=== PATIENT | female | born 1985 | race Caucasian/White ===

== ENCOUNTER → 2016-07-31 | Emergency (ER) | payer SELFPAY ==
[~2016-07-31] VITALS: Ht 175.3 cm; Wt 127.0 kg
[~2016-07-31] MED LIST: CLIN300C86 PO; GABA800T2 PO; HYDR-971 PO; IV NORMAL SALINE 1000ML BAG 1,000 ML IV SCH; KETOROLAC TROMETHAMINE 30 MG/ML INJ. IV ONE; ONDANSETRON PF 4 MG/2 ML VIAL. IV ONE
[2016-07-31 08:41] VITALS: BP 169/89
--- NOTE | 2016-07-31 08:59 | ED.ADGEN ---
Past Medical History Past Medical History: Anxiety, Asthma, Depression, Hypertension, Other Additional Past Medical Histor: neuropathy Past Surgical History: Cholecystectomy, , Hysterectomy, Other Additional Past Surgical Histo: dental Alcohol Use: Occasionally Drug Use: None Adult General Chief Complaint Chief Complaint: NAUSEA/VOMITING/DIARRHA HPI HPI Patient is a 30 year old woman, history of hypertension, anxiety, obesity, neuropathy for which she takes gabapentin, who presents to the emergency department with a complaint of nausea, vomiting, diarrhea, and epigastric abdominal pain. Patient is tearful upon arrival to the ED, states that she's had "many" episodes of vomiting since around 10 PM last night. She states that she last ate several hours prior to that, a burrito, denies any sick contacts or exposures, any fevers or chills, any similar to previously, states she is vomiting food and fluid, no blood in stool or emesis. She denies any weakness numbness or tingling, any recent travel, any previous surgeries. Denies any sexual activity, any urinary complaints, discharge or drainage in the vagina, states that diarrhea is loose brown stool, and emesis is food and fluid. Has not taken any medication prior to coming to the ED. States she's had similar episode previously, when she "had a bug". Review of Systems Review of Systems Constitutional: Denies fever or chills. [] Eyes: Denies change in visual acuity. [] HENT: Denies nasal congestion or sore throat. [] Respiratory: Denies cough or shortness of breath. [] Cardiovascular: Denies chest pain or edema. [] GI: Epigastric abdominal pain, intermittent, associated with nausea, vomiting, and diarrhea. : Denies dysuria. [] Musculoskeletal: Denies back pain or joint pain. [] Integument: Denies rash. [] Neurologic: Denies headache, focal weakness or sensory changes. [] Endocrine: Denies polyuria or polydipsia. [] Lymphatic: Denies swollen glands. [] Psychiatric: Denies depression or anxiety. [] Current Medications Current Medications Current Medications Medications (Trade) Dose Ordered Sig/Vanesa Start Time Stop Time Status Last Admin Dose Admin Ketorolac Tromethamine (Toradol) 10 mg 1X ONCE 07/31/16 09:00 07/31/16 09:01 DC 07/31/16 09:12 10 MG Ondansetron HCl (Zofran) 4 mg 1X ONCE 07/31/16 09:00 07/31/16 09:01 DC 07/31/16 09:12 4 MG Sodium Chloride (Iv Sodium Chloride 0.9% 1000ml Bag) 1,000 ml @ 1,000 mls/hr Q1H 07/31/16 08:49 07/31/16 09:48 DC 07/31/16 09:12 1,000 MLS/HR Allergies Allergies Allergies Coded Allergies Type Severity Reaction Last Updated Verified Penicillins Allergy Intermediate 03/06/14 Yes bupropion Allergy Intermediate 03/06/14 Yes meperidine Allergy Intermediate 03/06/14 Yes Physical Exam Physical Exam Constitutional: Well developed, obese, no acute distress, non-toxic appearance. [] HENT: Normocephalic, atraumatic, bilateral external ears normal, oropharynx moist, no oral exudates, nose normal. [] Eyes: PERRLA, EOMI, conjunctiva normal, no discharge. [] Neck: Normal range of motion, no tenderness, supple, no stridor. [] Cardiovascular:Heart rate regular rhythm, no murmur, S1, S2, rubs or gallops. [] Lungs & Thorax: Bilateral breath sounds clear to auscultation, no wheezing, rhonchi, rales. [] Abdomen: Bowel sounds normal, obese, soft, mild tenderness palpation in the epigastric region, no right upper quadrant tenderness, no lower quadrant tenderness, no rebound, rigidity, no guarding, active bowel sounds noted, no masses, no pulsatile masses. [] Skin: Warm, dry, no erythema, no rash. [] Back: No tenderness, no CVA tenderness. [] Extremities: No tenderness, no cyanosis, no clubbing, ROM intact, no edema. [] Neurologic: Alert and oriented X 3, normal motor function, normal sensory function, no focal deficits noted. [] Psychologic: Affect normal, judgement normal, mood normal. [] Current Patient Data Vital Signs Vital Signs Date Time Temp Pulse Resp B/P Pulse Ox O2 Delivery O2 Flow Rate FiO2 07/31/16 08:41 98.1 98 20 169/89 97 Room Air 98.1 Lab Values Laboratory Tests Test 07/31/16 09:00 07/31/16 09:05 07/31/16 09:40 Urine Collection Type Unknown Urine Color Yellow Urine Clarity Clear Urine pH 8.0 Urine Specific Tracy 1.010 Urine Protein Negativemg/dL (NEG-TRACE) Urine Glucose (UA) Negativemg/dL (NEG) Urine Ketones (Stick) Negativemg/dL (NEG) Urine Blood Negative (NEG) Urine Nitrite Negative (NEG) Urine Bilirubin Negative (NEG) Urine Urobilinogen Dipstick 0.2mg/dL (0.2 mg/dL) Urine Leukocyte Esterase Negative (NEG) Urine RBC Rare/HPF (0-2) Urine WBC 1-4/HPF (0-4) Urine Squamous Epithelial Cells Few/LPF Urine Bacteria Few/HPF (0-FEW) Urine Test Negative (NEG) Urine Opiates Screen Neg (NEG) Urine Methadone Screen Neg (NEG) Urine Barbiturates Neg (NEG) Urine Phencyclidine Screen Neg (NEG) Urine Amphetamine/Methamphetamine Neg (NEG) Urine Benzodiazepines Screen Neg (NEG) Urine Cocaine Screen Neg (NEG) Urine Cannabinoids Screen Neg (NEG) Urine Ethyl Alcohol Neg (NEG) White Blood Count 10.2x10^3/uL (4.0-11.0) Red Blood Count 4.93x10^6/uL (3.50-5.40) Hemoglobin 14.0g/dL (12.0-15.5) Hematocrit 39.7% (36.0-47.0) Mean Corpuscular Volume 81fL (79-100) Mean Corpuscular Hemoglobin 28pg (25-35) Mean Corpuscular Hemoglobin Concent 35g/dL (31-37) Red Cell Distribution Width 14.0% (11.5-14.5) Platelet Count 435x10^3/uL (140-400) H Neutrophils (%) (Auto) 82% (31-73) H Lymphocytes (%) (Auto) 11% (24-48) L Monocytes (%) (Auto) 6% (0-9) Eosinophils (%) (Auto) 0% (0-3) Basophils (%) (Auto) 1% (0-3) Neutrophils # (Auto) 8.4x10^3uL (1.8-7.7) H Lymphocytes # (Auto) 1.1x10^3/uL (1.0-4.8) Monocytes # (Auto) 0.6x10^3/uL (0.0-1.1) Eosinophils # (Auto) 0.0x10^3/uL (0.0-0.7) Basophils # (Auto) 0.1x10^3/uL (0.0-0.2) Sodium Level 122mmol/L (136-145) L Potassium Level 4.5mmol/L (3.5-5.1) Chloride Level 87mmol/L (98-107) L Carbon Dioxide Level 25mmol/L (21-32) Anion Gap 10 (6-14) Blood Urea Nitrogen 7mg/dL (7-20) Creatinine 0.6mg/dL (0.6-1.0) Estimated GFR (Cockcroft-Gault) 116.6 BUN/Creatinine Ratio 12 (6-20) Glucose Level 141mg/dL (70-99) H Calcium Level 9.0mg/dL (8.5-10.1) Total Bilirubin 0.2mg/dL (0.2-1.0) Aspartate Amino Transferase (AST) 15U/L (15-37) Alanine Aminotransferase (ALT) 20U/L (14-59) Alkaline Phosphatase 75U/L (46-116) Total Protein 7.3g/dL (6.4-8.2) Albumin 3.4g/dL (3.4-5.0) Albumin/Globulin Ratio 0.9 (1.0-1.7) L Lipase 57U/L (73-393) L Laboratory Tests 07/31/16 09:05 Laboratory Tests 07/31/16 09:40 EKG EKG Not indicated. [] Radiology/Procedures Radiology/Procedures [] Course & Med Decision Making Course & Med Decision Making Pertinent Labs and Imaging studies reviewed. (See chart for details) Patient received pain medication, antiemetics, was agreeable for laboratory studies and imaging of the abdomen. However while was with the patient, the patient called nurse Alvarado to the bedside and informed her that she "needed to leave right now". She was not willing to wait to discuss this with me, or to wait for a completion of her evaluation. Patient denies any further vomiting since arrival in the ED. Patient was calm and cooperative, appropriate in her responses, AMA paperwork was completed. Patient exited to the emergency department without issue. Dragon Disclaimer Dragon Disclaimer This electronic medical record was generated, in whole or in part, using a voice recognition dictation system. Departure Impression: Primary Impression: Left against medical advice Disposition: AGAINST MEDICAL ADVICE Condition: STABLE AMBER THOMAS DO Jul 31, 2016 08:59
[2016-07-31 09:24] LABS: BASO # 0.1 x10^3/uL (0.0-0.2); BASO % 1 % (0-3); EOS % 0 % (0-3); HEMATOCRIT 39.7 % (36.0-47.0); LYMPH # 1.1 x10^3/uL (1.0-4.8); LYMPH % 11 % (24-48); MEAN CORPUSCULAR HEMOGLOBIN 28 pg (25-35); MEAN CORPUSCULAR HGB CONC 35 g/dL (31-37); MEAN CORPUSCULAR VOLUME 81 fL (79-100); MONO % 6 % (0-9); NEUT % 82 % (31-73); PLATELET COUNT 435 x10^3/uL (140-400); RED BLOOD COUNT 4.93 x10^6/uL (3.50-5.40); WHITE BLOOD COUNT 10.2 x10^3/uL (4.0-11.0)
[2016-07-31 09:26] LABS: BILIRUBIN,URINE NEGATIVE (NEG); GLUCOSE,URINE NEGATIVE (NEG); NITRITE,URINE NEGATIVE (NEG); PROTEIN,URINE NEGATIVE (NEG-TRACE); UROBILINOGEN,URINE 0.2 mg/dL (0.2 mg/dL)
[2016-07-31 09:27] LABS: NEG OBC UR NEG; POS OBC UR POS
[2016-07-31 09:33] LABS: BARBITURATES NEG (NEG); BENZODIAZEPINES NEG (NEG); CANNABINOIDS NEG (NEG); COCAINE NEG (NEG); METHADONE NEG (NEG); OPIATES NEG (NEG); PHENCYCLIDINE NEG (NEG)
[2016-07-31 09:37] LABS: ETHANOL, URINE NEG (NEG)
[2016-07-31 10:01] LABS: CREATININE 0.6 mg/dL (0.6-1.0); GFR 116.6; POTASSIUM 4.5 mmol/L (3.5-5.1)
[2016-07-31 10:06] LABS: BACTERIA,URINE FEW /HPF (0-FEW); RBC,URINE RARE /HPF (0-2); SQUAMOUS EPITHELIAL CELL,UR FEW /LPF
[2016-07-31 10:16] LABS: ALBUMIN 3.4 g/dL (3.4-5.0); ALBUMIN/GLOBULIN RATIO 0.9 (1.0-1.7); TOTAL BILIRUBIN 0.2 mg/dL (0.2-1.0); TOTAL PROTEIN 7.3 g/dL (6.4-8.2)
== END ==
LOC: ER 08:36
DX: R10.13 Epigastric pain (principal); R11.2 Nausea with vomiting, unspecified; R19.7 Diarrhea, unspecified; F41.9 Anxiety disorder, unspecified; J45.909 Unspecified asthma, uncomplicated; F32.9 Major depressive disorder, single episode, unspecified; I10 Essential (primary) hypertension; E66.9 Obesity, unspecified; G62.9 Polyneuropathy, unspecified; Z68.41 Body mass index [BMI] 40.0-44.9, adult; Z90.49 Acquired absence of other specified parts of digestive tract; Z90.710 Acquired absence of both cervix and uterus; Z88.0 Allergy status to penicillin; Z88.8 Allergy status to other drugs, medicaments and biological substances
CPT/HCPCS: 36415; 80053; 81001; 81025; 83690; 85027; 96361; 96374; 96375; 99284; G0481; J1885; J2405; J7030

== ENCOUNTER 2016-08-06 06:04 | Inpatient (IN) | payer OTHER ==
[~2016-08-06] VITALS: Ht 172.7 cm; Wt 149.7 kg
[2016-08-06] VITALS (13 sets, daily range): BP systolic 74–163; BP diastolic 34–90
[~2016-08-06 06:04] MED LIST changes: -IV NORMAL SALINE 1000ML BAG 1,000 ML IV SCH; -KETOROLAC TROMETHAMINE 30 MG/ML INJ. IV ONE; -ONDANSETRON PF 4 MG/2 ML VIAL. IV ONE
[2016-08-06 06:26] LABS: BASO # 0.1 x10^3/uL (0.0-0.2); BASO % 1 % (0-3); EOS % 1 % (0-3); HEMATOCRIT 41.6 % (36.0-47.0); LYMPH # 2.6 x10^3/uL (1.0-4.8); LYMPH % 27 % (24-48); MEAN CORPUSCULAR HEMOGLOBIN 28 pg (25-35); MEAN CORPUSCULAR HGB CONC 34 g/dL (31-37); MEAN CORPUSCULAR VOLUME 85 fL (79-100); MONO % 6 % (0-9); NEUT % 66 % (31-73); PLATELET COUNT 483 x10^3/uL (140-400); RED BLOOD COUNT 4.92 x10^6/uL (3.50-5.40); RED CELL DISTRIBUTION WIDTH 14.4 % (11.5-14.5); WHITE BLOOD COUNT 9.6 x10^3/uL (4.0-11.0)
[2016-08-06 06:35] LABS: CALCIUM 9.3 mg/dL (8.5-10.1); CREATININE 0.9 mg/dL (0.6-1.0); POTASSIUM 5.1 mmol/L (3.5-5.1)
--- NOTE | 2016-08-06 06:38 | EKG ---
[facility] [address] [place] [address] Test Date: 2016-08-06 Test Time: 06:17:00 Pat Name: HAIR SEGOVIA Department: Room: Gender: F Information Services Assistant: : 1985 Requested By: SHARRI BASSETT Order Number: [id number] Reading MD: Cynthia Crain Measurements Intervals [place] Rate: 101 P: 15 W[place]: 108 QRS: 75 QRSD: 98 T: 31 QT: 340 QTc: 442 Interpretive Statements SINUS TACHYCARDIA LEFT ATRIAL ABNORMALITY QRS(T) CONTOUR ABNORMALITY CONSIDER INFERIOR MYOCARDIAL DAMAGE ABNORMAL ECG RI6.01 No previous ECG available for comparison Electronically Signed On 08-06-2016 21:08:47 CDT by Cynthia Crain
[2016-08-06 06:39] LABS: ETHANOL < 10 mg/dL (0-10)
[2016-08-06 06:41] LABS: ALBUMIN 3.3 g/dL (3.4-5.0); ALBUMIN/GLOBULIN RATIO 0.8 (1.0-1.7); TOTAL BILIRUBIN 0.2 mg/dL (0.2-1.0); TOTAL PROTEIN 7.5 g/dL (6.4-8.2)
[2016-08-06 06:49] LABS: BARBITURATES NEG (NEG); BENZODIAZEPINES NEG (NEG); CANNABINOIDS NEG (NEG); COCAINE NEG (NEG); METHADONE NEG (NEG); OPIATES NEG (NEG); PHENCYCLIDINE NEG (NEG)
--- NOTE | 2016-08-06 06:51 | ACF ---
Admission Forms Criteria DRUG INGESTION OR OVERDOSE Clinical Indications for Admission to Inpatient Care ( Place 'X' for any and all applicable criteria): Admission is indicated for severe toxicity as indicated by ANY ONE of the following(1)(2)(3)(4)(5)(6): [X]I. Inpatient admission required rather than observation care (Also use Drug Ingestion or Overdose: Observation Care guideline as appropriate) because of ANY ONE of the following: [ ]a) Altered mental status that is severe or persistent [ ]b) Clinical finding (eg, metabolic acidosis, hypoglycemia, bradycardia) that is severe or persistent [ ]c) Toxic drug level that is persistent [X]d) Psychiatric risk status not acceptable for outpatient management [ ]e) Continuous intravenous infusion of anticoagulation, platelet inhibitor, vasoactive, or antiarrhythmic medication (15)(16) [ ]f) Other condition, treatment or monitoring requiring inpatient admission [ ]II. Respiratory abnormalities [ ]III. Specific finding indicating severe and likely prolonged drug toxicity [ ]IV. Hemodynamic instability [ ]V. Dangerous arrhythmia [ ]. Hypertension requiring inpatient treatment Extended stay beyond goal length of stay may be needed for (4): [ ]a) Neurologic or respiratory compromise [ ]b) Hemodynamic instability [ ]c) Persistent toxic drug levels (25) [ ]d) Severe drug toxicities or complications [ ]e) Ongoing antidote treatment (eg, acetaminophen overdose)(5) [ ]f) Older patients(65 years or older) The original [employer] content created by [employer] has been revised. The portions of the content which have been revised are identified through the use of italic text or in bold, and [facility] has neither reviewed nor approved the modified material. All other unmodified content is copyright [employer]. Please see references footnoted in the original [employer] edition 2016 MIRA NÚÑEZ August 06, 2016 06:51
[2016-08-06] MEDS ORDERED: IV NORMAL SALINE 1000ML BAG 1,000 ML IV ONE ×2 (07:00→09:00)
[2016-08-06] MEDS ORDERED: ONDANSETRON PF 4 MG/2 ML VIAL. IV ONE ×2 (07:00→08:00)
[2016-08-06] MEDS ORDERED: ONDANSETRON ODT 4 MG TAB.RAPDIS. PO ONE (07:00)
--- NOTE | 2016-08-06 07:48 | ED.ADGEN ---
Past Medical History Past Medical History: Anxiety, Asthma, Depression, Hypertension, Other Additional Past Medical Histor: neuropathy Past Surgical History: Cholecystectomy, , Hysterectomy, Other Additional Past Surgical Histo: dental Alcohol Use: Occasionally Drug Use: None Adult General Chief Complaint Chief Complaint: SUICDAL IDEATION HPI HPI Patient is a 30 year old female presents with intentional drug overdose. Patient states she's been treated depressed and took 180, 500 mg metformin tablets 20 minutes in an apparent suicide gesture prior to ED arrival. Patient states after taking the tablets she began to vomit. Patient reports feeling dizzy, confused, lightheaded, nauseated. Patient's blood sugar on ED arrival is 320. Patient is not on insulin. She confirms that she does indeed take. However, it is noted on the patient's medication list that she is also carbamazepine and gabapentin. No medication bottles were not brought in by EMS. History is limited due to patient's altered mental status. She lives by herself. Review of Systems Review of Systems ROS as per HPI. Current Medications Current Medications Current Medications Medications (Trade) Dose Ordered Sig/Vanesa Start Time Stop Time Status Last Admin Dose Admin Ondansetron HCl (Zofran) 4 mg 1X ONCE 08/06/16 08:00 08/06/16 08:01 DC 08/06/16 08:09 4 MG Ondansetron HCl 4 mg 4 mg 1X ONCE 08/06/16 07:00 08/06/16 07:00 DC Sodium Chloride (Iv Sodium Chloride 0.9% 1000ml Bag) 1,000 ml @ 1,000 mls/hr 1X ONCE 08/06/16 07:00 08/06/16 07:59 DC 08/06/16 07:00 1,000 MLS/HR Allergies Allergies Allergies Coded Allergies Type Severity Reaction Last Updated Verified Penicillins Allergy Intermediate 03/06/14 Yes bupropion Allergy Intermediate 03/06/14 Yes meperidine Allergy Intermediate 03/06/14 Yes Physical Exam Physical Exam Constitutional: Well developed, anxious, confused, lethargic appearing HENT: Normocephalic, atraumatic, bilateral external ears normal, oropharynx moist, no oral exudates, nose normal. Eyes: PERRL, no nystagmus. Neck: Normal range of motion, supple. Cardiovascular:Heart rate regular rhythm, no murmur. Lungs & Thorax: Bilateral breath sounds clear to auscultation. Abdomen: Bowel sounds normal, soft, no tenderness. Skin: Diaphoretic. Back: No tenderness. Extremities: No tenderness, no cyanosis, no clubbing, ROM intact, no edema. Neurologic: Alert and oriented X2 normal motor function, normal sensory function , no focal deficits noted. Psychologic: Affect anxious. Current Patient Data Vital Signs Vital Signs Date Time Temp Pulse Resp B/P Pulse Ox O2 Delivery O2 Flow Rate FiO2 08/06/16 07:04 102 20 160/79 94 Room Air 08/06/16 06:05 98.4 98.4 Lab Values Laboratory Tests Test 08/06/16 06:12 08/06/16 06:14 08/06/16 06:25 08/06/16 07:08 White Blood Count 9.6x10^3/uL (4.0-11.0) Red Blood Count 4.92x10^6/uL (3.50-5.40) Hemoglobin 14.0g/dL (12.0-15.5) Hematocrit 41.6% (36.0-47.0) Mean Corpuscular Volume 85fL (79-100) Mean Corpuscular Hemoglobin 28pg (25-35) Mean Corpuscular Hemoglobin Concent 34g/dL (31-37) Red Cell Distribution Width 14.4% (11.5-14.5) Platelet Count 483x10^3/uL (140-400) H Neutrophils (%) (Auto) 66% (31-73) Lymphocytes (%) (Auto) 27% (24-48) Monocytes (%) (Auto) 6% (0-9) Eosinophils (%) (Auto) 1% (0-3) Basophils (%) (Auto) 1% (0-3) Neutrophils # (Auto) 6.3x10^3uL (1.8-7.7) Lymphocytes # (Auto) 2.6x10^3/uL (1.0-4.8) Monocytes # (Auto) 0.6x10^3/uL (0.0-1.1) Eosinophils # (Auto) 0.0x10^3/uL (0.0-0.7) Basophils # (Auto) 0.1x10^3/uL (0.0-0.2) Sodium Level 123mmol/L (136-145) L Potassium Level 5.1mmol/L (3.5-5.1) Chloride Level 92mmol/L (98-107) L Carbon Dioxide Level 16mmol/L (21-32) L Anion Gap 15 (6-14) H Blood Urea Nitrogen 8mg/dL (7-20) Creatinine 0.9mg/dL (0.6-1.0) Estimated GFR (Cockcroft-Gault) 73.0 BUN/Creatinine Ratio 9 (6-20) Glucose Level 338mg/dL (70-99) H Lactic Acid Level 9.9mmol/L (0.4-2.0) *H Calcium Level 9.3mg/dL (8.5-10.1) Total Bilirubin 0.2mg/dL (0.2-1.0) Aspartate Amino Transferase (AST) 10U/L (15-37) L Alanine Aminotransferase (ALT) 18U/L (14-59) Alkaline Phosphatase 77U/L (46-116) Total Protein 7.5g/dL (6.4-8.2) Albumin 3.3g/dL (3.4-5.0) L Albumin/Globulin Ratio 0.8 (1.0-1.7) L Lipase 81U/L (73-393) Serum Test, Qualitative Negative (NEG) Salicylates Level 4.3mg/dL (2.8-20.0) Salicylate Last Dose Date Unknown Salicylate Last Dose Time Unknown Acetaminophen Level < 2mcg/ml (10-30) L Acetaminophen Last Dose Date Unknown Acetaminophen Last Dose Time Unknown Carbamazepine (Tegretol) Level 10.3mcg/mL (4.0-12.0) Carbamazepine Last Dose Date 08/06/16 Carbamazepine Last Dose Time 0600 Ethyl Alcohol Level < 10mg/dL (0-10) Glucose (Fingerstick) 319mg/dL (70-99) H 299mg/dL (70-99) H Urine Opiates Screen Neg (NEG) Urine Methadone Screen Neg (NEG) Urine Barbiturates Neg (NEG) Urine Phencyclidine Screen Neg (NEG) Urine Amphetamine/Methamphetamine Neg (NEG) Urine Benzodiazepines Screen Neg (NEG) Urine Cocaine Screen Neg (NEG) Urine Cannabinoids Screen Neg (NEG) Urine Ethyl Alcohol Neg (NEG) Laboratory Tests 08/06/16 06:12 Laboratory Tests 08/06/16 06:12 EKG EKG [EKG: Sinus tach rate 100's, no acute ST-T wave changes.] Radiology/Procedures Radiology/Procedures [Chest x-ray: Pending CT abdomen and pelvis: Pending Intubation procedure note Performing physician Dr. Bryant Bassett Verbal consent was obtained from the patient due to the emergent nature the procedure Anesthesia: Etomidate 20 mg, succinylcholine 100 mg Patient was placed in supine position attached to a cardiovascular and pulse oximetry monitors. After adequate level of anesthesia, 7.5 endotracheal tube was easily inserted vocal cords on first attempt via the medial laryngoscope. Right choroid pressure was not required. Following which, the tube was secured at 24 cm at the lips. Tube placement was confirmed with positive capnometry, bilateral breath sounds, and absence of air noises in the epigastrium. A postprocedure chest x-ray to confirm tube placement to confirm placement. ] Impressions: Mental status from unknown drug ingestion. Patient states she took metformin, but blood sugars remain greater than 300 and local pharmacy does not list that as a current medication. Worsening abdominal pain rating to back with crying anion gap metabolic acidosis while in the ED. Dr. Roe consulted and agrees to perform emergent dialysis. Bicarbonate, insulin given. Volatile alcohol labs sent to [facility]. Patient intubated to facilitate advanced imaging and Christina's catheter placement. Dr. Sommer updated of patient's progress. Course & Med Decision Making Course & Med Decision Making Pertinent Labs and Imaging studies reviewed. (See chart for details) [ Dragon Disclaimer Dragon Disclaimer This electronic medical record was generated, in whole or in part, using a voice recognition dictation system. BRYANT BASSETT DO August 06, 2016 07:48
[2016-08-06] MEDS ORDERED: ONDANSETRON PF 4 MG/2 ML VIAL. IV PRN (08:15)
[2016-08-06] MEDS ORDERED: FAMOTIDINE 20 MG/2 ML VIAL IVP ONE (08:30)
[2016-08-06 08:35] LABS: NEG OBC SER NEG; POS OBC SER POS
[2016-08-06] MEDS: IV NORMAL SALINE 1000ML BAG 1,000 ML IV SCH (08:36)
--- NOTE | 2016-08-06 08:37 | ACF ---
Admission Forms Criteria PSYCHIATRIC DISORDERS Clinical Indications for Inpatient Care (Place 'X' for any and all applicable criteria): Ongoing inpatient care may be needed for ANY ONE of the following(1)(2)(3)(4)(6) (7)(8): [ ]I. Danger to self or others not manageable at lower level of care. [ ]II. Grave disability (eg, inability to perform self care necessary at lower level of care) [ ]III. Agitation or inappropriate behavior interfering with care for primary condition (eg, attempting to discontinue lines or drains prematurely, unable to cooperate with respiratory care) [ ]IV. Severe disability or disorder indicated by ALL of the following: [ ]a) Severe behavioral health disorder-related symptoms or condition indicated by ANY ONE of the following: [ ]i) Severe problem with cognition, memory, judgment, or impulse control [ ]ii) Severe clinical manifestations (eg, hallucinations, delusions, other acute psychotic symptoms, se[place], extreme agitation or anxiety) [ ]b) Patient management at lower level of care is not feasible until acute intervention or modification is initiated. Extended stay beyond goal length of stay for the primary condition may be indicated when ANY ONE of the following is present: (1)(2)(3)(4): [ ]a) Patient is a danger to self or others and not manageable at lower level of care. [ ]b) Behavior crisis management, including physical or chemical restraints, is required and is not available at a lower level of care. [ ]c) Behavioral symptoms (e.g., agitation, somnolence, inappropriate behavior) are present, and are not manageable at a lower level of care. [ ]d) Patient cannot understand follow-up treatment and crisis plan. [ ]e) Provider and supports are not sufficiently available at lower level of care. [ ]f) Patient cannot participate (e.g., verify absence of plan for harm) and is in needed of monitoring. The original [employer] content created by [employer] has been revised. The portions of the content which have been revised are identified through the use of italic text or in bold, and [facility] has neither reviewed nor approved the modified material. All other unmodified content is copyright [employer] [facility]. Please see references footnoted in the original [employer] edition 2016 MIRA NÚÑEZ August 06, 2016 08:37
[2016-08-06 09:26] LABS: HCO3 ABG 7 mmol/L (21-28); PO2 ABG 129 mmHg (85-108); SAT O2 ABG 97 % (92-99)
[2016-08-06] MEDS ORDERED: INSULIN REGULAR 100 UNIT/ML 10ML VIAL. SQ ONE (09:45)
[2016-08-06] MEDS ORDERED: SODIUM BICARB ADULT 8.4% 50 MEQ/50 ML DISP.SYRIN. IV ONE ×3 (10:00→15:00)
[2016-08-06] MEDS ORDERED: IOHEXOL 300 MG/ML 75 ML VIAL IV ONE (10:15)
[2016-08-06] MEDS ORDERED: PROPOFOL 50 ML IV ONE ×2 (10:27→11:02)
[2016-08-06 10:35] LABS: CALCIUM 9.6 mg/dL (8.5-10.1); CREATININE 1.2 mg/dL (0.6-1.0); GFR 52.4; POTASSIUM 5.7 mmol/L (3.5-5.1)
[2016-08-06] MEDS: PROPOFOL 100 ML IV PRN ×2 (10:38→13:16)
[2016-08-06] MEDS ORDERED: LIDOCAINE 1% / SOD BICARB 8.4% 20 ML VIAL. IJ ONE ×2 (10:40→12:30)
[2016-08-06] MEDS ORDERED: HEPARIN for IV BOLUS 10,000 UNIT/10 ML VIAL. ONE (10:40)
[2016-08-06] MEDS ORDERED: fentaNYL PF VIAL 100 MCG/2 ML VIAL IV ONE (10:45)
[2016-08-06] MEDS ORDERED: MIDAZOLAM HCL/PF 5 MG/5 ML VIAL. IV ONE ×3 (10:45→16:30)
--- NOTE | 2016-08-06 11:20 | RAD ---
Indication respiratory failure. Single view of the chest was obtained. No prior imaging of the chest is available. Heart size is at the upper limits of normal. An acute parenchymal infiltrate in either lung is not seen. Significant pleural fluid is not present. There is no pneumothorax. Nasogastric tube has its tip beyond the distal esophagus. Endotracheal tube is appropriately positioned above the sandhya. IMPRESSION: Appropriately positioned endotracheal tube. NG tube at least to the GE junction. No focal process seen in the chest
[2016-08-06] MEDS ORDERED: MAGNESIUM SULFATE 2GM 50 ML IV PRN (11:30)
[2016-08-06] MEDS ORDERED: ETOMIDATE 20 MG/10 ML VIAL. IV ONE (11:35)
[2016-08-06] MEDS ORDERED: SUCCINYLCHOLINE 200 MG/10 ML VIAL. ONE (11:36)
[2016-08-06] MEDS ORDERED: PROPOFOL 100 ML IV ONE (12:01)
--- NOTE | 2016-08-06 12:13 | RAD ---
Indication abdominal pain. Axial images through the abdomen and pelvis were obtained. 75 cc of Omnipaque 300 was administered intravenously. No oral contrast was administered. The study is compromised secondary to moderately severe patient motion. No prior imaging of the abdomen or pelvis is available. There is volume loss, compatible with atelectasis or pneumonia, at the lung bases right somewhat greater than left. A nasogastric tube is noted extending into the body of the stomach. Donohue catheter is noted in the urinary bladder. The liver appears grossly normal as does the spleen. Clips are seen in the gallbladder fossa. No definite pancreatic pathology is seen. The adrenal glands and kidneys appear grossly normal. Acute finding in the abdomen is not apparent. No acute finding is apparent in the pelvis. IMPRESSION: Limited study secondary to motion. No acute finding seen in the abdomen or pelvis. Volume loss at the lung bases may reflect atelectasis or pneumonia
[2016-08-06 13:08] LABS: FIO2 ABG 21; PCO2 ABG 18 mmHg (35-46); PH ABG 7.18 (7.35-7.45)
--- NOTE | 2016-08-06 13:09 | PDOC ---
Exam It Security Manager It Security Manager [employer] Network Associate Network Associate Ney Chatterjee Pre-Procedure Diagnosis Pre-Procedure Diagnosis 30 YO female with drug overdose, lactic acidosis, and hyperkalemia----bedside temp HDC insertion requested by renal Post-Procedure Diagnosis Post-Procedure Diagnosis Same Procedure Performed Procedure Performed Bedside ICU sono guided temp HDC insertion Type of Anesthesia Type of Anesthesia Local Estimated Blood Loss EBL: Trace Drain/Tubes Drains/Tubes Rt IJ 14F 20cm Schon temp HDC Condition of Patient Condition of Patient No change. No apparent complication. Disposition Disposition STAT pCXR requested for HDC position. Full report to follow. ANNE AG MD August 06, 2016 13:09
[2016-08-06 13:44] LABS: BILIRUBIN,URINE NEGATIVE (NEG); GLUCOSE,URINE NEGATIVE (NEG); NITRITE,URINE NEGATIVE (NEG); PROTEIN,URINE NEGATIVE (NEG-TRACE); UROBILINOGEN,URINE 0.2 mg/dL (0.2 mg/dL)
[2016-08-06 13:55] LABS: BACTERIA,URINE 0 /HPF (0-FEW); RBC,URINE RARE /HPF (0-2); SQUAMOUS EPITHELIAL CELL,UR OCC /LPF; WBC,URINE OCC /HPF (0-4)
[2016-08-06 14:04] LABS: URIC ACID 5.5 mg/dL (2.6-6.0)
[2016-08-06 14:10] LABS: HCO3 ABG 6 mmol/L (21-28); PCO2 ABG 32 mmHg (35-46); PO2 ABG 124 mmHg (85-108); SAT O2 ABG 96 % (92-99)
[2016-08-06 14:18] LABS: FIO2 ABG 100
[2016-08-06] MEDS ORDERED: DEXTROSE 50% 25 GM / 50ML DISP.SYRIN. IV ONE ×4 (14:19→14:45)
--- NOTE | 2016-08-06 14:23 | PDOC ---
Provider Note Provider Note dictated DIONICIO MENDIETA MD August 06, 2016 14:23
--- NOTE | 2016-08-06 14:23 | RAD ---
Portable chest, 08/06/2016, 1:10 PM: History: Check catheter placement Comparison is made to a study from earlier the same day at 10:58 AM. A right jugular dialysis type catheter has been inserted extending into the superior aspect of the right atrium. The ET tube tip lies well above the sandhya. An NG tube extends at least into the distal esophagus, although its tip is not visible. The heart size and pulmonary vascularity are normal. The lateral costophrenic angles were not included on this exam. No pulmonary infiltrate, pneumothorax or pleural fluid is seen. IMPRESSION: 1. Interval insertion of a right jugular dialysis type catheter extending into the superior aspect of the right atrium. 2. No other significant change since earlier in the day.
[2016-08-06] MEDS ORDERED: SODIUM BICARB ADULT 8.4% 50 MEQ/50 ML DISP.SYRIN. ONE (14:27)
[2016-08-06] MEDS ORDERED: DEXTROSE 50% 25 GM / 50ML DISP.SYRIN. IV PRN ×2 (14:30→16:30)
--- NOTE | 2016-08-06 14:31 | PDOC1 ---
History and Physical Date of Admission Date of Admission 08/06/16 Identification/Chief Complaint Chief Complaint AMS Problems: Source Source: Chart review History of Present Illness History of Present Illness HPI HPI Patient is a 30 year old female presents with intentional drug overdose. pT is intubated as being seen in ICU, all history is from ERP and nurse. As per ERP, pt has been depressed and took 180 pills of 500mg metformin today, for suicide. Pt had a fight with her . Pt called EMS. Patient states after taking the tablets she began to vomit. Patient reports feeling dizzy, confused, lightheaded, nauseated. Patient's blood sugar on ED arrival is 320. Pt denies DM tho, and is not on insulin. However, it is noted on the patient' s medication list that she is also carbamazepine and gabapentin. No medication bottles were not brought in by EMS. History is limited due to patient's altered mental status. She lives by herself? as per ERP. Pt was very lethargic, and severe lactate acidosis and metabolic acidosis, then intubated and get Emergent HD today. Past Medical History Past Medical History depression Past Surgical History Past Surgical History: No pertinent history Family History Family History: No Significant Social History Smoke: No ALCOHOL: none Drugs: None Current Problem List Problem List Problems Medical Problems: (1) Altered mental status Status: Acute (2) Drug overdose, intentional Status: Acute (3) Hyponatremia Status: Acute (4) Intentional drug overdose Status: Acute Current Medications Current Medications Current Medications Medications (Trade) Dose Ordered Sig/Vanesa Start Time Stop Time Status Last Admin Dose Admin Dextrose (Dextrose 50%-Water Syringe) 25 gm STK-MED ONCE 08/06/16 14:19 08/06/16 14:20 DC Etomidate (Amidate) 20 mg STK-MED ONCE 08/06/16 11:35 08/06/16 11:36 DC Famotidine 20 mg 20 mg 1X ONCE 08/06/16 08:30 08/06/16 08:31 DC 08/06/16 08:33 20 MG Fentanyl Citrate (Fentanyl 2ml Vial) 25 mcg 1X ONCE 08/06/16 10:45 08/06/16 10:46 DC 08/06/16 10:35 25 MCG Heparin Sodium (Porcine) (Heparin Sodium) 2,500 unit 1X ONCE 08/06/16 12:30 08/06/16 12:31 DC 08/06/16 12:50 2,500 UNIT Heparin Sodium/ Sodium Chloride 60 unit 1X ONCE 08/06/16 12:30 08/06/16 12:31 DC 08/06/16 12:50 60 UNIT Insulin Human Regular (Novolin R Vial) 10 unit 1X ONCE 08/06/16 09:45 08/06/16 12:45 DC Iohexol (Omnipaque 300 Mg/ml) 75 ml 1X ONCE 08/06/16 10:15 08/06/16 10:16 DC 08/06/16 11:31 75 ML Lidocaine/Sodium Bicarbonate (Buffered Lidocaine 1%) 3 ml 1X ONCE 08/06/16 12:30 08/06/16 12:31 DC 08/06/16 12:50 3 ML Lidocaine/Sodium Bicarbonate 20 ml 20 ml STK-MED ONCE 08/06/16 10:40 08/06/16 10:41 DC Lorazepam (Ativan) 2 mg 1X ONCE 08/06/16 10:00 08/06/16 10:01 DC Magnesium Sulfate/ Dextrose (Magnesium Sulfate PREMIX 2GM) 50 ml @ 25 mls/hr PRN DAILY PRN 08/06/16 11:30 Midazolam HCl (Versed) 4 mg 1X ONCE 08/06/16 12:15 08/06/16 12:20 DC 08/06/16 12:00 4 MG Ondansetron HCl (Zofran Odt) 4 mg 1X ONCE 08/06/16 07:00 08/06/16 07:00 DC Ondansetron HCl (Zofran) 4 mg PRN Q8HRS PRN 08/06/16 08:15 08/07/16 08:14 Propofol (Diprivan) 100 ml @ 0 mls/hr CONT PRN 08/06/16 12:15 08/06/16 13:16 28.005 MLS/HR Sodium Bicarbonate 100 meq 1X ONCE 08/06/16 10:00 08/06/16 10:01 DC 08/06/16 11:04 100 MEQ Sodium Chloride (Iv Sodium Chloride 0.9% 1000ml Bag) 1,000 ml @ 1,000 mls/hr 1X ONCE 08/06/16 09:00 08/06/16 09:59 DC 08/06/16 09:36 1,000 MLS/HR Succinylcholine Chloride 200 mg 200 mg STK-MED ONCE 08/06/16 11:36 08/06/16 11:37 DC Allergies Allergies Allergies Coded Allergies Type Severity Reaction Last Updated Verified Penicillins Allergy Intermediate 03/06/14 Yes bupropion Allergy Intermediate 03/06/14 Yes meperidine Allergy Intermediate 03/06/14 Yes ROS Review of System CONSTITUTIONAL: No fever or chills EYES: No recent changes SKIN: No rash or itching CARDIOVASCULAR: No chest pain, syncope, palpitations, or edema RESPIRATORY: No SOB or cough GASTROINTESTINAL: No nausea, vomiting or abdominal pain NEUROLOGICAL: No headaches or weakness ENDOCRINE: No cold or heat intolerance GENITOURINARY: No urgency or frequency of urination MUSCULOSKELETAL: No back pain or joint pain LYMPHATICS: No enlarged lymph nodes PSYCHIATRIC: No anxiety or depression Physical Exam Physical Exam GEN.: intubated, agitated HEENT: Head is normocephalic, atraumatic NECK: Supple. LUNGS: Clear to auscultation. HEART: RRR, S1, S2 present. Peripheral pulses intact ABDOMEN: Soft, nontender. Positive bowel sounds. EXTREMITIES: Without any cyanosis. NEUROLOGIC: Normal speech, normal tone PSYCHIATRIC: Normal affect, normal mood. SKIN: No ulcerations Vitals Vitals Vital Signs Date Time Temp Pulse Resp B/P Pulse Ox O2 Delivery O2 Flow Rate FiO2 08/06/16 12:50 97.7 96 96/46 96 97.7 08/06/16 12:29 16 Ventilator Labs Labs Laboratory Tests Test 08/06/16 06:12 08/06/16 06:14 08/06/16 06:25 08/06/16 06:45 White Blood Count 9.6x10^3/uL (4.0-11.0) Red Blood Count 4.92x10^6/uL (3.50-5.40) Hemoglobin 14.0g/dL (12.0-15.5) Hematocrit 41.6% (36.0-47.0) Mean Corpuscular Volume 85fL (79-100) Mean Corpuscular Hemoglobin 28pg (25-35) Mean Corpuscular Hemoglobin Concent 34g/dL (31-37) Red Cell Distribution Width 14.4% (11.5-14.5) Platelet Count 483x10^3/uL (140-400) Neutrophils (%) (Auto) 66% (31-73) Lymphocytes (%) (Auto) 27% (24-48) Monocytes (%) (Auto) 6% (0-9) Eosinophils (%) (Auto) 1% (0-3) Basophils (%) (Auto) 1% (0-3) Neutrophils # (Auto) 6.3x10^3uL (1.8-7.7) Lymphocytes # (Auto) 2.6x10^3/uL (1.0-4.8) Monocytes # (Auto) 0.6x10^3/uL (0.0-1.1) Eosinophils # (Auto) 0.0x10^3/uL (0.0-0.7) Basophils # (Auto) 0.1x10^3/uL (0.0-0.2) Sodium Level 123mmol/L (136-145) Potassium Level 5.1mmol/L (3.5-5.1) Chloride Level 92mmol/L (98-107) Carbon Dioxide Level 16mmol/L (21-32) Anion Gap 15 (6-14) Blood Urea Nitrogen 8mg/dL (7-20) Creatinine 0.9mg/dL (0.6-1.0) Estimated GFR (Cockcroft-Gault) 73.0 BUN/Creatinine Ratio 9 (6-20) Glucose Level 338mg/dL (70-99) Lactic Acid Level 9.9mmol/L (0.4-2.0) Calcium Level 9.3mg/dL (8.5-10.1) Total Bilirubin 0.2mg/dL (0.2-1.0) Aspartate Amino Transf (AST/SGOT) 10U/L (15-37) Alanine Aminotransferase (ALT/SGPT) 18U/L (14-59) Alkaline Phosphatase 77U/L (46-116) Total Protein 7.5g/dL (6.4-8.2) Albumin 3.3g/dL (3.4-5.0) Albumin/Globulin Ratio 0.8 (1.0-1.7) Lipase 81U/L (73-393) Serum Test, Qualitative Negative (NEG) Salicylates Level 4.3mg/dL (2.8-20.0) Salicylate Last Dose Date Unknown Salicylate Last Dose Time Unknown Acetaminophen Level < 2mcg/ml (10-30) Acetaminophen Last Dose Date Unknown Acetaminophen Last Dose Time Unknown Carbamazepine (Tegretol) Level 10.3mcg/mL (4.0-12.0) Carbamazepine Last Dose Date 08/06/16 Carbamazepine Last Dose Time 0600 Ethyl Alcohol Level < 10mg/dL (0-10) Glucose (Fingerstick) 319mg/dL (70-99) Urine Opiates Screen Neg (NEG) Urine Methadone Screen Neg (NEG) Urine Barbiturates Neg (NEG) Urine Phencyclidine Screen Neg (NEG) Urine Amphetamine/Methamphetamine Neg (NEG) Urine Benzodiazepines Screen Neg (NEG) Urine Cocaine Screen Neg (NEG) Urine Cannabinoids Screen Neg (NEG) Urine Ethyl Alcohol Neg (NEG) O2 Saturation 97% (92-99) Arterial Blood pH 7.18 (7.35-7.45) Arterial Blood pCO2 at Patient Temp 18mmHg (35-46) Arterial Blood pO2 at Patient Temp 129mmHg (85-108) Arterial Blood HCO3 7mmol/L (21-28) Arterial Blood Base Excess -19mmol/L (-3-3) FiO2 21 Test 08/06/16 07:08 08/06/16 09:05 08/06/16 10:31 08/06/16 13:30 Glucose (Fingerstick) 299mg/dL (70-99) 197mg/dL (70-99) Sodium Level 129mmol/L (136-145) Potassium Level 5.7mmol/L (3.5-5.1) Chloride Level 97mmol/L (98-107) Carbon Dioxide Level 12mmol/L (21-32) Anion Gap 20 (6-14) Blood Urea Nitrogen 8mg/dL (7-20) Creatinine 1.2mg/dL (0.6-1.0) Estimated GFR (Cockcroft-Gault) 52.4 Glucose Level 205mg/dL (70-99) Serum Osmolality 287mOsm/Kg (279-304) Lactic Acid Level 13.5mmol/L (0.4-2.0) Calcium Level 9.6mg/dL (8.5-10.1) Acetone Level Neg (NEG) Urine Color Yellow Urine Clarity Clear Urine pH 6.0 Urine Specific [place] 1.010 Urine Protein Negativemg/dL (NEG-TRACE) Urine Glucose (UA) Negativemg/dL (NEG) Urine Ketones (Stick) Negativemg/dL (NEG) Urine Blood Trace (NEG) Urine Nitrite Negative (NEG) Urine Bilirubin Negative (NEG) Urine Urobilinogen Dipstick 0.2mg/dL (0.2 mg/dL) Urine Leukocyte Esterase Negative (NEG) Urine RBC Rare/HPF (0-2) Urine WBC Occ/HPF (0-4) Urine Squamous Epithelial Cells Occ/LPF Urine Bacteria 0/HPF (0-FEW) Test 08/06/16 13:35 08/06/16 14:00 Uric Acid 5.5mg/dL (2.6-6.0) Creatine Kinase 172U/L (26-192) O2 Saturation 96% (92-99) Arterial Blood pH 6.90 (7.35-7.45) Arterial Blood pCO2 at Patient Temp 32mmHg (35-46) Arterial Blood pO2 at Patient Temp 124mmHg (85-108) Arterial Blood HCO3 6mmol/L (21-28) Arterial Blood Base Excess -26mmol/L (-3-3) FiO2 100 Laboratory Tests Test 08/06/16 06:12 08/06/16 06:14 08/06/16 06:25 08/06/16 06:45 White Blood Count 9.6x10^3/uL (4.0-11.0) Red Blood Count 4.92x10^6/uL (3.50-5.40) Hemoglobin 14.0g/dL (12.0-15.5) Hematocrit 41.6% (36.0-47.0) Mean Corpuscular Volume 85fL (79-100) Mean Corpuscular Hemoglobin 28pg (25-35) Mean Corpuscular Hemoglobin Concent 34g/dL (31-37) Red Cell Distribution Width 14.4% (11.5-14.5) Platelet Count 483x10^3/uL (140-400) Neutrophils (%) (Auto) 66% (31-73) Lymphocytes (%) (Auto) 27% (24-48) Monocytes (%) (Auto) 6% (0-9) Eosinophils (%) (Auto) 1% (0-3) Basophils (%) (Auto) 1% (0-3) Neutrophils # (Auto) 6.3x10^3uL (1.8-7.7) Lymphocytes # (Auto) 2.6x10^3/uL (1.0-4.8) Monocytes # (Auto) 0.6x10^3/uL (0.0-1.1) Eosinophils # (Auto) 0.0x10^3/uL (0.0-0.7) Basophils # (Auto) 0.1x10^3/uL (0.0-0.2) Sodium Level 123mmol/L (136-145) Potassium Level 5.1mmol/L (3.5-5.1) Chloride Level 92mmol/L (98-107) Carbon Dioxide Level 16mmol/L (21-32) Anion Gap 15 (6-14) Blood Urea Nitrogen 8mg/dL (7-20) Creatinine 0.9mg/dL (0.6-1.0) Estimated GFR (Cockcroft-Gault) 73.0 BUN/Creatinine Ratio 9 (6-20) Glucose Level 338mg/dL (70-99) Lactic Acid Level 9.9mmol/L (0.4-2.0) Calcium Level 9.3mg/dL (8.5-10.1) Total Bilirubin 0.2mg/dL (0.2-1.0) Aspartate Amino Transf (AST/SGOT) 10U/L (15-37) Alanine Aminotransferase (ALT/SGPT) 18U/L (14-59) Alkaline Phosphatase 77U/L (46-116) Total Protein 7.5g/dL (6.4-8.2) Albumin 3.3g/dL (3.4-5.0) Albumin/Globulin Ratio 0.8 (1.0-1.7) Lipase 81U/L (73-393) Serum Test, Qualitative Negative (NEG) Salicylates Level 4.3mg/dL (2.8-20.0) Salicylate Last Dose Date Unknown Salicylate Last Dose Time Unknown Acetaminophen Level < 2mcg/ml (10-30) Acetaminophen Last Dose Date Unknown Acetaminophen Last Dose Time Unknown Carbamazepine (Tegretol) Level 10.3mcg/mL (4.0-12.0) Carbamazepine Last Dose Date 08/06/16 Carbamazepine Last Dose Time 0600 Ethyl Alcohol Level < 10mg/dL (0-10) Glucose (Fingerstick) 319mg/dL (70-99) Urine Opiates Screen Neg (NEG) Urine Methadone Screen Neg (NEG) Urine Barbiturates Neg (NEG) Urine Phencyclidine Screen Neg (NEG) Urine Amphetamine/Methamphetamine Neg (NEG) Urine Benzodiazepines Screen Neg (NEG) Urine Cocaine Screen Neg (NEG) Urine Cannabinoids Screen Neg (NEG) Urine Ethyl Alcohol Neg (NEG) O2 Saturation 97% (92-99) Arterial Blood pH 7.18 (7.35-7.45) Arterial Blood pCO2 at Patient Temp 18mmHg (35-46) Arterial Blood pO2 at Patient Temp 129mmHg (85-108) Arterial Blood HCO3 7mmol/L (21-28) Arterial Blood Base Excess -19mmol/L (-3-3) FiO2 21 Test 08/06/16 07:08 08/06/16 09:05 08/06/16 10:31 08/06/16 13:30 Glucose (Fingerstick) 299mg/dL (70-99) 197mg/dL (70-99) Sodium Level 129mmol/L (136-145) Potassium Level 5.7mmol/L (3.5-5.1) Chloride Level 97mmol/L (98-107) Carbon Dioxide Level 12mmol/L (21-32) Anion Gap 20 (6-14) Blood Urea Nitrogen 8mg/dL (7-20) Creatinine 1.2mg/dL (0.6-1.0) Estimated GFR (Cockcroft-Gault) 52.4 Glucose Level 205mg/dL (70-99) Serum Osmolality 287mOsm/Kg (279-304) Lactic Acid Level 13.5mmol/L (0.4-2.0) Calcium Level 9.6mg/dL (8.5-10.1) Acetone Level Neg (NEG) Urine Color Yellow Urine Clarity Clear Urine pH 6.0 Urine Specific Pe Ell 1.010 Urine Protein Negativemg/dL (NEG-TRACE) Urine Glucose (UA) Negativemg/dL (NEG) Urine Ketones (Stick) Negativemg/dL (NEG) Urine Blood Trace (NEG) Urine Nitrite Negative (NEG) Urine Bilirubin Negative (NEG) Urine Urobilinogen Dipstick 0.2mg/dL (0.2 mg/dL) Urine Leukocyte Esterase Negative (NEG) Urine RBC Rare/HPF (0-2) Urine WBC Occ/HPF (0-4) Urine Squamous Epithelial Cells Occ/LPF Urine Bacteria 0/HPF (0-FEW) Test 08/06/16 13:35 08/06/16 14:00 Uric Acid 5.5mg/dL (2.6-6.0) Creatine Kinase 172U/L (26-192) O2 Saturation 96% (92-99) Arterial Blood pH 6.90 (7.35-7.45) Arterial Blood pCO2 at Patient Temp 32mmHg (35-46) Arterial Blood pO2 at Patient Temp 124mmHg (85-108) Arterial Blood HCO3 6mmol/L (21-28) Arterial Blood Base Excess -26mmol/L (-3-3) FiO2 100 VTE Prophylaxis Ordered VTE Prophylaxis Devices: Yes VTE Pharmacological Prophylaxi: Yes Assessment/Plan Assessment/Plan 1. AMS, toxic encephalopathy with drug overdose( metformin and maybe gabapentin? ) 2. severe lactate acidosis with metformin overdose likely 3. metabolic acidosis 4. acute resp failure with1 5. morbid obesity BMI 45.6 6. htn 7. depression, anxiety 8. possible dm2 9. suicidal attempt 10. hyperkalemia 11. CKD3 with JENNY, vasomotor 12. hyponatremia plan; renal, pulm consult icu care intubated , sedated ivf, npo on levaquin and duoneb as per pulm HD emergently PAT consult for suicide need to verify home meds, hold for now SSI, check hba1c repeat labs, ABG, cxr DAILY critical care 40min FIGUEROA CHAN MD August 06, 2016 14:31
[2016-08-06] MEDS ORDERED: IV NORMAL SALINE 1000ML BAG 1,000 ML IV PRN (14:44)
--- NOTE | 2016-08-06 14:44 | EKG ---
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
[2016-08-06] MEDS ORDERED: DIALYSIS PATIENT. MC PRN (14:45)
[2016-08-06] MEDS ORDERED: ALBUMIN HUMAN 25% 200 ML IV PRN (14:45)
[2016-08-06] MEDS ORDERED: 0.9 % SODIUM CHLORIDE 10 ML DISP.SYRIN. IV PRN ×2 (14:45)
[2016-08-06] MEDS ORDERED: SODIUM BICARBONATE VIAL 150 MEQ in IV DEXTROSE 5% 1,000 ML IV SCH (14:45)
[2016-08-06] MEDS ORDERED: HEPARIN PF for SUB-Q USE 5,000 UNIT/0.5 ML VIAL. SQ SCH (15:00)
--- NOTE | 2016-08-06 15:43 | PDOC ---
Dialysis Progress Note Dialysis Note Dialysis Note Seen on Hemodialysis, tolerating treatment poorly due to hemodynamic instablility Vitals on Hemodialysis: 55/43 on my visit with HR 128 . Pt given IVF boluses, IV Alb and started on NorEpi and SBP is now 138 General Appearance: Sedated an intubated (sedatuion weaned due to low BP) Neck: No JVD or JVP Chest: CTA Ashu Heart: S1 S2 Abdomen - Soft NTND; obese Extremities - No Edema ARF + Refractory Met Acidosis: Dialysis as below F 180 NR 3-4 Hrs as long as she can tolerate from hemodynamic standpoint 3 K 2.5 Ca 140 Na 40 HC03 Qb 350 + Qd 500+ Heparin 0 Units Uf 0 Kgs or to dry weight as tolerated May give 25-50 gms of 25% Albumin if needed to maintain Hemodynamic stability Treatment plan reviewed and discussed with foreign trade teacher BGs noted - transition to CRRT once HD is done. Not sure that she will be able to maintain serum pH >7.2 or higher without consistent CRRT Vitals Vital Signs Vital Signs Date Time Temp Pulse Resp B/P Pulse Ox O2 Delivery O2 Flow Rate FiO2 08/06/16 12:50 97.7 96 96/46 96 97.7 08/06/16 12:29 16 Ventilator Labs Last Labs Laboratory Tests Test 08/06/16 06:12 08/06/16 06:14 08/06/16 06:25 08/06/16 06:45 White Blood Count 9.6x10^3/uL (4.0-11.0) Red Blood Count 4.92x10^6/uL (3.50-5.40) Hemoglobin 14.0g/dL (12.0-15.5) Hematocrit 41.6% (36.0-47.0) Mean Corpuscular Volume 85fL (79-100) Mean Corpuscular Hemoglobin 28pg (25-35) Mean Corpuscular Hemoglobin Concent 34g/dL (31-37) Red Cell Distribution Width 14.4% (11.5-14.5) Platelet Count 483x10^3/uL (140-400) Neutrophils (%) (Auto) 66% (31-73) Lymphocytes (%) (Auto) 27% (24-48) Monocytes (%) (Auto) 6% (0-9) Eosinophils (%) (Auto) 1% (0-3) Basophils (%) (Auto) 1% (0-3) Neutrophils # (Auto) 6.3x10^3uL (1.8-7.7) Lymphocytes # (Auto) 2.6x10^3/uL (1.0-4.8) Monocytes # (Auto) 0.6x10^3/uL (0.0-1.1) Eosinophils # (Auto) 0.0x10^3/uL (0.0-0.7) Basophils # (Auto) 0.1x10^3/uL (0.0-0.2) Sodium Level 123mmol/L (136-145) Potassium Level 5.1mmol/L (3.5-5.1) Chloride Level 92mmol/L (98-107) Carbon Dioxide Level 16mmol/L (21-32) Anion Gap 15 (6-14) Blood Urea Nitrogen 8mg/dL (7-20) Creatinine 0.9mg/dL (0.6-1.0) Estimated GFR (Cockcroft-Gault) 73.0 BUN/Creatinine Ratio 9 (6-20) Glucose Level 338mg/dL (70-99) Lactic Acid Level 9.9mmol/L (0.4-2.0) Calcium Level 9.3mg/dL (8.5-10.1) Total Bilirubin 0.2mg/dL (0.2-1.0) Aspartate Amino Transf (AST/SGOT) 10U/L (15-37) Alanine Aminotransferase (ALT/SGPT) 18U/L (14-59) Alkaline Phosphatase 77U/L (46-116) Total Protein 7.5g/dL (6.4-8.2) Albumin 3.3g/dL (3.4-5.0) Albumin/Globulin Ratio 0.8 (1.0-1.7) Lipase 81U/L (73-393) Serum Test, Qualitative Negative (NEG) Salicylates Level 4.3mg/dL (2.8-20.0) Salicylate Last Dose Date Unknown Salicylate Last Dose Time Unknown Acetaminophen Level < 2mcg/ml (10-30) Acetaminophen Last Dose Date Unknown Acetaminophen Last Dose Time Unknown Carbamazepine (Tegretol) Level 10.3mcg/mL (4.0-12.0) Carbamazepine Last Dose Date 08/06/16 Carbamazepine Last Dose Time 0600 Ethyl Alcohol Level < 10mg/dL (0-10) Glucose (Fingerstick) 319mg/dL (70-99) Urine Opiates Screen Neg (NEG) Urine Methadone Screen Neg (NEG) Urine Barbiturates Neg (NEG) Urine Phencyclidine Screen Neg (NEG) Urine Amphetamine/Methamphetamine Neg (NEG) Urine Benzodiazepines Screen Neg (NEG) Urine Cocaine Screen Neg (NEG) Urine Cannabinoids Screen Neg (NEG) Urine Ethyl Alcohol Neg (NEG) O2 Saturation 97% (92-99) Arterial Blood pH 7.18 (7.35-7.45) Arterial Blood pCO2 at Patient Temp 18mmHg (35-46) Arterial Blood pO2 at Patient Temp 129mmHg (85-108) Arterial Blood HCO3 7mmol/L (21-28) Arterial Blood Base Excess -19mmol/L (-3-3) FiO2 21 Test 08/06/16 07:08 08/06/16 09:05 08/06/16 10:31 08/06/16 13:30 Glucose (Fingerstick) 299mg/dL (70-99) 197mg/dL (70-99) Sodium Level 129mmol/L (136-145) Potassium Level 5.7mmol/L (3.5-5.1) Chloride Level 97mmol/L (98-107) Carbon Dioxide Level 12mmol/L (21-32) Anion Gap 20 (6-14) Blood Urea Nitrogen 8mg/dL (7-20) Creatinine 1.2mg/dL (0.6-1.0) Estimated GFR (Cockcroft-Gault) 52.4 Glucose Level 205mg/dL (70-99) Serum Osmolality 287mOsm/Kg (279-304) Lactic Acid Level 13.5mmol/L (0.4-2.0) Calcium Level 9.6mg/dL (8.5-10.1) Acetone Level Neg (NEG) Urine Color Yellow Urine Clarity Clear Urine pH 6.0 Urine Specific [place] 1.010 Urine Protein Negativemg/dL (NEG-TRACE) Urine Glucose (UA) Negativemg/dL (NEG) Urine Ketones (Stick) Negativemg/dL (NEG) Urine Blood Trace (NEG) Urine Nitrite Negative (NEG) Urine Bilirubin Negative (NEG) Urine Urobilinogen Dipstick 0.2mg/dL (0.2 mg/dL) Urine Leukocyte Esterase Negative (NEG) Urine RBC Rare/HPF (0-2) Urine WBC Occ/HPF (0-4) Urine Squamous Epithelial Cells Occ/LPF Urine Bacteria 0/HPF (0-FEW) Test 08/06/16 13:35 08/06/16 14:00 08/06/16 14:17 08/06/16 14:25 Uric Acid 5.5mg/dL (2.6-6.0) Creatine Kinase 172U/L (26-192) O2 Saturation 96% (92-99) Arterial Blood pH 6.90 (7.35-7.45) Arterial Blood pCO2 at Patient Temp 32mmHg (35-46) Arterial Blood pO2 at Patient Temp 124mmHg (85-108) Arterial Blood HCO3 6mmol/L (21-28) Arterial Blood Base Excess -26mmol/L (-3-3) FiO2 100 Glucose (Fingerstick) 18mg/dL (70-99) 265mg/dL (70-99) Test 08/06/16 14:27 08/06/16 14:53 Glucose (Fingerstick) 215mg/dL (70-99) 177mg/dL (70-99) Laboratory Tests Test 08/06/16 06:12 08/06/16 06:14 08/06/16 06:25 08/06/16 06:45 White Blood Count 9.6x10^3/uL (4.0-11.0) Red Blood Count 4.92x10^6/uL (3.50-5.40) Hemoglobin 14.0g/dL (12.0-15.5) Hematocrit 41.6% (36.0-47.0) Mean Corpuscular Volume 85fL (79-100) Mean Corpuscular Hemoglobin 28pg (25-35) Mean Corpuscular Hemoglobin Concent 34g/dL (31-37) Red Cell Distribution Width 14.4% (11.5-14.5) Platelet Count 483x10^3/uL (140-400) Neutrophils (%) (Auto) 66% (31-73) Lymphocytes (%) (Auto) 27% (24-48) Monocytes (%) (Auto) 6% (0-9) Eosinophils (%) (Auto) 1% (0-3) Basophils (%) (Auto) 1% (0-3) Neutrophils # (Auto) 6.3x10^3uL (1.8-7.7) Lymphocytes # (Auto) 2.6x10^3/uL (1.0-4.8) Monocytes # (Auto) 0.6x10^3/uL (0.0-1.1) Eosinophils # (Auto) 0.0x10^3/uL (0.0-0.7) Basophils # (Auto) 0.1x10^3/uL (0.0-0.2) Sodium Level 123mmol/L (136-145) Potassium Level 5.1mmol/L (3.5-5.1) Chloride Level 92mmol/L (98-107) Carbon Dioxide Level 16mmol/L (21-32) Anion Gap 15 (6-14) Blood Urea Nitrogen 8mg/dL (7-20) Creatinine 0.9mg/dL (0.6-1.0) Estimated GFR (Cockcroft-Gault) 73.0 BUN/Creatinine Ratio 9 (6-20) Glucose Level 338mg/dL (70-99) Lactic Acid Level 9.9mmol/L (0.4-2.0) Calcium Level 9.3mg/dL (8.5-10.1) Total Bilirubin 0.2mg/dL (0.2-1.0) Aspartate Amino Transf (AST/SGOT) 10U/L (15-37) Alanine Aminotransferase (ALT/SGPT) 18U/L (14-59) Alkaline Phosphatase 77U/L (46-116) Total Protein 7.5g/dL (6.4-8.2) Albumin 3.3g/dL (3.4-5.0) Albumin/Globulin Ratio 0.8 (1.0-1.7) Lipase 81U/L (73-393) Serum Test, Qualitative Negative (NEG) Salicylates Level 4.3mg/dL (2.8-20.0) Salicylate Last Dose Date Unknown Salicylate Last Dose Time Unknown Acetaminophen Level < 2mcg/ml (10-30) Acetaminophen Last Dose Date Unknown Acetaminophen Last Dose Time Unknown Carbamazepine (Tegretol) Level 10.3mcg/mL (4.0-12.0) Carbamazepine Last Dose Date 5/1/17 Carbamazepine Last Dose Time 0600 Ethyl Alcohol Level < 10mg/dL (0-10) Glucose (Fingerstick) 319mg/dL (70-99) Urine Opiates Screen Neg (NEG) Urine Methadone Screen Neg (NEG) Urine Barbiturates Neg (NEG) Urine Phencyclidine Screen Neg (NEG) Urine Amphetamine/Methamphetamine Neg (NEG) Urine Benzodiazepines Screen Neg (NEG) Urine Cocaine Screen Neg (NEG) Urine Cannabinoids Screen Neg (NEG) Urine Ethyl Alcohol Neg (NEG) O2 Saturation 97% (92-99) Arterial Blood pH 7.18 (7.35-7.45) Arterial Blood pCO2 at Patient Temp 18mmHg (35-46) Arterial Blood pO2 at Patient Temp 129mmHg (85-108) Arterial Blood HCO3 7mmol/L (21-28) Arterial Blood Base Excess -19mmol/L (-3-3) FiO2 21 Test 08/06/16 07:08 08/06/16 09:05 08/06/16 10:31 08/06/16 13:30 Glucose (Fingerstick) 299mg/dL (70-99) 197mg/dL (70-99) Sodium Level 129mmol/L (136-145) Potassium Level 5.7mmol/L (3.5-5.1) Chloride Level 97mmol/L (98-107) Carbon Dioxide Level 12mmol/L (21-32) Anion Gap 20 (6-14) Blood Urea Nitrogen 8mg/dL (7-20) Creatinine 1.2mg/dL (0.6-1.0) Estimated GFR (Cockcroft-Gault) 52.4 Glucose Level 205mg/dL (70-99) Serum Osmolality 287mOsm/Kg (279-304) Lactic Acid Level 13.5mmol/L (0.4-2.0) Calcium Level 9.6mg/dL (8.5-10.1) Acetone Level Neg (NEG) Urine Color Yellow Urine Clarity Clear Urine pH 6.0 Urine Specific [place] 1.010 Urine Protein Negativemg/dL (NEG-TRACE) Urine Glucose (UA) Negativemg/dL (NEG) Urine Ketones (Stick) Negativemg/dL (NEG) Urine Blood Trace (NEG) Urine Nitrite Negative (NEG) Urine Bilirubin Negative (NEG) Urine Urobilinogen Dipstick 0.2mg/dL (0.2 mg/dL) Urine Leukocyte Esterase Negative (NEG) Urine RBC Rare/HPF (0-2) Urine WBC Occ/HPF (0-4) Urine Squamous Epithelial Cells Occ/LPF Urine Bacteria 0/HPF (0-FEW) Test 08/06/16 13:35 08/06/16 14:00 08/06/16 14:17 08/06/16 14:25 Uric Acid 5.5mg/dL (2.6-6.0) Creatine Kinase 172U/L (26-192) O2 Saturation 96% (92-99) Arterial Blood pH 6.90 (7.35-7.45) Arterial Blood pCO2 at Patient Temp 32mmHg (35-46) Arterial Blood pO2 at Patient Temp 124mmHg (85-108) Arterial Blood HCO3 6mmol/L (21-28) Arterial Blood Base Excess -26mmol/L (-3-3) FiO2 100 Glucose (Fingerstick) 18mg/dL (70-99) 265mg/dL (70-99) Test 08/06/16 14:27 08/06/16 14:53 Glucose (Fingerstick) 215mg/dL (70-99) 177mg/dL (70-99) Assessment Assessment Problems Medical Problems: (1) Altered mental status Status: Acute (2) Drug overdose, intentional Status: Acute (3) Hyponatremia Status: Acute (4) Intentional drug overdose Status: Acute Problems: Plan Plan of Care Problems Medical Problems: (1) Altered mental status Status: Acute (2) Drug overdose, intentional Status: Acute (3) Hyponatremia Status: Acute (4) Intentional drug overdose Status: Acute NOLAN ROSALES MD August 06, 2016 15:43
[2016-08-06] MEDS ORDERED: MIDAZOLAM PREMIX 100 ML IV ONE (15:57)
[2016-08-06] MEDS: IPRATRPIUM/ALBUTEROL 0.5/2.5MG 3 ML NEBU. NEB SCH ×2 (16:10→19:34)
--- NOTE | 2016-08-06 16:10 | CONS ---
DATE OF CONSULTATION: ATTENDING PHYSICIAN: Dr. Sommer. REASON FOR CONSULTATION: Respiratory failure, acute encephalopathy, drug overdose, severe metabolic acidosis. HISTORY OF PRESENT ILLNESS: The patient is a 30-year-old female, who is morbidly obese and has history of suicidal attempt in the past. She was brought in to the hospital after she apparently had taken 180 pills of 500 mg metformin. This was related to a suicide attempt. After taking the tablets, she began to vomit. She was feeling dizzy, confused, lightheaded, nauseated and was very restless and agitated. Her blood sugar on arrival was 320. The patient also has been on carbamazepine as well. Due to her altered mental status, she was intubated by the ER staff. Her urine drug screen was reviewed. Her salicylate level was 4.3. Her acetaminophen level was less than 2, alcohol less than 10 and carbamazepine level 10.3. The patient's arterial blood gases initially showed a pH of 7.18, pCO2 of ____ and pO2 of 129 with a bicarbonate of 7. This was on room air. The latest one post-intubation on assist control rate of 16, tidal volume of 500 in 100% FiO2 and 5 of PEEP, pH of 6.9, pCO2 of 32, pO2 of 123 and a bicarbonate of only 6. I have been asked to see her for further evaluation. She is currently having paradoxical breathing while on mechanical ventilation and limited dose of propofol. PAST MEDICAL HISTORY: Significant history of prior suicidal attempt, history of anxiety, depression, morbid obesity and hypertension. PAST SURGICAL HISTORY: Cholecystectomy, and hysterectomy. ALLERGIES: PENICILLIN, IBUPROFEN AND MEPERIDINE. MEDICATIONS: That were given in the ER were reviewed. REVIEW OF SYSTEMS: Unable to obtain from the patient. PHYSICAL EXAMINATION: VITAL SIGNS: Blood pressure is 106 systolic, afebrile, pulse ox 99%. HEENT: Sclerae nonicteric. NECK: Supple. LUNGS: Diminished breath sounds. CARDIOVASCULAR: Regular rate. ABDOMEN: Soft, obese. EXTREMITIES: No pitting edema. Chest x-ray reveals no acute infiltrate. Endotracheal tube is in satisfactory position. LABORATORY DATA: Reviewed. ABGs were discussed in my history of present illness. Potassium 5.7, BUN 8 and creatinine 1.2. The toxicology screen was reviewed. White cell count 9.6, hemoglobin 14.0, platelets 483. IMPRESSION: 1. Acute respiratory failure secondary to suicidal attempt with large doses of 500 mg metformin. Apparently, she took 180 tablets, now with severe metabolic acidosis and acute encephalopathy. 2. Metformin overdose in large quantity with severe metabolic acidosis/lactic acidosis, blood sugars last check 320. We will continue to closely follow blood sugars. 3. Acute toxic encephalopathy. 4. Clear chest x-ray. 5. Lactic acidosis and severe metabolic acidosis secondary to Metformin overdose. RECOMMENDATIONS: 1. Continue present assist control mode. We will adjust the rate and make necessary adjustments based on ABGs. She is already hyperventilating on current vent settings. 2. Start bicarbonate drip. 3. Monitor blood sugars closely. May need D10 drip 4. Continue sedation with propofol and add fentanyl. 5. Follow renal recommendation regarding hyperkalemia and renal insufficiency. Would benefit from urgent HD. 6. Monitor lactic acid level. 7. At present, no evidence of any infection, but we will add empiric antibiotic just to cover for aspiration. (h/o emesis) 8. Discussed with RN and RT. and Dr Roe 9. High mortality in patients with metformin overdose/ severe lactic acidosis (40%) Critical care time 40 minutes. DIONICIO MENDIETA MD DR: BEATRIZ/lico JOB#: [id number] / [id number] CLAUDIO
--- NOTE | 2016-08-06 16:19 | PDOC2 ---
JJ BERGERON SAP ADMINISTRATOR 08/06/16 1619: CARDIAC CONSULT DATE OF CONSULT Date of Consult DATE: 08/06/16 TIME: 16:05 REASON FOR CONSULT Reason for Consult: Rhythm change REFERRING PHYSICIAN Referring Physician: Janey SOURCE Source: Chart review HISTORY OF PRESENT ILLNESS HISTORY OF PRESENT ILLNESS This is a 30 yo female admitted for drug overdose. Verified per report that apparently pt ingested 180 tabs of 500 mg of glucophage. Pt was noted to be depressed and this event was intentional. Upon further testing pt was noted with labs compatible with drug overdose. Notable for significant metabolic acidosis, hypotension and respiratory failure. Consult is for rhythm change. No notable cardiac symptoms prior to this and no prior hx of cardiac disease. No family is available for further details. It was unclear who discovered her at home. Apparently no charcoal was initiated as she was noted to be vomiting at some point. Presently pt is intubated and HD is in process PAST MEDICAL HISTORY Cardiovascular: HTN CENTRAL NERVOUS SYSTEM: Periperal neuropathy Psych: Anxiety, Depression Musculoskeletal: Other (morbid obeisty) PAST SURGICAL HISTORY Past Surgical History: Cholecystectomy, , Hysterectomy FAMILY HISTORY Family History: Family History Unknown SOCIAL HISTORY Social History unknown but apparently lives alone per chart review CURRENT MEDICATIONS CURRENT MEDICATIONS Current Medications Medications (Trade) Dose Ordered Sig/Vanesa Route PRN Reason Start Time Stop Time Status Last Admin Dose Admin Sodium Chloride (Iv Sodium Chloride 0.9% 1000ml Bag) 1,000 ml @ 1,000 mls/hr 1X ONCE IV 08/06/16 07:00 08/06/16 07:59 DC 08/06/16 07:00 Ondansetron HCl (Zofran) 4 mg 1X ONCE IV 08/06/16 07:00 08/06/16 07:01 DC 08/06/16 07:02 Ondansetron HCl 4 mg 4 mg 1X ONCE IV 08/06/16 08:00 08/06/16 08:01 DC 08/06/16 08:09 Sodium Chloride (Iv Sodium Chloride 0.9% 1000ml Bag) 1,000 ml @ 125 mls/hr Q8H IV 08/06/16 08:08 08/07/16 08:07 08/06/16 08:36 Famotidine 20 mg 20 mg 1X ONCE IVP 08/06/16 08:30 08/06/16 08:31 DC 08/06/16 08:33 Sodium Chloride (Iv Sodium Chloride 0.9% 1000ml Bag) 1,000 ml @ 1,000 mls/hr 1X ONCE IV 08/06/16 09:00 08/06/16 09:59 DC 08/06/16 09:36 Lorazepam (Ativan) 1 mg 1X ONCE IV 08/06/16 09:30 08/06/16 09:31 DC 08/06/16 09:32 Sodium Bicarbonate 100 meq 1X ONCE IV 08/06/16 10:00 08/06/16 10:01 DC 08/06/16 11:04 Iohexol (Omnipaque 300 Mg/ml) 75 ml 1X ONCE IV 08/06/16 10:15 08/06/16 10:16 DC 08/06/16 11:31 Midazolam HCl (Versed) 4 mg 1X ONCE IV 08/06/16 10:45 08/06/16 10:46 DC 08/06/16 10:35 Fentanyl Citrate 25 mcg 25 mcg 1X ONCE IV 08/06/16 10:45 08/06/16 10:46 DC 08/06/16 10:35 Propofol (Diprivan) 100 ml @ 0 mls/hr CONT PRN IV SEE I/O RECORD 08/06/16 12:15 08/06/16 13:16 Midazolam HCl (Versed) 4 mg 1X ONCE IV 08/06/16 12:15 08/06/16 12:20 DC 08/06/16 12:00 Lidocaine/Sodium Bicarbonate (Buffered Lidocaine 1%) 3 ml 1X ONCE IJ 08/06/16 12:30 08/06/16 12:31 DC 08/06/16 12:50 Heparin Sodium/ Sodium Chloride 60 unit 1X ONCE IV 08/06/16 12:30 08/06/16 12:31 DC 08/06/16 12:50 Heparin Sodium (Porcine) 2500 unit 2,500 unit 1X ONCE INT CAT 08/06/16 12:30 08/06/16 12:31 DC 08/06/16 12:50 Sodium Bicarbonate/ Dextrose 1,150 ml @ 100 mls/hr [id number] IV 08/06/16 14:45 08/06/16 15:27 Dextrose (Dextrose 50%-Water Syringe) 25 gm 1X ONCE IV 08/06/16 14:45 08/06/16 14:46 DC 08/06/16 14:52 Dextrose (Dextrose 50%-Water Syringe) 25 gm 1X ONCE IV 08/06/16 14:45 08/06/16 14:46 DC 08/06/16 14:53 Sodium Bicarbonate 50 meq 1X ONCE IV 08/06/16 15:00 08/06/16 15:01 DC 08/06/16 15:06 Sodium Bicarbonate 50 meq 1X ONCE IV 08/06/16 15:00 08/06/16 15:01 DC 08/06/16 15:07 ALLERGIES ALLERGIES: Coded Allergies: Penicillins (Verified Allergy, Intermediate, 03/06/14) bupropion (Verified Allergy, Intermediate, 03/06/14) meperidine (Verified Allergy, Intermediate, 03/06/14) ROS Review of System unreliable, intubated PHYSICAL EXAM General: Other (sedation in place, intubated) HEENT: Atraumatic, Mucous membr. moist/pink Lungs: Clear to auscultation, Other (intubated with mechanical ventilation) Heart: Regular rate (SR), Normal S1, Normal S2, No murmurs Abdomen: Soft, Other (morbid obesity) Extremities: No cyanosis, No edema Skin: No breakdown, No significant lesion MUSCULOSKELETAL: No deformity, No swelling VITALS VITALS Vital Signs Date Time Temp Pulse Resp B/P Pulse Ox O2 Delivery O2 Flow Rate FiO2 08/06/16 12:50 97.7 96 96/46 96 97.7 08/06/16 12:29 16 Ventilator LABS Lab: Laboratory Tests Test 08/06/16 06:12 08/06/16 06:14 08/06/16 06:25 08/06/16 06:45 White Blood Count 9.6x10^3/uL (4.0-11.0) Red Blood Count 4.92x10^6/uL (3.50-5.40) Hemoglobin 14.0g/dL (12.0-15.5) Hematocrit 41.6% (36.0-47.0) Mean Corpuscular Volume 85fL (79-100) Mean Corpuscular Hemoglobin 28pg (25-35) Mean Corpuscular Hemoglobin Concent 34g/dL (31-37) Red Cell Distribution Width 14.4% (11.5-14.5) Platelet Count 483x10^3/uL (140-400) Neutrophils (%) (Auto) 66% (31-73) Lymphocytes (%) (Auto) 27% (24-48) Monocytes (%) (Auto) 6% (0-9) Eosinophils (%) (Auto) 1% (0-3) Basophils (%) (Auto) 1% (0-3) Neutrophils # (Auto) 6.3x10^3uL (1.8-7.7) Lymphocytes # (Auto) 2.6x10^3/uL (1.0-4.8) Monocytes # (Auto) 0.6x10^3/uL (0.0-1.1) Eosinophils # (Auto) 0.0x10^3/uL (0.0-0.7) Basophils # (Auto) 0.1x10^3/uL (0.0-0.2) Sodium Level 123mmol/L (136-145) Potassium Level 5.1mmol/L (3.5-5.1) Chloride Level 92mmol/L (98-107) Carbon Dioxide Level 16mmol/L (21-32) Anion Gap 15 (6-14) Blood Urea Nitrogen 8mg/dL (7-20) Creatinine 0.9mg/dL (0.6-1.0) Estimated GFR (Cockcroft-Gault) 73.0 BUN/Creatinine Ratio 9 (6-20) Glucose Level 338mg/dL (70-99) Lactic Acid Level 9.9mmol/L (0.4-2.0) Calcium Level 9.3mg/dL (8.5-10.1) Total Bilirubin 0.2mg/dL (0.2-1.0) Aspartate Amino Transf (AST/SGOT) 10U/L (15-37) Alanine Aminotransferase (ALT/SGPT) 18U/L (14-59) Alkaline Phosphatase 77U/L (46-116) Total Protein 7.5g/dL (6.4-8.2) Albumin 3.3g/dL (3.4-5.0) Albumin/Globulin Ratio 0.8 (1.0-1.7) Lipase 81U/L (73-393) Serum Test, Qualitative Negative (NEG) Salicylates Level 4.3mg/dL (2.8-20.0) Salicylate Last Dose Date Unknown Salicylate Last Dose Time Unknown Acetaminophen Level < 2mcg/ml (10-30) Acetaminophen Last Dose Date Unknown Acetaminophen Last Dose Time Unknown Carbamazepine (Tegretol) Level 10.3mcg/mL (4.0-12.0) Carbamazepine Last Dose Date 08/06/16 Carbamazepine Last Dose Time 0600 Ethyl Alcohol Level < 10mg/dL (0-10) Glucose (Fingerstick) 319mg/dL (70-99) Urine Opiates Screen Neg (NEG) Urine Methadone Screen Neg (NEG) Urine Barbiturates Neg (NEG) Urine Phencyclidine Screen Neg (NEG) Urine Amphetamine/Methamphetamine Neg (NEG) Urine Benzodiazepines Screen Neg (NEG) Urine Cocaine Screen Neg (NEG) Urine Cannabinoids Screen Neg (NEG) Urine Ethyl Alcohol Neg (NEG) O2 Saturation 97% (92-99) Arterial Blood pH 7.18 (7.35-7.45) Arterial Blood pCO2 at Patient Temp 18mmHg (35-46) Arterial Blood pO2 at Patient Temp 129mmHg (85-108) Arterial Blood HCO3 7mmol/L (21-28) Arterial Blood Base Excess -19mmol/L (-3-3) FiO2 21 Test 08/06/16 07:08 08/06/16 09:05 08/06/16 10:31 08/06/16 13:30 Glucose (Fingerstick) 299mg/dL (70-99) 197mg/dL (70-99) Sodium Level 129mmol/L (136-145) Potassium Level 5.7mmol/L (3.5-5.1) Chloride Level 97mmol/L (98-107) Carbon Dioxide Level 12mmol/L (21-32) Anion Gap 20 (6-14) Blood Urea Nitrogen 8mg/dL (7-20) Creatinine 1.2mg/dL (0.6-1.0) Estimated GFR (Cockcroft-Gault) 52.4 Glucose Level 205mg/dL (70-99) Serum Osmolality 287mOsm/Kg (279-304) Lactic Acid Level 13.5mmol/L (0.4-2.0) Calcium Level 9.6mg/dL (8.5-10.1) Acetone Level Neg (NEG) Urine Color Yellow Urine Clarity Clear Urine pH 6.0 Urine Specific [place] 1.010 Urine Protein Negativemg/dL (NEG-TRACE) Urine Glucose (UA) Negativemg/dL (NEG) Urine Ketones (Stick) Negativemg/dL (NEG) Urine Blood Trace (NEG) Urine Nitrite Negative (NEG) Urine Bilirubin Negative (NEG) Urine Urobilinogen Dipstick 0.2mg/dL (0.2 mg/dL) Urine Leukocyte Esterase Negative (NEG) Urine RBC Rare/HPF (0-2) Urine WBC Occ/HPF (0-4) Urine Squamous Epithelial Cells Occ/LPF Urine Bacteria 0/HPF (0-FEW) Test 08/06/16 13:35 08/06/16 14:00 08/06/16 14:17 08/06/16 14:25 Uric Acid 5.5mg/dL (2.6-6.0) Creatine Kinase 172U/L (26-192) O2 Saturation 96% (92-99) Arterial Blood pH 6.90 (7.35-7.45) Arterial Blood pCO2 at Patient Temp 32mmHg (35-46) Arterial Blood pO2 at Patient Temp 124mmHg (85-108) Arterial Blood HCO3 6mmol/L (21-28) Arterial Blood Base Excess -26mmol/L (-3-3) FiO2 100 Glucose (Fingerstick) 18mg/dL (70-99) 265mg/dL (70-99) Test 08/06/16 14:27 08/06/16 14:53 Glucose (Fingerstick) 215mg/dL (70-99) 177mg/dL (70-99) ASSESSMENT/PLAN ASSESSMENT/PLAN 1. Depression with suicidal ideation: "180 tabs of 500 mg glucophage ingested". Tox screen negative for recreational drugs. 2. Acute respiratory failure: airway protection. Vented with mechanical ventilation 3. JENNY/hyperkalemia: temp HD cath in place, HD in process, CRRT pending 4. Severe metabolic acidosis 5. Abnormal EKG: Initially SR and now with IVCD, likely from fluid shifts, acidosis, and lyte abnormalities. 6. DM2/hypoglycemia 7. HTN: hypotensive 8. Morbid obesity: BMI 45 Recommendations 1. Supportive care. Vasopressors 2. Obtain baseline TTE 3. Follow nephrology and pulmonary recommendations Problems: EMMANUEL TAN MD 08/06/16 1916: CARDIAC CONSULT ALLERGIES ALLERGIES: Coded Allergies: Penicillins (Verified Allergy, Intermediate, 11/29/14) bupropion (Verified Allergy, Intermediate, 03/06/14) meperidine (Verified Allergy, Intermediate, 03/06/14) ASSESSMENT/PLAN ASSESSMENT/PLAN Pt. seen and examined. Agree with above DOCUMENT CONTROL ASSOCIATE note. 30 y.o woman with toxic met acidosis from O.D. EKG reviewed, peaked t-waves No further testing Supportive care. Problems: JJ BERGERON APRN August 06, 2016 16:19 EMMANUEL TAN MD August 06, 2016 22:25
--- NOTE | 2016-08-06 16:34 | RAD ---
Indication acute renal failure superimposed on chronic renal disease. Grayscale color Doppler and spectral imaging was performed. Examination was targeted to the kidneys. The right kidney measures 10.3 x 4.3 x 5.3 cm and appears morphologically normal. No dominant mass or hydronephrosis is seen. The resistive index associated with the right kidney is 0.64. The visualized proximal abdominal aorta appeared unremarkable. The mid and distal abdominal aorta were obscured by gas. The visualized IVC also appeared normal. The left kidney measures approximately 11.1 x 5.2 x 5.2 cm. No hydronephrosis or mass is seen. Resistive index was 0.8 The urinary bladder was collapsed and poorly imaged with ultrasound. IMPRESSION: Normal morphologic appearance of the kidneys
[2016-08-06] MEDS: MIDAZOLAM PREMIX 100 ML IV PRN ×2 (16:53→22:07)
[2016-08-06] MEDS: INSULIN ASPART 300 UNITS/3 ML INSULN.PEN SQ SCH (17:00)
[2016-08-06] MEDS ORDERED: LIDOCAINE 2% 100 MG/5 ML SYRINGE. ONE (18:59)
[2016-08-06 19:23] LABS: HCO3 ABG 13 mmol/L (21-28); PCO2 ABG 42 mmHg (35-46); PO2 ABG 82 mmHg (85-108); SAT O2 ABG 93 % (92-99)
[2016-08-06 19:51] LABS: FIO2 ABG 100; PH ABG 7.11 (7.35-7.45)
[2016-08-06 20:09] LABS: TOTAL PROTEIN CREATININE RATIO >2800 mg/g creat (0-200); UR PROTEIN RD 11.2 mg/dL (Not Estab.)
[2016-08-06 20:09] LABS: HEP B SURFACE ABDY Reactive (.)
[2016-08-06] MEDS: CHLORHEXIDINE 0.12% 15 ML MOUTHWASH. MM SCH (21:00)
[2016-08-06 21:45] LABS: NEG OBC UR NEG; POS OBC UR POS
--- NOTE | 2016-08-06 21:48 | RAD ---
PROCEDURE Single-view chest. HISTORY Central line placement COMPARISON None available FINDINGS AP portable semi upright view of the chest is submitted. There is endotracheal tube, tip approximately 3.8 centimeters from the sandhya. Enteric catheter courses to least the inferior mediastinal region although difficult to visualize more difficult distally on this exam. There is right internal jugular large bore venous catheter with the tip at the level of the right atrium. No pneumothorax is identified. Heart size is considered within limits. There may be minimal atelectasis near the lung bases. No significant pleural fluid. IMPRESSION 1. There is right internal jugular venous catheter with the tip in the right atrium, no pneumothorax. Enteric catheter is not fully seen on this exam. There is endotracheal tube present. Electronically signed by: Aquilino Elaine MD (August 06, 2016 21:47:01)
[2016-08-06] MEDS: CALCIUM CHLORIDE IV SCH ×2 (22:01)
[2016-08-06] MEDS: POTASSIUM CHLORIDE IV SCH ×2 (22:01)
[2016-08-06] MEDS: [UNRECOGNIZED DRUG - OTHER] IV SCH (22:01)
[2016-08-06] MEDS: MAGNESIUM SULFATE IV SCH ×2 (22:01)
[2016-08-06] MEDS: [UNRECOGNIZED DRUG - OTHER] IV SCH (22:01)
[2016-08-06] MEDS: SODIUM BICARBONATE VIAL 150 MEQ in IV DEXTROSE 5% 1,000 ML IV SCH ×2 (22:05→23:57)
[2016-08-06] MEDS: IV DEXTROSE 10% 1,000 ML IV SCH (22:06)
[2016-08-06] MEDS: NOREPINEPHRIN PREMIX 250 ML IV PRN (22:07)
[2016-08-06] MEDS: HEPARIN 25,000UTS/500ML PREMIX 500 ML IV PRN (22:31)
[2016-08-06 23:38] LABS: CREATININE 1.3 mg/dL (0.6-1.0); GFR 47.8; POTASSIUM 5.6 mmol/L (3.5-5.1)
[2016-08-07] VITALS (26 sets, daily range): BP systolic 68–173; BP diastolic 46–79
[2016-08-07] MEDS: MAGNESIUM SULFATE IV SCH ×8 (00:02→20:40)
[2016-08-07] MEDS: [UNRECOGNIZED DRUG - OTHER] IV SCH (00:02)
[2016-08-07] MEDS: POTASSIUM CHLORIDE IV SCH ×4 (00:02→20:40)
[2016-08-07] MEDS: CALCIUM CHLORIDE IV SCH ×8 (00:02→20:40)
[2016-08-07] MEDS: IV NORMAL SALINE 1000ML BAG 1,000 ML IV SCH ×2 (00:08→23:45)
[2016-08-07] MEDS ORDERED: CALCIUM CHLORIDE IV SCH (00:55)
[2016-08-07] MEDS ORDERED: POTASSIUM CHLORIDE IV SCH (00:55)
[2016-08-07] MEDS ORDERED: [UNRECOGNIZED DRUG - OTHER] IV SCH (00:55)
[2016-08-07] MEDS ORDERED: MAGNESIUM SULFATE IV SCH (00:55)
[2016-08-07] MEDS: MIDAZOLAM PREMIX 100 ML IV PRN ×5 (01:06→22:04)
[2016-08-07] MEDS: NOREPINEPHRIN PREMIX 250 ML IV PRN ×4 (01:18→14:38)
[2016-08-07] MEDS: LORazepam 100 MG in IV NORMAL SALINE 100ML 50 ML IV PRN ×2 (01:31→14:08)
[2016-08-07] MEDS: VECURONIUM BOLUS 10 MG VIAL. IV PRN ×2 (02:42→09:47)
[2016-08-07] MEDS: [UNRECOGNIZED DRUG - OTHER] IV SCH (03:08)
[2016-08-07] MEDS: [UNRECOGNIZED DRUG - OTHER] IV SCH ×2 (03:09→10:00)
[2016-08-07] MEDS: SODIUM BICARBONATE VIAL 150 MEQ in IV DEXTROSE 5% 1,000 ML IV SCH ×7 (03:10→17:04)
--- NOTE | 2016-08-07 03:16 | CONS ---
DATE OF CONSULTATION: 08/06/2016 PRIMARY PHYSICIAN: Dr. Sommer. REASON FOR CONSULTATION: Severe acidosis. CONSULTING PHYSICIAN: Also includes ER physician, Dr. Elise. HISTORY OF PRESENT ILLNESS: The patient is an unfortunate 30-year-old female who reportedly presented to the ED with intentional medication ingestion/overdose. She is currently intubated and I am unable to get much in terms of history out of her. She is apparently being treated for depression and reportedly has previously taken metformin in an apparent suicide gesture. Based on reports available to me, it appears that she apparently stole her [id number]'s identity and went on a spending spree and was supposed to go to assisted for the same and she overdosed herself and she was brought to the ER. In the ER, she reported feeling dizzy, confused, lightheaded and nauseated and her blood sugar on arrival was 320. She was not on insulin that we know of. She ____ by herself. She was intubated in the ER. She was noted to be in severe metabolic acidosis with a bicarbonate of 16, anion gap of 15 and lactate of 9.9. Repeat labs done at 9 o'clock showed potassium of 5.7, bicarbonate of 12 and lactate of 13.5. In this setting, I was called by Dr. Elise with the feeling that she would need emergent dialysis, especially given her pH of 7.18, pCO2 of 18, pO2 of 129 and bicarbonate of only 7 on her ABG earlier this morning. Two amps of bicarbonate were recommended to be given IV. A dialysis catheter is now placed and we will initiate dialysis. PAST MEDICAL HISTORY: Anxiety, asthma, depression, exogenous obesity, hypertension, , hysterectomy, cholecystectomy, dental surgeries and suicide attempts, alcohol occasional use. Drug use none that is documented. FAMILY HISTORY: Unknown at this time. The patient is unable to provide. REVIEW OF SYSTEMS: Unable to be obtained. PHYSICAL EXAMINATION: VITAL SIGNS: Most recent documented temperature is 97.7, pulse is 96, blood pressure is 96/46. She is on the vent, intubated and unable to respond to questions. HEENT: Pupils are sluggish. Conjunctivae are normal. Sclerae are anicteric. Mucous membranes moist. NECK: Short, thick neck. No JVD or JVP. Neck is supple. LUNGS: Clear to auscultation bilaterally. CARDIOVASCULAR: Heart sounds S1, S2. ABDOMEN: Soft, obese, nontender. EXTREMITIES: Lower extremities have no edema. No asterixis noted. LABORATORY DATA: As reviewed, ABG 7.18/18/129/19. Sodium 129, potassium 5.7, CO2 is 12, anion gap is 20, BUN is 8, creatinine is 1.2, lactate is 13.5, hemoglobin is 14, hematocrit is 42. Drug screen is negative at this time. Per my discussion with the ER physician, ethylene glycol and ethanol levels are pending at this time. Due to a wide anion gap acidosis, the patient has just had an abdominal CT. IMPRESSION, ASSESSMENT AND PLAN: 1. Severe metabolic acidosis, wide anion gap due to unknown substance ingestion. Given wide anion gap acidosis, we will proceed with dialysis emergently. 2. Elevated potassium. Anticipate correction after dialysis. 3. Metabolic acidosis. Anticipate correction after dialysis. She does have significant lactic acidemia, etiology unclear. Aggressive IV fluids will be ordered. 4. Hyponatremia, suspect due to nausea, vomiting. IV fluids will be ordered with the same. Post-dialysis recheck. 5. Hypovolemia cannot be ruled out. 6. Possible NSAID ingestion/overdose. Await abdominal CT report. NOLAN ROSALES MD DR: YURI/lico JOB#: [id number] / [id number]
--- NOTE | 2016-08-07 04:51 | ACF ---
Admission Forms Criteria INTENSIVE CARE UNIT ADMISSION Intensive Care Admission Guidelines ( Place 'X' for any and all applicable criteria): Admission to ICU may be indicated when need is demonstrated by ANY ONE of the following (1)(2)(3)(4)(5)(6)(7)(8)(9) : [ ]I. Vital sign abnormalities, including ANY ONE of the following: [ ]a) Systolic arterial pressure less than 90 mm Hg, or 20 mm Hg below the patient's usual pressure [ ]b) Diastolic arterial pressure greater than 120 mm Hg [ ]c) Mean arterial pressure less than 70 mm Hg [A] [ ]d) Pulse less than 40 or greater than 140 beats per minute (in adult) [ ]e) Respiratory rate greater than 35 or less than 8 breaths per minute [ ]II. Laboratory findings (new), including ANY ONE of the following (10): [ ]a) Saturation of arterial oxygen less than 88% or partial pressure of oxygen less than 60 mm Hg (8.0 kPa) despite oxygen supplementation [ ]b) Rising partial pressure of carbon dioxide with respiratory acidosis [ ]c) pH less than 7.2 or greater than 7.65 [ ]d) Serum glucose greater than 800 mg/dL (44.4 mmol/L) [ ]e) Serum sodium less than 110 mEq/L (mmol/L) or greater than 160 mEq/L (mmol/L) [ ]f) Serum potassium less than 2 mEq/L (mmol/L) or greater than 7 mEq /L (mmol/L) [ ]g) Serum calcium greater than 15 mg/dL (3.75 mmol/L) [ ]h) Serum phosphorus less than 1 mg/dL (0.32 mmol/L) [ ]i) Toxic drug level or poisoning causing or likely to cause neurologic or Hemodynamic instability [ ]j) Less severe laboratory abnormalities contributing to ANY ONE of the following: [ ]i) Seizure [ ]ii) Altered mental status [ ]iii) Muscle weakness [ ]iv) Arrhythmias [ ]v) Hemodynamic instability [ ]vi) Other significant clinical manifestations [ ]III. Electrocardiogram (or cardiac monitoring) findings, including ANY ONE of the following: [ ]a) Inherently unstable or life-threatening arrhythmia (eg, sustained ventricular tachycardia, ventricular fibrillation, asystole) [ ]b) Arrhythmia causing severe hypotension (eg, bradycardia, tachycardia) [ ]c) Complete heart block causing severe hypotension [ ]d) Other findings indicative of a need for intensive care (eg , IN) [ ]IV.Physical findings, including ANY ONE of the following: [ ]a) Threatened airway [ ]b) Sudden altered mental status [ ]c) Repeated or prolonged seizures [ ]d) Coma [ ]e) New-onset anuria (urine output <0.1 mL/kg/hr over 4 h) [ ]f) Cyanosis (new) [ ]g) Cardiac tamponade [ ]h) Status post respiratory or cardiac arrest [ ]i) Severe molina (eg, partial thickness molina over more than 10% of body surface, third-degree molina) [ ]j) Findings consistent with abdominal emergency (eg, peritoneal signs) [ ]V.Imaging findings, such as dissecting aneurysm or ruptured viscus [X].Specific intervention or monitoring needed, as indicated by ANY ONE of the following: [X]a) New need for assisted ventilation, invasive or noninvasive(11) [X]b) New need for intubation (eg, to protect airway) [ ]c) New tracheostomy (less than 48 hours old) [ ]d) Hourly vital signs or neurologic checks [ ]e) Pulmonary artery line monitoring needed [ ]f) Continuous arterial line monitoring needed [ ]g) Continuous IV vasoactive drugs [ ]h) Continuous IV antiarrhythmics [ ]i) Large volume IV fluid resuscitation (eg, greater than 6 L per day ) [ ]j) Large or rapid transfusion needs (eg, more than 6 units within 24 hours) [ ]k) High-risk IV treatment, such as bolus IV medicatns or mannitol infusion [ ]l) Acute cardiac pacing [ ]m) Intra-aortic balloon pump [ ]n) Ventricular assist device [ ]o) Cardioversion [ ]p) Pericardiocentesis [ ]q) Hemodialysis in unstable patient [ ]r) Continuous renal replacement therapy (eg, continuous veno-venous hemofiltration) [ ]s) Peritoneal dialysis initiation [ ]t) Emergency bronchoscopic therapy (eg, for hemoptysis) [ ]u) Emergency endoscopic therapy for bleeding [ ]v) Balloon tamponade for variceal bleeding [ ]w) Intracranial pressure monitoring or tissue oxygen monitoring [ ]x) Ventriculostomy monitoring [ ]y) Treatment of ongoing seizures [ ]z) Induced hypothermia or coma [ ]aa) Ongoing frequent testing and treatment for acute conditions, including ANY ONE of the following: [ ]i) Correction of severe metabolic acidosis/ alkalosis [ ]ii). Severe fluid overload [ ]iii) Cerebral edema [ ]iv) Monitoring or suctioning for respiratory insufficiency or acidosis [ ]v) Monitoring for active bleeding [ ]bb) Rapid desensitization for high-risk hypersensitivity reaction to required medication (eg, penicillin)(12) [ ]cc) Other need for treatment or monitoring not available outside the ICU [ ]VII.Cardiology diagnoses or procedures, including ANY ONE of the following (13)(14)(15)(16)(17): [ ]a) Chest pain with ANY ONE of the following: [ ]i) Hemodynamic instability [ ]ii) Suspicion of diagnoses needing ICU care (eg, aortic dissection) [ ]iii) New unstable or symptomatic arrhythmia or ECG finding (eg, ventricular tachycardia, ventricular fibrillation, advanced heart block) [ ]iv) Syncope or near-syncope [ ]v) SBP less than 100 mm Hg [ ]vi) Pulmonary edema thought to be due to ischemia [ ]vii) New or worsening mitral regurgitation murmur, S3 , or rales [ ]b) Acute IN with complications as indicated by ANY ONE of the following: [ ]i) Persistent chest pain [ ]ii) Hemodynamic instability [ ]iii) New unstable or symptomatic arrhythmia or ECG finding (eg, ventricular tachycardia, ventricular fibrillation, advanced heart block) [ ]iv) Syncope or near-syncope [ ]v) Pulmonary edema thought to be due to ischemia [ ]vi) New or worsening mitral regurgitation murmur, S3 , or rales [ ]vii) New-onset bundle branch block [ ]viii) Hemorrhagic complication (eg, intracranial or access site bleed following thrombolysis) [ ]c) Cardiac arrhythmia or conduction defect with Hemodynamic instability [ ]d) Complication of cardiac ablation, including ANY ONE of the following(18): [ ]i) Pericardial tamponade [ ]ii) Hemodynamic instability [ ]iii) Thromboembolic stroke [ ]iv) Aortic valve injury [ ]v) Vascular injuries [ ]vi) Esophageal perforation [ ]vii) Severe arrhythmia [ ]viii) Air embolism [ ]ix) Other severe complication [ ]e) Cardiogenic shock [ ]f) Hypertensive emergency, with need for ANY ONE of the following(19): [ ]i) IV antihypertensive therapy [ ]ii) Invasive hemodynamic monitoring (eg, arterial line) [ ]g) Pericardial tamponade [ ]h) Severe heart failure, with ANY ONE of the following(15): [ ]i) Respiratory failure [ ]ii) Cardiogenic shock [ ]iii) Severe arrhythmias [ ]iv) Evidence of cardiac ischemia [ ]i Myocarditis, with ANY ONE of the following [ ]i) Hemodynamic instability [ ]ii) Respiratory failure [ ]iii) Severe arrhythmias [ ]iv) Need for cardiac assist device (eg, left ventricular assist device or extracorporeal membrane oxygenator) [ ]j) Status post cardiac arrest(20) [ ]VIII. Cardiovascular Surgery diagnoses or procedures, including ANY ONE of the following.(21)(22): [ ]a) Acute aortic dissection [ ]b) Aortic surgery for ANY ONE of the following: [ ]i) Thoracic aneurysm [ ]ii) Abdominal aneurysm with ANY ONE of the following(23): [ ]1) Emergency repair [ ]2) Severe cardiopulmonary disease [ ]3) Dialysis-dependent renal failure [ ]4) Need for IV blood pressure control [ ]5) Need for ongoing ventilatory support [ ]6) Perioperative complications, including ANY ONE of the following: [ ]A. Sustained Hemodynamic instability [ ]B. Cardiac ischemia or arrhythmia [ ]C. Hypothermia (less than 35 degrees C (95 degrees F)) [ ]D. Blood transfusion greater than 3 L [ ]iii) Aortic coarctation operative excision or repair [ ]iv) Aortofemoral or aortoiliac bypass with ANY ONE of the following: [ ]1) Continued intubation [ ]2) Hemodynamic instability [ ]3) Need for IV blood pressure control [ ]4) Severe cardiopulmonary disease [ ]c) Cardiac surgery [ ]d) Carotid endarterectomy or stent placement with ANY ONE of the following: [ ]i) Blood pressure <100/60 mm Hg or >160/90 mm Hg despite 4 h of postanesthetic management [ ]ii) New or progressive neurologic defect [ ]iii) Chest pain [ ]iv) Continued intubation [ ]v) Heart failure [ ]vi) Airway compromise by hematoma or vocal cord paralysis [ ]vi) Need for IV blood pressure control [ ]e) Heart transplant [ ]f) Infrainguinal peripheral vascular surgery with ANY ONE of the following: [ ]i) Hemodynamic instability [ ]ii) Acute complications such as persistent chest pain or respiratory distress [ ]iii) Requirement for IV antiarrhythmic or vasoactive agent [ ]iv) Requirement for pulmonary artery catheter [ ]v) Severe hypertension despite 6 hours of recovery room management [ ]g) Complications of any surgery requiring ICU intervention as indicated by ANY ONE of the following(24): [ ]i) Hemodynamic instability [ ]ii) Myocardial infarction with complications (eg, severe arrhythmia, hypotension) [ ]iii) Excessive bleeding or severe coagulopathy [ ]iv) Respiratory failure [ ]v) Renal failure [ ]vi) Airway instability or obstruction [ ]vii) Neurologic deterioration [ ]viii) Infection with likelihood of sepsis syndrome or significant fluid shifts [ ]IX.Endocrinology diagnoses or procedures, including ANY ONE of the following(25)(26): [ ]a) Adrenal crisis with Hemodynamic instability(27) [ ]b) Pheochromocytoma with ANY ONE of the following(28): [ ]i) Hypertensive crisis [ ]ii) Postoperative Hemodynamic instability [ ]iii) Need for IV vasoactive therapy [ ]iv) Need for invasive arterial or central venous pressure monitoring [ ]v) Organ ischemia [ ]c) Diabetic hyperosmolar state with obtundation or coma [ ]d) Diabetic ketoacidosis with ANY ONE of the following: [ ]i) Serum pH less than 7.10 or bicarbonate level less than 10 mEq/L (mmol/L) [ ]ii) Rapidly changing electrolytes [ ]iii) Hypotension [ ]iv) Requirement for large-volume fluid resuscitation [ ]v) Respiratory insufficiency [ ]vi) Life-threatening cardiac dysrhythmias [ ]vii) Obtundation [ ]viii) Severe precipitating condition such as sepsis, stroke, or acute IN [ ]e) Severe hypoglycemia requiring continuous glucose infusion with frequent adjustment or glucagon infusion [ ]f) Hyperthyroidism associated with thyroid storm (also known as thyrotoxic crisis)(29) [ ]g) Myxedema with life-threatening neurologic, cardiovascular, electrolyte, or renal dysfunction(29) [ ]h) Diabetes insipidus that cannot be controlled with routine medication (30) [ ]X. Gastroenterology diagnoses or procedures, including ANY ONE of the following: [ ]a) Esophageal perforation(31) [ ]b) Severe caustic esophageal injury(31) [ ]c) Liver disease complications with ANY ONE of the following(32): [ ]i) Severe hepatic encephalopathy (eg, stage 3 (somnolent) or higher) [ ]ii) Type 1 hepatorenal syndrome [ ]iii) Other cirrhosis-associated causes of acute renal failure ( eg, severe hypovolemia, acute tubular necrosis, abdominal compartment syndrome) [ ]iv) Hemodynamic instability [ ]v) Respiratory insufficiency due to severe ascites [ ]vi) Sepsis due to spontaneous bacterial peritonitis [ ]d) Fulminant hepatic failure when aggressive intervention or transplant is anticipated (32) [ ]e) Gastrointestinal hemorrhage (upper or lower) with ANY ONE of the following(33)(34): [ ]i) Active ongoing bleeding [ ]ii) Transfusion requirement greater than 2 units of packed red cells [ ]iii) Bleeding ulcer or nonbleeding visible vessel seen on endoscopy [ ]iv) Bleeding ulcer, visible blood vessel, bleeding (or recently bleeding) esophageal varices seen on endoscopy [ ]v) Hypotension [ ]vi) Syncope [ ]vii) Coagulopathy [ ]viii) Hepatic cirrhosis [ ]ix) Abnormal mental status [ ]x) Unstable comorbid condition or end organ dysfunction [ ]xi) Ischemia due to poor perfusion [ ]xii) Need for hemodynamic monitoring (eg, for patients with heart failure or valvular disease) [ ]f) Severe pancreatitis indicated by ANY ONE of the following (35)(36): [ ]i) Requirement for aggressive fluid resuscitation [ ]ii) Life-threatening electrolyte abnormality [ ]iii) SBP less than 90 mm Hg [ ]iv) Persistent tachycardia greater than 120 beats per minute [ ]v) Patients at high risk of rapid deterioration, including ANY ONE of the following: [ ]1) Calculated [place] II score greater than 8 [ ]2) Age older than 55 years [ ]3) BMI greater than 30 [ ]4) Greater than 30% pancreatic necrosis on CT scan [ ]5) Admission hematocrit greater than 47% (0.47) [ ]vi) Organ failure as indicated by ANY ONE of the following: [ ]1) Serum creatinine greater than 1.9 mg/dL (168 micromoles/L) [ ]2) Requirement for mechanical ventilation [ ]3) Urine output less than 50 mL/hour [ ]4) Arterial partial pressure of oxygen less than 60 mm Hg (8.0 kPa) despite supplemental oxygen [ ]5) PiO2/FiO2 ratio less than 300 [ ]vii) Expanding pseudocyst [ ]viii) Infected pancreas [ ]ix) Pleural effusion [ ]x) Encephalopathy [ ]xi) Severe comorbidities [ ]XI. General Surgery diagnoses or procedures, including ANY ONE of the following (9)(24)(37): [ ]a) Acute abdominal catastrophe (eg, ischemic bowel, perforated viscus, abdominal compartment syndrome) [ ]b) Complications of any surgery requiring ICU intervention as indicated by ANY ONE of the following: [ ]i) Hemodynamic instability [ ]ii) IN with complications (eg, severe arrhythmia, hypotension) [ ]iii) Excessive bleeding or severe coagulopathy [ ]iv) Respiratory failure [ ]v) Renal failure [ ]vi) Airway instability or obstruction [ ]vii) Neurologic deterioration [ ]viii) Infection with likelihood of sepsis syndrome or significant fluid shifts [ ]c) Multiple trauma with complicating features as indicated by ANY ONE of the following(38): [ ]i) Impending acute respiratory failure due to lung contusion, unstable chest wall, aspiration, or hemorrhage [ ]ii) Facial or neck injury threatening airway patency [ ]iii) Cardiac contusion [ ]iv) Pericardial effusion [ ]v) Bronchial tear [ ]vi) Hemodynamic instability [ ]vii) Rhabdomyolisis requiring large volume IV fluid resuscitation [ ]viii)Other significant complicating feature [ ]d) Organ transplant(39)(40) [ ]e) Esophagectomy(31) [ ]f) Whipple procedure [ ]g) Preoperative or postoperative patients requiring ICU intervention, such as hemodynamic optimization, pulmonary artery monitoring, mechanical ventilation, or extensive nursing care [ ]h) Obesity surgery patients with ANY ONE of the following(41): [ ]i) ICU management needs for comorbid conditions, such as sleep apnea or airway management needs [ ]ii) Failed postoperative extubation [ ]iii) Intraoperative complications [ ]XII. Nephrology diagnoses or procedures, including acute, or acute on chronic renal insufficiency with ANY ONE of the following(44)(45): [ ]a) Life-threatening electrolyte or acid-base disorder [ ]b) Acute pulmonary edema [ ]c) Hypotension or significant volume depletion [ ]d) Hypertensive emergency [ ]e) Underlying critical illness contributing to renal failure (eg, septic shock, hepatorenal syndrome) [ ]f) Need for continuous renal replacement therapy [ ]XIII. Neurology diagnoses or procedures, including ANY ONE of the following (46)(47) [B] : [ ]a) Intracranial hypertension requiring ANY ONE of the following(49 ): [ ]i) Induced barbiturate coma [ ]ii) Pharmacologic paralysis or deep sedation and mechanical ventilation [ ]iii) Intracranial pressure or cerebral perfusion pressure monitoring [ ]iv) IV mannitol or hypertonic saline [ ]v) Frequent serum osmolality measurements [ ]b) Seizures with ANY ONE of the following(50): [ ]i) Status epilepticus [ ]ii) Airway compromise requiring or likely to require mechanical ventilation [ ]iii) Severe electrolyte abnormalities causing seizures [ ]c) Progressive acute neurologic dysfunction requiring or likely to require ANY ONE of the following: [ ]i) Mechanical ventilation [ ]ii) Intracranial pressure or cerebral perfusion pressure monitoring [ ]d) Meningitis with obtundation or respiratory insufficiency [C])(51 ) [ ]e) Stroke with ANY ONE of the following(52)(53): [ ]i) Need for observation after thrombolysis [ ]ii) Altered mental status [ ]iii) Need for mechanical ventilation [ ]iv) Elevated intracranial pressure [ ]v) Hypertensive emergency [ ]vi) High risk of progressive infarction or deterioration based on CT scan or MRI [ ]vii) Hemorrhage [ ]f) Acute coma [ ]g) Acute spontaneous intracranial hemorrhage(53)(54) [ ]h) Drug ingestion with ANY ONE of the following(56)(57): [ ]i) Hemodynamic instability [ ]ii) Respiratory depression (partial pressure of carbon dioxide >45 mm Hg (6.0 kPa), new) [ ]iii) Patient requires or is likely to require mechanical ventilation. [ ]iv) Arrhythmias [ ]v) Seizures [ ]vi) Altered mental status (Art coma scale score less than 12, new) [ ]vii) Significant risk for acute deterioration (eg, toxic level of hypotension or arrhythmia-producing drug) [ ]viii) Drug-induced hypothermia or hyperthermia [ ]ix) Increasing metabolic acidosis [ ]x) Severe hypoglycemia requiring glucose infusion with frequent adjustment or glucagon administration [ ]xi) Ongoing antidote administration (eg, continuous naloxone infusion, organophosphate toxicity treatment) [ ]xii) Emergency intervention need (eg, dialysis, hemoperfusion, restraints) [ ]i) Brain with preparation for organ donation [ ]j) Traumatic brain injury with ANY ONE of the following(55): [ ]i) Altered mental status (eg, new onset Vitaly coma scale score less than 10) [ ]ii) Cerebral edema [ ]iii) Cerebral hemorrhage [ ]iv) Increased intracranial pressure [ ]XIV. Neurosurgery diagnoses or procedures, including ANY ONE of the following(49)(58)(59): [ ]a) Emergency craniotomy for tumor, hematoma, or trauma [ ]b) Elective craniotomy for posterior fossa tumor [ ]c) Elective craniotomy (supratentorial) for tumor with ANY ONE of the following: [ ]i) Postoperative neurologic deficit or impaired consciousness 6 hours after completion of procedure [ ]ii) SBP less than 110 mm Hg or greater than 180 mm Hg despite therapy [ ]iii) Extensive operative blood loss [ ]iv) High anesthesia risk (eg, [place] [employer] score greater than 3 [ ]d) Craniotomy for aneurysm with ANY ONE of the following: [ ]i) Postoperative neurologic deficit or impaired consciousness 6 hours after completion of procedure [ ]ii) Preoperative Munroe-Aranda grade 3 or higher [ ]iii) SBP less than 110 mm Hg or greater than 180 mm Hg despite therapy [ ]iv) Intracranial pressure monitoring [ ]e) Acute spinal cord injury [ ]f) Subarachnoid hemorrhage [ ]g) Traumatic brain injury with ANY ONE of the following: [ ]i) Acute mental status change (Vitaly coma scale score less than 10) [ ]ii) CT scan showing cerebral edema or hemorrhage [ ]iii) Intracranial pressure monitoring [ ]h) Complications of any surgery requiring ICU intervention as indicated by ANY ONE of the following(60): [ ]i) Hemodynamic instability [ ]ii) IN with complications (eg, severe arrhythmia, hypotension) [ ]iii) Excessive bleeding or severe coagulopathy [ ]iv) Respiratory failure [ ] v) Renal failure [ ]vi) Airway instability or obstruction [ ]vii) Neurologic deterioration [ ]viii) Infection with likelihood of sepsis syndrome or significant fluid shifts [ ]i) Preoperative or postoperative patients requiring ICU intervention, such as hemodynamic optimization, pulmonary artery monitoring, mechanical ventilation, or extensive nursing care [ ]XV.Obstetrics and Gynecology diagnoses or procedures, including ANY ONE of the ffg. (61)(62)(63): [ ]a) Severe peripartum condition as indicated by ANY ONE of the following: [ ]i) Eclampsia [ ]ii) Hypertensive emergency [ ]iii) HELLP syndrome (hemolysis, elevated liver enzymes, and low platelet count) [ ]iv) Pulmonary edema [ ]v) Respiratory failure [ ]vi) Pulmonary embolism [ ]vii) Anaphylactoid syndrome of (amniotic fluid embolus) [ ]viii) Ovarian hyperstimulation syndrome [D] [ ]ix) Acute fatty liver of (hepatic failure) [ ]x) Complications such as placental abruption or severe hemorrhage [ ]xi) Sepsis (eg, puerperal sepsis, chorioamnionitis, septic ) [ ]xii) cardiomyopathy with severe congestive heart failure (eg, respiratory failure, cardiogenic shock) [ ]b) Ruptured ectopic [ ]c) Complications of any surgery requiring ICU intervention as indicated by ANY ONE of the following: [ ]i) Hemodynamic instability [ ]ii) IN with complications (eg, severe arrhythmia, hypotension) [ ]iii) Excessive bleeding or severe coagulopathy [ ]iv) Respiratory failure [ ]v) Renal failure [ ]vi) Airway instability or obstruction [ ]vii) Neurologic deterioration [ ]viii) Infection with likelihood of sepsis syndrome or significant fluid shifts [ ]d) Preoperative or postoperative patients requiring ICU intervention , such as hemodynamic optimization, pulmonary artery monitoring, mechanical ventilation, or extensive nursing care [ ]XVI.Ophthalmology diagnoses or procedures, including ANY ONE of the following (64): [ ]a) Complications of any surgery requiring ICU intervention, such as ANY ONE of the following: [ ]i) Hemodynamic instability [ ]ii) IN with complications (eg, severe arrhythmia, hypotension) [ ]iii) Excessive bleeding or severe coagulopathy [ ]iv) Respiratory failure [ ]v) Renal failure [ ]vi) Airway instability or obstruction [ ]vii) Neurologic deterioration [ ]viii) Infection with likelihood of sepsis syndrome or significant fluid shifts [ ]b) Preoperative or postoperative patients requiring ICU intervention , such as hemodynamic optimization, pulmonary artery monitoring, mechanical ventilation, or extensive nursing care [ ]XVII.Orthopedics diagnoses or procedures, including ANY ONE of the following [phone]): [ ]a) Complications of any surgery requiring ICU intervention as indicated by ANY ONE of the following: [ ]i) Hemodynamic instability [ ]ii) IN with complications (eg, severe arrhythmia, hypotension) [ ]iii) Excessive bleeding or severe coagulopathy [ ]iv) Respiratory failure [ ]v) Renal failure [ ]vi) Airway instability or obstruction [ ] vii) Neurologic deterioration [ ]viii) Infection with likelihood of sepsis syndrome or significant fluid shifts [ ]b) Multiple trauma with complicating features as indicated by ANY ONE of the following(38): [ ]i) Impending acute respiratory failure due to lung contusion, unstable chest wall, pneumothorax, aspiration, or hemorrhage [ ]ii) Facial or neck injury threatening airway patency [ ]iii) Cardiac contusion [ ]iv) Rhabdomyolysis requiring large volume IV fluid resuscitation [ ]v) Pericardial effusion [ ]vi) Bronchial tear [ ]vii) Hemodynamic instability [ ]viii) Other significant complicating feature [ ]c) Threatened compartment syndrome [ ]d) Severe molina with ANY ONE of the following(68)(69)(70): [ ]i) Hypotension or requirement for aggressive fluid resuscitation [ ]ii) Respiratory insufficiency with requirement for high- flow oxygen or mechanical ventilation [ ]iii) Carbon monoxide poisoning [ ]iv) Life-threatening cardiac, renal, pulmonary, or neurologic dysfunction [ ]v) High-voltage (eg, 1000 volts or more) electrical burn [ ]vi) Requirement for frequent or intensive debridement and dressing changes; examples include: [ ]1) Partial thickness molina greater than 10% of body surface [ ]2) Molina on face, hands, feet, genitalia, perineum , or major joints [ ]3) Third-degree molina [ ]4) Any burn greater than 15% of body surface area [ ]vii) Inhalation lung injury [ ]viii) Concomitant trauma or other medical condition requiring ICU care [ ]e) Preoperative or postoperative patients requiring ICU intervention , such as hemodynamic optimization, pulmonary artery monitoring, mechanical ventilation, or extensive nursing care [ ]XVIII.Otolaryngology diagnoses or procedures, including ANY ONE of the following (71)(72): [ ]a) Complications of any surgery requiring ICU intervention as indicated by ANY ONE of the following: [ ]i) Hemodynamic instability [ ]ii) IN with complications (eg, severe arrhythmia, hypotension) [ ]iii) Excessive bleeding or severe coagulopathy [ ]iv) Respiratory failure [ ]v) Renal failure [ ]vi) Airway instability or obstruction [ ]vii) Neurologic deterioration [ ]viii) Infection with likelihood of sepsis syndrome or significant fluid shifts [ ]b) Airway or hemodynamic compromise that persists after 3 hours of observation in postanesthesia care unit following nasal, palate (eg, uvulopalatopharyngoplasty or palatoplasty), or tongue surgery for sleep apnea [ ]c) Preoperative or postoperative patient requiring ICU intervention, such as hemodynamic optimization, pulmonary artery monitoring, mechanical ventilation, or extensive nursing care [ ]d) Symptomatic upper airway compromise (eg, laryngeal edema, mass) [ ]e) Other airway-compromising procedure (eg, posterior nasal packing) [ ]XIX.Thoracic Surgery and Pulmonary Disease Diagnosis or procedures, including ANY ONE of the following(6): [ ]a) Asthma with ANY ONE of the following(73)(74): [ ]i) Impending or actual respiratory arrest [ ]ii) Need for mechanical ventilation [ ]iii) Peak expiratory flow rate less than 30% of predicted or personal best [ ]iv) Peak expiratory flow rate or FEV1 less than 40% predicted after 1 hour of initial treatment [ ]v) Acidosis [ ]vi) Persistent or worsening hypoxia after initial treatment [ ]vii) Hypercapnia (eg, partial pressure of carbon dioxide greater than 43 mm Hg (5.7 kPa)) [ ]viii) Severe drowsiness, confusion, or coma [ ]ix) Requiring continuous inhaled bronchodilator [ ]b) COPD with ANY ONE of the following(75): [ ]i) Need for assisted ventilation [ ]ii) Hemodynamic instability [ ]iii) Severe dyspnea unresponsive to initial treatment [ ]iv) Change in level of consciousness [ ]v) Persistent findings despite oxygen and outpatient management, including ANY ONE of the following: [ ]1) Partial pressure of oxygen less than 40 mm Hg ( 5.3 kPa) [ ]2) Partial pressure of carbon dioxide greater than 60 mm Hg (8.0 kPa) [ ]3) pH less than 7.25 [ ]4) Worsening hypoxemia or acidosis [ ]c) Cor pulmonale with ANY ONE of the following(75)(76)(77): [ ]i) Hemodynamic instability [ ]ii) Need for IV inotropic or vasoactive agent [ ]iii) Need for invasive hemodynamic monitoring (eg, central venous, pulmonary artery, or arterial catheter) [ ]iv) Hypoxemia with partial pressure of oxygen less than 40 mm Hg (5.3 kPa) [ ]v) Worsening hypoxemia or acidosis despite oxygen therapy [ ]vi) Need for assisted ventilation [ ]vii) Need for right ventricular assist device [ ]viii) Unstable atrial tachyarrhythmia [ ]ix) Need for inhaled nitric oxide [ ]d) Aspiration pneumonia with ANY ONE of the following(78): [ ]i) Acute respiratory distress syndrome (PaO2/FiO2 ratio of 300 or less) [ ]ii) Impending or actual respiratory arrest [ ]iii) Need for invasive or noninvasive mechanical ventilation [ ]e) Pneumocystis jiroveci pneumonia with ANY ONE of the following(79): [ ]i) Impending or actual respiratory arrest [ ]ii) Hypoxia (eg, PO260 mmGh (8.0 kPa) or less despite oxygen therapy) [ ]iii) Need for invasive or noninvasive mechanical ventilation [ ]f) Pneumonia with ANY ONE of the following(80)(81)(82): [ ]i) Need for invasive or noninvasive assisted ventilation [ ]ii) Hemodynamic instability [ ]iii) Severity factors as indicated by 3 or MORE of the following: [ ]1) Respiratory rate 30 breaths per minute or greater [ ]2) PaO2/FiO2 ratio of 250 or less [ ]3) Multilobed infiltrates [ ]4) Altered mental status [ ]5) BUN 20 mg/dL (7.1 mmol/L) or greater [ ]6) WBC count less than 4000/mm3 (4 x109/L) [ ]7) Platelet count <100,000/mm3 (100 x109/L) [ ]8) Temperature less than 36 degrees C (96.8 degrees F ) [ ]9) Hypotension requiring aggressive fluid resuscitation [ ]g) Pulmonary hypertension requiring initiation of parenteral pulmonary vasodilator or trial of inhaled nitric oxide (eg, need for right heart catheterization)(76) [ ]h) Impending respiratory failure as indicated by ANY ONE of the following: [ ]i) Respiratory rate greater than 30 or partial pressure of oxygen less than 60 mm Hg (8.0 kPa) on 50% oxygen or more [ ]ii) Partial pressure of carbon dioxide greater than 45 mm Hg (6.0 kPa) with pH less than 7.35 [ ]i) Respiratory failure with ANY ONE of the following (47): [ ]i) Need for invasive or noninvasive mechanical ventilation [ ]ii) High likelihood of requiring mechanical ventilation within 24 hours [ ]iii) Observation in the first several hours immediately after extubation from mechanical ventilation [ ]iv) Need for close observation and aggressive therapy, such as suctioning, chest physiotherapy, or inhalation treatments at intervals less than 1 hour [ ]v) Pharmacologic ventilatory paralysis [ ]j) Venous thromboembolism with need for systemic or catheter- directed thrombolysis (eg, for limb-threatening thrombosis, phlegmasia cerulea dolens) (83) [ ]k) Pulmonary embolus with ANY ONE of the following(83): [ ]i) Hypotension [ ]ii) Severe hypoxia [ ]iii) Dangerous arrhythmia [ ]iv) Bleeding [ ]v) Need for systemic or catheter-directed thrombolysis [ ]l) Lobectomy or other major thoracic surgery [ ]m) Lung transplant [ ]n) Symptomatic upper airway obstruction (eg, laryngeal edema, mass) [ ]o) Massive hemoptysis [ ]p) Infection or thrombosis of an intravenous device with ANY ONE of the following(6)(84): [ ]i) Hemodynamic instability [ ]ii) Requirement for frequent hemodynamic measurements [ ]iii) Shock [ ]iv) End organ dysfunction [ ] v) Acute renal failure due to missed dialysis [ ]vi) Unstable acute complication (eg, pericardial tamponade , tension pneumothorax) [ ]q) Traumatic rib fracture or fractures with ANY ONE of the following(85): [ ]i) Injury severity score of 19 or greater [ ]ii) Respiratory insufficiency [ ]iii) Flail chest [ ]iv) Sternum fracture [ ]v) Vascular injury (eg, heart or great vessels) [ ]r) Pleural effusion with ANY ONE of the following(86): [ ]i) Respiratory insufficiency [ ]ii) Hemothorax with active ongoing bleeding [ ]iii) Hemodynamic instability [ ]iv) Unstable comorbid condition (eg, sepsis or heart failure [ ]XX. Urology diagnoses or procedures, including ANY ONE of the following ( 87)(88): [ ]a) Renal transplant [ ]b) Complications of any surgery requiring ICU intervention as indicated by ANY ONE of the following: [ ]i) Hemodynamic instability [ ]ii) IN with complications (eg, severe arrhythmia, hypotension) [ ]iii) Excessive bleeding or severe coagulopathy [ ]iv) Respiratory failure [ ]v) Renal failure [ ]vi) Airway instability or obstruction [ ]vii) Neurologic deterioration [ ]viii) Infection with likelihood of sepsis syndrome or significant fluid shifts [ ]c) Preoperative or postoperative patients requiring ICU intervention , such as hemodynamic optimization, pulmonary artery monitoring, mechanical ventilation , or extensive nursing care [ ]XXI.Infectious Disease diagnoses or procedures, with ANY ONE of the following (6)(43): [ ]a) Hemodynamic instability [ ]b) Shock [ ]c) Requirement for frequent hemodynamic measurements (eg, arterial catheter, pulmonary artery catheter) [ ]d) Sepsis or suspected sepsis with end organ dysfunction (eg, acute kidney injury, acute respiratory distress syndrome) [ ]e) Necrotizing soft tissue infection [ ] XXII.Hematology - Oncology diagnoses or procedures, including chemotherapy administration with ANY ONE of the following(42): [ ]a) Hemodynamic instability [ ]b) Tumor lysis syndrome with ANY ONE of the following : [ ]1) Acute kidney injury [ ]2) Severe electrolyte abnormality [ ]3) Cardiac dysrhythmia [ ]XXIII. Systemic conditions, including ANY ONE of the following: [ ]a) Severe electrolyte or metabolic disturbance causing or likely to cause ANY ONE of the following(10)(89)(90): [ ]i) Life-threatening cardiac dysrhythmia [ ]ii) Respiratory insufficiency [ ]iii) Altered mental status [ ]iv) Seizures [ ]v) Hemodynamic instability [ ]vi) Muscular weakness [ ]b) Environmental injuries such as hypothermia, hyperthermia, electrical injuries, or near drowning(70)(91)(92) The original [employer] content created by [employer] has been revised. The portions of the content which have been revised are identified through the use of italic text or in bold, and [facility] has neither reviewed nor approved the modified material. All other unmodified content is copyright [employer]. Please see references footnoted in the original [facility] [employer] edition 2016 Admission Criteria Met?: Yes MIRA NÚÑEZ August 07, 2016 04:51
[2016-08-07 04:57] LABS: BASO % 0 % (0-3); EOS % 0 % (0-3); HEMATOCRIT 36.6 % (36.0-47.0); HEMOGLOBIN 11.9 g/dL (12.0-15.5); LYMPH # 1.4 x10^3/uL (1.0-4.8); LYMPH % 5 % (24-48); MEAN CORPUSCULAR HEMOGLOBIN 28 pg (25-35); MEAN CORPUSCULAR HGB CONC 33 g/dL (31-37); MEAN CORPUSCULAR VOLUME 86 fL (79-100); MONO % 7 % (0-9); NEUT % 88 % (31-73); PLATELET COUNT 315 x10^3/uL (140-400); RED BLOOD COUNT 4.25 x10^6/uL (3.50-5.40); RED CELL DISTRIBUTION WIDTH 14.7 % (11.5-14.5); WHITE BLOOD COUNT 30.4 x10^3/uL (4.0-11.0)
[2016-08-07] MEDS: IV DEXTROSE 10% 1,000 ML IV SCH (05:00)
[2016-08-07 05:03] LABS: ALBUMIN 2.9 g/dL (3.4-5.0); CALCIUM 6.6 mg/dL (8.5-10.1); CREATININE 1.6 mg/dL (0.6-1.0); GFR 37.6; PHOSPHORUS 5.3 mg/dL (2.6-4.7); POTASSIUM 4.6 mmol/L (3.5-5.1)
[2016-08-07] MEDS ORDERED: HEPARIN for IV BOLUS 10,000 UNIT/10 ML VIAL. IV ONE (06:30)
[2016-08-07] MEDS: IPRATRPIUM/ALBUTEROL 0.5/2.5MG 3 ML NEBU. NEB SCH ×3 (07:24→19:50)
[2016-08-07 07:47] LABS: HCO3 ABG 17 mmol/L (21-28); PCO2 ABG 41 mmHg (35-46); PH ABG 7.23 (7.35-7.45); PO2 ABG 208 mmHg (85-108); SAT O2 ABG 99 % (92-99)
[2016-08-07 07:48] LABS: FIO2 ABG 100
--- NOTE | 2016-08-07 07:49 | RAD ---
Bedside ultrasound-guided right IJ temporary hemodialysis catheter insertion Indication: 30-year-old female ICU patient. Drug overdose. Lactic acidosis. Hyperkalemia. Bedside temporary dialysis catheter insertion has been requested by renal. Anesthesia: Local only Sterility: All elements of maximal sterile barrier technique, including the use of a cap, mask, sterile gown, sterile gloves, large sterile sheet, appropriate hand hygiene, and 2% chlorhexidine for cutaneous antisepsis (or acceptable alternative antiseptic per current guidelines) were utilized. Procedure: This procedure was performed bedside in the intensive care unit, on a medically necessary basis, without informed consent. Preliminary ultrasound examination of right neck revealed wide patency of right internal jugular vein, which was documented with a single hard copy ultrasound image. Right neck was then prepped and draped in the usual sterile fashion, utilizing all elements of maximal sterile barrier technique, as described above. Using aseptic technique, local anesthesia, direct ultrasound guidance, and the micropuncture system, successful percutaneous entry was achieved into right internal jugular vein. The right IJ venostomy tract was then dilated and a 14 [place] 20 cm temporary hemodialysis catheter was easily advanced centrally over an angiographic guidewire. The catheter was documented to flush and aspirate normally, was packed, and was secured at the right neck exit site utilizing suture and sterile dressing. Patient tolerated the procedure well without apparent complication. A stat portable chest x-ray was requested for line position. Impression: Successful, uneventful ultrasound guided placement of right IJ 14 [place] 20 cm temporary hemodialysis catheter, bedside in ICU, as described.
[2016-08-07] MEDS: INSULIN ASPART 300 UNITS/3 ML INSULN.PEN SQ SCH ×3 (08:00→17:00)
--- NOTE | 2016-08-07 08:36 | PDOC ---
Dialysis Progress Note Dialysis Note Dialysis Note Seen on CRRT, tolerating treatment OK so far now on pressors General Appearance: Sedated an intubated Neck: No JVD or JVP Chest: CTA Ashu Heart: S1 S2 Abdomen - Soft NTND; obese Extremities - No Edema ARF + Refractory Met Acidosis: ct CRRT as ordered Poor Overall near term prognosis Vitals Vital Signs Vital Signs Date Time Temp Pulse Resp B/P Pulse Ox O2 Delivery O2 Flow Rate FiO2 08/07/16 07:24 99 Ventilator 08/07/16 07:00 133 50 87/62 08/07/16 04:00 100.4 100.4 Labs Last Labs Laboratory Tests Test 08/06/16 06:12 08/06/16 06:14 08/06/16 06:25 08/06/16 06:45 White Blood Count 9.6x10^3/uL (4.0-11.0) Red Blood Count 4.92x10^6/uL (3.50-5.40) Hemoglobin 14.0g/dL (12.0-15.5) Hematocrit 41.6% (36.0-47.0) Mean Corpuscular Volume 85fL (79-100) Mean Corpuscular Hemoglobin 28pg (25-35) Mean Corpuscular Hemoglobin Concent 34g/dL (31-37) Red Cell Distribution Width 14.4% (11.5-14.5) Platelet Count 483x10^3/uL (140-400) Neutrophils (%) (Auto) 66% (31-73) Lymphocytes (%) (Auto) 27% (24-48) Monocytes (%) (Auto) 6% (0-9) Eosinophils (%) (Auto) 1% (0-3) Basophils (%) (Auto) 1% (0-3) Neutrophils # (Auto) 6.3x10^3uL (1.8-7.7) Lymphocytes # (Auto) 2.6x10^3/uL (1.0-4.8) Monocytes # (Auto) 0.6x10^3/uL (0.0-1.1) Eosinophils # (Auto) 0.0x10^3/uL (0.0-0.7) Basophils # (Auto) 0.1x10^3/uL (0.0-0.2) Sodium Level 123mmol/L (136-145) Potassium Level 5.1mmol/L (3.5-5.1) Chloride Level 92mmol/L (98-107) Carbon Dioxide Level 16mmol/L (21-32) Anion Gap 15 (6-14) Blood Urea Nitrogen 8mg/dL (7-20) Creatinine 0.9mg/dL (0.6-1.0) Estimated GFR (Cockcroft-Gault) 73.0 BUN/Creatinine Ratio 9 (6-20) Glucose Level 338mg/dL (70-99) Lactic Acid Level 9.9mmol/L (0.4-2.0) Calcium Level 9.3mg/dL (8.5-10.1) Total Bilirubin 0.2mg/dL (0.2-1.0) Aspartate Amino Transf (AST/SGOT) 10U/L (15-37) Alanine Aminotransferase (ALT/SGPT) 18U/L (14-59) Alkaline Phosphatase 77U/L (46-116) Total Protein 7.5g/dL (6.4-8.2) Albumin 3.3g/dL (3.4-5.0) Albumin/Globulin Ratio 0.8 (1.0-1.7) Lipase 81U/L (73-393) Serum Test, Qualitative Negative (NEG) Salicylates Level 4.3mg/dL (2.8-20.0) Salicylate Last Dose Date Unknown Salicylate Last Dose Time Unknown Acetaminophen Level < 2mcg/ml (10-30) Acetaminophen Last Dose Date Unknown Acetaminophen Last Dose Time Unknown Carbamazepine (Tegretol) Level 10.3mcg/mL (4.0-12.0) Carbamazepine Last Dose Date 08/06/16 Carbamazepine Last Dose Time 0600 Ethyl Alcohol Level < 10mg/dL (0-10) Glucose (Fingerstick) 319mg/dL (70-99) Urine Random Creatinine 44.4mg/dL (Not Estab.) Urine Test Negative (NEG) Urine Opiates Screen Neg (NEG) Urine Methadone Screen Neg (NEG) Urine Barbiturates Neg (NEG) Urine Phencyclidine Screen Neg (NEG) Urine Amphetamine/Methamphetamine Neg (NEG) Urine Benzodiazepines Screen Neg (NEG) Urine Cocaine Screen Neg (NEG) Urine Cannabinoids Screen Neg (NEG) Urine Ethyl Alcohol Neg (NEG) O2 Saturation 97% (92-99) Arterial Blood pH 7.18 (7.35-7.45) Arterial Blood pCO2 at Patient Temp 18mmHg (35-46) Arterial Blood pO2 at Patient Temp 129mmHg (85-108) Arterial Blood HCO3 7mmol/L (21-28) Arterial Blood Base Excess -19mmol/L (-3-3) FiO2 21 Test 08/06/16 07:08 08/06/16 09:05 08/06/16 10:31 08/06/16 12:41 Glucose (Fingerstick) 299mg/dL (70-99) 197mg/dL (70-99) Sodium Level 129mmol/L (136-145) Potassium Level 5.7mmol/L (3.5-5.1) Chloride Level 97mmol/L (98-107) Carbon Dioxide Level 12mmol/L (21-32) Anion Gap 20 (6-14) Blood Urea Nitrogen 8mg/dL (7-20) Creatinine 1.2mg/dL (0.6-1.0) Estimated GFR (Cockcroft-Gault) 52.4 Glucose Level 205mg/dL (70-99) Serum Osmolality 287mOsm/Kg (279-304) Lactic Acid Level 13.5mmol/L (0.4-2.0) Calcium Level 9.6mg/dL (8.5-10.1) Acetone Level Neg (NEG) Hepatitis B Surface Antigen Negative (Negative) Hepatitis B Surface Antibody Reactive (.) Nasal Screen MRSA (PCR) Negative (Negative) Test 08/06/16 13:30 08/06/16 13:35 08/06/16 14:00 08/06/16 14:17 Urine Color Yellow Urine Clarity Clear Urine pH 6.0 Urine Specific [place] 1.010 Urine Protein 11.2mg/dL (Not Estab.) Urine Glucose (UA) Negativemg/dL (NEG) Urine Ketones (Stick) Negativemg/dL (NEG) Urine Blood Trace (NEG) Urine Nitrite Negative (NEG) Urine Bilirubin Negative (NEG) Urine Urobilinogen Dipstick 0.2mg/dL (0.2 mg/dL) Urine Leukocyte Esterase Negative (NEG) Urine RBC Rare/HPF (0-2) Urine WBC Occ/HPF (0-4) Urine Squamous Epithelial Cells Occ/LPF Urine Bacteria 0/HPF (0-FEW) Urine Random Sodium 137mmol/L (Not Estab.) Urine Creatinine <4.0mg/dL (Not Estab.) Urine Protein/Creatinine Ratio >2800mg/g creat (0-200) Uric Acid 5.5mg/dL (2.6-6.0) Magnesium Level 2.0mg/dL (1.8-2.4) Creatine Kinase 172U/L (26-192) Troponin I Quantitative < 0.017ng/mL (0.000-0.055) O2 Saturation 96% (92-99) Arterial Blood pH 6.90 (7.35-7.45) Arterial Blood pCO2 at Patient Temp 32mmHg (35-46) Arterial Blood pO2 at Patient Temp 124mmHg (85-108) Arterial Blood HCO3 6mmol/L (21-28) Arterial Blood Base Excess -26mmol/L (-3-3) FiO2 100 Glucose (Fingerstick) 18mg/dL (70-99) Test 08/06/16 14:25 08/06/16 14:27 08/06/16 14:53 08/06/16 15:12 Glucose (Fingerstick) 265mg/dL (70-99) 215mg/dL (70-99) 177mg/dL (70-99) 139mg/dL (70-99) Test 08/06/16 15:28 08/06/16 15:48 08/06/16 16:12 08/06/16 16:35 Glucose (Fingerstick) 108mg/dL (70-99) 92mg/dL (70-99) 45mg/dL (70-99) 160mg/dL (70-99) Test 08/06/16 17:00 08/06/16 18:33 08/06/16 19:22 08/06/16 19:27 Glucose (Fingerstick) 39mg/dL (70-99) 68mg/dL (70-99) 89mg/dL (70-99) O2 Saturation 93% (92-99) Arterial Blood pH 7.11 (7.35-7.45) Arterial Blood pCO2 at Patient Temp 42mmHg (35-46) Arterial Blood pO2 at Patient Temp 82mmHg (85-108) Arterial Blood HCO3 13mmol/L (21-28) Arterial Blood Base Excess -16mmol/L (-3-3) FiO2 100 Test 08/06/16 19:48 08/06/16 22:30 08/06/16 22:38 08/06/16 23:00 Glucose (Fingerstick) 87mg/dL (70-99) 174mg/dL (70-99) Lactic Acid Level 16.5mmol/L (0.4-2.0) Sodium Level 134mmol/L (136-145) Potassium Level 5.6mmol/L (3.5-5.1) Chloride Level 94mmol/L (98-107) Carbon Dioxide Level 17mmol/L (21-32) Anion Gap 23 (6-14) Blood Urea Nitrogen 10mg/dL (7-20) Creatinine 1.3mg/dL (0.6-1.0) Estimated GFR (Cockcroft-Gault) 47.8 Glucose Level 158mg/dL (70-99) Calcium Level 7.0mg/dL (8.5-10.1) Test 08/07/16 04:30 08/07/16 04:33 08/07/16 07:41 08/07/16 08:27 White Blood Count 30.4x10^3/uL (4.0-11.0) Red Blood Count 4.25x10^6/uL (3.50-5.40) Hemoglobin 11.9g/dL (12.0-15.5) Hematocrit 36.6% (36.0-47.0) Mean Corpuscular Volume 86fL (79-100) Mean Corpuscular Hemoglobin 28pg (25-35) Mean Corpuscular Hemoglobin Concent 33g/dL (31-37) Red Cell Distribution Width 14.7% (11.5-14.5) Platelet Count 315x10^3/uL (140-400) Neutrophils (%) (Auto) 88% (31-73) Lymphocytes (%) (Auto) 5% (24-48) Monocytes (%) (Auto) 7% (0-9) Eosinophils (%) (Auto) 0% (0-3) Basophils (%) (Auto) 0% (0-3) Neutrophils # (Auto) 26.6x10^3uL (1.8-7.7) Lymphocytes # (Auto) 1.4x10^3/uL (1.0-4.8) Monocytes # (Auto) 2.3x10^3/uL (0.0-1.1) Eosinophils # (Auto) 0.0x10^3/uL (0.0-0.7) Basophils # (Auto) 0.0x10^3/uL (0.0-0.2) Heparin Anti-Xa Act, Unfractionated 0.21IU/mL (0.30-0.70) Sodium Level 132mmol/L (136-145) Potassium Level 4.6mmol/L (3.5-5.1) Chloride Level 92mmol/L (98-107) Carbon Dioxide Level 22mmol/L (21-32) Anion Gap 18 (6-14) Blood Urea Nitrogen 12mg/dL (7-20) Creatinine 1.6mg/dL (0.6-1.0) Estimated GFR (Cockcroft-Gault) 37.6 Glucose Level 236mg/dL (70-99) Calcium Level 6.6mg/dL (8.5-10.1) Phosphorus Level 5.3mg/dL (2.6-4.7) Magnesium Level 1.4mg/dL (1.8-2.4) Albumin 2.9g/dL (3.4-5.0) Glucose (Fingerstick) 235mg/dL (70-99) 227mg/dL (70-99) O2 Saturation 99% (92-99) Arterial Blood pH 7.23 (7.35-7.45) Arterial Blood pCO2 at Patient Temp 41mmHg (35-46) Arterial Blood pO2 at Patient Temp 208mmHg (85-108) Arterial Blood HCO3 17mmol/L (21-28) Arterial Blood Base Excess -10mmol/L (-3-3) FiO2 100 Laboratory Tests Test 08/06/16 09:05 08/06/16 10:31 08/06/16 12:41 08/06/16 13:30 Sodium Level 129mmol/L (136-145) Potassium Level 5.7mmol/L (3.5-5.1) Chloride Level 97mmol/L (98-107) Carbon Dioxide Level 12mmol/L (21-32) Anion Gap 20 (6-14) Blood Urea Nitrogen 8mg/dL (7-20) Creatinine 1.2mg/dL (0.6-1.0) Estimated GFR (Cockcroft-Gault) 52.4 Glucose Level 205mg/dL (70-99) Serum Osmolality 287mOsm/Kg (279-304) Lactic Acid Level 13.5mmol/L (0.4-2.0) Calcium Level 9.6mg/dL (8.5-10.1) Acetone Level Neg (NEG) Hepatitis B Surface Antigen Negative (Negative) Hepatitis B Surface Antibody Reactive (.) Glucose (Fingerstick) 197mg/dL (70-99) Nasal Screen MRSA (PCR) Negative (Negative) Urine Color Yellow Urine Clarity Clear Urine pH 6.0 Urine Specific [place] 1.010 Urine Protein 11.2mg/dL (Not Estab.) Urine Glucose (UA) Negativemg/dL (NEG) Urine Ketones (Stick) Negativemg/dL (NEG) Urine Blood Trace (NEG) Urine Nitrite Negative (NEG) Urine Bilirubin Negative (NEG) Urine Urobilinogen Dipstick 0.2mg/dL (0.2 mg/dL) Urine Leukocyte Esterase Negative (NEG) Urine RBC Rare/HPF (0-2) Urine WBC Occ/HPF (0-4) Urine Squamous Epithelial Cells Occ/LPF Urine Bacteria 0/HPF (0-FEW) Urine Random Sodium 137mmol/L (Not Estab.) Urine Creatinine <4.0mg/dL (Not Estab.) Urine Protein/Creatinine Ratio >2800mg/g creat (0-200) Test 08/06/16 13:35 08/06/16 14:00 08/06/16 14:17 08/06/16 14:25 Uric Acid 5.5mg/dL (2.6-6.0) Magnesium Level 2.0mg/dL (1.8-2.4) Creatine Kinase 172U/L (26-192) Troponin I Quantitative < 0.017ng/mL (0.000-0.055) O2 Saturation 96% (92-99) Arterial Blood pH 6.90 (7.35-7.45) Arterial Blood pCO2 at Patient Temp 32mmHg (35-46) Arterial Blood pO2 at Patient Temp 124mmHg (85-108) Arterial Blood HCO3 6mmol/L (21-28) Arterial Blood Base Excess -26mmol/L (-3-3) FiO2 100 Glucose (Fingerstick) 18mg/dL (70-99) 265mg/dL (70-99) Test 08/06/16 14:27 08/06/16 14:53 08/06/16 15:12 08/06/16 15:28 Glucose (Fingerstick) 215mg/dL (70-99) 177mg/dL (70-99) 139mg/dL (70-99) 108mg/dL (70-99) Test 08/06/16 15:48 08/06/16 16:12 08/06/16 16:35 08/06/16 17:00 Glucose (Fingerstick) 92mg/dL (70-99) 45mg/dL (70-99) 160mg/dL (70-99) 39mg/dL (70-99) Test 08/06/16 18:33 08/06/16 19:22 08/06/16 19:27 08/06/16 19:48 Glucose (Fingerstick) 68mg/dL (70-99) 89mg/dL (70-99) 87mg/dL (70-99) O2 Saturation 93% (92-99) Arterial Blood pH 7.11 (7.35-7.45) Arterial Blood pCO2 at Patient Temp 42mmHg (35-46) Arterial Blood pO2 at Patient Temp 82mmHg (85-108) Arterial Blood HCO3 13mmol/L (21-28) Arterial Blood Base Excess -16mmol/L (-3-3) FiO2 100 Test 08/06/16 22:30 08/06/16 22:38 08/06/16 23:00 08/07/16 04:30 Lactic Acid Level 16.5mmol/L (0.4-2.0) Glucose (Fingerstick) 174mg/dL (70-99) Sodium Level 134mmol/L (136-145) 132mmol/L (136-145) Potassium Level 5.6mmol/L (3.5-5.1) 4.6mmol/L (3.5-5.1) Chloride Level 94mmol/L (98-107) 92mmol/L (98-107) Carbon Dioxide Level 17mmol/L (21-32) 22mmol/L (21-32) Anion Gap 23 (6-14) 18 (6-14) Blood Urea Nitrogen 10mg/dL (7-20) 12mg/dL (7-20) Creatinine 1.3mg/dL (0.6-1.0) 1.6mg/dL (0.6-1.0) Estimated GFR (Cockcroft-Gault) 47.8 37.6 Glucose Level 158mg/dL (70-99) 236mg/dL (70-99) Calcium Level 7.0mg/dL (8.5-10.1) 6.6mg/dL (8.5-10.1) White Blood Count 30.4x10^3/uL (4.0-11.0) Red Blood Count 4.25x10^6/uL (3.50-5.40) Hemoglobin 11.9g/dL (12.0-15.5) Hematocrit 36.6% (36.0-47.0) Mean Corpuscular Volume 86fL (79-100) Mean Corpuscular Hemoglobin 28pg (25-35) Mean Corpuscular Hemoglobin Concent 33g/dL (31-37) Red Cell Distribution Width 14.7% (11.5-14.5) Platelet Count 315x10^3/uL (140-400) Neutrophils (%) (Auto) 88% (31-73) Lymphocytes (%) (Auto) 5% (24-48) Monocytes (%) (Auto) 7% (0-9) Eosinophils (%) (Auto) 0% (0-3) Basophils (%) (Auto) 0% (0-3) Neutrophils # (Auto) 26.6x10^3uL (1.8-7.7) Lymphocytes # (Auto) 1.4x10^3/uL (1.0-4.8) Monocytes # (Auto) 2.3x10^3/uL (0.0-1.1) Eosinophils # (Auto) 0.0x10^3/uL (0.0-0.7) Basophils # (Auto) 0.0x10^3/uL (0.0-0.2) Heparin Anti-Xa Act, Unfractionated 0.21IU/mL (0.30-0.70) Phosphorus Level 5.3mg/dL (2.6-4.7) Magnesium Level 1.4mg/dL (1.8-2.4) Albumin 2.9g/dL (3.4-5.0) Test 08/07/16 04:33 08/07/16 07:41 08/07/16 08:27 Glucose (Fingerstick) 235mg/dL (70-99) 227mg/dL (70-99) O2 Saturation 99% (92-99) Arterial Blood pH 7.23 (7.35-7.45) Arterial Blood pCO2 at Patient Temp 41mmHg (35-46) Arterial Blood pO2 at Patient Temp 208mmHg (85-108) Arterial Blood HCO3 17mmol/L (21-28) Arterial Blood Base Excess -10mmol/L (-3-3) FiO2 100 Assessment Assessment Problems Medical Problems: (1) Altered mental status Status: Acute (2) Drug overdose, intentional Status: Acute (3) Hyponatremia Status: Acute (4) Intentional drug overdose Status: Acute Problems: Plan Plan of Care Problems Medical Problems: (1) Altered mental status Status: Acute (2) Drug overdose, intentional Status: Acute (3) Hyponatremia Status: Acute (4) Intentional drug overdose Status: Acute NOLAN ROSALES MD August 07, 2016 08:36
[2016-08-07] MEDS ORDERED: VASOPRESSIN 40 UNIT in IV DEXTROSE 5% 100 ML IV PRN (09:00)
[2016-08-07] MEDS ORDERED: MAGNESIUM SULFATE 2GM 50 ML IV ONE (09:00)
[2016-08-07] MEDS ORDERED: CALCIUM CHLORIDE 2,000 MG in IV NORMAL SALINE 100ML 100 ML IV ONE (09:00)
[2016-08-07] MEDS ORDERED: SULFUR HEXAFLUORIDE MICROSPHR 25 MG VIAL. IVP ONE (09:01)
[2016-08-07] MEDS: PANTOPRAZOLE IV PUSH 40 MG VIAL. IVP SCH ×2 (09:09→09:30)
[2016-08-07] MEDS: CHLORHEXIDINE 0.12% 15 ML MOUTHWASH. MM SCH ×2 (09:31→20:41)
[2016-08-07 09:40] LABS: CALCIUM 6.6 mg/dL (8.5-10.1); CREATININE 1.9 mg/dL (0.6-1.0); GFR 30.8; POTASSIUM 4.2 mmol/L (3.5-5.1)
[2016-08-07 09:46] LABS: ALBUMIN 2.6 g/dL (3.4-5.0); ALBUMIN/GLOBULIN RATIO 1.1 (1.0-1.7); MAGNESIUM 1.8 mg/dL (1.8-2.4); TOTAL BILIRUBIN 0.2 mg/dL (0.2-1.0)
[2016-08-07 09:55] LABS: PLT ESTIMATE ADEQUATE (ADEQUATE)
[2016-08-07 09:57] LABS: ANISOCYTOSIS PRESENT; SCHISTOCYTES OCC
--- NOTE | 2016-08-07 11:01 | PDOC ---
PULMONARY PROGRESS NOTES Subjective remains on AC mode on 3 pressors MSOF Vitals Vital Signs Date Time Temp Pulse Resp B/P Pulse Ox O2 Delivery O2 Flow Rate FiO2 08/07/16 10:00 128 15 140/57 91 Ventilator 08/07/16 08:00 100.2 100.2 Lungs: Other (few rhonchi) Cardiovascular: S1 Abdomen: Soft Extremities: Other (2+edema) Labs Laboratory Tests Test 08/06/16 06:12 08/06/16 06:14 08/06/16 06:25 08/06/16 06:45 White Blood Count 9.6x10^3/uL (4.0-11.0) Red Blood Count 4.92x10^6/uL (3.50-5.40) Hemoglobin 14.0g/dL (12.0-15.5) Hematocrit 41.6% (36.0-47.0) Mean Corpuscular Volume 85fL (79-100) Mean Corpuscular Hemoglobin 28pg (25-35) Mean Corpuscular Hemoglobin Concent 34g/dL (31-37) Red Cell Distribution Width 14.4% (11.5-14.5) Platelet Count 483x10^3/uL (140-400) Neutrophils (%) (Auto) 66% (31-73) Lymphocytes (%) (Auto) 27% (24-48) Monocytes (%) (Auto) 6% (0-9) Eosinophils (%) (Auto) 1% (0-3) Basophils (%) (Auto) 1% (0-3) Neutrophils # (Auto) 6.3x10^3uL (1.8-7.7) Lymphocytes # (Auto) 2.6x10^3/uL (1.0-4.8) Monocytes # (Auto) 0.6x10^3/uL (0.0-1.1) Eosinophils # (Auto) 0.0x10^3/uL (0.0-0.7) Basophils # (Auto) 0.1x10^3/uL (0.0-0.2) Sodium Level 123mmol/L (136-145) Potassium Level 5.1mmol/L (3.5-5.1) Chloride Level 92mmol/L (98-107) Carbon Dioxide Level 16mmol/L (21-32) Anion Gap 15 (6-14) Blood Urea Nitrogen 8mg/dL (7-20) Creatinine 0.9mg/dL (0.6-1.0) Estimated GFR (Cockcroft-Gault) 73.0 BUN/Creatinine Ratio 9 (6-20) Glucose Level 338mg/dL (70-99) Lactic Acid Level 9.9mmol/L (0.4-2.0) Calcium Level 9.3mg/dL (8.5-10.1) Total Bilirubin 0.2mg/dL (0.2-1.0) Aspartate Amino Transf (AST/SGOT) 10U/L (15-37) Alanine Aminotransferase (ALT/SGPT) 18U/L (14-59) Alkaline Phosphatase 77U/L (46-116) Total Protein 7.5g/dL (6.4-8.2) Albumin 3.3g/dL (3.4-5.0) Albumin/Globulin Ratio 0.8 (1.0-1.7) Lipase 81U/L (73-393) Serum Test, Qualitative Negative (NEG) Salicylates Level 4.3mg/dL (2.8-20.0) Salicylate Last Dose Date Unknown Salicylate Last Dose Time Unknown Acetaminophen Level < 2mcg/ml (10-30) Acetaminophen Last Dose Date Unknown Acetaminophen Last Dose Time Unknown Carbamazepine (Tegretol) Level 10.3mcg/mL (4.0-12.0) Carbamazepine Last Dose Date 08/06/16 Carbamazepine Last Dose Time 0600 Ethyl Alcohol Level < 10mg/dL (0-10) Glucose (Fingerstick) 319mg/dL (70-99) Urine Random Creatinine 44.4mg/dL (Not Estab.) Urine Test Negative (NEG) Urine Opiates Screen Neg (NEG) Urine Methadone Screen Neg (NEG) Urine Barbiturates Neg (NEG) Urine Phencyclidine Screen Neg (NEG) Urine Amphetamine/Methamphetamine Neg (NEG) Urine Benzodiazepines Screen Neg (NEG) Urine Cocaine Screen Neg (NEG) Urine Cannabinoids Screen Neg (NEG) Urine Ethyl Alcohol Neg (NEG) O2 Saturation 97% (92-99) Arterial Blood pH 7.18 (7.35-7.45) Arterial Blood pCO2 at Patient Temp 18mmHg (35-46) Arterial Blood pO2 at Patient Temp 129mmHg (85-108) Arterial Blood HCO3 7mmol/L (21-28) Arterial Blood Base Excess -19mmol/L (-3-3) FiO2 21 Test 08/06/16 07:08 08/06/16 09:05 08/06/16 10:31 08/06/16 12:41 Glucose (Fingerstick) 299mg/dL (70-99) 197mg/dL (70-99) Sodium Level 129mmol/L (136-145) Potassium Level 5.7mmol/L (3.5-5.1) Chloride Level 97mmol/L (98-107) Carbon Dioxide Level 12mmol/L (21-32) Anion Gap 20 (6-14) Blood Urea Nitrogen 8mg/dL (7-20) Creatinine 1.2mg/dL (0.6-1.0) Estimated GFR (Cockcroft-Gault) 52.4 Glucose Level 205mg/dL (70-99) Serum Osmolality 287mOsm/Kg (279-304) Lactic Acid Level 13.5mmol/L (0.4-2.0) Calcium Level 9.6mg/dL (8.5-10.1) Acetone Level Neg (NEG) Hepatitis B Surface Antigen Negative (Negative) Hepatitis B Surface Antibody Reactive (.) Nasal Screen MRSA (PCR) Negative (Negative) Test 08/06/16 13:30 08/06/16 13:35 08/06/16 14:00 08/06/16 14:17 Urine Color Yellow Urine Clarity Clear Urine pH 6.0 Urine Specific [place] 1.010 Urine Protein 11.2mg/dL (Not Estab.) Urine Glucose (UA) Negativemg/dL (NEG) Urine Ketones (Stick) Negativemg/dL (NEG) Urine Blood Trace (NEG) Urine Nitrite Negative (NEG) Urine Bilirubin Negative (NEG) Urine Urobilinogen Dipstick 0.2mg/dL (0.2 mg/dL) Urine Leukocyte Esterase Negative (NEG) Urine RBC Rare/HPF (0-2) Urine WBC Occ/HPF (0-4) Urine Squamous Epithelial Cells Occ/LPF Urine Bacteria 0/HPF (0-FEW) Urine Random Sodium 137mmol/L (Not Estab.) Urine Creatinine <4.0mg/dL (Not Estab.) Urine Protein/Creatinine Ratio >2800mg/g creat (0-200) Special Test - Miscellaneous See separate report Uric Acid 5.5mg/dL (2.6-6.0) Magnesium Level 2.0mg/dL (1.8-2.4) Creatine Kinase 172U/L (26-192) Troponin I Quantitative < 0.017ng/mL (0.000-0.055) O2 Saturation 96% (92-99) Arterial Blood pH 6.90 (7.35-7.45) Arterial Blood pCO2 at Patient Temp 32mmHg (35-46) Arterial Blood pO2 at Patient Temp 124mmHg (85-108) Arterial Blood HCO3 6mmol/L (21-28) Arterial Blood Base Excess -26mmol/L (-3-3) FiO2 100 Glucose (Fingerstick) 18mg/dL (70-99) Test 08/06/16 14:25 08/06/16 14:27 08/06/16 14:53 08/06/16 15:12 Glucose (Fingerstick) 265mg/dL (70-99) 215mg/dL (70-99) 177mg/dL (70-99) 139mg/dL (70-99) Test 08/06/16 15:28 08/06/16 15:48 08/06/16 16:12 08/06/16 16:35 Glucose (Fingerstick) 108mg/dL (70-99) 92mg/dL (70-99) 45mg/dL (70-99) 160mg/dL (70-99) Test 08/06/16 17:00 08/06/16 18:33 08/06/16 19:22 08/06/16 19:27 Glucose (Fingerstick) 39mg/dL (70-99) 68mg/dL (70-99) 89mg/dL (70-99) O2 Saturation 93% (92-99) Arterial Blood pH 7.11 (7.35-7.45) Arterial Blood pCO2 at Patient Temp 42mmHg (35-46) Arterial Blood pO2 at Patient Temp 82mmHg (85-108) Arterial Blood HCO3 13mmol/L (21-28) Arterial Blood Base Excess -16mmol/L (-3-3) FiO2 100 Test 08/06/16 19:48 08/06/16 22:30 08/06/16 22:38 08/06/16 23:00 Glucose (Fingerstick) 87mg/dL (70-99) 174mg/dL (70-99) Lactic Acid Level 16.5mmol/L (0.4-2.0) Sodium Level 134mmol/L (136-145) Potassium Level 5.6mmol/L (3.5-5.1) Chloride Level 94mmol/L (98-107) Carbon Dioxide Level 17mmol/L (21-32) Anion Gap 23 (6-14) Blood Urea Nitrogen 10mg/dL (7-20) Creatinine 1.3mg/dL (0.6-1.0) Estimated GFR (Cockcroft-Gault) 47.8 Glucose Level 158mg/dL (70-99) Calcium Level 7.0mg/dL (8.5-10.1) Test 08/07/16 04:30 08/07/16 04:33 08/07/16 07:41 08/07/16 08:20 White Blood Count 30.4x10^3/uL (4.0-11.0) Red Blood Count 4.25x10^6/uL (3.50-5.40) Hemoglobin 11.9g/dL (12.0-15.5) Hematocrit 36.6% (36.0-47.0) Mean Corpuscular Volume 86fL (79-100) Mean Corpuscular Hemoglobin 28pg (25-35) Mean Corpuscular Hemoglobin Concent 33g/dL (31-37) Red Cell Distribution Width 14.7% (11.5-14.5) Platelet Count 315x10^3/uL (140-400) Neutrophils (%) (Auto) 88% (31-73) Lymphocytes (%) (Auto) 5% (24-48) Monocytes (%) (Auto) 7% (0-9) Eosinophils (%) (Auto) 0% (0-3) Basophils (%) (Auto) 0% (0-3) Neutrophils # (Auto) 26.6x10^3uL (1.8-7.7) Lymphocytes # (Auto) 1.4x10^3/uL (1.0-4.8) Monocytes # (Auto) 2.3x10^3/uL (0.0-1.1) Eosinophils # (Auto) 0.0x10^3/uL (0.0-0.7) Basophils # (Auto) 0.0x10^3/uL (0.0-0.2) Segmented Neutrophils % 89% (35-66) Band Neutrophils % 3% (0-9) Lymphocytes % 4% (24-48) Monocytes % 4% (0-10) Platelet Estimate Adequate (ADEQUATE) Large Platelets Present Anisocytosis Present Schistocytes Occ Heparin Anti-Xa Act, Unfractionated 0.21IU/mL (0.30-0.70) Sodium Level 132mmol/L (136-145) 133mmol/L (136-145) Potassium Level 4.6mmol/L (3.5-5.1) 4.2mmol/L (3.5-5.1) Chloride Level 92mmol/L (98-107) 94mmol/L (98-107) Carbon Dioxide Level 22mmol/L (21-32) 19mmol/L (21-32) Anion Gap 18 (6-14) 20 (6-14) Blood Urea Nitrogen 12mg/dL (7-20) 13mg/dL (7-20) Creatinine 1.6mg/dL (0.6-1.0) 1.9mg/dL (0.6-1.0) Estimated GFR (Cockcroft-Gault) 37.6 30.8 Glucose Level 236mg/dL (70-99) 222mg/dL (70-99) Calcium Level 6.6mg/dL (8.5-10.1) 6.6mg/dL (8.5-10.1) Phosphorus Level 5.3mg/dL (2.6-4.7) Magnesium Level 1.4mg/dL (1.8-2.4) 1.8mg/dL (1.8-2.4) Albumin 2.9g/dL (3.4-5.0) 2.6g/dL (3.4-5.0) Glucose (Fingerstick) 235mg/dL (70-99) O2 Saturation 99% (92-99) Arterial Blood pH 7.23 (7.35-7.45) Arterial Blood pCO2 at Patient Temp 41mmHg (35-46) Arterial Blood pO2 at Patient Temp 208mmHg (85-108) Arterial Blood HCO3 17mmol/L (21-28) Arterial Blood Base Excess -10mmol/L (-3-3) FiO2 100 BUN/Creatinine Ratio 7 (6-20) Lactic Acid Level 12.5mmol/L (0.4-2.0) Total Bilirubin 0.2mg/dL (0.2-1.0) Aspartate Amino Transf (AST/SGOT) 69U/L (15-37) Alanine Aminotransferase (ALT/SGPT) 19U/L (14-59) Alkaline Phosphatase 69U/L (46-116) Total Protein 5.0g/dL (6.4-8.2) Albumin/Globulin Ratio 1.1 (1.0-1.7) Test 08/07/16 08:27 Glucose (Fingerstick) 227mg/dL (70-99) Laboratory Tests Test 08/06/16 12:41 08/06/16 13:30 08/06/16 13:35 08/06/16 14:00 Nasal Screen MRSA (PCR) Negative (Negative) Urine Color Yellow Urine Clarity Clear Urine pH 6.0 Urine Specific [place] 1.010 Urine Protein 11.2mg/dL (Not Estab.) Urine Glucose (UA) Negativemg/dL (NEG) Urine Ketones (Stick) Negativemg/dL (NEG) Urine Blood Trace (NEG) Urine Nitrite Negative (NEG) Urine Bilirubin Negative (NEG) Urine Urobilinogen Dipstick 0.2mg/dL (0.2 mg/dL) Urine Leukocyte Esterase Negative (NEG) Urine RBC Rare/HPF (0-2) Urine WBC Occ/HPF (0-4) Urine Squamous Epithelial Cells Occ/LPF Urine Bacteria 0/HPF (0-FEW) Urine Random Sodium 137mmol/L (Not Estab.) Urine Creatinine <4.0mg/dL (Not Estab.) Urine Protein/Creatinine Ratio >2800mg/g creat (0-200) Special Test - Miscellaneous See separate report Uric Acid 5.5mg/dL (2.6-6.0) Magnesium Level 2.0mg/dL (1.8-2.4) Creatine Kinase 172U/L (26-192) Troponin I Quantitative < 0.017ng/mL (0.000-0.055) O2 Saturation 96% (92-99) Arterial Blood pH 6.90 (7.35-7.45) Arterial Blood pCO2 at Patient Temp 32mmHg (35-46) Arterial Blood pO2 at Patient Temp 124mmHg (85-108) Arterial Blood HCO3 6mmol/L (21-28) Arterial Blood Base Excess -26mmol/L (-3-3) FiO2 100 Test 08/06/16 14:17 08/06/16 14:25 08/06/16 14:27 08/06/16 14:53 Glucose (Fingerstick) 18mg/dL (70-99) 265mg/dL (70-99) 215mg/dL (70-99) 177mg/dL (70-99) Test 08/06/16 15:12 08/06/16 15:28 08/06/16 15:48 08/06/16 16:12 Glucose (Fingerstick) 139mg/dL (70-99) 108mg/dL (70-99) 92mg/dL (70-99) 45mg/dL (70-99) Test 08/06/16 16:35 08/06/16 17:00 08/06/16 18:33 08/06/16 19:22 Glucose (Fingerstick) 160mg/dL (70-99) 39mg/dL (70-99) 68mg/dL (70-99) O2 Saturation 93% (92-99) Arterial Blood pH 7.11 (7.35-7.45) Arterial Blood pCO2 at Patient Temp 42mmHg (35-46) Arterial Blood pO2 at Patient Temp 82mmHg (85-108) Arterial Blood HCO3 13mmol/L (21-28) Arterial Blood Base Excess -16mmol/L (-3-3) FiO2 100 Test 08/06/16 19:27 08/06/16 19:48 08/06/16 22:30 08/06/16 22:38 Glucose (Fingerstick) 89mg/dL (70-99) 87mg/dL (70-99) 174mg/dL (70-99) Lactic Acid Level 16.5mmol/L (0.4-2.0) Test 08/06/16 23:00 08/07/16 04:30 08/07/16 04:33 08/07/16 07:41 Sodium Level 134mmol/L (136-145) 132mmol/L (136-145) Potassium Level 5.6mmol/L (3.5-5.1) 4.6mmol/L (3.5-5.1) Chloride Level 94mmol/L (98-107) 92mmol/L (98-107) Carbon Dioxide Level 17mmol/L (21-32) 22mmol/L (21-32) Anion Gap 23 (6-14) 18 (6-14) Blood Urea Nitrogen 10mg/dL (7-20) 12mg/dL (7-20) Creatinine 1.3mg/dL (0.6-1.0) 1.6mg/dL (0.6-1.0) Estimated GFR (Cockcroft-Gault) 47.8 37.6 Glucose Level 158mg/dL (70-99) 236mg/dL (70-99) Calcium Level 7.0mg/dL (8.5-10.1) 6.6mg/dL (8.5-10.1) White Blood Count 30.4x10^3/uL (4.0-11.0) Red Blood Count 4.25x10^6/uL (3.50-5.40) Hemoglobin 11.9g/dL (12.0-15.5) Hematocrit 36.6% (36.0-47.0) Mean Corpuscular Volume 86fL (79-100) Mean Corpuscular Hemoglobin 28pg (25-35) Mean Corpuscular Hemoglobin Concent 33g/dL (31-37) Red Cell Distribution Width 14.7% (11.5-14.5) Platelet Count 315x10^3/uL (140-400) Neutrophils (%) (Auto) 88% (31-73) Lymphocytes (%) (Auto) 5% (24-48) Monocytes (%) (Auto) 7% (0-9) Eosinophils (%) (Auto) 0% (0-3) Basophils (%) (Auto) 0% (0-3) Neutrophils # (Auto) 26.6x10^3uL (1.8-7.7) Lymphocytes # (Auto) 1.4x10^3/uL (1.0-4.8) Monocytes # (Auto) 2.3x10^3/uL (0.0-1.1) Eosinophils # (Auto) 0.0x10^3/uL (0.0-0.7) Basophils # (Auto) 0.0x10^3/uL (0.0-0.2) Segmented Neutrophils % 89% (35-66) Band Neutrophils % 3% (0-9) Lymphocytes % 4% (24-48) Monocytes % 4% (0-10) Platelet Estimate Adequate (ADEQUATE) Large Platelets Present Anisocytosis Present Schistocytes Occ Heparin Anti-Xa Act, Unfractionated 0.21IU/mL (0.30-0.70) Phosphorus Level 5.3mg/dL (2.6-4.7) Magnesium Level 1.4mg/dL (1.8-2.4) Albumin 2.9g/dL (3.4-5.0) Glucose (Fingerstick) 235mg/dL (70-99) O2 Saturation 99% (92-99) Arterial Blood pH 7.23 (7.35-7.45) Arterial Blood pCO2 at Patient Temp 41mmHg (35-46) Arterial Blood pO2 at Patient Temp 208mmHg (85-108) Arterial Blood HCO3 17mmol/L (21-28) Arterial Blood Base Excess -10mmol/L (-3-3) FiO2 100 Test 08/07/16 08:20 08/07/16 08:27 Sodium Level 133mmol/L (136-145) Potassium Level 4.2mmol/L (3.5-5.1) Chloride Level 94mmol/L (98-107) Carbon Dioxide Level 19mmol/L (21-32) Anion Gap 20 (6-14) Blood Urea Nitrogen 13mg/dL (7-20) Creatinine 1.9mg/dL (0.6-1.0) Estimated GFR (Cockcroft-Gault) 30.8 BUN/Creatinine Ratio 7 (6-20) Glucose Level 222mg/dL (70-99) Lactic Acid Level 12.5mmol/L (0.4-2.0) Calcium Level 6.6mg/dL (8.5-10.1) Magnesium Level 1.8mg/dL (1.8-2.4) Total Bilirubin 0.2mg/dL (0.2-1.0) Aspartate Amino Transf (AST/SGOT) 69U/L (15-37) Alanine Aminotransferase (ALT/SGPT) 19U/L (14-59) Alkaline Phosphatase 69U/L (46-116) Total Protein 5.0g/dL (6.4-8.2) Albumin 2.6g/dL (3.4-5.0) Albumin/Globulin Ratio 1.1 (1.0-1.7) Glucose (Fingerstick) 227mg/dL (70-99) Medications Active Scripts Medications Dose Route/Sig Days Date Category [place] 5-325 Tablet (Acetaminophen/Hydrocodone Bitart) 1 Each Tablet 1 Tab PO PRN Q6HRS PRN 07/22/15 Reported Gabapentin 800 Mg Tablet 800 Mg PO TID 07/22/15 Reported Impression . 1. Acute respiratory failure secondary to suicidal attempt with large doses of 500 mg metformin. Apparently, she took 180 tablets, now with severe metabolic acidosis , lactic acidosis and acute encephalopathy. 2. Metformin overdose in large quantity with severe metabolic acidosis/lactic acidosis, 3. Acute toxic encephalopathy. 4. Clear chest x-ray. 5. Lactic acidosis and severe metabolic acidosis secondary to Metformin overdose. 6. shock, ?septic vs related to severe acidosis 7. JENNY Plan . 1. Continue present assist control mode. We will adjust the rate and make necessary adjustments based on ABGs. She is already hyperventilating on current vent settings. 2. can dc bicarbonate drip/ on CRRT . Increase acetate 3. Monitor blood sugars closely. 4. Continue sedation with versed/ativan/ fentanyl. 5. Follow renal recommendation . continue CRRT 6. Monitor lactic acid level. still high 7. empiric antibiotic 8. Discussed with RN and RT. and Dr Roe 9. High mortality in patients with metformin overdose/ severe lactic acidosis (40%) 10. Pressors d/w mother . explained critical illness. Code status discussed. she says her daughter does not want any CPR/shock as per previous discussion with her. DNR cct 30 min DIONICIO MENDIETA MD August 07, 2016 11:01
--- NOTE | 2016-08-07 11:07 | PDOC ---
Infectious Disease Note Vital Sign Vital Signs Vital Signs Date Time Temp Pulse Resp B/P Pulse Ox O2 Delivery O2 Flow Rate FiO2 08/07/16 10:00 128 15 140/57 91 Ventilator 08/07/16 08:00 100.2 100.2 Labs Lab Laboratory Tests Test 08/06/16 12:41 08/06/16 13:30 08/06/16 13:35 08/06/16 14:00 Nasal Screen MRSA (PCR) Negative (Negative) Urine Color Yellow Urine Clarity Clear Urine pH 6.0 Urine Specific [place] 1.010 Urine Protein 11.2mg/dL (Not Estab.) Urine Glucose (UA) Negativemg/dL (NEG) Urine Ketones (Stick) Negativemg/dL (NEG) Urine Blood Trace (NEG) Urine Nitrite Negative (NEG) Urine Bilirubin Negative (NEG) Urine Urobilinogen Dipstick 0.2mg/dL (0.2 mg/dL) Urine Leukocyte Esterase Negative (NEG) Urine RBC Rare/HPF (0-2) Urine WBC Occ/HPF (0-4) Urine Squamous Epithelial Cells Occ/LPF Urine Bacteria 0/HPF (0-FEW) Urine Random Sodium 137mmol/L (Not Estab.) Urine Creatinine <4.0mg/dL (Not Estab.) Urine Protein/Creatinine Ratio >2800mg/g creat (0-200) Special Test - Miscellaneous See separate report Uric Acid 5.5mg/dL (2.6-6.0) Magnesium Level 2.0mg/dL (1.8-2.4) Creatine Kinase 172U/L (26-192) Troponin I Quantitative < 0.017ng/mL (0.000-0.055) O2 Saturation 96% (92-99) Arterial Blood pH 6.90 (7.35-7.45) Arterial Blood pCO2 at Patient Temp 32mmHg (35-46) Arterial Blood pO2 at Patient Temp 124mmHg (85-108) Arterial Blood HCO3 6mmol/L (21-28) Arterial Blood Base Excess -26mmol/L (-3-3) FiO2 100 Test 08/06/16 14:17 08/06/16 14:25 08/06/16 14:27 08/06/16 14:53 Glucose (Fingerstick) 18mg/dL (70-99) 265mg/dL (70-99) 215mg/dL (70-99) 177mg/dL (70-99) Test 08/06/16 15:12 08/06/16 15:28 08/06/16 15:48 08/06/16 16:12 Glucose (Fingerstick) 139mg/dL (70-99) 108mg/dL (70-99) 92mg/dL (70-99) 45mg/dL (70-99) Test 08/06/16 16:35 08/06/16 17:00 08/06/16 18:33 08/06/16 19:22 Glucose (Fingerstick) 160mg/dL (70-99) 39mg/dL (70-99) 68mg/dL (70-99) O2 Saturation 93% (92-99) Arterial Blood pH 7.11 (7.35-7.45) Arterial Blood pCO2 at Patient Temp 42mmHg (35-46) Arterial Blood pO2 at Patient Temp 82mmHg (85-108) Arterial Blood HCO3 13mmol/L (21-28) Arterial Blood Base Excess -16mmol/L (-3-3) FiO2 100 Test 08/06/16 19:27 08/06/16 19:48 08/06/16 22:30 08/06/16 22:38 Glucose (Fingerstick) 89mg/dL (70-99) 87mg/dL (70-99) 174mg/dL (70-99) Lactic Acid Level 16.5mmol/L (0.4-2.0) Test 08/06/16 23:00 08/07/16 04:30 08/07/16 04:33 08/07/16 07:41 Sodium Level 134mmol/L (136-145) 132mmol/L (136-145) Potassium Level 5.6mmol/L (3.5-5.1) 4.6mmol/L (3.5-5.1) Chloride Level 94mmol/L (98-107) 92mmol/L (98-107) Carbon Dioxide Level 17mmol/L (21-32) 22mmol/L (21-32) Anion Gap 23 (6-14) 18 (6-14) Blood Urea Nitrogen 10mg/dL (7-20) 12mg/dL (7-20) Creatinine 1.3mg/dL (0.6-1.0) 1.6mg/dL (0.6-1.0) Estimated GFR (Cockcroft-Gault) 47.8 37.6 Glucose Level 158mg/dL (70-99) 236mg/dL (70-99) Calcium Level 7.0mg/dL (8.5-10.1) 6.6mg/dL (8.5-10.1) White Blood Count 30.4x10^3/uL (4.0-11.0) Red Blood Count 4.25x10^6/uL (3.50-5.40) Hemoglobin 11.9g/dL (12.0-15.5) Hematocrit 36.6% (36.0-47.0) Mean Corpuscular Volume 86fL (79-100) Mean Corpuscular Hemoglobin 28pg (25-35) Mean Corpuscular Hemoglobin Concent 33g/dL (31-37) Red Cell Distribution Width 14.7% (11.5-14.5) Platelet Count 315x10^3/uL (140-400) Neutrophils (%) (Auto) 88% (31-73) Lymphocytes (%) (Auto) 5% (24-48) Monocytes (%) (Auto) 7% (0-9) Eosinophils (%) (Auto) 0% (0-3) Basophils (%) (Auto) 0% (0-3) Neutrophils # (Auto) 26.6x10^3uL (1.8-7.7) Lymphocytes # (Auto) 1.4x10^3/uL (1.0-4.8) Monocytes # (Auto) 2.3x10^3/uL (0.0-1.1) Eosinophils # (Auto) 0.0x10^3/uL (0.0-0.7) Basophils # (Auto) 0.0x10^3/uL (0.0-0.2) Segmented Neutrophils % 89% (35-66) Band Neutrophils % 3% (0-9) Lymphocytes % 4% (24-48) Monocytes % 4% (0-10) Platelet Estimate Adequate (ADEQUATE) Large Platelets Present Anisocytosis Present Schistocytes Occ Heparin Anti-Xa Act, Unfractionated 0.21IU/mL (0.30-0.70) Phosphorus Level 5.3mg/dL (2.6-4.7) Magnesium Level 1.4mg/dL (1.8-2.4) Albumin 2.9g/dL (3.4-5.0) Glucose (Fingerstick) 235mg/dL (70-99) O2 Saturation 99% (92-99) Arterial Blood pH 7.23 (7.35-7.45) Arterial Blood pCO2 at Patient Temp 41mmHg (35-46) Arterial Blood pO2 at Patient Temp 208mmHg (85-108) Arterial Blood HCO3 17mmol/L (21-28) Arterial Blood Base Excess -10mmol/L (-3-3) FiO2 100 Test 08/07/16 08:20 08/07/16 08:27 Sodium Level 133mmol/L (136-145) Potassium Level 4.2mmol/L (3.5-5.1) Chloride Level 94mmol/L (98-107) Carbon Dioxide Level 19mmol/L (21-32) Anion Gap 20 (6-14) Blood Urea Nitrogen 13mg/dL (7-20) Creatinine 1.9mg/dL (0.6-1.0) Estimated GFR (Cockcroft-Gault) 30.8 BUN/Creatinine Ratio 7 (6-20) Glucose Level 222mg/dL (70-99) Lactic Acid Level 12.5mmol/L (0.4-2.0) Calcium Level 6.6mg/dL (8.5-10.1) Magnesium Level 1.8mg/dL (1.8-2.4) Total Bilirubin 0.2mg/dL (0.2-1.0) Aspartate Amino Transf (AST/SGOT) 69U/L (15-37) Alanine Aminotransferase (ALT/SGPT) 19U/L (14-59) Alkaline Phosphatase 69U/L (46-116) Total Protein 5.0g/dL (6.4-8.2) Albumin 2.6g/dL (3.4-5.0) Albumin/Globulin Ratio 1.1 (1.0-1.7) Glucose (Fingerstick) 227mg/dL (70-99) Objective Assessment Fever Leukocytosis Lactic acidosis Metformin OD Metabolic acidosis Respiratory failure Encephalopathy Plan Plan of Care supportive care CRRT levaquin and rocephine empiric d/w Dr Ambar ROSALES,LETICIA Parks MD August 07, 2016 11:07
--- NOTE | 2016-08-07 12:16 | PDOC ---
PROGRESS NOTES Chief Complaint Chief Complaint Drug overdose, intentional History of prior suicidal attempt History of anxiety Depression Hypertension Morbid obesity History of Present Illness History of Present Illness Ms. Dong was sedated when we saw her and being ventilated with settings of A /C / 20 / 500 / 60% / 5 PEEP with an O2sat of 98%. She is also on CRRT. Discussed care with nurse. Vent rate was increased due to pH of 7.2. Her pupils were equal and reactive, but indeterminate reaction to pain stimuli to b/l first toes. Vitals Vitals Vital Signs Date Time Temp Pulse Resp B/P Pulse Ox O2 Delivery O2 Flow Rate FiO2 08/07/16 11:28 100 Ventilator 08/07/16 11:00 114 31 150/56 08/07/16 08:00 100.2 100.2 Physical Exam General: Other (sedation in place, intubated, on CRRT) Heart: Regular rate (SR), Normal S1, Normal S2, No murmurs Lungs: Clear Abdomen: Soft, Other (morbid obesity) Extremities: No cyanosis, No edema Skin: No breakdown, No significant lesion Labs LABS Laboratory Tests Test 08/06/16 12:41 08/06/16 13:30 08/06/16 13:35 08/06/16 14:00 Nasal Screen MRSA (PCR) Negative (Negative) Urine Color Yellow Urine Clarity Clear Urine pH 6.0 Urine Specific [place] 1.010 Urine Protein 11.2mg/dL (Not Estab.) Urine Glucose (UA) Negativemg/dL (NEG) Urine Ketones (Stick) Negativemg/dL (NEG) Urine Blood Trace (NEG) Urine Nitrite Negative (NEG) Urine Bilirubin Negative (NEG) Urine Urobilinogen Dipstick 0.2mg/dL (0.2 mg/dL) Urine Leukocyte Esterase Negative (NEG) Urine RBC Rare/HPF (0-2) Urine WBC Occ/HPF (0-4) Urine Squamous Epithelial Cells Occ/LPF Urine Bacteria 0/HPF (0-FEW) Urine Random Sodium 137mmol/L (Not Estab.) Urine Creatinine <4.0mg/dL (Not Estab.) Urine Protein/Creatinine Ratio >2800mg/g creat (0-200) Special Test - Miscellaneous See separate report Uric Acid 5.5mg/dL (2.6-6.0) Magnesium Level 2.0mg/dL (1.8-2.4) Creatine Kinase 172U/L (26-192) Troponin I Quantitative < 0.017ng/mL (0.000-0.055) O2 Saturation 96% (92-99) Arterial Blood pH 6.90 (7.35-7.45) Arterial Blood pCO2 at Patient Temp 32mmHg (35-46) Arterial Blood pO2 at Patient Temp 124mmHg (85-108) Arterial Blood HCO3 6mmol/L (21-28) Arterial Blood Base Excess -26mmol/L (-3-3) FiO2 100 Test 08/06/16 14:17 08/06/16 14:25 08/06/16 14:27 08/06/16 14:53 Glucose (Fingerstick) 18mg/dL (70-99) 265mg/dL (70-99) 215mg/dL (70-99) 177mg/dL (70-99) Test 08/06/16 15:12 08/06/16 15:28 08/06/16 15:48 08/06/16 16:12 Glucose (Fingerstick) 139mg/dL (70-99) 108mg/dL (70-99) 92mg/dL (70-99) 45mg/dL (70-99) Test 08/06/16 16:35 08/06/16 17:00 08/06/16 18:33 08/06/16 19:22 Glucose (Fingerstick) 160mg/dL (70-99) 39mg/dL (70-99) 68mg/dL (70-99) O2 Saturation 93% (92-99) Arterial Blood pH 7.11 (7.35-7.45) Arterial Blood pCO2 at Patient Temp 42mmHg (35-46) Arterial Blood pO2 at Patient Temp 82mmHg (85-108) Arterial Blood HCO3 13mmol/L (21-28) Arterial Blood Base Excess -16mmol/L (-3-3) FiO2 100 Test 08/06/16 19:27 08/06/16 19:48 08/06/16 22:30 08/06/16 22:38 Glucose (Fingerstick) 89mg/dL (70-99) 87mg/dL (70-99) 174mg/dL (70-99) Lactic Acid Level 16.5mmol/L (0.4-2.0) Test 08/06/16 23:00 08/07/16 04:30 08/07/16 04:33 08/07/16 07:41 Sodium Level 134mmol/L (136-145) 132mmol/L (136-145) Potassium Level 5.6mmol/L (3.5-5.1) 4.6mmol/L (3.5-5.1) Chloride Level 94mmol/L (98-107) 92mmol/L (98-107) Carbon Dioxide Level 17mmol/L (21-32) 22mmol/L (21-32) Anion Gap 23 (6-14) 18 (6-14) Blood Urea Nitrogen 10mg/dL (7-20) 12mg/dL (7-20) Creatinine 1.3mg/dL (0.6-1.0) 1.6mg/dL (0.6-1.0) Estimated GFR (Cockcroft-Gault) 47.8 37.6 Glucose Level 158mg/dL (70-99) 236mg/dL (70-99) Calcium Level 7.0mg/dL (8.5-10.1) 6.6mg/dL (8.5-10.1) White Blood Count 30.4x10^3/uL (4.0-11.0) Red Blood Count 4.25x10^6/uL (3.50-5.40) Hemoglobin 11.9g/dL (12.0-15.5) Hematocrit 36.6% (36.0-47.0) Mean Corpuscular Volume 86fL (79-100) Mean Corpuscular Hemoglobin 28pg (25-35) Mean Corpuscular Hemoglobin Concent 33g/dL (31-37) Red Cell Distribution Width 14.7% (11.5-14.5) Platelet Count 315x10^3/uL (140-400) Neutrophils (%) (Auto) 88% (31-73) Lymphocytes (%) (Auto) 5% (24-48) Monocytes (%) (Auto) 7% (0-9) Eosinophils (%) (Auto) 0% (0-3) Basophils (%) (Auto) 0% (0-3) Neutrophils # (Auto) 26.6x10^3uL (1.8-7.7) Lymphocytes # (Auto) 1.4x10^3/uL (1.0-4.8) Monocytes # (Auto) 2.3x10^3/uL (0.0-1.1) Eosinophils # (Auto) 0.0x10^3/uL (0.0-0.7) Basophils # (Auto) 0.0x10^3/uL (0.0-0.2) Segmented Neutrophils % 89% (35-66) Band Neutrophils % 3% (0-9) Lymphocytes % 4% (24-48) Monocytes % 4% (0-10) Platelet Estimate Adequate (ADEQUATE) Large Platelets Present Anisocytosis Present Schistocytes Occ Heparin Anti-Xa Act, Unfractionated 0.21IU/mL (0.30-0.70) Phosphorus Level 5.3mg/dL (2.6-4.7) Magnesium Level 1.4mg/dL (1.8-2.4) Albumin 2.9g/dL (3.4-5.0) Glucose (Fingerstick) 235mg/dL (70-99) O2 Saturation 99% (92-99) Arterial Blood pH 7.23 (7.35-7.45) Arterial Blood pCO2 at Patient Temp 41mmHg (35-46) Arterial Blood pO2 at Patient Temp 208mmHg (85-108) Arterial Blood HCO3 17mmol/L (21-28) Arterial Blood Base Excess -10mmol/L (-3-3) FiO2 100 Test 08/07/16 08:20 08/07/16 08:27 Sodium Level 133mmol/L (136-145) Potassium Level 4.2mmol/L (3.5-5.1) Chloride Level 94mmol/L (98-107) Carbon Dioxide Level 19mmol/L (21-32) Anion Gap 20 (6-14) Blood Urea Nitrogen 13mg/dL (7-20) Creatinine 1.9mg/dL (0.6-1.0) Estimated GFR (Cockcroft-Gault) 30.8 BUN/Creatinine Ratio 7 (6-20) Glucose Level 222mg/dL (70-99) Lactic Acid Level 12.5mmol/L (0.4-2.0) Calcium Level 6.6mg/dL (8.5-10.1) Magnesium Level 1.8mg/dL (1.8-2.4) Total Bilirubin 0.2mg/dL (0.2-1.0) Aspartate Amino Transf (AST/SGOT) 69U/L (15-37) Alanine Aminotransferase (ALT/SGPT) 19U/L (14-59) Alkaline Phosphatase 69U/L (46-116) Total Protein 5.0g/dL (6.4-8.2) Albumin 2.6g/dL (3.4-5.0) Albumin/Globulin Ratio 1.1 (1.0-1.7) Glucose (Fingerstick) 227mg/dL (70-99) Review of Systems Review of Systems General: Patient sedated and intubated Neuro: Indeterminate response to pain stimuli to b/l 1st toes Assessment and Plan Assessmemt and Plan Problems Medical Problems: (1) Altered mental status Status: Acute (2) Drug overdose, intentional Status: Acute (3) Hyponatremia Status: Acute (4) Intentional drug overdose Status: Acute Assessment: Drug overdose, intentional History of prior suicidal attempt History of anxiety Depression Hypertension Morbid obesity Plan: -Continue ventilation -Recheck AM labs, monitor kidney function and ABGs -Continue CRRT as needed, monitoring labs if Nephrology agrees -Plan for baseline TTE per cardio -Subspecialty input appreciated Problems: Comment Review of Relevant I have reviewed the following items bridget (where applicable) has been applied. Labs Laboratory Tests Test 08/06/16 06:12 08/06/16 06:14 08/06/16 06:25 08/06/16 06:45 White Blood Count 9.6x10^3/uL (4.0-11.0) Red Blood Count 4.92x10^6/uL (3.50-5.40) Hemoglobin 14.0g/dL (12.0-15.5) Hematocrit 41.6% (36.0-47.0) Mean Corpuscular Volume 85fL (79-100) Mean Corpuscular Hemoglobin 28pg (25-35) Mean Corpuscular Hemoglobin Concent 34g/dL (31-37) Red Cell Distribution Width 14.4% (11.5-14.5) Platelet Count 483x10^3/uL (140-400) Neutrophils (%) (Auto) 66% (31-73) Lymphocytes (%) (Auto) 27% (24-48) Monocytes (%) (Auto) 6% (0-9) Eosinophils (%) (Auto) 1% (0-3) Basophils (%) (Auto) 1% (0-3) Neutrophils # (Auto) 6.3x10^3uL (1.8-7.7) Lymphocytes # (Auto) 2.6x10^3/uL (1.0-4.8) Monocytes # (Auto) 0.6x10^3/uL (0.0-1.1) Eosinophils # (Auto) 0.0x10^3/uL (0.0-0.7) Basophils # (Auto) 0.1x10^3/uL (0.0-0.2) Sodium Level 123mmol/L (136-145) Potassium Level 5.1mmol/L (3.5-5.1) Chloride Level 92mmol/L (98-107) Carbon Dioxide Level 16mmol/L (21-32) Anion Gap 15 (6-14) Blood Urea Nitrogen 8mg/dL (7-20) Creatinine 0.9mg/dL (0.6-1.0) Estimated GFR (Cockcroft-Gault) 73.0 BUN/Creatinine Ratio 9 (6-20) Glucose Level 338mg/dL (70-99) Lactic Acid Level 9.9mmol/L (0.4-2.0) Calcium Level 9.3mg/dL (8.5-10.1) Total Bilirubin 0.2mg/dL (0.2-1.0) Aspartate Amino Transf (AST/SGOT) 10U/L (15-37) Alanine Aminotransferase (ALT/SGPT) 18U/L (14-59) Alkaline Phosphatase 77U/L (46-116) Total Protein 7.5g/dL (6.4-8.2) Albumin 3.3g/dL (3.4-5.0) Albumin/Globulin Ratio 0.8 (1.0-1.7) Lipase 81U/L (73-393) Serum Test, Qualitative Negative (NEG) Salicylates Level 4.3mg/dL (2.8-20.0) Salicylate Last Dose Date Unknown Salicylate Last Dose Time Unknown Acetaminophen Level < 2mcg/ml (10-30) Acetaminophen Last Dose Date Unknown Acetaminophen Last Dose Time Unknown Carbamazepine (Tegretol) Level 10.3mcg/mL (4.0-12.0) Carbamazepine Last Dose Date 08/06/16 Carbamazepine Last Dose Time 0600 Ethyl Alcohol Level < 10mg/dL (0-10) Glucose (Fingerstick) 319mg/dL (70-99) Urine Random Creatinine 44.4mg/dL (Not Estab.) Urine Test Negative (NEG) Urine Opiates Screen Neg (NEG) Urine Methadone Screen Neg (NEG) Urine Barbiturates Neg (NEG) Urine Phencyclidine Screen Neg (NEG) Urine Amphetamine/Methamphetamine Neg (NEG) Urine Benzodiazepines Screen Neg (NEG) Urine Cocaine Screen Neg (NEG) Urine Cannabinoids Screen Neg (NEG) Urine Ethyl Alcohol Neg (NEG) O2 Saturation 97% (92-99) Arterial Blood pH 7.18 (7.35-7.45) Arterial Blood pCO2 at Patient Temp 18mmHg (35-46) Arterial Blood pO2 at Patient Temp 129mmHg (85-108) Arterial Blood HCO3 7mmol/L (21-28) Arterial Blood Base Excess -19mmol/L (-3-3) FiO2 21 Test 08/06/16 07:08 08/06/16 09:05 08/06/16 10:31 08/06/16 12:41 Glucose (Fingerstick) 299mg/dL (70-99) 197mg/dL (70-99) Sodium Level 129mmol/L (136-145) Potassium Level 5.7mmol/L (3.5-5.1) Chloride Level 97mmol/L (98-107) Carbon Dioxide Level 12mmol/L (21-32) Anion Gap 20 (6-14) Blood Urea Nitrogen 8mg/dL (7-20) Creatinine 1.2mg/dL (0.6-1.0) Estimated GFR (Cockcroft-Gault) 52.4 Glucose Level 205mg/dL (70-99) Serum Osmolality 287mOsm/Kg (279-304) Lactic Acid Level 13.5mmol/L (0.4-2.0) Calcium Level 9.6mg/dL (8.5-10.1) Acetone Level Neg (NEG) Hepatitis B Surface Antigen Negative (Negative) Hepatitis B Surface Antibody Reactive (.) Nasal Screen MRSA (PCR) Negative (Negative) Test 08/06/16 13:30 08/06/16 13:35 08/06/16 14:00 08/06/16 14:17 Urine Color Yellow Urine Clarity Clear Urine pH 6.0 Urine Specific [place] 1.010 Urine Protein 11.2mg/dL (Not Estab.) Urine Glucose (UA) Negativemg/dL (NEG) Urine Ketones (Stick) Negativemg/dL (NEG) Urine Blood Trace (NEG) Urine Nitrite Negative (NEG) Urine Bilirubin Negative (NEG) Urine Urobilinogen Dipstick 0.2mg/dL (0.2 mg/dL) Urine Leukocyte Esterase Negative (NEG) Urine RBC Rare/HPF (0-2) Urine WBC Occ/HPF (0-4) Urine Squamous Epithelial Cells Occ/LPF Urine Bacteria 0/HPF (0-FEW) Urine Random Sodium 137mmol/L (Not Estab.) Urine Creatinine <4.0mg/dL (Not Estab.) Urine Protein/Creatinine Ratio >2800mg/g creat (0-200) Special Test - Miscellaneous See separate report Uric Acid 5.5mg/dL (2.6-6.0) Magnesium Level 2.0mg/dL (1.8-2.4) Creatine Kinase 172U/L (26-192) Troponin I Quantitative < 0.017ng/mL (0.000-0.055) O2 Saturation 96% (92-99) Arterial Blood pH 6.90 (7.35-7.45) Arterial Blood pCO2 at Patient Temp 32mmHg (35-46) Arterial Blood pO2 at Patient Temp 124mmHg (85-108) Arterial Blood HCO3 6mmol/L (21-28) Arterial Blood Base Excess -26mmol/L (-3-3) FiO2 100 Glucose (Fingerstick) 18mg/dL (70-99) Test 08/06/16 14:25 08/06/16 14:27 08/06/16 14:53 08/06/16 15:12 Glucose (Fingerstick) 265mg/dL (70-99) 215mg/dL (70-99) 177mg/dL (70-99) 139mg/dL (70-99) Test 08/06/16 15:28 08/06/16 15:48 08/06/16 16:12 08/06/16 16:35 Glucose (Fingerstick) 108mg/dL (70-99) 92mg/dL (70-99) 45mg/dL (70-99) 160mg/dL (70-99) Test 08/06/16 17:00 08/06/16 18:33 08/06/16 19:22 08/06/16 19:27 Glucose (Fingerstick) 39mg/dL (70-99) 68mg/dL (70-99) 89mg/dL (70-99) O2 Saturation 93% (92-99) Arterial Blood pH 7.11 (7.35-7.45) Arterial Blood pCO2 at Patient Temp 42mmHg (35-46) Arterial Blood pO2 at Patient Temp 82mmHg (85-108) Arterial Blood HCO3 13mmol/L (21-28) Arterial Blood Base Excess -16mmol/L (-3-3) FiO2 100 Test 08/06/16 19:48 08/06/16 22:30 08/06/16 22:38 08/06/16 23:00 Glucose (Fingerstick) 87mg/dL (70-99) 174mg/dL (70-99) Lactic Acid Level 16.5mmol/L (0.4-2.0) Sodium Level 134mmol/L (136-145) Potassium Level 5.6mmol/L (3.5-5.1) Chloride Level 94mmol/L (98-107) Carbon Dioxide Level 17mmol/L (21-32) Anion Gap 23 (6-14) Blood Urea Nitrogen 10mg/dL (7-20) Creatinine 1.3mg/dL (0.6-1.0) Estimated GFR (Cockcroft-Gault) 47.8 Glucose Level 158mg/dL (70-99) Calcium Level 7.0mg/dL (8.5-10.1) Test 08/07/16 04:30 08/07/16 04:33 08/07/16 07:41 08/07/16 08:20 White Blood Count 30.4x10^3/uL (4.0-11.0) Red Blood Count 4.25x10^6/uL (3.50-5.40) Hemoglobin 11.9g/dL (12.0-15.5) Hematocrit 36.6% (36.0-47.0) Mean Corpuscular Volume 86fL (79-100) Mean Corpuscular Hemoglobin 28pg (25-35) Mean Corpuscular Hemoglobin Concent 33g/dL (31-37) Red Cell Distribution Width 14.7% (11.5-14.5) Platelet Count 315x10^3/uL (140-400) Neutrophils (%) (Auto) 88% (31-73) Lymphocytes (%) (Auto) 5% (24-48) Monocytes (%) (Auto) 7% (0-9) Eosinophils (%) (Auto) 0% (0-3) Basophils (%) (Auto) 0% (0-3) Neutrophils # (Auto) 26.6x10^3uL (1.8-7.7) Lymphocytes # (Auto) 1.4x10^3/uL (1.0-4.8) Monocytes # (Auto) 2.3x10^3/uL (0.0-1.1) Eosinophils # (Auto) 0.0x10^3/uL (0.0-0.7) Basophils # (Auto) 0.0x10^3/uL (0.0-0.2) Segmented Neutrophils % 89% (35-66) Band Neutrophils % 3% (0-9) Lymphocytes % 4% (24-48) Monocytes % 4% (0-10) Platelet Estimate Adequate (ADEQUATE) Large Platelets Present Anisocytosis Present Schistocytes Occ Heparin Anti-Xa Act, Unfractionated 0.21IU/mL (0.30-0.70) Sodium Level 132mmol/L (136-145) 133mmol/L (136-145) Potassium Level 4.6mmol/L (3.5-5.1) 4.2mmol/L (3.5-5.1) Chloride Level 92mmol/L (98-107) 94mmol/L (98-107) Carbon Dioxide Level 22mmol/L (21-32) 19mmol/L (21-32) Anion Gap 18 (6-14) 20 (6-14) Blood Urea Nitrogen 12mg/dL (7-20) 13mg/dL (7-20) Creatinine 1.6mg/dL (0.6-1.0) 1.9mg/dL (0.6-1.0) Estimated GFR (Cockcroft-Gault) 37.6 30.8 Glucose Level 236mg/dL (70-99) 222mg/dL (70-99) Calcium Level 6.6mg/dL (8.5-10.1) 6.6mg/dL (8.5-10.1) Phosphorus Level 5.3mg/dL (2.6-4.7) Magnesium Level 1.4mg/dL (1.8-2.4) 1.8mg/dL (1.8-2.4) Albumin 2.9g/dL (3.4-5.0) 2.6g/dL (3.4-5.0) Glucose (Fingerstick) 235mg/dL (70-99) O2 Saturation 99% (92-99) Arterial Blood pH 7.23 (7.35-7.45) Arterial Blood pCO2 at Patient Temp 41mmHg (35-46) Arterial Blood pO2 at Patient Temp 208mmHg (85-108) Arterial Blood HCO3 17mmol/L (21-28) Arterial Blood Base Excess -10mmol/L (-3-3) FiO2 100 BUN/Creatinine Ratio 7 (6-20) Lactic Acid Level 12.5mmol/L (0.4-2.0) Total Bilirubin 0.2mg/dL (0.2-1.0) Aspartate Amino Transf (AST/SGOT) 69U/L (15-37) Alanine Aminotransferase (ALT/SGPT) 19U/L (14-59) Alkaline Phosphatase 69U/L (46-116) Total Protein 5.0g/dL (6.4-8.2) Albumin/Globulin Ratio 1.1 (1.0-1.7) Test 08/07/16 08:27 Glucose (Fingerstick) 227mg/dL (70-99) Laboratory Tests Test 08/06/16 12:41 08/06/16 13:30 08/06/16 13:35 08/06/16 14:00 Nasal Screen MRSA (PCR) Negative (Negative) Urine Color Yellow Urine Clarity Clear Urine pH 6.0 Urine Specific [place] 1.010 Urine Protein 11.2mg/dL (Not Estab.) Urine Glucose (UA) Negativemg/dL (NEG) Urine Ketones (Stick) Negativemg/dL (NEG) Urine Blood Trace (NEG) Urine Nitrite Negative (NEG) Urine Bilirubin Negative (NEG) Urine Urobilinogen Dipstick 0.2mg/dL (0.2 mg/dL) Urine Leukocyte Esterase Negative (NEG) Urine RBC Rare/HPF (0-2) Urine WBC Occ/HPF (0-4) Urine Squamous Epithelial Cells Occ/LPF Urine Bacteria 0/HPF (0-FEW) Urine Random Sodium 137mmol/L (Not Estab.) Urine Creatinine <4.0mg/dL (Not Estab.) Urine Protein/Creatinine Ratio >2800mg/g creat (0-200) Special Test - Miscellaneous See separate report Uric Acid 5.5mg/dL (2.6-6.0) Magnesium Level 2.0mg/dL (1.8-2.4) Creatine Kinase 172U/L (26-192) Troponin I Quantitative < 0.017ng/mL (0.000-0.055) O2 Saturation 96% (92-99) Arterial Blood pH 6.90 (7.35-7.45) Arterial Blood pCO2 at Patient Temp 32mmHg (35-46) Arterial Blood pO2 at Patient Temp 124mmHg (85-108) Arterial Blood HCO3 6mmol/L (21-28) Arterial Blood Base Excess -26mmol/L (-3-3) FiO2 100 Test 08/06/16 14:17 08/06/16 14:25 08/06/16 14:27 08/06/16 14:53 Glucose (Fingerstick) 18mg/dL (70-99) 265mg/dL (70-99) 215mg/dL (70-99) 177mg/dL (70-99) Test 08/06/16 15:12 08/06/16 15:28 08/06/16 15:48 08/06/16 16:12 Glucose (Fingerstick) 139mg/dL (70-99) 108mg/dL (70-99) 92mg/dL (70-99) 45mg/dL (70-99) Test 08/06/16 16:35 08/06/16 17:00 08/06/16 18:33 08/06/16 19:22 Glucose (Fingerstick) 160mg/dL (70-99) 39mg/dL (70-99) 68mg/dL (70-99) O2 Saturation 93% (92-99) Arterial Blood pH 7.11 (7.35-7.45) Arterial Blood pCO2 at Patient Temp 42mmHg (35-46) Arterial Blood pO2 at Patient Temp 82mmHg (85-108) Arterial Blood HCO3 13mmol/L (21-28) Arterial Blood Base Excess -16mmol/L (-3-3) FiO2 100 Test 08/06/16 19:27 08/06/16 19:48 08/06/16 22:30 08/06/16 22:38 Glucose (Fingerstick) 89mg/dL (70-99) 87mg/dL (70-99) 174mg/dL (70-99) Lactic Acid Level 16.5mmol/L (0.4-2.0) Test 08/06/16 23:00 08/07/16 04:30 08/07/16 04:33 08/07/16 07:41 Sodium Level 134mmol/L (136-145) 132mmol/L (136-145) Potassium Level 5.6mmol/L (3.5-5.1) 4.6mmol/L (3.5-5.1) Chloride Level 94mmol/L (98-107) 92mmol/L (98-107) Carbon Dioxide Level 17mmol/L (21-32) 22mmol/L (21-32) Anion Gap 23 (6-14) 18 (6-14) Blood Urea Nitrogen 10mg/dL (7-20) 12mg/dL (7-20) Creatinine 1.3mg/dL (0.6-1.0) 1.6mg/dL (0.6-1.0) Estimated GFR (Cockcroft-Gault) 47.8 37.6 Glucose Level 158mg/dL (70-99) 236mg/dL (70-99) Calcium Level 7.0mg/dL (8.5-10.1) 6.6mg/dL (8.5-10.1) White Blood Count 30.4x10^3/uL (4.0-11.0) Red Blood Count 4.25x10^6/uL (3.50-5.40) Hemoglobin 11.9g/dL (12.0-15.5) Hematocrit 36.6% (36.0-47.0) Mean Corpuscular Volume 86fL (79-100) Mean Corpuscular Hemoglobin 28pg (25-35) Mean Corpuscular Hemoglobin Concent 33g/dL (31-37) Red Cell Distribution Width 14.7% (11.5-14.5) Platelet Count 315x10^3/uL (140-400) Neutrophils (%) (Auto) 88% (31-73) Lymphocytes (%) (Auto) 5% (24-48) Monocytes (%) (Auto) 7% (0-9) Eosinophils (%) (Auto) 0% (0-3) Basophils (%) (Auto) 0% (0-3) Neutrophils # (Auto) 26.6x10^3uL (1.8-7.7) Lymphocytes # (Auto) 1.4x10^3/uL (1.0-4.8) Monocytes # (Auto) 2.3x10^3/uL (0.0-1.1) Eosinophils # (Auto) 0.0x10^3/uL (0.0-0.7) Basophils # (Auto) 0.0x10^3/uL (0.0-0.2) Segmented Neutrophils % 89% (35-66) Band Neutrophils % 3% (0-9) Lymphocytes % 4% (24-48) Monocytes % 4% (0-10) Platelet Estimate Adequate (ADEQUATE) Large Platelets Present Anisocytosis Present Schistocytes Occ Heparin Anti-Xa Act, Unfractionated 0.21IU/mL (0.30-0.70) Phosphorus Level 5.3mg/dL (2.6-4.7) Magnesium Level 1.4mg/dL (1.8-2.4) Albumin 2.9g/dL (3.4-5.0) Glucose (Fingerstick) 235mg/dL (70-99) O2 Saturation 99% (92-99) Arterial Blood pH 7.23 (7.35-7.45) Arterial Blood pCO2 at Patient Temp 41mmHg (35-46) Arterial Blood pO2 at Patient Temp 208mmHg (85-108) Arterial Blood HCO3 17mmol/L (21-28) Arterial Blood Base Excess -10mmol/L (-3-3) FiO2 100 Test 08/07/16 08:20 08/07/16 08:27 Sodium Level 133mmol/L (136-145) Potassium Level 4.2mmol/L (3.5-5.1) Chloride Level 94mmol/L (98-107) Carbon Dioxide Level 19mmol/L (21-32) Anion Gap 20 (6-14) Blood Urea Nitrogen 13mg/dL (7-20) Creatinine 1.9mg/dL (0.6-1.0) Estimated GFR (Cockcroft-Gault) 30.8 BUN/Creatinine Ratio 7 (6-20) Glucose Level 222mg/dL (70-99) Lactic Acid Level 12.5mmol/L (0.4-2.0) Calcium Level 6.6mg/dL (8.5-10.1) Magnesium Level 1.8mg/dL (1.8-2.4) Total Bilirubin 0.2mg/dL (0.2-1.0) Aspartate Amino Transf (AST/SGOT) 69U/L (15-37) Alanine Aminotransferase (ALT/SGPT) 19U/L (14-59) Alkaline Phosphatase 69U/L (46-116) Total Protein 5.0g/dL (6.4-8.2) Albumin 2.6g/dL (3.4-5.0) Albumin/Globulin Ratio 1.1 (1.0-1.7) Glucose (Fingerstick) 227mg/dL (70-99) Medications Current Medications Ondansetron HCl 4 mg 4 mg 1X ONCE PO ; Start 08/06/16 at 07:00; Stop 08/06/16 at 07:00; Status DC Sodium Chloride (Iv Sodium Chloride 0.9% 1000ml Bag) 1,000 ml @ 1,000 mls/hr 1X ONCE IV Last administered on 08/06/16 07:00; Start 08/06/16 at 07:00; Stop 08/06/16 at 07:59; Status DC Ondansetron HCl (Zofran) 4 mg 1X ONCE IV Last administered on 08/06/16 07:02; Start 08/06/16 at 07:00; Stop 08/06/16 at 07:01; Status DC Ondansetron HCl (Zofran) 4 mg 1X ONCE IV Last administered on 08/06/16 08:09; Start 08/06/16 at 08:00; Stop 08/06/16 at 08:01; Status DC Ondansetron HCl 4 mg 4 mg PRN Q8HRS PRN IV NAUSEA/VOMITING; Start 08/06/16 at 08 :15; Stop 08/07/16 at 08:14; Status DC Sodium Chloride (Iv Sodium Chloride 0.9% 1000ml Bag) 1,000 ml @ 125 mls/hr Q8H IV Last administered on 08/07/16 00:08; Start 08/06/16 at 08:08; Stop 08/07/16 at 08:07; Status DC Famotidine 20 mg 20 mg 1X ONCE IVP Last administered on 08/06/16 08:33; Start 08/06/16 at 08:30; Stop 08/06/16 at 08:31; Status DC Sodium Chloride (Iv Sodium Chloride 0.9% 1000ml Bag) 1,000 ml @ 1,000 mls/hr 1X ONCE IV Last administered on 08/06/16 09:36; Start 08/06/16 at 09:00; Stop 08/06/16 at 09:59; Status DC Lorazepam (Ativan) 1 mg 1X ONCE IV Last administered on 08/06/16 09:32; Start 08/06/16 at 09:30; Stop 08/06/16 at 09:31; Status DC Insulin Human Regular (Novolin R Vial) 10 unit 1X ONCE SQ ; Start 08/06/16 at 09 :45; Stop 08/06/16 at 12:45; Status DC Sodium Bicarbonate 100 meq 1X ONCE IV Last administered on 08/06/16 11:04; Start 08/06/16 at 10:00; Stop 08/06/16 at 10:01; Status DC Lorazepam (Ativan) 2 mg 1X ONCE IV ; Start 08/06/16 at 10:00; Stop 08/06/16 at 10 :01; Status DC Iohexol 75 ml 75 ml 1X ONCE IV Last administered on 08/06/16 11:31; Start 08/06 at 10:15; Stop 08/06/16 at 10:16; Status DC Propofol (Diprivan) 50 ml @ As Directed STK-MED ONCE IV ; Start 08/06/16 at 10:27 ; Stop 08/06/16 at 10:28; Status DC Midazolam HCl (Versed) 4 mg 1X ONCE IV Last administered on 08/06/16 10:35; Start 08/06/16 at 10:45; Stop 08/06/16 at 10:46; Status DC Fentanyl Citrate (Fentanyl 2ml Vial) 25 mcg 1X ONCE IV Last administered on 10:35; Start 08/06/16 at 10:45; Stop 08/06/16 at 10:46; Status DC Heparin Sodium (Porcine) (Heparin Sodium) 10,000 unit STK-MED ONCE .ROUTE ; Start 08/06/16 at 10:40; Stop 08/06/16 at 10:41; Status DC Lidocaine/Sodium Bicarbonate 20 ml 20 ml STK-MED ONCE IJ ; Start 08/06/16 at 10: 40; Stop 08/06/16 at 10:41; Status DC Heparin Sodium/ Sodium Chloride 500 ml @ As Directed STK-MED ONCE .ROUTE ; Start 08/06/16 at 10:40; Stop 08/06/16 at 10:41; Status DC Propofol 50 ml @ As Directed STK-MED ONCE IV ; Start 08/06/16 at 11:02; Stop 08/06 at 11:03; Status DC Magnesium Sulfate/ Dextrose (Magnesium Sulfate PREMIX 2GM) 50 ml @ 25 mls/hr PRN DAILY PRN IV for Mag < 1.7 on am labs; Start 08/06/16 at 11:30 Etomidate (Amidate) 20 mg STK-MED ONCE IV ; Start 08/06/16 at 11:35; Stop at 11:36; Status DC Succinylcholine Chloride 200 mg 200 mg STK-MED ONCE .ROUTE ; Start 08/06/16 at 11 :36; Stop 08/06/16 at 11:37; Status DC Propofol 100 ml @ As Directed STK-MED ONCE IV ; Start 08/06/16 at 12:01; Stop at 12:02; Status DC Propofol (Diprivan) 100 ml @ 0 mls/hr CONT PRN IV SEE I/O RECORD Last administered on 08/06/16t 13:16; Start 08/06/16 at 12:15 Midazolam HCl (Versed) 4 mg 1X ONCE IV Last administered on 08/06/16 12:00; Start 08/06/16 at 12:15; Stop 08/06/16 at 12:20; Status DC Lidocaine/Sodium Bicarbonate (Buffered Lidocaine 1%) 3 ml 1X ONCE IJ Last administered on 08/06/16 12:50; Start 08/06/16 at 12:30; Stop 08/06/16 at 12:31; Status DC Heparin Sodium/ Sodium Chloride 60 unit 1X ONCE IV Last administered on 12:50; Start 08/06/16 at 12:30; Stop 08/06/16 at 12:31; Status DC Heparin Sodium (Porcine) (Heparin Sodium) 2,500 unit 1X ONCE INT CAT Last administered on 08/06/16 12:50; Start 08/06/16 at 12:30; Stop 08/06/16 at 12:31; Status DC Dextrose 25 gm 25 gm STK-MED ONCE IV ; Start 08/06/16 at 14:19; Stop 08/06/16 at 14:20; Status DC Levofloxacin/ Dextrose (LEVAQUIN 500mg PREMIX) 100 ml @ 100 mls/hr Q24H IV ; Start 08/06/16 at 14:30; Stop 08/07/16 at 11:04; Status DC Albuterol/ Ipratropium (Duoneb) 3 ml RTQID NEB Last administered on 08/07/16 11 :28; Start 08/06/16 at 16:00 Dextrose (Dextrose 50%-Water Syringe) 25 gm STK-MED ONCE IV ; Start 08/06/16 at 14:25; Stop 08/06/16 at 14:26; Status DC Pantoprazole Sodium (Protonix Vial) 40 mg DAILYAC IVP Last administered on 09:30; Start 08/06/16 at 15:00 Heparin Sodium (Porcine) 5,000 unit Q8HRS SQ ; Start 08/06/16 at 15:00; Stop 08/06 at 22:19; Status DC Insulin Aspart (Novolog) 0-9 UNITS TIDWMEALS SQ ; Start 08/06/16 at 17:00 Dextrose (Dextrose 50%-Water Syringe) 12.5 gm PRN Q15MIN PRN IV SEE COMMENTS Last administered on 08/06/16 18:44; Start 08/06/16 at 14:30; Stop 08/07/16 at 08: 02; Status DC Sodium Bicarbonate 50 meq 50 meq STK-MED ONCE .ROUTE ; Start 08/06/16 at 14:27; Stop 08/06/16 at 14:28; Status DC Sodium Bicarbonate/ Dextrose 1,150 ml @ 100 mls/hr [id number] IV Last administered on 08/06/16 15:27; Start 08/06/16 at 14:45; Stop 08/06/16 at 18:59; Status DC Dextrose (Dextrose 50%-Water Syringe) 25 gm 1X ONCE IV Last administered on 14:52; Start 08/06/16 at 14:45; Stop 08/06/16 at 14:46; Status DC Dextrose 25 gm 25 gm 1X ONCE IV Last administered on 08/06/16 14:53; Start 08/06/16 at 14:45; Stop 08/06/16 at 14:46; Status DC Sodium Chloride 1,000 ml @ 1,000 mls/hr Q1H PRN IV hypotension; Start 08/06/16 at 14:44; Stop 08/06/16 at 20:43; Status DC Albumin Human (Albuminar) 200 ml @ 200 mls/hr 1X PRN PRN IV Hypotension; Start 08/06/16 at 14:45; Stop 08/06/16 at 20:44; Status DC Sodium Chloride (Normal Saline Flush) 10 ml 1X PRN PRN IV AP catheter pack; Start 08/06/16 at 14:45; Stop 08/07/16 at 07:50; Status DC Sodium Chloride (Normal Saline Flush) 10 ml 1X PRN PRN IV IT SALES EXECUTIVE catheter pack; Start 08/06/16 at 14:45; Stop 08/07/16 at 08:01; Status DC Info (PHARMACY MONITORING -- do not chart) 1 each PRN DAILY PRN MC SEE COMMENTS ; Start 08/06/16 at 14:45 Sodium Bicarbonate 50 meq 1X ONCE IV Last administered on 08/06/16 15:06; Start 08/06/16 at 15:00; Stop 08/06/16 at 15:01; Status DC Sodium Bicarbonate 50 meq 50 meq 1X ONCE IV Last administered on 08/06/16 15: 07; Start 08/06/16 at 15:00; Stop 08/06/16 at 15:01; Status DC Norepinephrine Bitartrate 250 ml @ 0 mls/hr CONT PRN IV SEE I/O RECORD Last administered on 08/07/16 10:48; Start 08/06/16 at 15:45 Epinephrine HCl 4 mg/Sodium Chloride 254 ml @ 3.81 mls/hr 1X ONCE IV Last administered on 08/06/16 17:13; Start 08/06/16 at 16:00; Stop 08/09/16 at 10:39 Fentanyl Citrate 30 ml @ As Directed STK-MED ONCE IV ; Start 08/06/16 at 15:57; Stop 08/06/16 at 15:58; Status DC Midazolam HCl 100 ml @ As Directed STK-MED ONCE IV ; Start 08/06/16 at 15:57; Stop 08/06/16 at 15:58; Status DC Potassium Chloride 5 meq/ Calcium Chloride 15 meq/Magnesium Sulfate 12.5 meq/ Miscellaneous Medication 5,016.2931 ml @ 1,000 mls/hr Q5H1M IV Last administered on 08/07/16 03:08; Start 08/06/16 at 19:00; Stop 08/07/16 at 10:00; Status DC Potassium Chloride 15 meq/ Calcium Chloride 15 meq/Magnesium Sulfate 12.5 meq/ Miscellaneous Medication 5,021.2931 ml @ 1,000 mls/hr Q5H2M IV Last administered on 08/07/16 00:02; Start 08/06/16 at 19:00; Stop 08/07/16 at 00:55; Status DC Sodium Bicarbonate 150 meq/Dextrose 1,150 ml @ 500 mls/hr Q2H18M IV Last administered on 08/07/16 11:35; Start 08/06/16 at 19:00; Stop 08/07/16 at 11:36; Status DC Fentanyl Citrate (Fentanyl 600 Mcg/30 ml PROCESS CAMERA OPERATOR) 30 ml @ 0 mls/hr CONT PRN IV PROTOCOL Last administered on 08/07/16 09:22; Start 08/06/16 at 16:30 Chlorhexidine Gluconate 15 ml 15 ml BID MM Last administered on 08/07/16 09:31 ; Start 08/06/16 at 21:00 Midazolam HCl (Versed 100mg/ 100ml Premix) 100 ml @ 0 mls/hr CONT PRN IV PER PROTOCOL Last administered on 08/07/16 09:50; Start 08/06/16 at 16:30 Midazolam HCl (Versed) 5 mg 1X ONCE IV ; Start 08/06/16 at 16:30; Stop 08/06/16 at 16:31; Status DC Dextrose (Dextrose 50%-Water Syringe) 12.5 gm PRN Q15MIN PRN IV SEE COMMENTS; Start 08/06/16 at 16:30 Lidocaine HCl 100 mg 100 mg STK-MED ONCE .ROUTE ; Start 08/06/16 at 18:59; Stop 08/06/16 at 19:00; Status DC Dextrose 1,000 ml @ 100 mls/hr Q10H IV Last administered on 08/07/16 05:00; Start 08/06/16 at 19:00; Stop 08/07/16 at 10:20; Status DC Heparin Sodium/ Dextrose 500 ml @ 0 mls/hr CONT PRN IV SEE I/O RECORD Last administered on 08/06/16 22:31; Start 08/06/16 at 22:15 Potassium Chloride 10 meq/ Calcium Chloride 15 meq/Magnesium Sulfate 12.5 meq/ Miscellaneous Medication 5,018.7931 ml @ 1,000 mls/hr Q5H2M IV ; Start 08/07/16 at 00:55; Stop 08/07/16 at 00:58; Status DC Calcium Chloride 15 meq/Magnesium Sulfate 12.5 meq/ Miscellaneous Medication 5, 013.7931 ml @ 1,000 mls/hr Q5H1M IV Last administered on 08/07/16 10:00; Start 08/07/16 at 00:58; Stop 08/07/16 at 10:00; Status DC Lorazepam/Sodium Chloride (Ativan/Iv Sodium Chloride 0.9% 100ml) 100 ml @ 0 mls/ hr CONT PRN PRN IV SEDATION Last administered on 08/07/16 01:31; Start 08/07/16 at 01:00 Vecuronium [place] (Norcuron Bolus) 10 mg PRN Q6HRS PRN IV SEDATION Last administered on 08/07/16 09:47; Start 08/07/16 at 02:45 Heparin Sodium (Porcine) 5400 unit 5,400 unit 1X ONCE IV Last administered on 08/07/16 06:33; Start 08/07/16 at 06:30; Stop 08/07/16 at 06:31; Status DC Calcium Chloride 2000 mg/Sodium Chloride 120 ml @ 240 mls/hr 1X ONCE IV Last administered on 08/07/16 09:10; Start 08/07/16 at 09:00; Stop 08/07/16 at 09:29; Status DC Magnesium Sulfate/ Dextrose 50 ml @ 25 mls/hr 1X ONCE IV Last administered on 08/07/16 09:09; Start 08/07/16 at 09:00; Stop 08/07/16 at 10:59; Status DC Vasopressin 40 unit/Dextrose 102 ml @ 6 mls/hr CONT PRN IV SEE I/O RECORD Last administered on 08/07/16 09:09; Start 08/07/16 at 09:00 Calcium Chloride 17.5 meq/ Magnesium Sulfate 15 meq/ Miscellaneous Medication 5, 016.1945 ml @ 1,000 mls/hr Q5H1M IV ; Start 08/07/16 at 14:00 Potassium Chloride/Calcium Chloride/ Magnesium Sulfate/ Miscellaneous Medication (Prismasol Bgk 2/ 0) 5,018.6945 ml @ 1,000 mls/hr Q5H2M IV ; Start at 14:00 Sulfur Hexafluoride Microspheres 25 mg 25 mg STK-MED ONCE IVP ; Start 08/07/16 at 09:01; Stop 08/07/16 at 09:02; Status DC Ceftriaxone Sodium/Sodium Chloride (Rocephin/Iv Sodium Chloride 0.9% 100ml) 100 ml @ 200 mls/hr Q24H IV Last administered on 08/07/16 12:09; Start 08/07/16 at 12:00 Active Scripts Active Reported Marquez 5-325 Tablet (Acetaminophen/Hydrocodone Bitart) 1 Each Tablet 1 Tab PO PRN Q6HRS PRN Gabapentin 800 Mg Tablet 800 Mg PO TID Vitals/I & O Vital Sign - Last 24 Hours 08/06/16 08/06/16 08/06/16 08/06/16 12:29 12:50 13:30 14:10 Temp 97.7 97.8 97.7 97.8 Pulse 96 96 94 Resp 16 16 B/P 116/57 96/46 95/45 Pulse Ox 96 96 98 O2 Delivery Ventilator Ventilator Ventilator 08/06/16 08/06/16 08/06/16 08/06/16 14:29 15:29 16:00 16:10 Temp 97.8 97.8 97.8 97.8 Pulse 94 114 Resp 16 16 B/P 106/46 74/48 Pulse Ox 96 96 96 O2 Delivery Ventilator Ventilator Mechanical Ventilator Ventilator 08/06/16 08/06/16 08/06/16 08/06/16 17:04 17:28 17:30 18:04 Temp 97.8 97.8 97.8 97.8 Pulse 100 125 Resp 20 16 B/P 163/90 96/34 Pulse Ox 99 99 99 O2 Delivery Ventilator BiPAP/CPAP Ventilator Ventilator 08/06/16 08/06/16 08/06/16 08/06/16 18:30 19:00 19:35 20:00 Temp 97.8 98.9 97.8 98.9 Pulse 133 132 136 Resp 34 B/P 111/58 117/53 124/61 Pulse Ox 99 94 100 O2 Delivery Ventilator Ventilator Ventilator 08/06/16 08/06/16 08/06/16 08/06/16 20:00 21:00 22:00 22:08 Pulse 136 136 Resp 33 34 35 B/P 138/85 128/70 Pulse Ox 100 100 100 O2 Delivery Mechanical Ventilator Ventilator Ventilator Ventilator 08/06/16 08/06/16 08/06/16 08/07/16 22:49 23:00 23:59 00:00 Temp 98.8 98.8 Pulse 137 132 Resp 35 34 B/P 104/61 141/58 Pulse Ox 98 100 O2 Delivery Ventilator Ventilator Mechanical Ventilator Ventilator 08/07/16 08/07/16 08/07/16 08/07/16 01:00 01:00 01:07 02:00 Pulse 140 141 Resp 34 34 34 B/P 127/59 112/60 Pulse Ox 97 99 98 94 O2 Delivery Ventilator Ventilator Ventilator Ventilator 08/07/16 08/07/16 08/07/16 08/07/16 02:30 03:00 03:15 04:00 Temp 100.4 100.4 Pulse 145 129 Resp 25 34 B/P 121/61 173/79 68/48 Pulse Ox 94 88 97 O2 Delivery Ventilator Ventilator Ventilator 08/07/16 08/07/16 08/07/16 08/07/16 04:00 04:13 05:00 05:00 Pulse 133 Resp 34 B/P 107/50 114/46 Pulse Ox 98 97 O2 Delivery Mechanical Ventilator Ventilator Ventilator 08/07/16 08/07/16 08/07/16 08/07/16 06:00 07:00 07:24 08:00 Pulse 126 133 Resp 34 50 B/P 124/46 87/62 Pulse Ox 100 99 99 O2 Delivery Ventilator Ventilator Ventilator Mechanical Ventilator 08/07/16 08/07/16 08/07/16 08/07/16 08:00 09:00 09:15 09:22 Temp 100.2 100.2 Pulse 129 125 Resp 24 34 B/P 87/48 113/46 Pulse Ox 100 100 98 O2 Delivery Ventilator Ventilator Ventilator Ventilator 08/07/16 08/07/16 08/07/16 08/07/16 09:53 10:00 11:00 11:28 Pulse 128 114 Resp 30 15 31 B/P 140/57 150/56 Pulse Ox 90 91 98 100 O2 Delivery Ventilator Ventilator Ventilator Ventilator Intake and Output 08/06/16 08/06/16 08/07/16 15:00 23:00 07:00 Intake Total 2233 ml 5348 ml Output Total 3600 ml 3085 ml 1000 ml Balance -1367 ml -3085 ml 4348 ml CHAZ BOYD III DO August 07, 2016 12:16
--- NOTE | 2016-08-07 12:23 | PDOC ---
JJ BERGERON GEAR LAPPER 08/07/16 1223: CARDIO Progress Notes Date and Time Date of Service 08/07/2016 Time of Evaluation 1020 Subjective Subjective: Other (vented) Vitals Vitals Vital Signs Date Time Temp Pulse Resp B/P Pulse Ox O2 Delivery O2 Flow Rate FiO2 08/07/16 11:28 100 Ventilator 08/07/16 11:00 114 31 150/56 08/07/16 08:00 100.2 100.2 Weight Weight [ ] Input and Output Intake and Output Intake and Output 08/07/16 07:00 Intake Total 7581 ml Output Total 7685 ml Balance -104 ml Intake IV Total 7581 ml Output Urine Total 7685 ml Laboratory Labs Laboratory Tests Test 08/06/16 12:41 08/06/16 13:30 08/06/16 13:35 08/06/16 14:00 Nasal Screen MRSA (PCR) Negative (Negative) Urine Color Yellow Urine Clarity Clear Urine pH 6.0 Urine Specific [place] 1.010 Urine Protein 11.2mg/dL (Not Estab.) Urine Glucose (UA) Negativemg/dL (NEG) Urine Ketones (Stick) Negativemg/dL (NEG) Urine Blood Trace (NEG) Urine Nitrite Negative (NEG) Urine Bilirubin Negative (NEG) Urine Urobilinogen Dipstick 0.2mg/dL (0.2 mg/dL) Urine Leukocyte Esterase Negative (NEG) Urine RBC Rare/HPF (0-2) Urine WBC Occ/HPF (0-4) Urine Squamous Epithelial Cells Occ/LPF Urine Bacteria 0/HPF (0-FEW) Urine Random Sodium 137mmol/L (Not Estab.) Urine Creatinine <4.0mg/dL (Not Estab.) Urine Protein/Creatinine Ratio >2800mg/g creat (0-200) Special Test - Miscellaneous See separate report Uric Acid 5.5mg/dL (2.6-6.0) Magnesium Level 2.0mg/dL (1.8-2.4) Creatine Kinase 172U/L (26-192) Troponin I Quantitative < 0.017ng/mL (0.000-0.055) O2 Saturation 96% (92-99) Arterial Blood pH 6.90 (7.35-7.45) Arterial Blood pCO2 at Patient Temp 32mmHg (35-46) Arterial Blood pO2 at Patient Temp 124mmHg (85-108) Arterial Blood HCO3 6mmol/L (21-28) Arterial Blood Base Excess -26mmol/L (-3-3) FiO2 100 Test 08/06/16 14:17 08/06/16 14:25 08/06/16 14:27 08/06/16 14:53 Glucose (Fingerstick) 18mg/dL (70-99) 265mg/dL (70-99) 215mg/dL (70-99) 177mg/dL (70-99) Test 08/06/16 15:12 08/06/16 15:28 08/06/16 15:48 08/06/16 16:12 Glucose (Fingerstick) 139mg/dL (70-99) 108mg/dL (70-99) 92mg/dL (70-99) 45mg/dL (70-99) Test 08/06/16 16:35 08/06/16 17:00 08/06/16 18:33 08/06/16 19:22 Glucose (Fingerstick) 160mg/dL (70-99) 39mg/dL (70-99) 68mg/dL (70-99) O2 Saturation 93% (92-99) Arterial Blood pH 7.11 (7.35-7.45) Arterial Blood pCO2 at Patient Temp 42mmHg (35-46) Arterial Blood pO2 at Patient Temp 82mmHg (85-108) Arterial Blood HCO3 13mmol/L (21-28) Arterial Blood Base Excess -16mmol/L (-3-3) FiO2 100 Test 08/06/16 19:27 08/06/16 19:48 08/06/16 22:30 08/06/16 22:38 Glucose (Fingerstick) 89mg/dL (70-99) 87mg/dL (70-99) 174mg/dL (70-99) Lactic Acid Level 16.5mmol/L (0.4-2.0) Test 08/06/16 23:00 08/07/16 04:30 08/07/16 04:33 08/07/16 07:41 Sodium Level 134mmol/L (136-145) 132mmol/L (136-145) Potassium Level 5.6mmol/L (3.5-5.1) 4.6mmol/L (3.5-5.1) Chloride Level 94mmol/L (98-107) 92mmol/L (98-107) Carbon Dioxide Level 17mmol/L (21-32) 22mmol/L (21-32) Anion Gap 23 (6-14) 18 (6-14) Blood Urea Nitrogen 10mg/dL (7-20) 12mg/dL (7-20) Creatinine 1.3mg/dL (0.6-1.0) 1.6mg/dL (0.6-1.0) Estimated GFR (Cockcroft-Gault) 47.8 37.6 Glucose Level 158mg/dL (70-99) 236mg/dL (70-99) Calcium Level 7.0mg/dL (8.5-10.1) 6.6mg/dL (8.5-10.1) White Blood Count 30.4x10^3/uL (4.0-11.0) Red Blood Count 4.25x10^6/uL (3.50-5.40) Hemoglobin 11.9g/dL (12.0-15.5) Hematocrit 36.6% (36.0-47.0) Mean Corpuscular Volume 86fL (79-100) Mean Corpuscular Hemoglobin 28pg (25-35) Mean Corpuscular Hemoglobin Concent 33g/dL (31-37) Red Cell Distribution Width 14.7% (11.5-14.5) Platelet Count 315x10^3/uL (140-400) Neutrophils (%) (Auto) 88% (31-73) Lymphocytes (%) (Auto) 5% (24-48) Monocytes (%) (Auto) 7% (0-9) Eosinophils (%) (Auto) 0% (0-3) Basophils (%) (Auto) 0% (0-3) Neutrophils # (Auto) 26.6x10^3uL (1.8-7.7) Lymphocytes # (Auto) 1.4x10^3/uL (1.0-4.8) Monocytes # (Auto) 2.3x10^3/uL (0.0-1.1) Eosinophils # (Auto) 0.0x10^3/uL (0.0-0.7) Basophils # (Auto) 0.0x10^3/uL (0.0-0.2) Segmented Neutrophils % 89% (35-66) Band Neutrophils % 3% (0-9) Lymphocytes % 4% (24-48) Monocytes % 4% (0-10) Platelet Estimate Adequate (ADEQUATE) Large Platelets Present Anisocytosis Present Schistocytes Occ Heparin Anti-Xa Act, Unfractionated 0.21IU/mL (0.30-0.70) Phosphorus Level 5.3mg/dL (2.6-4.7) Magnesium Level 1.4mg/dL (1.8-2.4) Albumin 2.9g/dL (3.4-5.0) Glucose (Fingerstick) 235mg/dL (70-99) O2 Saturation 99% (92-99) Arterial Blood pH 7.23 (7.35-7.45) Arterial Blood pCO2 at Patient Temp 41mmHg (35-46) Arterial Blood pO2 at Patient Temp 208mmHg (85-108) Arterial Blood HCO3 17mmol/L (21-28) Arterial Blood Base Excess -10mmol/L (-3-3) FiO2 100 Test 08/07/16 08:20 08/07/16 08:27 Sodium Level 133mmol/L (136-145) Potassium Level 4.2mmol/L (3.5-5.1) Chloride Level 94mmol/L (98-107) Carbon Dioxide Level 19mmol/L (21-32) Anion Gap 20 (6-14) Blood Urea Nitrogen 13mg/dL (7-20) Creatinine 1.9mg/dL (0.6-1.0) Estimated GFR (Cockcroft-Gault) 30.8 BUN/Creatinine Ratio 7 (6-20) Glucose Level 222mg/dL (70-99) Lactic Acid Level 12.5mmol/L (0.4-2.0) Calcium Level 6.6mg/dL (8.5-10.1) Magnesium Level 1.8mg/dL (1.8-2.4) Total Bilirubin 0.2mg/dL (0.2-1.0) Aspartate Amino Transf (AST/SGOT) 69U/L (15-37) Alanine Aminotransferase (ALT/SGPT) 19U/L (14-59) Alkaline Phosphatase 69U/L (46-116) Total Protein 5.0g/dL (6.4-8.2) Albumin 2.6g/dL (3.4-5.0) Albumin/Globulin Ratio 1.1 (1.0-1.7) Glucose (Fingerstick) 227mg/dL (70-99) Physical Exam HEENT: Neck Supple W Full Motion Chest: Symmetric LUNGS: Other (diminished bases; intubated with mechanical ventilation) Heart: S1S2, RRR (sinus tach 120s) Abdomen: Other (morbidly obese) Neurology: other (sedated and vented) Assessment Assessment 1. Depression with suicidal ideation: "180 tabs of 500 mg glucophage ingested". Tox screen negative for recreational drugs. 2. Acute respiratory failure: mechanical ventilation, pulmonary following 3. JENNY/hyperkalemia: CRRT per nephrology 4. Severe metabolic acidosis/leukocytosis 5. Abnormal EKG: IVCD due to above concurrent conditions. 6. DM2 7. Hypotension 8. Morbid obesity: BMI 45 Recommendations 1. Vasopressors epi/levo/vaso, titrate as warranted 2. Sinus tach (reactive) otherwise no significant ectopies, baseline TTE pending 3. Follow nephrology/pulmonary recommendations. 4. Poor prognosis, awaiting family. 5. Supportive care. EMMANUEL TAN MD 08/07/16 9174: CARDIO Progress Notes Plan Plan Pt. seen and examined. 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 Sedated on multiple pressors On CRRT Tele stable. Normal echo. No further CV recs. Thanks for consult. Supportive care for multiorgan failure. JJ BERGERON APRN August 07, 2016 12:23 EMMANUEL TAN MD August 07, 2016 21:44
[2016-08-07] MEDS: HEPARIN 25,000UTS/500ML PREMIX 500 ML IV PRN (12:54)
[2016-08-07] MEDS: [UNRECOGNIZED DRUG - OTHER] IV SCH ×2 (14:10→20:40)
[2016-08-07] MEDS: [UNRECOGNIZED DRUG - OTHER] IV SCH ×2 (14:10→20:40)
--- NOTE | 2016-08-07 15:24 | CARD ---
APPROVED REPORT EXAM: Two-dimensional and M-mode echocardiogram with Doppler and color Doppler. Other Information Quality : Fair Rhythm : Tachycardia INDICATION Abnormal ECG Respiratory failure 2D DIMENSIONS RVDd2.9 (2.9-3.5cm)Left Atrium(2D)2.8 (1.6-4.0cm) IVSd1.2 (0.7-1.1cm)Aortic Root(2D)2.6 (2.0-3.7cm) LVDd4.4 (3.9-5.9cm)LVOT Diameter2.0 (1.8-2.4cm) PWd1.3 (0.7-1.1cm)LVDs2.8 (2.5-4.0cm) FS (%) 36.8 %SV59.9 ml LVEF(%)66.9 (>50%) Aortic Valve AoV Peak Yaw.261.6cm/sAoV VTI34.8cm AO Peak GR.27.4mmHgLVOT Peak Yaw.271.1cm/s AO Mean GR.17mmHgAVA (VMAX)3.24cm2 Mitral Valve MV E Vuedapwq876.3cm/sMV DECEL [id number] MV A Pphgpwuf598.0cm/sE/A Ratio1.0 Tricuspid Valve TR P. [id number] [id number] TR Peak Gr.[id number] LEFT VENTRICLE The left ventricle is normal size. There is borderline to mild concentric left ventricular hypertroph y. Left ventricle systolic function is normal. The Ejection Fraction is 65-70%. There is normal LV se gmental wall motion. The left ventricular diastolic function and filling is normal for age. There is no ventricular septal defect visualized. RIGHT VENTRICLE The right ventricle is normal size. The right ventricular systolic function is normal. ATRIA The left atrium size is normal. The right atrium size is normal. The interatrial septum is intact wit h no evidence for an atrial septal defect or patent foramen ovale as noted on 2-D or Doppler imaging. AORTIC VALVE The aortic valve is not well visualized. Doppler and Color Flow revealed no significant aortic regurg itation. There is no significant aortic valvular stenosis. MITRAL VALVE The mitral valve is normal in structure and function. There is no mitral valve stenosis. Doppler and Color Flow revealed no mitral valve regurgitation noted. TRICUSPID VALVE The tricuspid valve is not well visualized. Doppler and Color Flow revealed mild tricuspid regurgitat ion. The PA pressure was estimated at 49 mmHg. There is no tricuspid valve stenosis. PULMONIC VALVE The pulmonic valve is not well visualized. Doppler and Color Flow revealed no pulmonic valvular regur gitation. There is no pulmonic valvular stenosis. GREAT VESSELS The aortic root is normal in size. Pulmonary veins not recorded. The IVC is dilated and collapses <50 % with inspiration. PERICARDIAL EFFUSION There is no evidence of significant pericardial effusion. Critical Notification Critical Value: No <Conclusion> Left ventricle systolic function is normal. The Ejection Fraction is 65-70%. There is normal LV segmental wall motion. Mild tricuspid regurgitation. The PA pressure was estimated at 49 mmHg. There is no evidence of significant pericardial effusion.
[2016-08-07 16:20] LABS: BASO % 0 % (0-3); EOS % 0 % (0-3); HEMATOCRIT 32.8 % (36.0-47.0); HEMOGLOBIN 11.2 g/dL (12.0-15.5); LYMPH # 2.7 x10^3/uL (1.0-4.8); LYMPH % 17 % (24-48); MEAN CORPUSCULAR HEMOGLOBIN 28 pg (25-35); MEAN CORPUSCULAR HGB CONC 34 g/dL (31-37); MEAN CORPUSCULAR VOLUME 83 fL (79-100); MONO % 9 % (0-9); NEUT % 73 % (31-73); PLATELET COUNT 209 x10^3/uL (140-400); RED BLOOD COUNT 3.95 x10^6/uL (3.50-5.40); RED CELL DISTRIBUTION WIDTH 14.7 % (11.5-14.5); WHITE BLOOD COUNT 15.4 x10^3/uL (4.0-11.0)
[2016-08-07 16:29] LABS: ALBUMIN 2.6 g/dL (3.4-5.0); ALBUMIN/GLOBULIN RATIO 0.8 (1.0-1.7); CALCIUM 7.9 mg/dL (8.5-10.1); CREATININE 1.8 mg/dL (0.6-1.0); GFR 32.8; MAGNESIUM 2.7 mg/dL (1.8-2.4); POTASSIUM 3.6 mmol/L (3.5-5.1); TOTAL BILIRUBIN 0.2 mg/dL (0.2-1.0); TOTAL PROTEIN 5.7 g/dL (6.4-8.2)
[2016-08-07 17:34] LABS: ISTAT BE VENOUS 1 mmol/L (0-3); ISTAT HCO3 VEN 23 mmol/L (24-28); ISTAT PCO2 VEN 23 mmHg (41-51); ISTAT PO2 VEN 163 mmHg (20-40); ISTAT SAT O2 VEN 100 %; ISTAT TCO2 VEN 24 mmol/L (21-32); TOSPEC VEN
[2016-08-07] MEDS: IV 1/2 NORMAL SALINE 1,000 ML IV SCH ×3 (19:29→23:06)
[2016-08-07 22:37] LABS: ALBUMIN 2.6 g/dL (3.4-5.0); ALBUMIN/GLOBULIN RATIO 0.8 (1.0-1.7); CALCIUM 8.3 mg/dL (8.5-10.1); CREATININE 2.1 mg/dL (0.6-1.0); GFR 27.5; MAGNESIUM 3.4 mg/dL (1.8-2.4); POTASSIUM 3.8 mmol/L (3.5-5.1); TOTAL BILIRUBIN 0.3 mg/dL (0.2-1.0); TOTAL PROTEIN 5.8 g/dL (6.4-8.2)
[2016-08-08] VITALS (24 sets, daily range): BP systolic 102–145; BP diastolic 43–89
[2016-08-08] MEDS: [UNRECOGNIZED DRUG - OTHER] IV SCH ×3 (00:09→10:04)
[2016-08-08] MEDS: [UNRECOGNIZED DRUG - OTHER] IV SCH ×3 (00:09→10:04)
[2016-08-08] MEDS: POTASSIUM CHLORIDE IV SCH ×6 (00:09→10:04)
[2016-08-08] MEDS: MAGNESIUM SULFATE IV SCH ×6 (00:09→10:04)
[2016-08-08] MEDS: CALCIUM CHLORIDE IV SCH ×6 (00:09→10:04)
[2016-08-08] MEDS: HEPARIN 25,000UTS/500ML PREMIX 500 ML IV PRN (00:49)
--- NOTE | 2016-08-08 01:08 | CONS ---
DATE OF CONSULTATION: 08/07/2016 REQUESTING PHYSICIAN: Lj Sommer M.D. REASON FOR CONSULTATION: Leukocytosis and fever. HISTORY OF PRESENT ILLNESS: This is a 30-year-old female who took an intentional drug overdose. Evidently, she took 180 metformin tablets. The patient had been confused, lightheaded, nauseated, vomited and dizzy. The patient arrived, the patient was also intubated. The patient is on 3 vasopressors undergoing CRRT. The patient's white count was normal yesterday and today jumped to 30,000. The patient also had low grade fever up to 100.4, severe metabolic acidosis secondary to lactic acidosis. The patient is sedated, orally intubated, on a ventilator, on a vasopressor support. All information was obtained through chart review and discussing with the patient's nurse and with Dr. Vitaly Rosales. PAST MEDICAL HISTORY: Positive for suicidal attempts in the past, anxiety disorder, asthma, depression, hypertension. PAST SURGICAL HISTORY: Has had cholecystectomy, and hysterectomy in the past. SOCIAL HISTORY: Unable to obtain. REVIEW OF SYSTEMS: Unable to obtain other than what is in HPI. There is no diarrhea. CURRENT MEDICATIONS: Reviewed. The patient is getting levofloxacin. PHYSICAL EXAMINATION: GENERAL: Sedated, orally intubated female, not in distress. VITAL SIGNS: Stable with temperature 100.2, pulse 128, respirations 30, blood pressure 140/57. HEENT: Both pupils are round and reacting. No conjunctival lesion. Mouth cannot be visualized as orally intubated. NECK: Supple, no JVP, no lymphadenopathy. LUNGS: Clear. HEART: S1, S2 regular. ABDOMEN: Benign. EXTREMITIES: No edema, cyanosis. SKIN: Unremarkable. NEUROLOGIC: The patient had been moving all the extremities. LABORATORY DATA: White count is 30.4, hemoglobin 11.9, platelets are normal. BUN of 13, creatinine 1.9. Lactic acid down to 12.5 from 16.5. Liver functions show AST of 69, ALT of 19. Urinalysis unremarkable. MRSA screen negative. Cultures have not been obtained. IMAGING STUDIES: Chest x-ray unremarkable. CT scan of the abdomen and pelvis unremarkable. IMPRESSION: 1. Fever and leukocytosis, most likely to be reactive. 2. Intentional drug overdose with metformin. 3. Severe lactic acidosis. 4. Metabolic acidosis. 5. Respiratory failure. 6. Encephalopathy . 7. Renal insufficiency. PLAN: Recommend continue supportive care, vasopressor support, CRRT. Continue Levaquin. I would add Rocephin as empiric therapy and we will continue to follow. Discussion with Dr. Carolee Rosales done. Thank you very much, Dr. Sommer, for giving me the opportunity to participate in this patient's care. LETICIA ROSALES MD DR: ZACHARY/lico JOB#: [id number] / [id number]
[2016-08-08] MEDS: IV NORMAL SALINE 1000ML BAG 1,000 ML IV SCH ×8 (01:30→15:23)
[2016-08-08 04:07] LABS: HCO3 ABG 23 mmol/L (21-28); PCO2 ABG 31 mmHg (35-46); PH ABG 7.49 (7.35-7.45); PO2 ABG 146 mmHg (85-108); SAT O2 ABG 99 % (92-99)
[2016-08-08 04:15] LABS: FIO2 ABG 60
[2016-08-08] MEDS: MIDAZOLAM PREMIX 100 ML IV PRN ×4 (04:39→22:18)
[2016-08-08 04:45] LABS: HEMATOCRIT 30.4 % (36.0-47.0); HEMOGLOBIN 10.1 g/dL (12.0-15.5); RED BLOOD COUNT 3.57 x10^6/uL (3.50-5.40); RED CELL DISTRIBUTION WIDTH 14.4 % (11.5-14.5); WHITE BLOOD COUNT 12.7 x10^3/uL (4.0-11.0)
[2016-08-08 05:09] LABS: ALBUMIN 2.4 g/dL (3.4-5.0); CALCIUM 8.4 mg/dL (8.5-10.1); GFR 29.1; PHOSPHORUS 2.4 mg/dL (2.6-4.7); POTASSIUM 3.6 mmol/L (3.5-5.1)
--- NOTE | 2016-08-08 07:53 | PDOC ---
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 SKIN: No rash IV: ok Labs Lab Laboratory Tests Test 08/07/16 08:20 08/07/16 08:27 08/07/16 12:06 08/07/16 15:55 Sodium Level 133mmol/L (136-145) 133mmol/L (136-145) Potassium Level 4.2mmol/L (3.5-5.1) 3.6mmol/L (3.5-5.1) Chloride Level 94mmol/L (98-107) 93mmol/L (98-107) Carbon Dioxide Level 19mmol/L (21-32) 26mmol/L (21-32) Anion Gap 20 (6-14) 14 (6-14) Blood Urea Nitrogen 13mg/dL (7-20) 15mg/dL (7-20) Creatinine 1.9mg/dL (0.6-1.0) 1.8mg/dL (0.6-1.0) Estimated GFR (Cockcroft-Gault) 30.8 32.8 BUN/Creatinine Ratio 7 (6-20) 8 (6-20) Glucose Level 222mg/dL (70-99) 186mg/dL (70-99) Lactic Acid Level 12.5mmol/L (0.4-2.0) 7.6mmol/L (0.4-2.0) Calcium Level 6.6mg/dL (8.5-10.1) 7.9mg/dL (8.5-10.1) Magnesium Level 1.8mg/dL (1.8-2.4) 2.7mg/dL (1.8-2.4) Total Bilirubin 0.2mg/dL (0.2-1.0) 0.2mg/dL (0.2-1.0) Aspartate Amino Transf (AST/SGOT) 69U/L (15-37) 50U/L (15-37) Alanine Aminotransferase (ALT/SGPT) 19U/L (14-59) 22U/L (14-59) Alkaline Phosphatase 69U/L (46-116) 63U/L (46-116) Total Protein 5.0g/dL (6.4-8.2) 5.7g/dL (6.4-8.2) Albumin 2.6g/dL (3.4-5.0) 2.6g/dL (3.4-5.0) Albumin/Globulin Ratio 1.1 (1.0-1.7) 0.8 (1.0-1.7) Glucose (Fingerstick) 227mg/dL (70-99) 190mg/dL (70-99) White Blood Count 15.4x10^3/uL (4.0-11.0) Red Blood Count 3.95x10^6/uL (3.50-5.40) Hemoglobin 11.2g/dL (12.0-15.5) Hematocrit 32.8% (36.0-47.0) Mean Corpuscular Volume 83fL (79-100) Mean Corpuscular Hemoglobin 28pg (25-35) Mean Corpuscular Hemoglobin Concent 34g/dL (31-37) Red Cell Distribution Width 14.7% (11.5-14.5) Platelet Count 209x10^3/uL (140-400) Neutrophils (%) (Auto) 73% (31-73) Lymphocytes (%) (Auto) 17% (24-48) Monocytes (%) (Auto) 9% (0-9) Eosinophils (%) (Auto) 0% (0-3) Basophils (%) (Auto) 0% (0-3) Neutrophils # (Auto) 11.3x10^3uL (1.8-7.7) Lymphocytes # (Auto) 2.7x10^3/uL (1.0-4.8) Monocytes # (Auto) 1.4x10^3/uL (0.0-1.1) Eosinophils # (Auto) 0.0x10^3/uL (0.0-0.7) Basophils # (Auto) 0.0x10^3/uL (0.0-0.2) Test 08/07/16 17:06 08/07/16 17:29 08/07/16 22:10 08/07/16 23:53 Glucose (Fingerstick) 136mg/dL (70-99) 137mg/dL (70-99) Bedside Venous pH 7.60 (7.32-7.42) Bedside Venous pCO2 23mmHg (41-51) Bedside Venous pO2 163mmHg (20-40) Venous Blood HCO3 23mmol/L (24-28) POC Venous O2 Saturation (Gerardo) 100% Bedside FiO2 60.0 Heparin Anti-Xa Act, Unfractionated 0.72IU/mL (0.30-0.70) Sodium Level 132mmol/L (136-145) Potassium Level 3.8mmol/L (3.5-5.1) Chloride Level 95mmol/L (98-107) Carbon Dioxide Level 31mmol/L (21-32) Anion Gap 6 (6-14) Blood Urea Nitrogen 16mg/dL (7-20) Creatinine 2.1mg/dL (0.6-1.0) Estimated GFR (Cockcroft-Gault) 27.5 BUN/Creatinine Ratio 8 (6-20) Glucose Level 129mg/dL (70-99) Lactic Acid Level 6.2mmol/L (0.4-2.0) Calcium Level 8.3mg/dL (8.5-10.1) Phosphorus Level 3.1mg/dL (2.6-4.7) Magnesium Level 3.4mg/dL (1.8-2.4) Total Bilirubin 0.3mg/dL (0.2-1.0) Aspartate Amino Transf (AST/SGOT) 39U/L (15-37) Alanine Aminotransferase (ALT/SGPT) 21U/L (14-59) Alkaline Phosphatase 73U/L (46-116) Total Protein 5.8g/dL (6.4-8.2) Albumin 2.6g/dL (3.4-5.0) Albumin/Globulin Ratio 0.8 (1.0-1.7) Test 08/08/16 04:05 08/08/16 04:30 O2 Saturation 99% (92-99) Arterial Blood pH 7.49 (7.35-7.45) Arterial Blood pCO2 at Patient Temp 31mmHg (35-46) Arterial Blood pO2 at Patient Temp 146mmHg (85-108) Arterial Blood HCO3 23mmol/L (21-28) Arterial Blood Base Excess 0mmol/L (-3-3) FiO2 60 White Blood Count 12.7x10^3/uL (4.0-11.0) Red Blood Count 3.57x10^6/uL (3.50-5.40) Hemoglobin 10.1g/dL (12.0-15.5) Hematocrit 30.4% (36.0-47.0) Mean Corpuscular Volume 85fL (79-100) Mean Corpuscular Hemoglobin 28pg (25-35) Mean Corpuscular Hemoglobin Concent 33g/dL (31-37) Red Cell Distribution Width 14.4% (11.5-14.5) Platelet Count 161x10^3/uL (140-400) Heparin Anti-Xa Act, Unfractionated 0.33IU/mL (0.30-0.70) Sodium Level 132mmol/L (136-145) Potassium Level 3.6mmol/L (3.5-5.1) Chloride Level 97mmol/L (98-107) Carbon Dioxide Level 29mmol/L (21-32) Anion Gap 6 (6-14) Blood Urea Nitrogen 17mg/dL (7-20) Creatinine 2.0mg/dL (0.6-1.0) Estimated GFR (Cockcroft-Gault) 29.1 Glucose Level 138mg/dL (70-99) Lactic Acid Level 4.1mmol/L (0.4-2.0) Calcium Level 8.4mg/dL (8.5-10.1) Phosphorus Level 2.4mg/dL (2.6-4.7) Magnesium Level 3.5mg/dL (1.8-2.4) Albumin 2.4g/dL (3.4-5.0) Objective Assessment Fever Leukocytosis Lactic acidosis Metformin OD Metabolic acidosis Respiratory failure Encephalopathy Plan Plan of Care supportive care levaquin and rocephine d/w Dr Ambar ROSALES,LETICIA Parks MD August 08, 2016 07:53
[2016-08-08] MEDS: INSULIN ASPART 300 UNITS/3 ML INSULN.PEN SQ SCH ×3 (08:00→17:00)
[2016-08-08] MEDS: IPRATRPIUM/ALBUTEROL 0.5/2.5MG 3 ML NEBU. NEB SCH ×4 (08:07→19:24)
--- NOTE | 2016-08-08 08:51 | RAD ---
Portable chest, 08/08/2016: History: Respiratory failure Comparison is made to a study from 08/06/2016. The patient positioning is kyphotic. The tip of the ET tube lies 3 cm above the sandhya. A right jugular dialysis type catheter extends into the superior aspect of the right atrium. An NG tube extends into the stomach, although its tip is not visible. The heart is at the upper limits of normal in size. There is mild loss of vascular margination. Moderate basilar opacities have developed obscuring the hemidiaphragms. This probably represents a combination of pleural fluid and atelectasis/infiltrate. IMPRESSION: 1. Stable tube positions. 2. Moderate bibasilar opacities have developed suggesting pleural fluid and underlying atelectasis/infiltrate.
[2016-08-08 10:08] LABS: HCO3 ABG 23 mmol/L (21-28); PCO2 ABG 38 mmHg (35-46); PO2 ABG 69 mmHg (85-108); SAT O2 ABG 93 % (92-99)
--- NOTE | 2016-08-08 10:08 | PDOC ---
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 08/06/16 at 19:00; Stop 08/07/16 at 00:55; Status DC Sodium Bicarbonate 150 meq/Dextrose 1,150 ml @ 500 mls/hr Q2H18M IV Last administered on 08/07/16 11:35; Start 08/06/16 at 19:00; Stop 08/07/16 at 11:36; Status DC Fentanyl Citrate (Fentanyl 600 Mcg/30 ml [employer]ACHINE [employer]) 30 ml @ 0 mls/hr CONT PRN IV PROTOCOL Last administered on 08/08/16 06:25; Start 08/06/16 at 16:30 Chlorhexidine Gluconate 15 ml 15 ml BID MM Last administered on 08/07/16 20:41 ; Start 08/06/16 at 21:00 Midazolam HCl (Versed 100mg/ 100ml Premix) 100 ml @ 0 mls/hr CONT PRN IV PER PROTOCOL Last administered on 08/08/16 04:39; Start 08/06/16 at 16:30 Midazolam HCl (Versed) 5 mg 1X ONCE IV ; Start 08/06/16 at 16:30; Stop 08/06/16 at 16:31; Status DC Dextrose (Dextrose 50%-Water Syringe) 12.5 gm PRN Q15MIN PRN IV SEE COMMENTS; Start 08/06/16 at 16:30 Lidocaine HCl 100 mg 100 mg STK-MED ONCE .ROUTE ; Start 08/06/16 at 18:59; Stop 08/06/16 at 19:00; Status DC Dextrose 1,000 ml @ 100 mls/hr Q10H IV Last administered on 08/07/16 05:00; Start 08/06/16 at 19:00; Stop 08/07/16 at 10:20; Status DC Heparin Sodium/ Dextrose 500 ml @ 0 mls/hr CONT PRN IV SEE I/O RECORD Last administered on 08/08/16 00:49; Start 08/06/16 at 22:15 Potassium Chloride 10 meq/ Calcium Chloride 15 meq/Magnesium Sulfate 12.5 meq/ Miscellaneous Medication 5,018.7931 ml @ 1,000 mls/hr Q5H2M IV ; Start 08/07/16 at 00:55; Stop 08/07/16 at 00:58; Status DC Calcium Chloride 15 meq/Magnesium Sulfate 12.5 meq/ Miscellaneous Medication 5, 013.7931 ml @ 1,000 mls/hr Q5H1M IV Last administered on 08/07/16 10:00; Start 08/07/16 at 00:58; Stop 08/07/16 at 10:00; Status DC Lorazepam/Sodium Chloride (Ativan/Iv Sodium Chloride 0.9% 100ml) 100 ml @ 0 mls/ hr CONT PRN PRN IV SEDATION Last administered on 08/07/16 14:08; Start 08/07/16 at 01:00 Vecuronium [place] (Norcuron Bolus) 10 mg PRN Q6HRS PRN IV SEDATION Last administered on 08/07/16 09:47; Start 08/07/16 at 02:45 Heparin Sodium (Porcine) 5400 unit 5,400 unit 1X ONCE IV Last administered on 08/07/16 06:33; Start 08/07/16 at 06:30; Stop 08/07/16 at 06:31; Status DC Calcium Chloride 2000 mg/Sodium Chloride 120 ml @ 240 mls/hr 1X ONCE IV Last administered on 08/07/16 09:10; Start 08/07/16 at 09:00; Stop 08/07/16 at 09:29; Status DC Magnesium Sulfate/ Dextrose 50 ml @ 25 mls/hr 1X ONCE IV Last administered on 08/07/16 09:09; Start 08/07/16 at 09:00; Stop 08/07/16 at 10:59; Status DC Vasopressin 40 unit/Dextrose 102 ml @ 6 mls/hr CONT PRN IV SEE I/O RECORD Last administered on 08/07/16 09:09; Start 08/07/16 at 09:00 Calcium Chloride 17.5 meq/ Magnesium Sulfate 15 meq/ Miscellaneous Medication 5, 016.1945 ml @ 1,000 mls/hr Q5H1M IV Last administered on 08/07/16 20:40; Start 08/07/16 at 14:00; Stop 08/07/16 at 23:24; Status DC Potassium Chloride/Calcium Chloride/ Magnesium Sulfate/ Miscellaneous Medication (Prismasol Bgk 2/ 0) 5,018.6945 ml @ 1,000 mls/hr Q5H2M IV Last administered on 08/07/16 20:40; Start 08/07/16 at 14:00; Stop 08/07/16 at 23:25; Status DC Sulfur Hexafluoride Microspheres 25 mg 25 mg STK-MED ONCE IVP ; Start 08/07/16 at 09:01; Stop 08/07/16 at 09:02; Status DC Ceftriaxone Sodium 2 gm/ Sodium Chloride 100 ml @ 200 mls/hr Q24H IV Last administered on 08/07/16 12:09; Start 08/07/16 at 12:00 Sodium Bicarbonate 150 meq/Dextrose 1,150 ml @ 500 mls/hr Q2H18M IV Last administered on 08/07/16 17:04; Start 08/07/16 at 14:00; Stop 08/07/16 at 17:52; Status DC Sodium Chloride 1,000 ml @ 500 mls/hr Q2H IV Last administered on 08/07/16 23: 06; Start 08/07/16 at 19:00; Stop 08/07/16 at 23:39; Status DC Calcium Chloride 17.5 meq/ Magnesium Sulfate 10 meq/Potassium Chloride 5 meq/ Bicarb Dialysis8 w-Out Calcium 5,017.463 ml @ 1,000 mls/hr Q5H2M IV Last administered on 08/08/16 05:12; Start 08/08/16 at 00:00 Potassium Chloride 5 meq/ Calcium Chloride 17.5 meq/ Magnesium Sulfate 10 meq/ Bicarb Dialysis8 w-Out Calcium 5,017.463 ml @ 1,000 mls/hr Q5H2M IV Last administered on 08/08/16 05:13; Start 08/08/16 at 00:00 Sodium Chloride (Iv Sodium Chloride 0.9% 1000ml Bag) 1,000 ml @ 500 mls/hr Q2H IV Last administered on 08/08/16 06:36; Start 08/08/16 at 00:00 Active Scripts Active Reported [place] 5-325 Tablet (Acetaminophen/Hydrocodone Bitart) 1 Each Tablet 1 Tab PO PRN Q6HRS PRN Gabapentin 800 Mg Tablet 800 Mg PO TID Vitals/I & O Vital Sign - Last 24 Hours 08/07/16 08/07/16 08/07/16 08/07/16 11:00 11:28 12:00 12:00 Temp 99.1 99.1 Pulse 114 117 Resp 31 35 B/P 150/56 145/60 Pulse Ox 98 100 99 O2 Delivery Ventilator Ventilator Mechanical Ventilator Ventilator 08/07/16 08/07/16 08/07/16 08/07/16 12:31 13:00 13:34 14:00 Pulse 121 30 Resp 35 34 30 B/P 158/61 127/63 Pulse Ox 99 98 100 99 O2 Delivery Ventilator Ventilator Ventilator Ventilator 08/07/16 08/07/16 08/07/16 08/07/16 15:00 15:12 16:00 16:00 Temp 99.8 99.8 Pulse 116 122 Resp 30 31 B/P 121/63 126/63 Pulse Ox 100 99 99 O2 Delivery Ventilator Ventilator Ventilator Mechanical Ventilator 5/2/17 5/2/17 5/2/17 5/2/17 16:59 17:00 18:00 19:00 Pulse 115 119 114 Resp 25 28 25 B/P 112/59 135/59 116/59 Pulse Ox 98 98 99 98 O2 Delivery Ventilator Ventilator Ventilator Ventilator 08/07/16 08/07/16 08/07/16 08/07/16 19:23 19:50 20:00 20:00 Temp 99.0 99.0 Pulse 116 Resp 25 25 B/P 119/62 Pulse Ox 98 98 99 O2 Delivery Ventilator Ventilator Ventilator Mechanical Ventilator 08/07/16 08/07/16 08/07/16 08/07/16 21:00 21:34 22:00 23:00 Pulse 110 113 112 Resp 25 25 26 B/P 117/60 96/58 118/59 Pulse Ox 99 100 98 98 O2 Delivery Ventilator Ventilator Ventilator Ventilator 08/07/16 08/08/16 08/08/16 08/08/16 23:46 00:00 00:00 00:48 Temp 97.5 97.5 Pulse 113 Resp 25 25 B/P 121/57 Pulse Ox 100 98 99 O2 Delivery Ventilator Mechanical Ventilator Ventilator Ventilator 08/08/16 08/08/16 08/08/16 08/08/16 01:00 01:20 02:00 03:00 Pulse 109 108 104 Resp 21 21 20 B/P 127/60 134/64 118/56 Pulse Ox 99 100 99 100 O2 Delivery Ventilator Ventilator Ventilator Ventilator 08/08/16 08/08/16 08/08/16 08/08/16 03:40 04:00 04:00 05:00 Temp 98.9 98.9 Pulse 101 97 Resp 20 20 B/P 122/59 132/59 Pulse Ox 100 100 100 O2 Delivery Ventilator Mechanical Ventilator Ventilator Ventilator 08/08/16 08/08/16 08/08/16 08/08/16 05:20 06:00 06:25 06:55 Pulse 105 Resp 20 20 20 B/P 118/66 Pulse Ox 100 98 98 100 O2 Delivery Ventilator Ventilator Ventilator Ventilator 08/08/16 08/08/16 08/08/16 08/08/16 07:00 08:00 08:00 08:07 Temp 98.6 98.6 Pulse 99 98 Resp 21 20 B/P 117/57 114/54 Pulse Ox 100 100 100 O2 Delivery Ventilator Mechanical Ventilator Ventilator Ventilator 08/08/16 09:00 Pulse 102 Resp 20 B/P 117/54 Pulse Ox 98 O2 Delivery Ventilator Intake and Output 08/07/16 08/07/16 08/08/16 15:00 23:00 07:00 Intake Total 2357.01 ml 2051.32 ml 826 ml Output Total 130 ml 76 ml 115 ml Balance 2227.01 ml 1975.32 ml 711 ml BREN MASTERS MD August 08, 2016 10:08
[2016-08-08 10:13] LABS: FIO2 ABG 60
[2016-08-08] MEDS: CHLORHEXIDINE 0.12% 15 ML MOUTHWASH. MM SCH ×2 (10:16→21:04)
[2016-08-08] MEDS: PANTOPRAZOLE IV PUSH 40 MG VIAL. IVP SCH (10:16)
[2016-08-08 10:21] LABS: MAGNESIUM 3.5 mg/dL (1.8-2.4); POTASSIUM 3.6 mmol/L (3.5-5.1)
--- NOTE | 2016-08-08 12:41 | PDOC ---
PULMONARY PROGRESS NOTES Subjective remains on AC mode off all pressors off CRRT Vitals Vital Signs Date Time Temp Pulse Resp B/P Pulse Ox O2 Delivery O2 Flow Rate FiO2 08/08/16 12:27 100 Ventilator 08/08/16 12:09 21 08/08/16 12:00 98.9 112 113/48 98.9 Lungs: Other (decrease bs) Cardiovascular: S1 Abdomen: Soft Extremities: Other (2+edema) Labs Laboratory Tests Test 08/06/16 12:41 08/06/16 13:30 08/06/16 13:35 08/06/16 14:00 Nasal Screen MRSA (PCR) Negative (Negative) Urine Color Yellow Urine Clarity Clear Urine pH 6.0 Urine Specific [place] 1.010 Urine Protein 11.2mg/dL (Not Estab.) Urine Glucose (UA) Negativemg/dL (NEG) Urine Ketones (Stick) Negativemg/dL (NEG) Urine Blood Trace (NEG) Urine Nitrite Negative (NEG) Urine Bilirubin Negative (NEG) Urine Urobilinogen Dipstick 0.2mg/dL (0.2 mg/dL) Urine Leukocyte Esterase Negative (NEG) Urine RBC Rare/HPF (0-2) Urine WBC Occ/HPF (0-4) Urine Squamous Epithelial Cells Occ/LPF Urine Bacteria 0/HPF (0-FEW) Urine Random Sodium 137mmol/L (Not Estab.) Urine Creatinine <4.0mg/dL (Not Estab.) Urine Protein/Creatinine Ratio >2800mg/g creat (0-200) Special Test - Miscellaneous See separate report Uric Acid 5.5mg/dL (2.6-6.0) Magnesium Level 2.0mg/dL (1.8-2.4) Creatine Kinase 172U/L (26-192) Troponin I Quantitative < 0.017ng/mL (0.000-0.055) O2 Saturation 96% (92-99) Arterial Blood pH 6.90 (7.35-7.45) Arterial Blood pCO2 at Patient Temp 32mmHg (35-46) Arterial Blood pO2 at Patient Temp 124mmHg (85-108) Arterial Blood HCO3 6mmol/L (21-28) Arterial Blood Base Excess -26mmol/L (-3-3) FiO2 100 Test 08/06/16 14:17 08/06/16 14:25 08/06/16 14:27 5/1/17 14:53 Glucose (Fingerstick) 18mg/dL (70-99) 265mg/dL (70-99) 215mg/dL (70-99) 177mg/dL (70-99) Test 08/06/16 15:12 08/06/16 15:28 08/06/16 15:48 08/06/16 16:12 Glucose (Fingerstick) 139mg/dL (70-99) 108mg/dL (70-99) 92mg/dL (70-99) 45mg/dL (70-99) Test 08/06/16 16:35 08/06/16 17:00 08/06/16 18:33 08/06/16 19:22 Glucose (Fingerstick) 160mg/dL (70-99) 39mg/dL (70-99) 68mg/dL (70-99) O2 Saturation 93% (92-99) Arterial Blood pH 7.11 (7.35-7.45) Arterial Blood pCO2 at Patient Temp 42mmHg (35-46) Arterial Blood pO2 at Patient Temp 82mmHg (85-108) Arterial Blood HCO3 13mmol/L (21-28) Arterial Blood Base Excess -16mmol/L (-3-3) FiO2 100 Test 08/06/16 19:27 08/06/16 19:48 08/06/16 22:30 08/06/16 22:38 Glucose (Fingerstick) 89mg/dL (70-99) 87mg/dL (70-99) 174mg/dL (70-99) Lactic Acid Level 16.5mmol/L (0.4-2.0) Test 08/06/16 23:00 08/07/16 04:30 08/07/16 04:33 08/07/16 07:41 Sodium Level 134mmol/L (136-145) 132mmol/L (136-145) Potassium Level 5.6mmol/L (3.5-5.1) 4.6mmol/L (3.5-5.1) Chloride Level 94mmol/L (98-107) 92mmol/L (98-107) Carbon Dioxide Level 17mmol/L (21-32) 22mmol/L (21-32) Anion Gap 23 (6-14) 18 (6-14) Blood Urea Nitrogen 10mg/dL (7-20) 12mg/dL (7-20) Creatinine 1.3mg/dL (0.6-1.0) 1.6mg/dL (0.6-1.0) Estimated GFR (Cockcroft-Gault) 47.8 37.6 Glucose Level 158mg/dL (70-99) 236mg/dL (70-99) Calcium Level 7.0mg/dL (8.5-10.1) 6.6mg/dL (8.5-10.1) White Blood Count 30.4x10^3/uL (4.0-11.0) Red Blood Count 4.25x10^6/uL (3.50-5.40) Hemoglobin 11.9g/dL (12.0-15.5) Hematocrit 36.6% (36.0-47.0) Mean Corpuscular Volume 86fL (79-100) Mean Corpuscular Hemoglobin 28pg (25-35) Mean Corpuscular Hemoglobin Concent 33g/dL (31-37) Red Cell Distribution Width 14.7% (11.5-14.5) Platelet Count 315x10^3/uL (140-400) Neutrophils (%) (Auto) 88% (31-73) Lymphocytes (%) (Auto) 5% (24-48) Monocytes (%) (Auto) 7% (0-9) Eosinophils (%) (Auto) 0% (0-3) Basophils (%) (Auto) 0% (0-3) Neutrophils # (Auto) 26.6x10^3uL (1.8-7.7) Lymphocytes # (Auto) 1.4x10^3/uL (1.0-4.8) Monocytes # (Auto) 2.3x10^3/uL (0.0-1.1) Eosinophils # (Auto) 0.0x10^3/uL (0.0-0.7) Basophils # (Auto) 0.0x10^3/uL (0.0-0.2) Segmented Neutrophils % 89% (35-66) Band Neutrophils % 3% (0-9) Lymphocytes % 4% (24-48) Monocytes % 4% (0-10) Platelet Estimate Adequate (ADEQUATE) Large Platelets Present Anisocytosis Present Schistocytes Occ Heparin Anti-Xa Act, Unfractionated 0.21IU/mL (0.30-0.70) Hemoglobin A1c 5.5% (4.8-5.6) Phosphorus Level 5.3mg/dL (2.6-4.7) Magnesium Level 1.4mg/dL (1.8-2.4) Albumin 2.9g/dL (3.4-5.0) Glucose (Fingerstick) 235mg/dL (70-99) O2 Saturation 99% (92-99) Arterial Blood pH 7.23 (7.35-7.45) Arterial Blood pCO2 at Patient Temp 41mmHg (35-46) Arterial Blood pO2 at Patient Temp 208mmHg (85-108) Arterial Blood HCO3 17mmol/L (21-28) Arterial Blood Base Excess -10mmol/L (-3-3) FiO2 100 Test 08/07/16 08:20 08/07/16 08:27 08/07/16 12:06 08/07/16 15:55 Sodium Level 133mmol/L (136-145) 133mmol/L (136-145) Potassium Level 4.2mmol/L (3.5-5.1) 3.6mmol/L (3.5-5.1) Chloride Level 94mmol/L (98-107) 93mmol/L (98-107) Carbon Dioxide Level 19mmol/L (21-32) 26mmol/L (21-32) Anion Gap 20 (6-14) 14 (6-14) Blood Urea Nitrogen 13mg/dL (7-20) 15mg/dL (7-20) Creatinine 1.9mg/dL (0.6-1.0) 1.8mg/dL (0.6-1.0) Estimated GFR (Cockcroft-Gault) 30.8 32.8 BUN/Creatinine Ratio 7 (6-20) 8 (6-20) Glucose Level 222mg/dL (70-99) 186mg/dL (70-99) Lactic Acid Level 12.5mmol/L (0.4-2.0) 7.6mmol/L (0.4-2.0) Calcium Level 6.6mg/dL (8.5-10.1) 7.9mg/dL (8.5-10.1) Magnesium Level 1.8mg/dL (1.8-2.4) 2.7mg/dL (1.8-2.4) Total Bilirubin 0.2mg/dL (0.2-1.0) 0.2mg/dL (0.2-1.0) Aspartate Amino Transf (AST/SGOT) 69U/L (15-37) 50U/L (15-37) Alanine Aminotransferase (ALT/SGPT) 19U/L (14-59) 22U/L (14-59) Alkaline Phosphatase 69U/L (46-116) 63U/L (46-116) Total Protein 5.0g/dL (6.4-8.2) 5.7g/dL (6.4-8.2) Albumin 2.6g/dL (3.4-5.0) 2.6g/dL (3.4-5.0) Albumin/Globulin Ratio 1.1 (1.0-1.7) 0.8 (1.0-1.7) Glucose (Fingerstick) 227mg/dL (70-99) 190mg/dL (70-99) White Blood Count 15.4x10^3/uL (4.0-11.0) Red Blood Count 3.95x10^6/uL (3.50-5.40) Hemoglobin 11.2g/dL (12.0-15.5) Hematocrit 32.8% (36.0-47.0) Mean Corpuscular Volume 83fL (79-100) Mean Corpuscular Hemoglobin 28pg (25-35) Mean Corpuscular Hemoglobin Concent 34g/dL (31-37) Red Cell Distribution Width 14.7% (11.5-14.5) Platelet Count 209x10^3/uL (140-400) Neutrophils (%) (Auto) 73% (31-73) Lymphocytes (%) (Auto) 17% (24-48) Monocytes (%) (Auto) 9% (0-9) Eosinophils (%) (Auto) 0% (0-3) Basophils (%) (Auto) 0% (0-3) Neutrophils # (Auto) 11.3x10^3uL (1.8-7.7) Lymphocytes # (Auto) 2.7x10^3/uL (1.0-4.8) Monocytes # (Auto) 1.4x10^3/uL (0.0-1.1) Eosinophils # (Auto) 0.0x10^3/uL (0.0-0.7) Basophils # (Auto) 0.0x10^3/uL (0.0-0.2) Test 08/07/16 17:06 08/07/16 17:29 08/07/16 22:10 08/07/16 23:53 Glucose (Fingerstick) 136mg/dL (70-99) 137mg/dL (70-99) Bedside Venous pH 7.60 (7.32-7.42) Bedside Venous pCO2 23mmHg (41-51) Bedside Venous pO2 163mmHg (20-40) Venous Blood HCO3 23mmol/L (24-28) POC Venous O2 Saturation (Gerardo) 100% Bedside FiO2 60.0 Heparin Anti-Xa Act, Unfractionated 0.72IU/mL (0.30-0.70) Sodium Level 132mmol/L (136-145) Potassium Level 3.8mmol/L (3.5-5.1) Chloride Level 95mmol/L (98-107) Carbon Dioxide Level 31mmol/L (21-32) Anion Gap 6 (6-14) Blood Urea Nitrogen 16mg/dL (7-20) Creatinine 2.1mg/dL (0.6-1.0) Estimated GFR (Cockcroft-Gault) 27.5 BUN/Creatinine Ratio 8 (6-20) Glucose Level 129mg/dL (70-99) Lactic Acid Level 6.2mmol/L (0.4-2.0) Calcium Level 8.3mg/dL (8.5-10.1) Phosphorus Level 3.1mg/dL (2.6-4.7) Magnesium Level 3.4mg/dL (1.8-2.4) Total Bilirubin 0.3mg/dL (0.2-1.0) Aspartate Amino Transf (AST/SGOT) 39U/L (15-37) Alanine Aminotransferase (ALT/SGPT) 21U/L (14-59) Alkaline Phosphatase 73U/L (46-116) Total Protein 5.8g/dL (6.4-8.2) Albumin 2.6g/dL (3.4-5.0) Albumin/Globulin Ratio 0.8 (1.0-1.7) Test 08/08/16 04:05 08/08/16 04:30 08/08/16 10:00 08/08/16 11:49 O2 Saturation 99% (92-99) 93% (92-99) Arterial Blood pH 7.49 (7.35-7.45) 7.40 (7.35-7.45) Arterial Blood pCO2 at Patient Temp 31mmHg (35-46) 38mmHg (35-46) Arterial Blood pO2 at Patient Temp 146mmHg (85-108) 69mmHg (85-108) Arterial Blood HCO3 23mmol/L (21-28) 23mmol/L (21-28) Arterial Blood Base Excess 0mmol/L (-3-3) -2mmol/L (-3-3) FiO2 60 60 White Blood Count 12.7x10^3/uL (4.0-11.0) Red Blood Count 3.57x10^6/uL (3.50-5.40) Hemoglobin 10.1g/dL (12.0-15.5) Hematocrit 30.4% (36.0-47.0) Mean Corpuscular Volume 85fL (79-100) Mean Corpuscular Hemoglobin 28pg (25-35) Mean Corpuscular Hemoglobin Concent 33g/dL (31-37) Red Cell Distribution Width 14.4% (11.5-14.5) Platelet Count 161x10^3/uL (140-400) Heparin Anti-Xa Act, Unfractionated 0.33IU/mL (0.30-0.70) < 0.10IU/mL (0.30-0.70) Sodium Level 132mmol/L (136-145) 135mmol/L (136-145) Potassium Level 3.6mmol/L (3.5-5.1) 3.6mmol/L (3.5-5.1) Chloride Level 97mmol/L (98-107) 99mmol/L (98-107) Carbon Dioxide Level 29mmol/L (21-32) 27mmol/L (21-32) Anion Gap 6 (6-14) 9 (6-14) Blood Urea Nitrogen 17mg/dL (7-20) Creatinine 2.0mg/dL (0.6-1.0) Estimated GFR (Cockcroft-Gault) 29.1 Glucose Level 138mg/dL (70-99) Lactic Acid Level 4.1mmol/L (0.4-2.0) Calcium Level 8.4mg/dL (8.5-10.1) Phosphorus Level 2.4mg/dL (2.6-4.7) 2.0mg/dL (2.6-4.7) Magnesium Level 3.5mg/dL (1.8-2.4) 3.5mg/dL (1.8-2.4) Albumin 2.4g/dL (3.4-5.0) Glucose (Fingerstick) 154mg/dL (70-99) Laboratory Tests Test 08/07/16 15:55 08/07/16 17:06 08/07/16 17:29 08/07/16 22:10 White Blood Count 15.4x10^3/uL (4.0-11.0) Red Blood Count 3.95x10^6/uL (3.50-5.40) Hemoglobin 11.2g/dL (12.0-15.5) Hematocrit 32.8% (36.0-47.0) Mean Corpuscular Volume 83fL (79-100) Mean Corpuscular Hemoglobin 28pg (25-35) Mean Corpuscular Hemoglobin Concent 34g/dL (31-37) Red Cell Distribution Width 14.7% (11.5-14.5) Platelet Count 209x10^3/uL (140-400) Neutrophils (%) (Auto) 73% (31-73) Lymphocytes (%) (Auto) 17% (24-48) Monocytes (%) (Auto) 9% (0-9) Eosinophils (%) (Auto) 0% (0-3) Basophils (%) (Auto) 0% (0-3) Neutrophils # (Auto) 11.3x10^3uL (1.8-7.7) Lymphocytes # (Auto) 2.7x10^3/uL (1.0-4.8) Monocytes # (Auto) 1.4x10^3/uL (0.0-1.1) Eosinophils # (Auto) 0.0x10^3/uL (0.0-0.7) Basophils # (Auto) 0.0x10^3/uL (0.0-0.2) Sodium Level 133mmol/L (136-145) 132mmol/L (136-145) Potassium Level 3.6mmol/L (3.5-5.1) 3.8mmol/L (3.5-5.1) Chloride Level 93mmol/L (98-107) 95mmol/L (98-107) Carbon Dioxide Level 26mmol/L (21-32) 31mmol/L (21-32) Anion Gap 14 (6-14) 6 (6-14) Blood Urea Nitrogen 15mg/dL (7-20) 16mg/dL (7-20) Creatinine 1.8mg/dL (0.6-1.0) 2.1mg/dL (0.6-1.0) Estimated GFR (Cockcroft-Gault) 32.8 27.5 BUN/Creatinine Ratio 8 (6-20) 8 (6-20) Glucose Level 186mg/dL (70-99) 129mg/dL (70-99) Lactic Acid Level 7.6mmol/L (0.4-2.0) 6.2mmol/L (0.4-2.0) Calcium Level 7.9mg/dL (8.5-10.1) 8.3mg/dL (8.5-10.1) Magnesium Level 2.7mg/dL (1.8-2.4) 3.4mg/dL (1.8-2.4) Total Bilirubin 0.2mg/dL (0.2-1.0) 0.3mg/dL (0.2-1.0) Aspartate Amino Transf (AST/SGOT) 50U/L (15-37) 39U/L (15-37) Alanine Aminotransferase (ALT/SGPT) 22U/L (14-59) 21U/L (14-59) Alkaline Phosphatase 63U/L (46-116) 73U/L (46-116) Total Protein 5.7g/dL (6.4-8.2) 5.8g/dL (6.4-8.2) Albumin 2.6g/dL (3.4-5.0) 2.6g/dL (3.4-5.0) Albumin/Globulin Ratio 0.8 (1.0-1.7) 0.8 (1.0-1.7) Glucose (Fingerstick) 136mg/dL (70-99) Bedside Venous pH 7.60 (7.32-7.42) Bedside Venous pCO2 23mmHg (41-51) Bedside Venous pO2 163mmHg (20-40) Venous Blood HCO3 23mmol/L (24-28) POC Venous O2 Saturation (Gerardo) 100% Bedside FiO2 60.0 Heparin Anti-Xa Act, Unfractionated 0.72IU/mL (0.30-0.70) Phosphorus Level 3.1mg/dL (2.6-4.7) Test 08/07/16 23:53 08/08/16 04:05 08/08/16 04:30 08/08/16 10:00 Glucose (Fingerstick) 137mg/dL (70-99) O2 Saturation 99% (92-99) 93% (92-99) Arterial Blood pH 7.49 (7.35-7.45) 7.40 (7.35-7.45) Arterial Blood pCO2 at Patient Temp 31mmHg (35-46) 38mmHg (35-46) Arterial Blood pO2 at Patient Temp 146mmHg (85-108) 69mmHg (85-108) Arterial Blood HCO3 23mmol/L (21-28) 23mmol/L (21-28) Arterial Blood Base Excess 0mmol/L (-3-3) -2mmol/L (-3-3) FiO2 60 60 White Blood Count 12.7x10^3/uL (4.0-11.0) Red Blood Count 3.57x10^6/uL (3.50-5.40) Hemoglobin 10.1g/dL (12.0-15.5) Hematocrit 30.4% (36.0-47.0) Mean Corpuscular Volume 85fL (79-100) Mean Corpuscular Hemoglobin 28pg (25-35) Mean Corpuscular Hemoglobin Concent 33g/dL (31-37) Red Cell Distribution Width 14.4% (11.5-14.5) Platelet Count 161x10^3/uL (140-400) Heparin Anti-Xa Act, Unfractionated 0.33IU/mL (0.30-0.70) < 0.10IU/mL (0.30-0.70) Sodium Level 132mmol/L (136-145) 135mmol/L (136-145) Potassium Level 3.6mmol/L (3.5-5.1) 3.6mmol/L (3.5-5.1) Chloride Level 97mmol/L (98-107) 99mmol/L (98-107) Carbon Dioxide Level 29mmol/L (21-32) 27mmol/L (21-32) Anion Gap 6 (6-14) 9 (6-14) Blood Urea Nitrogen 17mg/dL (7-20) Creatinine 2.0mg/dL (0.6-1.0) Estimated GFR (Cockcroft-Gault) 29.1 Glucose Level 138mg/dL (70-99) Lactic Acid Level 4.1mmol/L (0.4-2.0) Calcium Level 8.4mg/dL (8.5-10.1) Phosphorus Level 2.4mg/dL (2.6-4.7) 2.0mg/dL (2.6-4.7) Magnesium Level 3.5mg/dL (1.8-2.4) 3.5mg/dL (1.8-2.4) Albumin 2.4g/dL (3.4-5.0) Test 08/08/16 11:49 Glucose (Fingerstick) 154mg/dL (70-99) Medications Active Scripts Medications Dose Route/Sig Days Date Category Kell 5-325 Tablet (Acetaminophen/Hydrocodone Bitart) 1 Each Tablet 1 Tab PO PRN Q6HRS PRN 07/22/15 Reported Gabapentin 800 Mg Tablet 800 Mg PO TID 07/22/15 Reported Comments CXR no change Impression . 1. Acute respiratory failure secondary to suicidal attempt with large doses of 500 mg metformin. Apparently, she took 180 tablets, now with severe metabolic acidosis , lactic acidosis and acute encephalopathy. 2. Metformin overdose in large quantity with severe metabolic acidosis/lactic acidosis, 3. Acute toxic encephalopathy. 4. Clear chest x-ray. 5. Lactic acidosis and severe metabolic acidosis secondary to Metformin overdose. 6. shock, ?septic vs related to severe acidosis 7. JENNY Plan . 1. Continue present assist control mode. wean off sedation to assess MS 2. off CRRT 3. Monitor blood sugars closely. 4. CPAP trial once awake 5. Follow renal recommendation 6. Monitor lactic acid level. 7. empiric antibiotic 8. Discussed with RN and RT. and Dr Roe 9. off pressors d/w mother . DIONICIO MENDIETA MD August 08, 2016 12:41
--- NOTE | 2016-08-08 14:40 | PDOC ---
SUBJECTIVE ROS JENNY/ ?ATN Remains intubated sedated on the Vent. Taken off of CRRT thisam OBJECTIVE Vital Signs Vital Signs Date Time Temp Pulse Resp B/P Pulse Ox O2 Delivery O2 Flow Rate FiO2 08/08/16 14:00 122 23 132/55 100 Ventilator 08/08/16 12:00 98.9 98.9 I & 0 Intake and Output 08/08/16 06:59 Intake Total 5234.33 ml Output Total 316 ml Balance 4918.33 ml Intake IV Total 5234.33 ml Output Urine Total 316 ml PHYSICAL EXAM Physical Exam GEN: sedated an intubated on the vent , In no distress EYES: Sclera WNL, Conjunctiva Normal EN: No EN Drainage, Mucous Membranes moist NECK: no JVD, no JVP, Supple, no Thyromegaly CVS: S1S2, no Murmur, No Gallop, No Rub,no Edema RESP: no Rales, no Rhonchi,no Acc. Muscle Use GI: BS + ve, NO Bruit, Non Tender, Non Distended : no CVA tenderness, no Suprapubic Tenderness DIAGNOSIS/ASSESSMENT Assessment & Plan JENNY/ ATN - ct to follow Q6hr labs and proceed with HD if needed. Current fluid and E-lyte status does not necessitate emergent need for dialysis. Will re-evaluate for dialysis in the am lactic Acidemia - trending down - watch trend withs erial labs Low PHos - replace as ordered. ANEMIA; no Aranesp ordered, for now. Transfuse as needed Discussed Plan of Care with family [] at bedside [] over the phone Problems: COMMENT/RELEVANT DATA Meds Current Medications Medications (Trade) Dose Ordered Sig/Vanesa Start Time Stop Time Status Last Admin Dose Admin Albumin Human (Albuminar) 200 ml @ 200 mls/hr 1X PRN PRN 08/06/16 14:45 08/06/16 20:44 DC Albuterol/ Ipratropium (Duoneb) 3 ml RTQID 08/06/16 16:00 08/08/16 12:26 3 ML Calcium Chloride 15 meq/Magnesium Sulfate 12.5 meq/ Miscellaneous Medication 5,013.7931 ml @ 1,000 mls/hr Q5H1M 08/07/16 00:58 08/07/16 10:00 DC 08/07/16 10:00 1,000 MLS/HR Calcium Chloride 17.5 meq/ Magnesium Sulfate 10 meq/Potassium Chloride 5 meq/ Bicarb Dialysis8 w-Out Calcium 5,017.463 ml @ 1,000 mls/hr Q5H2M 08/08/16 00:00 08/08/16 05:12 1,000 MLS/HR Calcium Chloride 17.5 meq/ Magnesium Sulfate 15 meq/ Miscellaneous Medication 5,016.1945 ml @ 1,000 mls/hr Q5H1M 08/07/16 14:00 08/07/16 23:24 DC 08/07/16 20:40 1,000 MLS/HR Calcium Chloride 2000 mg/Sodium Chloride 120 ml @ 240 mls/hr 1X ONCE 08/07/16 09:00 08/07/16 09:29 DC 08/07/16 09:10 240 MLS/HR Ceftriaxone Sodium 2 gm/ Sodium Chloride 100 ml @ 200 mls/hr Q24H 08/07/16 12:00 08/08/16 11:37 200 MLS/HR Chlorhexidine Gluconate 15 ml 15 ml BID 08/06/16 21:00 08/08/16 10:16 15 ML Dextrose 1,000 ml @ 100 mls/hr Q10H 08/06/16 19:00 08/07/16 10:20 DC 08/07/16 05:00 100 MLS/HR Dextrose (Dextrose 50%-Water Syringe) 12.5 gm PRN Q15MIN PRN 08/06/16 16:30 Dextrose 12.5 gm 12.5 gm PRN Q15MIN PRN 08/06/16 14:30 08/07/16 08:02 DC 08/06/16 18:44 12.5 GM Dextrose 25 gm 25 gm 1X ONCE 08/06/16 14:45 08/06/16 14:46 DC 08/06/16 14:53 25 GM Epinephrine HCl 4 mg/Sodium Chloride 254 ml @ 3.81 mls/hr 1X ONCE 08/06/16 16:00 08/09/16 10:39 08/06/16 17:13 5.71 MLS/HR Etomidate (Amidate) 20 mg STK-MED ONCE 08/06/16 11:35 08/06/16 11:36 DC Famotidine (Pepcid) 20 mg 1X ONCE 08/06/16 08:30 5/1/17 08:31 DC 08/06/16 08:33 20 MG Fentanyl Citrate (Fentanyl 2ml Vial) 25 mcg 1X ONCE 08/06/16 10:45 08/06/16 10:46 DC 08/06/16 10:35 25 MCG Fentanyl Citrate (Fentanyl 600 Mcg/30 ml SCANNER OPERATOR) 30 ml @ 0 mls/hr CONT PRN 08/06/16 16:30 08/08/16 13:11 4.95 MLS/HR Heparin Sodium (Porcine) 5,000 unit Q8HRS 08/06/16 15:00 08/06/16 22:19 DC Heparin Sodium (Porcine) (Heparin Sodium) 10,000 unit STK-MED ONCE 08/06/16 10:40 08/06/16 10:41 DC Heparin Sodium (Porcine) 2500 unit 2,500 unit 1X ONCE 08/06/16 12:30 08/06/16 12:31 DC 08/06/16 12:50 2,500 UNIT Heparin Sodium (Porcine) 5400 unit 5,400 unit 1X ONCE 08/07/16 06:30 08/07/16 06:31 DC 08/07/16 06:33 5,400 UNIT Heparin Sodium/ Dextrose 500 ml @ 0 mls/hr CONT PRN 08/06/16 22:15 08/08/16 00:49 32.659 MLS/HR Heparin Sodium/ Sodium Chloride 60 unit 1X ONCE 08/06/16 12:30 08/06/16 12:31 DC 08/06/16 12:50 60 UNIT Info (PHARMACY MONITORING -- do not chart) 1 each PRN DAILY PRN 08/06/16 14:45 Insulin Aspart (Novolog) 0-9 UNITS TIDWMEALS 08/06/16 17:00 Insulin Human Regular (Novolin R Vial) 10 unit 1X ONCE 08/06/16 09:45 08/06/16 12:45 DC Iohexol (Omnipaque 300 Mg/ml) 75 ml 1X ONCE 08/06/16 10:15 08/06/16 10:16 DC 08/06/16 11:31 75 ML Levofloxacin/ Dextrose (LEVAQUIN 500mg PREMIX) 100 ml @ 100 mls/hr Q24H 08/06/16 14:30 08/07/16 11:04 DC Lidocaine HCl 100 mg 100 mg STK-MED ONCE 08/06/16 18:59 08/06/16 19:00 DC Lidocaine/Sodium Bicarbonate (Buffered Lidocaine 1%) 3 ml 1X ONCE 08/06/16 12:30 08/06/16 12:31 DC 08/06/16 12:50 3 ML Lidocaine/Sodium Bicarbonate 20 ml 20 ml STK-MED ONCE 08/06/16 10:40 08/06/16 10:41 DC Lorazepam (Ativan) 2 mg 1X ONCE 08/06/16 10:00 08/06/16 10:01 DC Lorazepam/Sodium Chloride (Ativan/Iv Sodium Chloride 0.9% 100ml) 100 ml @ 0 mls/hr CONT PRN PRN 08/07/16 01:00 08/07/16 14:08 4 MLS/HR Magnesium Sulfate/ Dextrose 50 ml @ 25 mls/hr 1X ONCE 08/07/16 09:00 08/07/16 10:59 DC 08/07/16 09:09 25 MLS/HR Magnesium Sulfate/ Dextrose (Magnesium Sulfate PREMIX 2GM) 50 ml @ 25 mls/hr PRN DAILY PRN 08/06/16 11:30 Midazolam HCl (Versed 100mg/ 100ml Premix) 100 ml @ 0 mls/hr CONT PRN 08/06/16 16:30 08/08/16 11:37 12 MLS/HR Midazolam HCl (Versed) 5 mg 1X ONCE 08/06/16 16:30 08/06/16 16:31 DC Norepinephrine Bitartrate 250 ml @ 0 mls/hr CONT PRN 08/06/16 15:45 08/07/16 14:38 28.1 MLS/HR Ondansetron HCl (Zofran Odt) 4 mg 1X ONCE 08/06/16 07:00 08/06/16 07:00 DC Ondansetron HCl (Zofran) 4 mg PRN Q8HRS PRN 08/06/16 08:15 08/07/16 08:14 DC Pantoprazole Sodium (Protonix Vial) 40 mg DAILYAC 08/06/16 15:00 08/08/16 10:16 40 MG Potassium Chloride 10 meq/ Calcium Chloride 15 meq/Magnesium Sulfate 12.5 meq/ Miscellaneous Medication 5,018.7931 ml @ 1,000 mls/hr Q5H2M 08/07/16 00:55 08/07/16 00:58 DC Potassium Chloride 15 meq/ Calcium Chloride 15 meq/Magnesium Sulfate 12.5 meq/ Miscellaneous Medication 5,021.2931 ml @ 1,000 mls/hr Q5H2M 08/06/16 19:00 08/07/16 00:55 DC 08/07/16 00:02 1,000 MLS/HR Potassium Chloride 5 meq/ Calcium Chloride 15 meq/Magnesium Sulfate 12.5 meq/ Miscellaneous Medication 5,016.2931 ml @ 1,000 mls/hr Q5H1M 08/06/16 19:00 08/07/16 10:00 DC 08/07/16 03:08 1,000 MLS/HR Potassium Chloride 5 meq/ Calcium Chloride 17.5 meq/ Magnesium Sulfate 10 meq/Bicarb Dialysis8 w-Out Calcium 5,017.463 ml @ 1,000 mls/hr Q5H2M 08/08/16 00:00 08/08/16 05:13 1,000 MLS/HR Potassium Chloride/Calcium Chloride/ Magnesium Sulfate/ Miscellaneous Medication (Prismasol Bgk 2/ 0) 5,018.6945 ml @ 1,000 mls/hr Q5H2M 08/07/16 14:00 08/07/16 23:25 DC 08/07/16 20:40 1,000 MLS/HR Propofol (Diprivan) 100 ml @ 0 mls/hr CONT PRN 08/06/16 12:15 08/06/16 13:16 28.005 MLS/HR Sodium Bicarbonate 150 meq/Dextrose 1,150 ml @ 500 mls/hr Q2H18M 08/07/16 14:00 08/07/16 17:52 DC 08/07/16 17:04 500 MLS/HR Sodium Bicarbonate 50 meq 50 meq 1X ONCE 08/06/16 15:00 08/06/16 15:01 DC 08/06/16 15:07 50 MEQ Sodium Bicarbonate/ Dextrose 1,150 ml @ 100 mls/hr [id number] 08/06/16 14:45 08/06/16 18:59 DC 08/06/16 15:27 100 MLS/HR Sodium Bicarbonate 50 meq 1X ONCE 08/06/16 15:00 08/06/16 15:01 DC 08/06/16 15:06 50 MEQ Sodium Chloride (Iv Sodium Chloride 0.9% 1000ml Bag) 1,000 ml @ 500 mls/hr Q2H 08/08/16 00:00 08/08/16 06:36 500 MLS/HR Sodium Chloride (Normal Saline Flush) 10 ml 1X PRN PRN 08/06/16 14:45 08/07/16 08:01 DC Succinylcholine Chloride 200 mg 200 mg STK-MED ONCE 08/06/16 11:36 08/06/16 11:37 DC Sulfur Hexafluoride Microspheres 25 mg 25 mg STK-MED ONCE 08/07/16 09:01 08/07/16 09:02 DC Vasopressin 40 unit/Dextrose 102 ml @ 6 mls/hr CONT PRN 08/07/16 09:00 08/08/16 13:06 DC 08/07/16 09:09 6 MLS/HR Vecuronium Bradford (Norcuron Bolus) 10 mg PRN Q6HRS PRN 08/07/16 02:45 08/07/16 09:47 10 MG Lab Laboratory Tests Test 08/07/16 15:55 08/07/16 17:06 08/07/16 17:29 08/07/16 22:10 White Blood Count 15.4x10^3/uL (4.0-11.0) Red Blood Count 3.95x10^6/uL (3.50-5.40) Hemoglobin 11.2g/dL (12.0-15.5) Hematocrit 32.8% (36.0-47.0) Mean Corpuscular Volume 83fL (79-100) Mean Corpuscular Hemoglobin 28pg (25-35) Mean Corpuscular Hemoglobin Concent 34g/dL (31-37) Red Cell Distribution Width 14.7% (11.5-14.5) Platelet Count 209x10^3/uL (140-400) Neutrophils (%) (Auto) 73% (31-73) Lymphocytes (%) (Auto) 17% (24-48) Monocytes (%) (Auto) 9% (0-9) Eosinophils (%) (Auto) 0% (0-3) Basophils (%) (Auto) 0% (0-3) Neutrophils # (Auto) 11.3x10^3uL (1.8-7.7) Lymphocytes # (Auto) 2.7x10^3/uL (1.0-4.8) Monocytes # (Auto) 1.4x10^3/uL (0.0-1.1) Eosinophils # (Auto) 0.0x10^3/uL (0.0-0.7) Basophils # (Auto) 0.0x10^3/uL (0.0-0.2) Sodium Level 133mmol/L (136-145) 132mmol/L (136-145) Potassium Level 3.6mmol/L (3.5-5.1) 3.8mmol/L (3.5-5.1) Chloride Level 93mmol/L (98-107) 95mmol/L (98-107) Carbon Dioxide Level 26mmol/L (21-32) 31mmol/L (21-32) Anion Gap 14 (6-14) 6 (6-14) Blood Urea Nitrogen 15mg/dL (7-20) 16mg/dL (7-20) Creatinine 1.8mg/dL (0.6-1.0) 2.1mg/dL (0.6-1.0) Estimated GFR (Cockcroft-Gault) 32.8 27.5 BUN/Creatinine Ratio 8 (6-20) 8 (6-20) Glucose Level 186mg/dL (70-99) 129mg/dL (70-99) Lactic Acid Level 7.6mmol/L (0.4-2.0) 6.2mmol/L (0.4-2.0) Calcium Level 7.9mg/dL (8.5-10.1) 8.3mg/dL (8.5-10.1) Magnesium Level 2.7mg/dL (1.8-2.4) 3.4mg/dL (1.8-2.4) Total Bilirubin 0.2mg/dL (0.2-1.0) 0.3mg/dL (0.2-1.0) Aspartate Amino Transf (AST/SGOT) 50U/L (15-37) 39U/L (15-37) Alanine Aminotransferase (ALT/SGPT) 22U/L (14-59) 21U/L (14-59) Alkaline Phosphatase 63U/L (46-116) 73U/L (46-116) Total Protein 5.7g/dL (6.4-8.2) 5.8g/dL (6.4-8.2) Albumin 2.6g/dL (3.4-5.0) 2.6g/dL (3.4-5.0) Albumin/Globulin Ratio 0.8 (1.0-1.7) 0.8 (1.0-1.7) Glucose (Fingerstick) 136mg/dL (70-99) Bedside Venous pH 7.60 (7.32-7.42) Bedside Venous pCO2 23mmHg (41-51) Bedside Venous pO2 163mmHg (20-40) Venous Blood HCO3 23mmol/L (24-28) POC Venous O2 Saturation (Gerardo) 100% Bedside FiO2 60.0 Heparin Anti-Xa Act, Unfractionated 0.72IU/mL (0.30-0.70) Phosphorus Level 3.1mg/dL (2.6-4.7) Test 08/07/16 23:53 08/08/16 04:05 08/08/16 04:30 08/08/16 10:00 Glucose (Fingerstick) 137mg/dL (70-99) O2 Saturation 99% (92-99) 93% (92-99) Arterial Blood pH 7.49 (7.35-7.45) 7.40 (7.35-7.45) Arterial Blood pCO2 at Patient Temp 31mmHg (35-46) 38mmHg (35-46) Arterial Blood pO2 at Patient Temp 146mmHg (85-108) 69mmHg (85-108) Arterial Blood HCO3 23mmol/L (21-28) 23mmol/L (21-28) Arterial Blood Base Excess 0mmol/L (-3-3) -2mmol/L (-3-3) FiO2 60 60 White Blood Count 12.7x10^3/uL (4.0-11.0) Red Blood Count 3.57x10^6/uL (3.50-5.40) Hemoglobin 10.1g/dL (12.0-15.5) Hematocrit 30.4% (36.0-47.0) Mean Corpuscular Volume 85fL (79-100) Mean Corpuscular Hemoglobin 28pg (25-35) Mean Corpuscular Hemoglobin Concent 33g/dL (31-37) Red Cell Distribution Width 14.4% (11.5-14.5) Platelet Count 161x10^3/uL (140-400) Heparin Anti-Xa Act, Unfractionated 0.33IU/mL (0.30-0.70) < 0.10IU/mL (0.30-0.70) Sodium Level 132mmol/L (136-145) 135mmol/L (136-145) Potassium Level 3.6mmol/L (3.5-5.1) 3.6mmol/L (3.5-5.1) Chloride Level 97mmol/L (98-107) 99mmol/L (98-107) Carbon Dioxide Level 29mmol/L (21-32) 27mmol/L (21-32) Anion Gap 6 (6-14) 9 (6-14) Blood Urea Nitrogen 17mg/dL (7-20) Creatinine 2.0mg/dL (0.6-1.0) Estimated GFR (Cockcroft-Gault) 29.1 Glucose Level 138mg/dL (70-99) Lactic Acid Level 4.1mmol/L (0.4-2.0) Calcium Level 8.4mg/dL (8.5-10.1) Phosphorus Level 2.4mg/dL (2.6-4.7) 2.0mg/dL (2.6-4.7) Magnesium Level 3.5mg/dL (1.8-2.4) 3.5mg/dL (1.8-2.4) Albumin 2.4g/dL (3.4-5.0) Test 08/08/16 11:49 Glucose (Fingerstick) 154mg/dL (70-99) NOLAN ROSALES MD August 08, 2016 14:40
[2016-08-08] MEDS: POTASSIUM PHOSPHATE DIBASIC 13.6 MMOL in IV NORMAL SALINE 100ML 100 ML IV SCH ×3 (16:43→21:05)
[2016-08-08 17:07] LABS: CALCIUM 8.3 mg/dL (8.5-10.1); CREATININE 2.7 mg/dL (0.6-1.0); GFR 20.6; POTASSIUM 3.5 mmol/L (3.5-5.1)
[2016-08-08 17:13] LABS: ALBUMIN 2.3 g/dL (3.4-5.0); ALBUMIN/GLOBULIN RATIO 0.8 (1.0-1.7); MAGNESIUM 3.6 mg/dL (1.8-2.4); PHOSPHORUS 1.8 mg/dL (2.6-4.7); TOTAL BILIRUBIN 0.2 mg/dL (0.2-1.0); TOTAL PROTEIN 5.3 g/dL (6.4-8.2)
[2016-08-08] MEDS ORDERED: ACETAMINOPHEN 650 MG/20.3 ML SOLUTION. PEG PRN (17:45)
[2016-08-09] VITALS (24 sets, daily range): BP systolic 111–163; BP diastolic 51–78
[2016-08-09 03:39] LABS: ALBUMIN 2.3 g/dL (3.4-5.0); CALCIUM 8.3 mg/dL (8.5-10.1); CREATININE 3.7 mg/dL (0.6-1.0); GFR 14.3; PHOSPHORUS 4.5 mg/dL (2.6-4.7); POTASSIUM 3.7 mmol/L (3.5-5.1)
[2016-08-09] MEDS: MIDAZOLAM PREMIX 100 ML IV PRN ×2 (04:00→09:43)
[2016-08-09] MEDS: IPRATRPIUM/ALBUTEROL 0.5/2.5MG 3 ML NEBU. NEB SCH ×4 (07:08→19:52)
--- NOTE | 2016-08-09 07:34 | RAD ---
Portable chest, 08/09/2016: History: Respiratory failure Comparison is made to yesterday's study. The tip of the ET tube lies 2.5 cm above the sandhya. A right jugular dialysis type catheter extends into the superior aspect of the right atrium. An NG tube extends into the stomach. The heart is enlarged. There are persistent basilar infiltrates with slightly improved aeration in the right lung base. There is probably pleural fluid contributing to these basilar opacities. The upper lung dunn remain clear. No new abnormality is detected. IMPRESSION: 1. Stable tube positions. 2. Slightly improved moderate bibasilar infiltrates.
[2016-08-09 07:45] LABS: HCO3 ABG 23 mmol/L (21-28); PCO2 ABG 38 mmHg (35-46); PO2 ABG 112 mmHg (85-108); SAT O2 ABG 98 % (92-99)
--- NOTE | 2016-08-09 07:47 | PDOC ---
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 SKIN: No rash IV: ok Labs Lab Laboratory Tests Test 08/08/16 10:00 08/08/16 11:49 08/08/16 16:08 08/09/16 02:40 Heparin Anti-Xa Act, Unfractionated < 0.10 IU/mL (0.30-0.70) O2 Saturation 93 % (92-99) Arterial Blood pH 7.40 (7.35-7.45) Arterial Blood pCO2 at Patient Temp 38 mmHg (35-46) Arterial Blood pO2 at Patient Temp 69 mmHg (85-108) Arterial Blood HCO3 23 mmol/L (21-28) Arterial Blood Base Excess -2 mmol/L (-3-3) FiO2 60 Sodium Level 135 mmol/L (136-145) 135 mmol/L (136-145) 136 mmol/L (136-145) Potassium Level 3.6 mmol/L (3.5-5.1) 3.5 mmol/L (3.5-5.1) 3.7 mmol/L (3.5-5.1) Chloride Level 99 mmol/L (98-107) 100 mmol/L (98-107) 100 mmol/L (98-107) Carbon Dioxide Level 27 mmol/L (21-32) 28 mmol/L (21-32) 25 mmol/L (21-32) Anion Gap 9 (6-14) 7 (6-14) 11 (6-14) Phosphorus Level 2.0 mg/dL (2.6-4.7) 1.8 mg/dL (2.6-4.7) 4.5 mg/dL (2.6-4.7) Magnesium Level 3.5 mg/dL (1.8-2.4) 3.6 mg/dL (1.8-2.4) 3.7 mg/dL (1.8-2.4) Glucose (Fingerstick) 154 mg/dL (70-99) Blood Urea Nitrogen 24 mg/dL (7-20) 31 mg/dL (7-20) Creatinine 2.7 mg/dL (0.6-1.0) 3.7 mg/dL (0.6-1.0) Estimated GFR (Cockcroft-Gault) 20.6 14.3 BUN/Creatinine Ratio 9 (6-20) Glucose Level 128 mg/dL (70-99) 145 mg/dL (70-99) Lactic Acid Level 2.2 mmol/L (0.4-2.0) 1.2 mmol/L (0.4-2.0) Calcium Level 8.3 mg/dL (8.5-10.1) 8.3 mg/dL (8.5-10.1) Total Bilirubin 0.2 mg/dL (0.2-1.0) Aspartate Amino Transf (AST/SGOT) 16 U/L (15-37) Alanine Aminotransferase (ALT/SGPT) 23 U/L (14-59) Alkaline Phosphatase 71 U/L (46-116) Total Protein 5.3 g/dL (6.4-8.2) Albumin 2.3 g/dL (3.4-5.0) 2.3 g/dL (3.4-5.0) Albumin/Globulin Ratio 0.8 (1.0-1.7) Micro culture neg Objective Assessment Fever Leukocytosis Lactic acidosis Metformin OD Metabolic acidosis Respiratory failure Encephalopathy Plan Plan of Care supportive care LETICIA Marcial MD August 09, 2016 07:46
[2016-08-09 07:50] LABS: FIO2 ABG 55
[2016-08-09] MEDS: INSULIN ASPART 300 UNITS/3 ML INSULN.PEN SQ SCH ×3 (08:00→16:59)
[2016-08-09] MEDS: CHLORHEXIDINE 0.12% 15 ML MOUTHWASH. MM SCH ×2 (09:09→21:07)
[2016-08-09] MEDS: PANTOPRAZOLE IV PUSH 40 MG VIAL. IVP SCH (09:09)
--- NOTE | 2016-08-09 09:21 | PDOC ---
SUBJECTIVE ROS JENNY/ ATN remains sedated and intuabted OBJECTIVE Vital Signs Vital Signs Date Time Temp Pulse Resp B/P (MAP) Pulse Ox O2 Delivery O2 Flow Rate FiO2 08/09/16 08:50 100 Ventilator 08/09/16 08:00 99.3 108 22 111/52 (71) 99.3 I & 0 Intake and Output 08/09/16 06:59 Intake Total 930 ml Output Total 567 ml Balance 363 ml Intake Oral 0 ml IV Total 930 ml Output Urine Total 367 ml Gastric Drainage Total 200 ml PHYSICAL EXAM Physical Exam GEN: sedated an intubated on the vent , In no distress EYES: Sclera WNL, Conjunctiva Normal EN: No EN Drainage, Mucous Membranes moist NECK: no JVD, no JVP, Supple, no Thyromegaly CVS: S1S2, no Murmur, No Gallop, No Rub,no Edema RESP: no Rales, no Rhonchi,no Acc. Muscle Use GI: BS + ve, NO Bruit, Non Tender, Non Distended : no CVA tenderness, no Suprapubic Tenderness DIAGNOSIS/ASSESSMENT JENNY/ ATN - Creat is trending up. Uo is OK so far. Current fluid and E-lyte status does not necessitate emergent need for dialysis. Will re-evaluate for dialysis in the am lactic Acidemia - resolved Low PHos - replaced as ordered. ANEMIA; no Aranesp ordered, for now. Transfuse as needed Nutrition - start TF today, unless extubation is imminent COMMENT/RELEVANT DATA Meds Current Medications Medications (Trade) Dose Ordered Sig/Vanesa Start Time Stop Time Status Last Admin Dose Admin Acetaminophen (Tylenol) 650 mg PRN Q6HRS PRN 08/08/16 17:45 08/08/16 18:40 650 MG Albumin Human 200 ml @ 200 mls/hr 1X PRN PRN 08/06/16 14:45 08/06/16 20:44 DC Albuterol/ Ipratropium (Duoneb) 3 ml RTQID 08/06/16 16:00 08/09/16 07:08 3 ML Calcium Chloride 15 meq/Magnesium Sulfate 12.5 meq/ Miscellaneous Medication 5,013.7931 ml @ 1,000 mls/hr Q5H1M 08/07/16 00:58 08/07/16 10:00 DC 08/07/16 10:00 1,000 MLS/HR Calcium Chloride 17.5 meq/ Magnesium Sulfate 10 meq/Potassium Chloride 5 meq/ Bicarb Dialysis8 w-Out Calcium 5,017.463 ml @ 1,000 mls/hr Q5H2M 08/08/16 00:00 08/08/16 14:37 DC 08/08/16 05:12 1,000 MLS/HR Calcium Chloride 17.5 meq/ Magnesium Sulfate 15 meq/ Miscellaneous Medication 5,016.1945 ml @ 1,000 mls/hr Q5H1M 08/07/16 14:00 08/07/16 23:24 DC 08/07/16 20:40 1,000 MLS/HR Calcium Chloride 2000 mg/Sodium Chloride 120 ml @ 240 mls/hr 1X ONCE 08/07/16 09:00 08/07/16 09:29 DC 08/07/16 09:10 240 MLS/HR Ceftriaxone Sodium 2 gm/ Sodium Chloride 100 ml @ 200 mls/hr Q24H 08/07/16 12:00 08/08/16 11:37 200 MLS/HR Chlorhexidine Gluconate (Peridex) 15 ml BID 08/06/16 21:00 08/09/16 09:09 15 ML Dextrose 1,000 ml @ 100 mls/hr Q10H 08/06/16 19:00 08/07/16 10:20 DC 08/07/16 05:00 100 MLS/HR Dextrose (Dextrose 50%-Water Syringe) 12.5 gm PRN Q15MIN PRN 08/06/16 16:30 Epinephrine HCl 4 mg/Sodium Chloride 254 ml @ 3.81 mls/hr 1X ONCE 08/06/16 16:00 08/09/16 10:39 08/06/16 17:13 5.71 MLS/HR Etomidate (Amidate) 20 mg STK-MED ONCE 08/06/16 11:35 08/06/16 11:36 DC Famotidine (Pepcid) 20 mg 1X ONCE 08/06/16 08:30 08/06/16 08:31 DC 08/06/16 08:33 20 MG Fentanyl Citrate 30 ml @ 0 mls/hr CONT PRN 08/06/16 16:30 08/08/16 23:39 4.95 MLS/HR Fentanyl Citrate (Fentanyl 2ml Vial) 25 mcg 1X ONCE 08/06/16 10:45 08/06/16 10:46 DC 08/06/16 10:35 25 MCG Heparin Sodium (Porcine) (Heparin Sodium) 5,400 unit 1X ONCE 08/07/16 06:30 08/07/16 06:31 DC 08/07/16 06:33 5,400 UNIT Heparin Sodium/ Dextrose 500 ml @ 0 mls/hr CONT PRN 08/06/16 22:15 08/08/16 00:49 32.659 MLS/HR Heparin Sodium/ Sodium Chloride 60 unit 1X ONCE 08/06/16 12:30 08/06/16 12:31 DC 08/06/16 12:50 60 UNIT Info (PHARMACY MONITORING -- do not chart) 1 each PRN DAILY PRN 08/06/16 14:45 Insulin Aspart (Novolog) 0-9 UNITS TIDWMEALS 08/06/16 17:00 Insulin Human Regular (Novolin R Vial) 10 unit 1X ONCE 08/06/16 09:45 08/06/16 12:45 DC Iohexol (Omnipaque 300 Mg/ml) 75 ml 1X ONCE 08/06/16 10:15 08/06/16 10:16 DC 08/06/16 11:31 75 ML Levofloxacin/ Dextrose 100 ml @ 100 mls/hr Q24H 08/06/16 14:30 08/07/16 11:04 DC Lidocaine HCl (Lidocaine HCl 2% Abboject) 100 mg STK-MED ONCE 08/06/16 18:59 08/06/16 19:00 DC Lidocaine/Sodium Bicarbonate (Buffered Lidocaine 1%) 3 ml 1X ONCE 08/06/16 12:30 08/06/16 12:31 DC 08/06/16 12:50 3 ML Lorazepam (Ativan) 2 mg 1X ONCE 08/06/16 10:00 08/06/16 10:01 DC Lorazepam 100 mg/ Sodium Chloride 100 ml @ 0 mls/hr CONT PRN PRN 08/07/16 01:00 08/07/16 14:08 4 MLS/HR Magnesium Sulfate/ Dextrose 50 ml @ 25 mls/hr 1X ONCE 08/07/16 09:00 08/07/16 10:59 DC 08/07/16 09:09 25 MLS/HR Midazolam HCl (Versed) 5 mg 1X ONCE 08/06/16 16:30 08/06/16 16:31 DC Norepinephrine Bitartrate 250 ml @ 0 mls/hr CONT PRN 08/06/16 15:45 08/07/16 14:38 28.1 MLS/HR Ondansetron HCl (Zofran Odt) 4 mg 1X ONCE 08/06/16 07:00 08/06/16 07:00 DC Ondansetron HCl (Zofran) 4 mg PRN Q8HRS PRN 08/06/16 08:15 08/07/16 08:14 DC Pantoprazole Sodium (Protonix Vial) 40 mg DAILYAC 08/06/16 15:00 08/09/16 09:09 40 MG Potassium Chloride 10 meq/ Calcium Chloride 15 meq/Magnesium Sulfate 12.5 meq/ Miscellaneous Medication 5,018.7931 ml @ 1,000 mls/hr Q5H2M 08/07/16 00:55 08/07/16 00:58 DC Potassium Chloride 15 meq/ Calcium Chloride 15 meq/Magnesium Sulfate 12.5 meq/ Miscellaneous Medication 5,021.2931 ml @ 1,000 mls/hr Q5H2M 08/06/16 19:00 08/07/16 00:55 DC 08/07/16 00:02 1,000 MLS/HR Potassium Chloride 5 meq/ Calcium Chloride 15 meq/Magnesium Sulfate 12.5 meq/ Miscellaneous Medication 5,016.2931 ml @ 1,000 mls/hr Q5H1M 08/06/16 19:00 08/07/16 10:00 DC 08/07/16 03:08 1,000 MLS/HR Potassium Chloride 5 meq/ Calcium Chloride 17.5 meq/ Magnesium Sulfate 10 meq/Bicarb Dialysis8 w-Out Calcium 5,017.463 ml @ 1,000 mls/hr Q5H2M 08/08/16 00:00 08/08/16 14:37 DC 08/08/16 05:13 1,000 MLS/HR Potassium Chloride 5 meq/ Calcium Chloride 17.5 meq/ Magnesium Sulfate 15 meq/ Miscellaneous Medication 5,018.6945 ml @ 1,000 mls/hr Q5H2M 08/07/16 14:00 08/07/16 23:25 DC 08/07/16 20:40 1,000 MLS/HR Potassium Phosphate 13.6 mmol/Sodium Chloride 104.5333 ml @ 52.267 m... Q2H 08/08/16 15:00 08/08/16 20:59 DC 08/08/16 21:05 52.267 MLS/HR Propofol 100 ml @ 0 mls/hr CONT PRN 08/06/16 12:15 08/06/16 13:16 28.005 MLS/HR Sodium Bicarbonate 150 meq/Dextrose 1,150 ml @ 500 mls/hr Q2H18M 08/07/16 14:00 08/07/16 17:52 DC 08/07/16 17:04 500 MLS/HR Sodium Bicarbonate 50 meq 1X ONCE 08/06/16 15:00 08/06/16 15:01 DC 08/06/16 15:07 50 MEQ Sodium Chloride 1,000 ml @ 500 mls/hr Q2H 08/08/16 00:00 08/08/16 15:43 DC 08/08/16 06:36 500 MLS/HR Sodium Chloride (Normal Saline Flush) 10 ml 1X PRN PRN 08/06/16 14:45 08/07/16 08:01 DC Succinylcholine Chloride (Anectine) 200 mg STK-MED ONCE 08/06/16 11:36 08/06/16 11:37 DC Sulfur Hexafluoride Microspheres (Lumason) 25 mg STK-MED ONCE 08/07/16 09:01 08/07/16 09:02 DC Vasopressin 40 unit/Dextrose 102 ml @ 6 mls/hr CONT PRN 08/07/16 09:00 08/08/16 13:06 DC 08/07/16 09:09 6 MLS/HR Vecuronium [place] (Norcuron Bolus) 10 mg PRN Q6HRS PRN 08/07/16 02:45 08/07/16 09:47 10 MG Lab Laboratory Tests Test 08/08/16 10:00 08/08/16 11:49 08/08/16 16:08 08/09/16 02:40 Heparin Anti-Xa Act, Unfractionated < 0.10 IU/mL (0.30-0.70) O2 Saturation 93 % (92-99) Arterial Blood pH 7.40 (7.35-7.45) Arterial Blood pCO2 at Patient Temp 38 mmHg (35-46) Arterial Blood pO2 at Patient Temp 69 mmHg (85-108) Arterial Blood HCO3 23 mmol/L (21-28) Arterial Blood Base Excess -2 mmol/L (-3-3) FiO2 60 Sodium Level 135 mmol/L (136-145) 135 mmol/L (136-145) 136 mmol/L (136-145) Potassium Level 3.6 mmol/L (3.5-5.1) 3.5 mmol/L (3.5-5.1) 3.7 mmol/L (3.5-5.1) Chloride Level 99 mmol/L (98-107) 100 mmol/L (98-107) 100 mmol/L (98-107) Carbon Dioxide Level 27 mmol/L (21-32) 28 mmol/L (21-32) 25 mmol/L (21-32) Anion Gap 9 (6-14) 7 (6-14) 11 (6-14) Phosphorus Level 2.0 mg/dL (2.6-4.7) 1.8 mg/dL (2.6-4.7) 4.5 mg/dL (2.6-4.7) Magnesium Level 3.5 mg/dL (1.8-2.4) 3.6 mg/dL (1.8-2.4) 3.7 mg/dL (1.8-2.4) Glucose (Fingerstick) 154 mg/dL (70-99) Blood Urea Nitrogen 24 mg/dL (7-20) 31 mg/dL (7-20) Creatinine 2.7 mg/dL (0.6-1.0) 3.7 mg/dL (0.6-1.0) Estimated GFR (Cockcroft-Gault) 20.6 14.3 BUN/Creatinine Ratio 9 (6-20) Glucose Level 128 mg/dL (70-99) 145 mg/dL (70-99) Lactic Acid Level 2.2 mmol/L (0.4-2.0) 1.2 mmol/L (0.4-2.0) Calcium Level 8.3 mg/dL (8.5-10.1) 8.3 mg/dL (8.5-10.1) Total Bilirubin 0.2 mg/dL (0.2-1.0) Aspartate Amino Transf (AST/SGOT) 16 U/L (15-37) Alanine Aminotransferase (ALT/SGPT) 23 U/L (14-59) Alkaline Phosphatase 71 U/L (46-116) Total Protein 5.3 g/dL (6.4-8.2) Albumin 2.3 g/dL (3.4-5.0) 2.3 g/dL (3.4-5.0) Albumin/Globulin Ratio 0.8 (1.0-1.7) Test 08/09/16 07:40 O2 Saturation 98 % (92-99) Arterial Blood pH 7.40 (7.35-7.45) Arterial Blood pCO2 at Patient Temp 38 mmHg (35-46) Arterial Blood pO2 at Patient Temp 112 mmHg (85-108) Arterial Blood HCO3 23 mmol/L (21-28) Arterial Blood Base Excess -2 mmol/L (-3-3) FiO2 55 NOLAN ROSALES MD August 09, 2016 09:21
--- NOTE | 2016-08-09 09:27 | PDOC ---
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 Ventilator Ventilator Ventilator 08/09/16 08/09/16 08/09/16 08/09/16 00:00 00:00 00:10 01:00 Temp 99.5 99.5 Pulse 108 107 Resp 22 22 20 B/P (MAP) 142/57 (85) 138/57 (84) Pulse Ox 100 100 100 O2 Delivery Ventilator Mechanical Ventilator Ventilator Ventilator 08/09/16 08/09/16 08/09/16 08/09/16 02:00 02:50 03:00 04:00 Temp 98.9 98.9 Pulse 109 102 102 Resp 20 20 20 B/P (MAP) 140/55 (83) 140/54 (82) 128/59 (82) Pulse Ox 100 100 100 100 O2 Delivery Ventilator Ventilator Ventilator Ventilator 08/09/16 08/09/16 08/09/16 08/09/16 04:00 05:00 06:00 07:00 Pulse 91 107 104 Resp 22 20 20 B/P (MAP) 137/54 (81) 133/55 (81) 128/57 (80) Pulse Ox 100 100 100 O2 Delivery Mechanical Ventilator Ventilator Ventilator Ventilator 08/09/16 08/09/16 08/09/16 08/09/16 07:05 08:00 08:00 08:50 Temp 99.3 99.3 Pulse 108 Resp 22 B/P (MAP) 111/52 (71) Pulse Ox 100 100 100 O2 Delivery Ventilator Ventilator Mechanical Ventilator Ventilator 08/09/16 09:00 Pulse 109 Resp 20 B/P (MAP) 122/51 (74) Pulse Ox 100 O2 Delivery Ventilator Intake and Output 08/08/16 08/08/16 08/09/16 14:59 22:59 06:59 Intake Total 100 ml 333 ml 497 ml Output Total 112 ml 272 ml 183 ml Balance -12 ml 61 ml 314 ml BREN MASTERS MD August 09, 2016 09:27
--- NOTE | 2016-08-09 10:47 | RAD ---
Indication nasogastric tube placement. A single film targeted to the lower chest and upper abdomen was obtained. The abdominal gas pattern appears grossly normal. A nasogastric tube is noted with its tip in the distal body of the stomach. IMPRESSION: Nasogastric tube in the stomach.
[2016-08-09] MEDS: PROPOFOL 100 ML IV PRN ×3 (11:02→21:07)
--- NOTE | 2016-08-09 11:44 | PDOC ---
PULMONARY PROGRESS NOTES Subjective remains on AC mode off all pressors off CRRT opens eyes but does not follow commands Vitals Vital Signs Date Time Temp Pulse Resp B/P (MAP) Pulse Ox O2 Delivery O2 Flow Rate FiO2 08/09/16 11:00 102 20 132/56 (81) 100 Ventilator 08/09/16 08:00 99.3 99.3 Lungs: Other (decrease bs) Cardiovascular: S1 Abdomen: Soft Extremities: Other (2+edema) Labs Laboratory Tests Test 08/07/16 12:06 08/07/16 15:55 08/07/16 17:06 08/07/16 17:29 Glucose (Fingerstick) 190 mg/dL (70-99) 136 mg/dL (70-99) White Blood Count 15.4 x10^3/uL (4.0-11.0) Red Blood Count 3.95 x10^6/uL (3.50-5.40) Hemoglobin 11.2 g/dL (12.0-15.5) Hematocrit 32.8 % (36.0-47.0) Mean Corpuscular Volume 83 fL (79-100) Mean Corpuscular Hemoglobin 28 pg (25-35) Mean Corpuscular Hemoglobin Concent 34 g/dL (31-37) Red Cell Distribution Width 14.7 % (11.5-14.5) Platelet Count 209 x10^3/uL (140-400) Neutrophils (%) (Auto) 73 % (31-73) Lymphocytes (%) (Auto) 17 % (24-48) Monocytes (%) (Auto) 9 % (0-9) Eosinophils (%) (Auto) 0 % (0-3) Basophils (%) (Auto) 0 % (0-3) Neutrophils # (Auto) 11.3 x10^3uL (1.8-7.7) Lymphocytes # (Auto) 2.7 x10^3/uL (1.0-4.8) Monocytes # (Auto) 1.4 x10^3/uL (0.0-1.1) Eosinophils # (Auto) 0.0 x10^3/uL (0.0-0.7) Basophils # (Auto) 0.0 x10^3/uL (0.0-0.2) Sodium Level 133 mmol/L (136-145) Potassium Level 3.6 mmol/L (3.5-5.1) Chloride Level 93 mmol/L (98-107) Carbon Dioxide Level 26 mmol/L (21-32) Anion Gap 14 (6-14) Blood Urea Nitrogen 15 mg/dL (7-20) Creatinine 1.8 mg/dL (0.6-1.0) Estimated GFR (Cockcroft-Gault) 32.8 BUN/Creatinine Ratio 8 (6-20) Glucose Level 186 mg/dL (70-99) Lactic Acid Level 7.6 mmol/L (0.4-2.0) Calcium Level 7.9 mg/dL (8.5-10.1) Magnesium Level 2.7 mg/dL (1.8-2.4) Total Bilirubin 0.2 mg/dL (0.2-1.0) Aspartate Amino Transf (AST/SGOT) 50 U/L (15-37) Alanine Aminotransferase (ALT/SGPT) 22 U/L (14-59) Alkaline Phosphatase 63 U/L (46-116) Total Protein 5.7 g/dL (6.4-8.2) Albumin 2.6 g/dL (3.4-5.0) Albumin/Globulin Ratio 0.8 (1.0-1.7) Bedside Venous pH 7.60 (7.32-7.42) Bedside Venous pCO2 23 mmHg (41-51) Bedside Venous pO2 163 mmHg (20-40) Venous Blood HCO3 23 mmol/L (24-28) POC Venous O2 Saturation (Gerardo) 100 % Bedside FiO2 60.0 Test 08/07/16 22:10 08/07/16 23:53 08/08/16 04:05 08/08/16 04:30 Heparin Anti-Xa Act, Unfractionated 0.72 IU/mL (0.30-0.70) 0.33 IU/mL (0.30-0.70) Sodium Level 132 mmol/L (136-145) 132 mmol/L (136-145) Potassium Level 3.8 mmol/L (3.5-5.1) 3.6 mmol/L (3.5-5.1) Chloride Level 95 mmol/L (98-107) 97 mmol/L (98-107) Carbon Dioxide Level 31 mmol/L (21-32) 29 mmol/L (21-32) Anion Gap 6 (6-14) 6 (6-14) Blood Urea Nitrogen 16 mg/dL (7-20) 17 mg/dL (7-20) Creatinine 2.1 mg/dL (0.6-1.0) 2.0 mg/dL (0.6-1.0) Estimated GFR (Cockcroft-Gault) 27.5 29.1 BUN/Creatinine Ratio 8 (6-20) Glucose Level 129 mg/dL (70-99) 138 mg/dL (70-99) Lactic Acid Level 6.2 mmol/L (0.4-2.0) 4.1 mmol/L (0.4-2.0) Calcium Level 8.3 mg/dL (8.5-10.1) 8.4 mg/dL (8.5-10.1) Phosphorus Level 3.1 mg/dL (2.6-4.7) 2.4 mg/dL (2.6-4.7) Magnesium Level 3.4 mg/dL (1.8-2.4) 3.5 mg/dL (1.8-2.4) Total Bilirubin 0.3 mg/dL (0.2-1.0) Aspartate Amino Transf (AST/SGOT) 39 U/L (15-37) Alanine Aminotransferase (ALT/SGPT) 21 U/L (14-59) Alkaline Phosphatase 73 U/L (46-116) Total Protein 5.8 g/dL (6.4-8.2) Albumin 2.6 g/dL (3.4-5.0) 2.4 g/dL (3.4-5.0) Albumin/Globulin Ratio 0.8 (1.0-1.7) Glucose (Fingerstick) 137 mg/dL (70-99) O2 Saturation 99 % (92-99) Arterial Blood pH 7.49 (7.35-7.45) Arterial Blood pCO2 at Patient Temp 31 mmHg (35-46) Arterial Blood pO2 at Patient Temp 146 mmHg (85-108) Arterial Blood HCO3 23 mmol/L (21-28) Arterial Blood Base Excess 0 mmol/L (-3-3) FiO2 60 White Blood Count 12.7 x10^3/uL (4.0-11.0) Red Blood Count 3.57 x10^6/uL (3.50-5.40) Hemoglobin 10.1 g/dL (12.0-15.5) Hematocrit 30.4 % (36.0-47.0) Mean Corpuscular Volume 85 fL (79-100) Mean Corpuscular Hemoglobin 28 pg (25-35) Mean Corpuscular Hemoglobin Concent 33 g/dL (31-37) Red Cell Distribution Width 14.4 % (11.5-14.5) Platelet Count 161 x10^3/uL (140-400) Test 08/08/16 10:00 08/08/16 11:49 08/08/16 16:08 08/09/16 02:40 Heparin Anti-Xa Act, Unfractionated < 0.10 IU/mL (0.30-0.70) O2 Saturation 93 % (92-99) Arterial Blood pH 7.40 (7.35-7.45) Arterial Blood pCO2 at Patient Temp 38 mmHg (35-46) Arterial Blood pO2 at Patient Temp 69 mmHg (85-108) Arterial Blood HCO3 23 mmol/L (21-28) Arterial Blood Base Excess -2 mmol/L (-3-3) FiO2 60 Sodium Level 135 mmol/L (136-145) 135 mmol/L (136-145) 136 mmol/L (136-145) Potassium Level 3.6 mmol/L (3.5-5.1) 3.5 mmol/L (3.5-5.1) 3.7 mmol/L (3.5-5.1) Chloride Level 99 mmol/L (98-107) 100 mmol/L (98-107) 100 mmol/L (98-107) Carbon Dioxide Level 27 mmol/L (21-32) 28 mmol/L (21-32) 25 mmol/L (21-32) Anion Gap 9 (6-14) 7 (6-14) 11 (6-14) Phosphorus Level 2.0 mg/dL (2.6-4.7) 1.8 mg/dL (2.6-4.7) 4.5 mg/dL (2.6-4.7) Magnesium Level 3.5 mg/dL (1.8-2.4) 3.6 mg/dL (1.8-2.4) 3.7 mg/dL (1.8-2.4) Glucose (Fingerstick) 154 mg/dL (70-99) Blood Urea Nitrogen 24 mg/dL (7-20) 31 mg/dL (7-20) Creatinine 2.7 mg/dL (0.6-1.0) 3.7 mg/dL (0.6-1.0) Estimated GFR (Cockcroft-Gault) 20.6 14.3 BUN/Creatinine Ratio 9 (6-20) Glucose Level 128 mg/dL (70-99) 145 mg/dL (70-99) Lactic Acid Level 2.2 mmol/L (0.4-2.0) 1.2 mmol/L (0.4-2.0) Calcium Level 8.3 mg/dL (8.5-10.1) 8.3 mg/dL (8.5-10.1) Total Bilirubin 0.2 mg/dL (0.2-1.0) Aspartate Amino Transf (AST/SGOT) 16 U/L (15-37) Alanine Aminotransferase (ALT/SGPT) 23 U/L (14-59) Alkaline Phosphatase 71 U/L (46-116) Total Protein 5.3 g/dL (6.4-8.2) Albumin 2.3 g/dL (3.4-5.0) 2.3 g/dL (3.4-5.0) Albumin/Globulin Ratio 0.8 (1.0-1.7) Test 08/09/16 07:40 08/09/16 08:58 08/09/16 11:35 O2 Saturation 98 % (92-99) Arterial Blood pH 7.40 (7.35-7.45) Arterial Blood pCO2 at Patient Temp 38 mmHg (35-46) Arterial Blood pO2 at Patient Temp 112 mmHg (85-108) Arterial Blood HCO3 23 mmol/L (21-28) Arterial Blood Base Excess -2 mmol/L (-3-3) FiO2 55 Glucose (Fingerstick) 129 mg/dL (70-99) 130 mg/dL (70-99) Laboratory Tests Test 08/08/16 11:49 08/08/16 16:08 08/09/16 02:40 08/09/16 07:40 Glucose (Fingerstick) 154 mg/dL (70-99) Sodium Level 135 mmol/L (136-145) 136 mmol/L (136-145) Potassium Level 3.5 mmol/L (3.5-5.1) 3.7 mmol/L (3.5-5.1) Chloride Level 100 mmol/L (98-107) 100 mmol/L (98-107) Carbon Dioxide Level 28 mmol/L (21-32) 25 mmol/L (21-32) Anion Gap 7 (6-14) 11 (6-14) Blood Urea Nitrogen 24 mg/dL (7-20) 31 mg/dL (7-20) Creatinine 2.7 mg/dL (0.6-1.0) 3.7 mg/dL (0.6-1.0) Estimated GFR (Cockcroft-Gault) 20.6 14.3 BUN/Creatinine Ratio 9 (6-20) Glucose Level 128 mg/dL (70-99) 145 mg/dL (70-99) Lactic Acid Level 2.2 mmol/L (0.4-2.0) 1.2 mmol/L (0.4-2.0) Calcium Level 8.3 mg/dL (8.5-10.1) 8.3 mg/dL (8.5-10.1) Phosphorus Level 1.8 mg/dL (2.6-4.7) 4.5 mg/dL (2.6-4.7) Magnesium Level 3.6 mg/dL (1.8-2.4) 3.7 mg/dL (1.8-2.4) Total Bilirubin 0.2 mg/dL (0.2-1.0) Aspartate Amino Transf (AST/SGOT) 16 U/L (15-37) Alanine Aminotransferase (ALT/SGPT) 23 U/L (14-59) Alkaline Phosphatase 71 U/L (46-116) Total Protein 5.3 g/dL (6.4-8.2) Albumin 2.3 g/dL (3.4-5.0) 2.3 g/dL (3.4-5.0) Albumin/Globulin Ratio 0.8 (1.0-1.7) O2 Saturation 98 % (92-99) Arterial Blood pH 7.40 (7.35-7.45) Arterial Blood pCO2 at Patient Temp 38 mmHg (35-46) Arterial Blood pO2 at Patient Temp 112 mmHg (85-108) Arterial Blood HCO3 23 mmol/L (21-28) Arterial Blood Base Excess -2 mmol/L (-3-3) FiO2 55 Test 08/09/16 08:58 08/09/16 11:35 Glucose (Fingerstick) 129 mg/dL (70-99) 130 mg/dL (70-99) Medications Active Scripts Medications Dose Route/Sig Days Date Category Fountain 5-325 Tablet (Acetaminophen/Hydrocodone Bitart) 1 Each Tablet 1 Tab PO PRN Q6HRS PRN 07/22/15 Reported Gabapentin 800 Mg Tablet 800 Mg PO TID 07/22/15 Reported Comments CXR 08/09 bibasilar atelectasis Impression . 1. Acute respiratory failure secondary to suicidal attempt with large doses of 500 mg metformin. Apparently, she took 180 tablets, admitted with severe metabolic acidosis , lactic acidosis and acute encephalopathy. 2. Metformin overdose in large quantity with severe metabolic acidosis/lactic acidosis, 3. Acute toxic encephalopathy. 4. Clear chest x-ray. 5. Encephalopathy/ post sedation, slowing improving 6. shock, ?septic vs related to severe acidosis, resolved 7. JENNY Plan . 1. Continue present assist control mode. d/c sedation and assess MS 2. CPAP trial once awake 3. Monitor blood sugars closely. 4. off CRRT 5. Follow renal recommendation 6. lactic acid normalized 7. empiric antibiotic 8. Discussed with RN and RT. and Dr Roe 9. off pressors d/w mother . DIONICIO MENDIETA MD August 09, 2016 11:44
--- NOTE | 2016-08-09 12:00 | RAD ---
Portable abdomen, 08/09/2016, 10:10 AM: History: Check NG tube placement A supine view of the upper abdomen was obtained. The tip of the gastric tube is projected over the proximal aspect of the stomach. A sidehole lies near the level of the GE junction. The gas pattern in the upper abdomen is unremarkable. IMPRESSION: The gastric tube extends into the proximal aspect of the stomach.
[2016-08-10] VITALS (24 sets, daily range): BP systolic 111–165; BP diastolic 54–85
[2016-08-10] MEDS: PROPOFOL 100 ML IV PRN ×2 (04:30→22:09)
[2016-08-10 04:43] LABS: HEMATOCRIT 23.7 % (36.0-47.0); RED BLOOD COUNT 2.81 x10^6/uL (3.50-5.40); RED CELL DISTRIBUTION WIDTH 14.4 % (11.5-14.5); WHITE BLOOD COUNT 7.7 x10^3/uL (4.0-11.0)
[2016-08-10 05:13] LABS: ALBUMIN 2.3 g/dL (3.4-5.0); CALCIUM 8.4 mg/dL (8.5-10.1); CREATININE 4.2 mg/dL (0.6-1.0); GFR 12.3; PHOSPHORUS 4.9 mg/dL (2.6-4.7); POTASSIUM 3.4 mmol/L (3.5-5.1)
[2016-08-10] MEDS: IPRATRPIUM/ALBUTEROL 0.5/2.5MG 3 ML NEBU. NEB SCH ×4 (07:03→19:31)
--- NOTE | 2016-08-10 07:19 | RAD ---
Portable chest, 08/10/2016: History: Respiratory failure Comparison is made to yesterday's study. The tip of the ET tube lies approximately 2 cm above the sandhya. An NG tube extends into the stomach. A right jugular dialysis type catheter extends into the right atrium. The heart is mildly enlarged. There is a moderate unchanged left basilar opacity compatible with infiltrate and pleural fluid. Minimal right basilar infiltrate has improved slightly. No new abnormality is detected. IMPRESSION: 1. Unchanged moderate left basilar infiltrate and probable pleural fluid. 2. Improving minimal right basilar infiltrate.
--- NOTE | 2016-08-10 07:44 | PDOC ---
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 SKIN: No rash IV: ok Labs Lab Laboratory Tests Test 08/09/16 08:58 08/09/16 11:35 08/09/16 16:56 08/10/16 00:32 Glucose (Fingerstick) 129 mg/dL (70-99) 130 mg/dL (70-99) 136 mg/dL (70-99) 123 mg/dL (70-99) Test 08/10/16 04:25 White Blood Count 7.7 x10^3/uL (4.0-11.0) Red Blood Count 2.81 x10^6/uL (3.50-5.40) Hemoglobin 8.0 g/dL (12.0-15.5) Hematocrit 23.7 % (36.0-47.0) Mean Corpuscular Volume 84 fL (79-100) Mean Corpuscular Hemoglobin 29 pg (25-35) Mean Corpuscular Hemoglobin Concent 34 g/dL (31-37) Red Cell Distribution Width 14.4 % (11.5-14.5) Platelet Count 179 x10^3/uL (140-400) Sodium Level 138 mmol/L (136-145) Potassium Level 3.4 mmol/L (3.5-5.1) Chloride Level 102 mmol/L (98-107) Carbon Dioxide Level 25 mmol/L (21-32) Anion Gap 11 (6-14) Blood Urea Nitrogen 43 mg/dL (7-20) Creatinine 4.2 mg/dL (0.6-1.0) Estimated GFR (Cockcroft-Gault) 12.3 Glucose Level 121 mg/dL (70-99) Lactic Acid Level 1.1 mmol/L (0.4-2.0) Calcium Level 8.4 mg/dL (8.5-10.1) Phosphorus Level 4.9 mg/dL (2.6-4.7) Magnesium Level 3.8 mg/dL (1.8-2.4) Albumin 2.3 g/dL (3.4-5.0) Micro culture neg Objective Assessment Fever, low grade Leukocytosis improved Lactic acidosis improved Metformin OD Metabolic acidosis Respiratory failure Encephalopathy Plan Plan of Care supportive care LETICIA Marcial MD August 10, 2016 07:44
[2016-08-10 07:53] LABS: HCO3 ABG 23 mmol/L (21-28); PCO2 ABG 37 mmHg (35-46); PH ABG 7.41 (7.35-7.45); PO2 ABG 103 mmHg (85-108); SAT O2 ABG 97 % (92-99)
[2016-08-10] MEDS: INSULIN ASPART 300 UNITS/3 ML INSULN.PEN SQ SCH ×3 (08:00→16:36)
[2016-08-10 08:42] LABS: FIO2 ABG 50
[2016-08-10] MEDS: CHLORHEXIDINE 0.12% 15 ML MOUTHWASH. MM SCH ×2 (09:18→21:03)
[2016-08-10] MEDS: PANTOPRAZOLE IV PUSH 40 MG VIAL. IVP SCH (09:18)
--- NOTE | 2016-08-10 09:26 | PDOC ---
SUBJECTIVE ROS JENNY/ ATN remains intubated and sedated OBJECTIVE Vital Signs Vital Signs Date Time Temp Pulse Resp B/P (MAP) Pulse Ox O2 Delivery O2 Flow Rate FiO2 08/10/16 08:33 96 Ventilator 08/10/16 08:00 99.1 98 24 137/60 (85) 99.1 I & 0 Intake and Output 08/10/16 07:00 Intake Total 887.34 ml Output Total 1408 ml Balance -520.66 ml Intake Oral 0 ml IV Total 463.34 ml Tube Feeding 224 ml Other 200 ml Output Urine Total 1408 ml PHYSICAL EXAM Physical Exam GEN: sedated an intubated on the vent , In no distress EYES: Sclera WNL, Conjunctiva Normal EN: No EN Drainage, Mucous Membranes moist NECK: no JVD, no JVP, Supple, no Thyromegaly CVS: S1S2, no Murmur, No Gallop, No Rub,no Edema RESP: no Rales, no Rhonchi,no Acc. Muscle Use GI: BS + ve, NO Bruit, Non Tender, Non Distended : no CVA tenderness, no Suprapubic Tenderness DIAGNOSIS/ASSESSMENT JENNY/ ATN - : Dialysis as below F 180 NR 3.0 Hrs 4 K 2.5 Ca 140 Na 35 HC03 Qb 350 + Qd 500+ Heparin 0 Units Uf 2 Kgs or to dry weight as tolerated May give 25-50 gms of 25% Albumin if needed to maintain Hemodynamic stability Treatment plan reviewed and discussed with shot lighter ^marcelo - attempt to correct with HD. Cant explain rise when no supplements are given. ANEMIA; no Aranesp ordered, for now. Transfuse as needed Nutrition - TF prn, unless extubation is imminent COMMENT/RELEVANT DATA Meds Current Medications Medications (Trade) Dose Ordered Sig/Vanesa Start Time Stop Time Status Last Admin Dose Admin Acetaminophen (Tylenol) 650 mg PRN Q6HRS PRN 08/08/16 17:45 08/08/16 18:40 650 MG Albumin Human 200 ml @ 200 mls/hr 1X PRN PRN 08/06/16 14:45 08/06/16 20:44 DC Albuterol/ Ipratropium (Duoneb) 3 ml RTQID 08/06/16 16:00 08/10/16 07:03 3 ML Calcium Chloride 15 meq/Magnesium Sulfate 12.5 meq/ Miscellaneous Medication 5,013.7931 ml @ 1,000 mls/hr Q5H1M 08/07/16 00:58 08/07/16 10:00 DC 08/07/16 10:00 1,000 MLS/HR Calcium Chloride 17.5 meq/ Magnesium Sulfate 10 meq/Potassium Chloride 5 meq/ Bicarb Dialysis8 w-Out Calcium 5,017.463 ml @ 1,000 mls/hr Q5H2M 08/08/16 00:00 08/08/16 14:37 DC 08/08/16 05:12 1,000 MLS/HR Calcium Chloride 17.5 meq/ Magnesium Sulfate 15 meq/ Miscellaneous Medication 5,016.1945 ml @ 1,000 mls/hr Q5H1M 08/07/16 14:00 08/07/16 23:24 DC 08/07/16 20:40 1,000 MLS/HR Calcium Chloride 2000 mg/Sodium Chloride 120 ml @ 240 mls/hr 1X ONCE 08/07/16 09:00 08/07/16 09:29 DC 08/07/16 09:10 240 MLS/HR Ceftriaxone Sodium 2 gm/ Sodium Chloride 100 ml @ 200 mls/hr Q24H 08/07/16 12:00 08/09/16 11:30 200 MLS/HR Chlorhexidine Gluconate (Peridex) 15 ml BID 08/06/16 21:00 08/10/16 09:18 15 ML Dextrose 1,000 ml @ 100 mls/hr Q10H 08/06/16 19:00 08/07/16 10:20 DC 08/07/16 05:00 100 MLS/HR Dextrose (Dextrose 50%-Water Syringe) 12.5 gm PRN Q15MIN PRN 08/06/16 16:30 Epinephrine HCl 4 mg/Sodium Chloride 254 ml @ 3.81 mls/hr 1X ONCE 08/06/16 16:00 08/09/16 10:39 DC 08/06/16 17:13 5.71 MLS/HR Etomidate (Amidate) 20 mg STK-MED ONCE 08/06/16 11:35 08/06/16 11:36 DC Famotidine (Pepcid) 20 mg 1X ONCE 08/06/16 08:30 08/06/16 08:31 DC 08/06/16 08:33 20 MG Fentanyl Citrate 30 ml @ 0 mls/hr CONT PRN 08/06/16 16:30 08/09/16 23:00 2.5 MLS/HR Fentanyl Citrate (Fentanyl 2ml Vial) 25 mcg 1X ONCE 08/06/16 10:45 08/06/16 10:46 DC 08/06/16 10:35 25 MCG Heparin Sodium (Porcine) (Heparin Sodium) 5,400 unit 1X ONCE 08/07/16 06:30 08/07/16 06:31 DC 08/07/16 06:33 5,400 UNIT Heparin Sodium/ Dextrose 500 ml @ 0 mls/hr CONT PRN 08/06/16 22:15 08/08/16 00:49 32.659 MLS/HR Heparin Sodium/ Sodium Chloride 60 unit 1X ONCE 08/06/16 12:30 08/06/16 12:31 DC 08/06/16 12:50 60 UNIT Info (PHARMACY MONITORING -- do not chart) 1 each PRN DAILY PRN 08/06/16 14:45 Insulin Aspart (Novolog) 0-9 UNITS TIDWMEALS 08/06/16 17:00 Insulin Human Regular (Novolin R Vial) 10 unit 1X ONCE 08/06/16 09:45 08/06/16 12:45 DC Iohexol (Omnipaque 300 Mg/ml) 75 ml 1X ONCE 08/06/16 10:15 08/06/16 10:16 DC 08/06/16 11:31 75 ML Levofloxacin/ Dextrose 100 ml @ 100 mls/hr Q24H 08/06/16 14:30 08/07/16 11:04 DC Lidocaine HCl (Lidocaine HCl 2% Abboject) 100 mg STK-MED ONCE 08/06/16 18:59 08/06/16 19:00 DC Lidocaine/Sodium Bicarbonate (Buffered Lidocaine 1%) 3 ml 1X ONCE 08/06/16 12:30 08/06/16 12:31 DC 08/06/16 12:50 3 ML Lorazepam (Ativan) 2 mg 1X ONCE 08/06/16 10:00 08/06/16 10:01 DC Lorazepam 100 mg/ Sodium Chloride 100 ml @ 0 mls/hr CONT PRN PRN 08/07/16 01:00 08/07/16 14:08 4 MLS/HR Magnesium Sulfate/ Dextrose 50 ml @ 25 mls/hr 1X ONCE 08/07/16 09:00 08/07/16 10:59 DC 08/07/16 09:09 25 MLS/HR Midazolam HCl (Versed) 5 mg 1X ONCE 08/06/16 16:30 08/06/16 16:31 DC Norepinephrine Bitartrate 250 ml @ 0 mls/hr CONT PRN 08/06/16 15:45 08/07/16 14:38 28.1 MLS/HR Ondansetron HCl (Zofran Odt) 4 mg 1X ONCE 08/06/16 07:00 08/06/16 07:00 DC Ondansetron HCl (Zofran) 4 mg PRN Q8HRS PRN 08/06/16 08:15 08/07/16 08:14 DC Pantoprazole Sodium (Protonix Vial) 40 mg DAILYAC 08/06/16 15:00 08/10/16 09:18 40 MG Potassium Chloride 10 meq/ Calcium Chloride 15 meq/Magnesium Sulfate 12.5 meq/ Miscellaneous Medication 5,018.7931 ml @ 1,000 mls/hr Q5H2M 08/07/16 00:55 08/07/16 00:58 DC Potassium Chloride 15 meq/ Calcium Chloride 15 meq/Magnesium Sulfate 12.5 meq/ Miscellaneous Medication 5,021.2931 ml @ 1,000 mls/hr Q5H2M 08/06/16 19:00 08/07/16 00:55 DC 08/07/16 00:02 1,000 MLS/HR Potassium Chloride 5 meq/ Calcium Chloride 15 meq/Magnesium Sulfate 12.5 meq/ Miscellaneous Medication 5,016.2931 ml @ 1,000 mls/hr Q5H1M 08/06/16 19:00 08/07/16 10:00 DC 08/07/16 03:08 1,000 MLS/HR Potassium Chloride 5 meq/ Calcium Chloride 17.5 meq/ Magnesium Sulfate 10 meq/Bicarb Dialysis8 w-Out Calcium 5,017.463 ml @ 1,000 mls/hr Q5H2M 08/08/16 00:00 08/08/16 14:37 DC 08/08/16 05:13 1,000 MLS/HR Potassium Chloride 5 meq/ Calcium Chloride 17.5 meq/ Magnesium Sulfate 15 meq/ Miscellaneous Medication 5,018.6945 ml @ 1,000 mls/hr Q5H2M 08/07/16 14:00 08/07/16 23:25 DC 08/07/16 20:40 1,000 MLS/HR Potassium Phosphate 13.6 mmol/Sodium Chloride 104.5333 ml @ 52.267 m... Q2H 08/08/16 15:00 08/08/16 20:59 DC 08/08/16 21:05 52.267 MLS/HR Propofol 100 ml @ 0 mls/hr CONT PRN 08/06/16 12:15 08/10/16 04:30 16.329 MLS/HR Sodium Bicarbonate 150 meq/Dextrose 1,150 ml @ 500 mls/hr Q2H18M 08/07/16 14:00 08/07/16 17:52 DC 08/07/16 17:04 500 MLS/HR Sodium Bicarbonate 50 meq 1X ONCE 08/06/16 15:00 08/06/16 15:01 DC 08/06/16 15:07 50 MEQ Sodium Chloride 1,000 ml @ 500 mls/hr Q2H 08/08/16 00:00 08/08/16 15:43 DC 08/08/16 06:36 500 MLS/HR Sodium Chloride (Normal Saline Flush) 10 ml 1X PRN PRN 08/06/16 14:45 08/07/16 08:01 DC Succinylcholine Chloride (Anectine) 200 mg STK-MED ONCE 08/06/16 11:36 08/06/16 11:37 DC Sulfur Hexafluoride Microspheres (Lumason) 25 mg STK-MED ONCE 08/07/16 09:01 08/07/16 09:02 DC Vasopressin 40 unit/Dextrose 102 ml @ 6 mls/hr CONT PRN 08/07/16 09:00 08/08/16 13:06 DC 08/07/16 09:09 6 MLS/HR Vecuronium Chandler (Norcuron Bolus) 10 mg PRN Q6HRS PRN 08/07/16 02:45 08/07/16 09:47 10 MG Lab Laboratory Tests Test 08/09/16 11:35 08/09/16 16:56 08/10/16 00:32 08/10/16 04:25 Glucose (Fingerstick) 130 mg/dL (70-99) 136 mg/dL (70-99) 123 mg/dL (70-99) White Blood Count 7.7 x10^3/uL (4.0-11.0) Red Blood Count 2.81 x10^6/uL (3.50-5.40) Hemoglobin 8.0 g/dL (12.0-15.5) Hematocrit 23.7 % (36.0-47.0) Mean Corpuscular Volume 84 fL (79-100) Mean Corpuscular Hemoglobin 29 pg (25-35) Mean Corpuscular Hemoglobin Concent 34 g/dL (31-37) Red Cell Distribution Width 14.4 % (11.5-14.5) Platelet Count 179 x10^3/uL (140-400) Sodium Level 138 mmol/L (136-145) Potassium Level 3.4 mmol/L (3.5-5.1) Chloride Level 102 mmol/L (98-107) Carbon Dioxide Level 25 mmol/L (21-32) Anion Gap 11 (6-14) Blood Urea Nitrogen 43 mg/dL (7-20) Creatinine 4.2 mg/dL (0.6-1.0) Estimated GFR (Cockcroft-Gault) 12.3 Glucose Level 121 mg/dL (70-99) Lactic Acid Level 1.1 mmol/L (0.4-2.0) Calcium Level 8.4 mg/dL (8.5-10.1) Phosphorus Level 4.9 mg/dL (2.6-4.7) Magnesium Level 3.8 mg/dL (1.8-2.4) Albumin 2.3 g/dL (3.4-5.0) Test 08/10/16 08:00 O2 Saturation 97 % (92-99) Arterial Blood pH 7.41 (7.35-7.45) Arterial Blood pCO2 at Patient Temp 37 mmHg (35-46) Arterial Blood pO2 at Patient Temp 103 mmHg (85-108) Arterial Blood HCO3 23 mmol/L (21-28) Arterial Blood Base Excess -2 mmol/L (-3-3) FiO2 50 NOLAN ROSALES MD August 10, 2016 09:26
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
--- NOTE | 2016-08-10 10:44 | PDOC ---
PULMONARY PROGRESS NOTES Subjective remains on AC mode off all pressors off CRRT, will have hd today opens eyes w verbal stimuli but does not follow commands Vitals Vital Signs Date Time Temp Pulse Resp B/P (MAP) Pulse Ox O2 Delivery O2 Flow Rate FiO2 08/10/16 08:33 96 Ventilator 08/10/16 08:00 99.1 98 24 137/60 (85) 99.1 General: Lethargic HEENT: Other (nc at perrl orally intubated. nose clear) Lungs: Other (decrease bs) Cardiovascular: S1, S2 Abdomen: Soft, Non-tender, Other (no mass) Extremities: Other (2+edema) Skin: Warm Labs Laboratory Tests Test 08/08/16 11:49 08/08/16 16:08 08/09/16 02:40 08/09/16 07:40 Glucose (Fingerstick) 154 mg/dL (70-99) Sodium Level 135 mmol/L (136-145) 136 mmol/L (136-145) Potassium Level 3.5 mmol/L (3.5-5.1) 3.7 mmol/L (3.5-5.1) Chloride Level 100 mmol/L (98-107) 100 mmol/L (98-107) Carbon Dioxide Level 28 mmol/L (21-32) 25 mmol/L (21-32) Anion Gap 7 (6-14) 11 (6-14) Blood Urea Nitrogen 24 mg/dL (7-20) 31 mg/dL (7-20) Creatinine 2.7 mg/dL (0.6-1.0) 3.7 mg/dL (0.6-1.0) Estimated GFR (Cockcroft-Gault) 20.6 14.3 BUN/Creatinine Ratio 9 (6-20) Glucose Level 128 mg/dL (70-99) 145 mg/dL (70-99) Lactic Acid Level 2.2 mmol/L (0.4-2.0) 1.2 mmol/L (0.4-2.0) Calcium Level 8.3 mg/dL (8.5-10.1) 8.3 mg/dL (8.5-10.1) Phosphorus Level 1.8 mg/dL (2.6-4.7) 4.5 mg/dL (2.6-4.7) Magnesium Level 3.6 mg/dL (1.8-2.4) 3.7 mg/dL (1.8-2.4) Total Bilirubin 0.2 mg/dL (0.2-1.0) Aspartate Amino Transf (AST/SGOT) 16 U/L (15-37) Alanine Aminotransferase (ALT/SGPT) 23 U/L (14-59) Alkaline Phosphatase 71 U/L (46-116) Total Protein 5.3 g/dL (6.4-8.2) Albumin 2.3 g/dL (3.4-5.0) 2.3 g/dL (3.4-5.0) Albumin/Globulin Ratio 0.8 (1.0-1.7) O2 Saturation 98 % (92-99) Arterial Blood pH 7.40 (7.35-7.45) Arterial Blood pCO2 at Patient Temp 38 mmHg (35-46) Arterial Blood pO2 at Patient Temp 112 mmHg (85-108) Arterial Blood HCO3 23 mmol/L (21-28) Arterial Blood Base Excess -2 mmol/L (-3-3) FiO2 55 Test 08/09/16 08:58 08/09/16 11:35 08/09/16 16:56 08/10/16 00:32 Glucose (Fingerstick) 129 mg/dL (70-99) 130 mg/dL (70-99) 136 mg/dL (70-99) 123 mg/dL (70-99) Test 08/10/16 04:25 08/10/16 08:00 White Blood Count 7.7 x10^3/uL (4.0-11.0) Red Blood Count 2.81 x10^6/uL (3.50-5.40) Hemoglobin 8.0 g/dL (12.0-15.5) Hematocrit 23.7 % (36.0-47.0) Mean Corpuscular Volume 84 fL (79-100) Mean Corpuscular Hemoglobin 29 pg (25-35) Mean Corpuscular Hemoglobin Concent 34 g/dL (31-37) Red Cell Distribution Width 14.4 % (11.5-14.5) Platelet Count 179 x10^3/uL (140-400) Sodium Level 138 mmol/L (136-145) Potassium Level 3.4 mmol/L (3.5-5.1) Chloride Level 102 mmol/L (98-107) Carbon Dioxide Level 25 mmol/L (21-32) Anion Gap 11 (6-14) Blood Urea Nitrogen 43 mg/dL (7-20) Creatinine 4.2 mg/dL (0.6-1.0) Estimated GFR (Cockcroft-Gault) 12.3 Glucose Level 121 mg/dL (70-99) Lactic Acid Level 1.1 mmol/L (0.4-2.0) Calcium Level 8.4 mg/dL (8.5-10.1) Phosphorus Level 4.9 mg/dL (2.6-4.7) Magnesium Level 3.8 mg/dL (1.8-2.4) Albumin 2.3 g/dL (3.4-5.0) O2 Saturation 97 % (92-99) Arterial Blood pH 7.41 (7.35-7.45) Arterial Blood pCO2 at Patient Temp 37 mmHg (35-46) Arterial Blood pO2 at Patient Temp 103 mmHg (85-108) Arterial Blood HCO3 23 mmol/L (21-28) Arterial Blood Base Excess -2 mmol/L (-3-3) FiO2 50 Laboratory Tests Test 08/09/16 11:35 08/09/16 16:56 08/10/16 00:32 08/10/16 04:25 Glucose (Fingerstick) 130 mg/dL (70-99) 136 mg/dL (70-99) 123 mg/dL (70-99) White Blood Count 7.7 x10^3/uL (4.0-11.0) Red Blood Count 2.81 x10^6/uL (3.50-5.40) Hemoglobin 8.0 g/dL (12.0-15.5) Hematocrit 23.7 % (36.0-47.0) Mean Corpuscular Volume 84 fL (79-100) Mean Corpuscular Hemoglobin 29 pg (25-35) Mean Corpuscular Hemoglobin Concent 34 g/dL (31-37) Red Cell Distribution Width 14.4 % (11.5-14.5) Platelet Count 179 x10^3/uL (140-400) Sodium Level 138 mmol/L (136-145) Potassium Level 3.4 mmol/L (3.5-5.1) Chloride Level 102 mmol/L (98-107) Carbon Dioxide Level 25 mmol/L (21-32) Anion Gap 11 (6-14) Blood Urea Nitrogen 43 mg/dL (7-20) Creatinine 4.2 mg/dL (0.6-1.0) Estimated GFR (Cockcroft-Gault) 12.3 Glucose Level 121 mg/dL (70-99) Lactic Acid Level 1.1 mmol/L (0.4-2.0) Calcium Level 8.4 mg/dL (8.5-10.1) Phosphorus Level 4.9 mg/dL (2.6-4.7) Magnesium Level 3.8 mg/dL (1.8-2.4) Albumin 2.3 g/dL (3.4-5.0) Test 08/10/16 08:00 O2 Saturation 97 % (92-99) Arterial Blood pH 7.41 (7.35-7.45) Arterial Blood pCO2 at Patient Temp 37 mmHg (35-46) Arterial Blood pO2 at Patient Temp 103 mmHg (85-108) Arterial Blood HCO3 23 mmol/L (21-28) Arterial Blood Base Excess -2 mmol/L (-3-3) FiO2 50 Medications Active Scripts Medications Dose Route/Sig Days Date Category [place] 5-325 Tablet (Acetaminophen/Hydrocodone Bitart) 1 Each Tablet 1 Tab PO PRN Q6HRS PRN 07/22/15 Reported Gabapentin 800 Mg Tablet 800 Mg PO TID 07/22/15 Reported Comments CXR reviewed, bibasilar atelectasis/effusion, ett ok Impression . 1. Acute respiratory failure secondary to suicidal attempt with large doses of 500 mg metformin. Apparently, she took 180 tablets, admitted with severe metabolic acidosis , lactic acidosis and acute encephalopathy. 2. Metformin overdose in large quantity with severe metabolic acidosis/lactic acidosis, 3. Acute toxic encephalopathy. 4. abnl chest x-ray. 5. Encephalopathy/ post sedation, slowing improving 6. shock, ?septic vs related to severe acidosis, resolved 7. JENNY Plan . 1. Continue present assist control mode, cont vent support until more awake. d/ c sedation and assess MS, will do sbt when more awake 2. elevate hob 3. Monitor blood sugars closely. 4. hd per nephro 5. Follow renal recommendation 6. lactic acid normalized 7. empiric antibiotic 8. Protonix, hep for prophylaxis Discussed with RN and RT. VICTORINA Sharma MD August 10, 2016 10:44
[2016-08-10] MEDS ORDERED: IV NORMAL SALINE 1000ML BAG 1,000 ML IV PRN ×2 (12:26)
[2016-08-10] MEDS ORDERED: diphenhydrAMINE 50 MG/ML VIAL IV PRN ×2 (12:30)
[2016-08-10] MEDS ORDERED: DIALYSIS PATIENT. MC PRN (12:30)
[2016-08-10] MEDS ORDERED: 0.9 % SODIUM CHLORIDE 10 ML DISP.SYRIN. IV PRN ×2 (12:30)
[2016-08-10] MEDS ORDERED: HEPARIN for IV BOLUS 10,000 UNIT/10 ML VIAL. IV STA (13:15)
[2016-08-11] VITALS (37 sets, daily range): BP systolic 99–232; BP diastolic 50–120
[2016-08-11] MEDS: PROPOFOL 100 ML IV PRN ×2 (02:00→10:30)
[2016-08-11 06:15] LABS: ALBUMIN 2.4 g/dL (3.4-5.0); CALCIUM 8.8 mg/dL (8.5-10.1); CREATININE 2.2 mg/dL (0.6-1.0); PHOSPHORUS 3.7 mg/dL (2.6-4.7); POTASSIUM 3.2 mmol/L (3.5-5.1)
[2016-08-11] MEDS ORDERED: DIALYSIS PATIENT. MC PRN ×3 (07:00→10:30)
[2016-08-11] MEDS ORDERED: 0.9 % SODIUM CHLORIDE 10 ML DISP.SYRIN. IV PRN ×4 (07:00→10:30)
[2016-08-11] MEDS ORDERED: ALBUMIN HUMAN 25% 200 ML IV PRN (07:00)
[2016-08-11] MEDS ORDERED: IV NORMAL SALINE 1000ML BAG 1,000 ML IV PRN ×2 (07:00)
[2016-08-11 07:03] LABS: BASO % 0 % (0-3); EOS % 2 % (0-3); HEMATOCRIT 25.1 % (36.0-47.0); HEMOGLOBIN 8.5 g/dL (12.0-15.5); LYMPH # 1.4 x10^3/uL (1.0-4.8); LYMPH % 17 % (24-48); MEAN CORPUSCULAR HEMOGLOBIN 29 pg (25-35); MEAN CORPUSCULAR HGB CONC 34 g/dL (31-37); MEAN CORPUSCULAR VOLUME 85 fL (79-100); MONO % 15 % (0-9); NEUT % 67 % (31-73); PLATELET COUNT 224 x10^3/uL (140-400); RED BLOOD COUNT 2.97 x10^6/uL (3.50-5.40); RED CELL DISTRIBUTION WIDTH 14.4 % (11.5-14.5); WHITE BLOOD COUNT 8.2 x10^3/uL (4.0-11.0)
[2016-08-11] MEDS: IPRATRPIUM/ALBUTEROL 0.5/2.5MG 3 ML NEBU. NEB SCH ×4 (07:03→20:11)
[2016-08-11 07:53] LABS: FIO2 ABG 50; HCO3 ABG 28 mmol/L (21-28); PCO2 ABG 38 mmHg (35-46); PH ABG 7.49 (7.35-7.45); PO2 ABG 76 mmHg (85-108); SAT O2 ABG 95 % (92-99)
[2016-08-11] MEDS: INSULIN ASPART 300 UNITS/3 ML INSULN.PEN SQ SCH ×3 (07:54→17:00)
--- NOTE | 2016-08-11 08:08 | PDOC ---
PULMONARY PROGRESS NOTES Subjective remains on AC mode off all pressors hd today more alert, follows some commands Vitals Vital Signs Date Time Temp Pulse Resp B/P (MAP) Pulse Ox O2 Delivery O2 Flow Rate FiO2 08/11/16 07:49 Ventilator 08/11/16 07:04 96 08/11/16 06:00 85 20 123/61 (81) 08/11/16 03:00 98.7 98.7 Comments ros as mentioned as above, discussed w rn, other sys otherwise neg General: Alert HEENT: Other (nc at perrl orally intubated. nose clear) Lungs: Other (decrease bs) Cardiovascular: S1, S2 Abdomen: Soft, Non-tender, Other (no mass) Neuro Exam: Alert Extremities: Other (2+edema) Skin: Warm Labs Laboratory Tests Test 08/09/16 08:58 08/09/16 11:35 08/09/16 16:56 08/10/16 00:32 Glucose (Fingerstick) 129 mg/dL (70-99) 130 mg/dL (70-99) 136 mg/dL (70-99) 123 mg/dL (70-99) Test 08/10/16 04:25 08/10/16 08:00 08/10/16 11:21 08/10/16 16:27 White Blood Count 7.7 x10^3/uL (4.0-11.0) Red Blood Count 2.81 x10^6/uL (3.50-5.40) Hemoglobin 8.0 g/dL (12.0-15.5) Hematocrit 23.7 % (36.0-47.0) Mean Corpuscular Volume 84 fL (79-100) Mean Corpuscular Hemoglobin 29 pg (25-35) Mean Corpuscular Hemoglobin Concent 34 g/dL (31-37) Red Cell Distribution Width 14.4 % (11.5-14.5) Platelet Count 179 x10^3/uL (140-400) Sodium Level 138 mmol/L (136-145) Potassium Level 3.4 mmol/L (3.5-5.1) Chloride Level 102 mmol/L (98-107) Carbon Dioxide Level 25 mmol/L (21-32) Anion Gap 11 (6-14) Blood Urea Nitrogen 43 mg/dL (7-20) Creatinine 4.2 mg/dL (0.6-1.0) Estimated GFR (Cockcroft-Gault) 12.3 Glucose Level 121 mg/dL (70-99) Lactic Acid Level 1.1 mmol/L (0.4-2.0) Calcium Level 8.4 mg/dL (8.5-10.1) Phosphorus Level 4.9 mg/dL (2.6-4.7) Magnesium Level 3.8 mg/dL (1.8-2.4) Albumin 2.3 g/dL (3.4-5.0) O2 Saturation 97 % (92-99) Arterial Blood pH 7.41 (7.35-7.45) Arterial Blood pCO2 at Patient Temp 37 mmHg (35-46) Arterial Blood pO2 at Patient Temp 103 mmHg (85-108) Arterial Blood HCO3 23 mmol/L (21-28) Arterial Blood Base Excess -2 mmol/L (-3-3) FiO2 50 Glucose (Fingerstick) 145 mg/dL (70-99) 146 mg/dL (70-99) Test 08/11/16 05:00 08/11/16 07:22 White Blood Count 8.2 x10^3/uL (4.0-11.0) Red Blood Count 2.97 x10^6/uL (3.50-5.40) Hemoglobin 8.5 g/dL (12.0-15.5) Hematocrit 25.1 % (36.0-47.0) Mean Corpuscular Volume 85 fL (79-100) Mean Corpuscular Hemoglobin 29 pg (25-35) Mean Corpuscular Hemoglobin Concent 34 g/dL (31-37) Red Cell Distribution Width 14.4 % (11.5-14.5) Platelet Count 224 x10^3/uL (140-400) Neutrophils (%) (Auto) 67 % (31-73) Lymphocytes (%) (Auto) 17 % (24-48) Monocytes (%) (Auto) 15 % (0-9) Eosinophils (%) (Auto) 2 % (0-3) Basophils (%) (Auto) 0 % (0-3) Neutrophils # (Auto) 5.5 x10^3uL (1.8-7.7) Lymphocytes # (Auto) 1.4 x10^3/uL (1.0-4.8) Monocytes # (Auto) 1.2 x10^3/uL (0.0-1.1) Eosinophils # (Auto) 0.1 x10^3/uL (0.0-0.7) Basophils # (Auto) 0.0 x10^3/uL (0.0-0.2) Sodium Level 138 mmol/L (136-145) Potassium Level 3.2 mmol/L (3.5-5.1) Chloride Level 101 mmol/L (98-107) Carbon Dioxide Level 28 mmol/L (21-32) Anion Gap 9 (6-14) Blood Urea Nitrogen 34 mg/dL (7-20) Creatinine 2.2 mg/dL (0.6-1.0) Estimated GFR (Cockcroft-Gault) 26.0 Glucose Level 169 mg/dL (70-99) Lactic Acid Level 1.2 mmol/L (0.4-2.0) Calcium Level 8.8 mg/dL (8.5-10.1) Phosphorus Level 3.7 mg/dL (2.6-4.7) Magnesium Level 2.5 mg/dL (1.8-2.4) Albumin 2.4 g/dL (3.4-5.0) O2 Saturation 95 % (92-99) Arterial Blood pH 7.49 (7.35-7.45) Arterial Blood pCO2 at Patient Temp 38 mmHg (35-46) Arterial Blood pO2 at Patient Temp 76 mmHg (85-108) Arterial Blood HCO3 28 mmol/L (21-28) Arterial Blood Base Excess 4 mmol/L (-3-3) FiO2 50 Laboratory Tests Test 08/10/16 11:21 08/10/16 16:27 08/11/16 05:00 08/11/16 07:22 Glucose (Fingerstick) 145 mg/dL (70-99) 146 mg/dL (70-99) White Blood Count 8.2 x10^3/uL (4.0-11.0) Red Blood Count 2.97 x10^6/uL (3.50-5.40) Hemoglobin 8.5 g/dL (12.0-15.5) Hematocrit 25.1 % (36.0-47.0) Mean Corpuscular Volume 85 fL (79-100) Mean Corpuscular Hemoglobin 29 pg (25-35) Mean Corpuscular Hemoglobin Concent 34 g/dL (31-37) Red Cell Distribution Width 14.4 % (11.5-14.5) Platelet Count 224 x10^3/uL (140-400) Neutrophils (%) (Auto) 67 % (31-73) Lymphocytes (%) (Auto) 17 % (24-48) Monocytes (%) (Auto) 15 % (0-9) Eosinophils (%) (Auto) 2 % (0-3) Basophils (%) (Auto) 0 % (0-3) Neutrophils # (Auto) 5.5 x10^3uL (1.8-7.7) Lymphocytes # (Auto) 1.4 x10^3/uL (1.0-4.8) Monocytes # (Auto) 1.2 x10^3/uL (0.0-1.1) Eosinophils # (Auto) 0.1 x10^3/uL (0.0-0.7) Basophils # (Auto) 0.0 x10^3/uL (0.0-0.2) Sodium Level 138 mmol/L (136-145) Potassium Level 3.2 mmol/L (3.5-5.1) Chloride Level 101 mmol/L (98-107) Carbon Dioxide Level 28 mmol/L (21-32) Anion Gap 9 (6-14) Blood Urea Nitrogen 34 mg/dL (7-20) Creatinine 2.2 mg/dL (0.6-1.0) Estimated GFR (Cockcroft-Gault) 26.0 Glucose Level 169 mg/dL (70-99) Lactic Acid Level 1.2 mmol/L (0.4-2.0) Calcium Level 8.8 mg/dL (8.5-10.1) Phosphorus Level 3.7 mg/dL (2.6-4.7) Magnesium Level 2.5 mg/dL (1.8-2.4) Albumin 2.4 g/dL (3.4-5.0) O2 Saturation 95 % (92-99) Arterial Blood pH 7.49 (7.35-7.45) Arterial Blood pCO2 at Patient Temp 38 mmHg (35-46) Arterial Blood pO2 at Patient Temp 76 mmHg (85-108) Arterial Blood HCO3 28 mmol/L (21-28) Arterial Blood Base Excess 4 mmol/L (-3-3) FiO2 50 Medications Active Scripts Medications Dose Route/Sig Days Date Category [place] 5-325 Tablet (Acetaminophen/Hydrocodone Bitart) 1 Each Tablet 1 Tab PO PRN Q6HRS PRN 07/22/15 Reported Gabapentin 800 Mg Tablet 800 Mg PO TID 07/22/15 Reported Comments CXR reviewed, bibasilar atelectasis/effusion, ett ok Impression . 1. Acute respiratory failure secondary to suicidal attempt with large doses of 500 mg metformin. Apparently, she took 180 tablets, admitted with severe metabolic acidosis , lactic acidosis and acute encephalopathy. 2. Metformin overdose in large quantity with severe metabolic acidosis/lactic acidosis, 3. Acute toxic encephalopathy. 4. abnl chest x-ray. 5. Encephalopathy/ post sedation, slowing improving 6. shock, ?septic vs related to severe acidosis, resolved 7. JENNY Plan . 1. Continue present assist control mode, setting reviewed, i personally decreased peep to 5, will do sbt after hd 2. elevate hob 3. Monitor blood sugars closely. 4. hd per nephro 5. Follow renal recommendation 6. lactic acid normalized 7. empiric antibiotic 8. Protonix, start hep sq for prophylaxis Discussed with RN and RT. VICTORINA ORTEGA MD August 11, 2016 08:08
--- NOTE | 2016-08-11 08:11 | PDOC ---
Infectious Disease Note Subjective Subjective Alert Remains on ventilator. BP stable. Off pressors Tube feedings via OGT No fever No BM ROS ROS Limited. Vital Sign Vital Signs Vital Signs Date Time Temp Pulse Resp B/P (MAP) Pulse Ox O2 Delivery O2 Flow Rate FiO2 08/11/16 07:49 Ventilator 08/11/16 07:04 96 08/11/16 06:00 85 20 123/61 (81) 08/11/16 03:00 98.7 98.7 Physical Exam PHYSICAL EXAM GENERAL: Alert, intubated, calm, mittens HEENT: PERRL, ETT. OGT LUNGS: Clear HEART: S1S2, regular ABD: Obese, BS present, soft, NT : [place] EXT: BLE trace edema. No cyanosis [employer]: Alert, minimally responsive to questions SKIN: No rash IV: ok RIJ-HDC. (08/06) clean Labs Lab Laboratory Tests Test 08/10/16 08:00 08/10/16 11:21 08/10/16 16:27 08/11/16 05:00 O2 Saturation 97 % (92-99) Arterial Blood pH 7.41 (7.35-7.45) Arterial Blood pCO2 at Patient Temp 37 mmHg (35-46) Arterial Blood pO2 at Patient Temp 103 mmHg (85-108) Arterial Blood HCO3 23 mmol/L (21-28) Arterial Blood Base Excess -2 mmol/L (-3-3) FiO2 50 Glucose (Fingerstick) 145 mg/dL (70-99) 146 mg/dL (70-99) White Blood Count 8.2 x10^3/uL (4.0-11.0) Red Blood Count 2.97 x10^6/uL (3.50-5.40) Hemoglobin 8.5 g/dL (12.0-15.5) Hematocrit 25.1 % (36.0-47.0) Mean Corpuscular Volume 85 fL (79-100) Mean Corpuscular Hemoglobin 29 pg (25-35) Mean Corpuscular Hemoglobin Concent 34 g/dL (31-37) Red Cell Distribution Width 14.4 % (11.5-14.5) Platelet Count 224 x10^3/uL (140-400) Neutrophils (%) (Auto) 67 % (31-73) Lymphocytes (%) (Auto) 17 % (24-48) Monocytes (%) (Auto) 15 % (0-9) Eosinophils (%) (Auto) 2 % (0-3) Basophils (%) (Auto) 0 % (0-3) Neutrophils # (Auto) 5.5 x10^3uL (1.8-7.7) Lymphocytes # (Auto) 1.4 x10^3/uL (1.0-4.8) Monocytes # (Auto) 1.2 x10^3/uL (0.0-1.1) Eosinophils # (Auto) 0.1 x10^3/uL (0.0-0.7) Basophils # (Auto) 0.0 x10^3/uL (0.0-0.2) Sodium Level 138 mmol/L (136-145) Potassium Level 3.2 mmol/L (3.5-5.1) Chloride Level 101 mmol/L (98-107) Carbon Dioxide Level 28 mmol/L (21-32) Anion Gap 9 (6-14) Blood Urea Nitrogen 34 mg/dL (7-20) Creatinine 2.2 mg/dL (0.6-1.0) Estimated GFR (Cockcroft-Gault) 26.0 Glucose Level 169 mg/dL (70-99) Lactic Acid Level 1.2 mmol/L (0.4-2.0) Calcium Level 8.8 mg/dL (8.5-10.1) Phosphorus Level 3.7 mg/dL (2.6-4.7) Magnesium Level 2.5 mg/dL (1.8-2.4) Albumin 2.4 g/dL (3.4-5.0) Test 08/11/16 07:22 O2 Saturation 95 % (92-99) Arterial Blood pH 7.49 (7.35-7.45) Arterial Blood pCO2 at Patient Temp 38 mmHg (35-46) Arterial Blood pO2 at Patient Temp 76 mmHg (85-108) Arterial Blood HCO3 28 mmol/L (21-28) Arterial Blood Base Excess 4 mmol/L (-3-3) FiO2 50 Micro BLOOD CULTURE Preliminary NO GROWTH AFTER 3 DAYS Objective Assessment Fever, low grade, better Leukocytosis improved Lactic acidosis improved Metformin OD Metabolic acidosis Respiratory failure Encephalopathy JENNY on HD Plan Plan of Care Rocephin empirically, wean soon Monitor temp/labs in am. Procalcitonin add on Supportive care Attending Co-Sign Attending Co-Sign The patient was seen and interviewed as well as examined at the bedside. The chart was reviewed. The case was discussed. Agree with the plan of care. NESTOR COLLADO APRN August 11, 2016 08:11 SLOAN WETZEL MD August 11, 2016 12:22
[2016-08-11] MEDS: PANTOPRAZOLE IV PUSH 40 MG VIAL. IVP SCH (08:19)
[2016-08-11] MEDS: HEPARIN PF for SUB-Q USE 5,000 UNIT/0.5 ML VIAL. SQ SCH ×3 (08:22→23:49)
[2016-08-11] MEDS: CHLORHEXIDINE 0.12% 15 ML MOUTHWASH. MM SCH (08:24)
--- NOTE | 2016-08-11 09:11 | PDOC ---
Dialysis Progress Note Dialysis Note Dialysis Note Seen on Hemodialysis , tolerating treatment OK so far n Vitals on HD at time of my eval: 130/68 92 General Appearance: Sedated and intubated Neck: No JVD or JVP Chest: CTA [place] Heart: S1 S2 Abdomen - Soft NTND; obese Extremities - No Edema ARF/ ATN (Non_Oliguric) Dialysis as below F 180 NR 3.0 Hrs 4 K 2.5 Ca 140 Na 35 HC03 Qb 350 + Qd 500+ Heparin 0 Units Uf 0 Kgs or to dry weight as tolerated May give 25-50 gms of 25% Albumin if needed to maintain Hemodynamic stability Treatment plan reviewed and discussed with retinal surgeon Vitals Vital Signs Vital Signs Date Time Temp Pulse Resp B/P (MAP) Pulse Ox O2 Delivery O2 Flow Rate FiO2 08/11/16 08:56 97 Ventilator 08/11/16 08:00 100.1 89 20 112/58 (76) 100.1 Labs Last Labs Laboratory Tests Test 08/09/16 11:35 08/09/16 16:56 08/10/16 00:32 08/10/16 04:25 Glucose (Fingerstick) 130 mg/dL (70-99) 136 mg/dL (70-99) 123 mg/dL (70-99) White Blood Count 7.7 x10^3/uL (4.0-11.0) Red Blood Count 2.81 x10^6/uL (3.50-5.40) Hemoglobin 8.0 g/dL (12.0-15.5) Hematocrit 23.7 % (36.0-47.0) Mean Corpuscular Volume 84 fL (79-100) Mean Corpuscular Hemoglobin 29 pg (25-35) Mean Corpuscular Hemoglobin Concent 34 g/dL (31-37) Red Cell Distribution Width 14.4 % (11.5-14.5) Platelet Count 179 x10^3/uL (140-400) Sodium Level 138 mmol/L (136-145) Potassium Level 3.4 mmol/L (3.5-5.1) Chloride Level 102 mmol/L (98-107) Carbon Dioxide Level 25 mmol/L (21-32) Anion Gap 11 (6-14) Blood Urea Nitrogen 43 mg/dL (7-20) Creatinine 4.2 mg/dL (0.6-1.0) Estimated GFR (Cockcroft-Gault) 12.3 Glucose Level 121 mg/dL (70-99) Lactic Acid Level 1.1 mmol/L (0.4-2.0) Calcium Level 8.4 mg/dL (8.5-10.1) Phosphorus Level 4.9 mg/dL (2.6-4.7) Magnesium Level 3.8 mg/dL (1.8-2.4) Albumin 2.3 g/dL (3.4-5.0) Test 08/10/16 08:00 08/10/16 11:21 08/10/16 16:27 08/11/16 05:00 O2 Saturation 97 % (92-99) Arterial Blood pH 7.41 (7.35-7.45) Arterial Blood pCO2 at Patient Temp 37 mmHg (35-46) Arterial Blood pO2 at Patient Temp 103 mmHg (85-108) Arterial Blood HCO3 23 mmol/L (21-28) Arterial Blood Base Excess -2 mmol/L (-3-3) FiO2 50 Glucose (Fingerstick) 145 mg/dL (70-99) 146 mg/dL (70-99) White Blood Count 8.2 x10^3/uL (4.0-11.0) Red Blood Count 2.97 x10^6/uL (3.50-5.40) Hemoglobin 8.5 g/dL (12.0-15.5) Hematocrit 25.1 % (36.0-47.0) Mean Corpuscular Volume 85 fL (79-100) Mean Corpuscular Hemoglobin 29 pg (25-35) Mean Corpuscular Hemoglobin Concent 34 g/dL (31-37) Red Cell Distribution Width 14.4 % (11.5-14.5) Platelet Count 224 x10^3/uL (140-400) Neutrophils (%) (Auto) 67 % (31-73) Lymphocytes (%) (Auto) 17 % (24-48) Monocytes (%) (Auto) 15 % (0-9) Eosinophils (%) (Auto) 2 % (0-3) Basophils (%) (Auto) 0 % (0-3) Neutrophils # (Auto) 5.5 x10^3uL (1.8-7.7) Lymphocytes # (Auto) 1.4 x10^3/uL (1.0-4.8) Monocytes # (Auto) 1.2 x10^3/uL (0.0-1.1) Eosinophils # (Auto) 0.1 x10^3/uL (0.0-0.7) Basophils # (Auto) 0.0 x10^3/uL (0.0-0.2) Sodium Level 138 mmol/L (136-145) Potassium Level 3.2 mmol/L (3.5-5.1) Chloride Level 101 mmol/L (98-107) Carbon Dioxide Level 28 mmol/L (21-32) Anion Gap 9 (6-14) Blood Urea Nitrogen 34 mg/dL (7-20) Creatinine 2.2 mg/dL (0.6-1.0) Estimated GFR (Cockcroft-Gault) 26.0 Glucose Level 169 mg/dL (70-99) Lactic Acid Level 1.2 mmol/L (0.4-2.0) Calcium Level 8.8 mg/dL (8.5-10.1) Phosphorus Level 3.7 mg/dL (2.6-4.7) Magnesium Level 2.5 mg/dL (1.8-2.4) Albumin 2.4 g/dL (3.4-5.0) Test 08/11/16 07:22 O2 Saturation 95 % (92-99) Arterial Blood pH 7.49 (7.35-7.45) Arterial Blood pCO2 at Patient Temp 38 mmHg (35-46) Arterial Blood pO2 at Patient Temp 76 mmHg (85-108) Arterial Blood HCO3 28 mmol/L (21-28) Arterial Blood Base Excess 4 mmol/L (-3-3) FiO2 50 Laboratory Tests Test 08/10/16 11:21 08/10/16 16:27 08/11/16 05:00 08/11/16 07:22 Glucose (Fingerstick) 145 mg/dL (70-99) 146 mg/dL (70-99) White Blood Count 8.2 x10^3/uL (4.0-11.0) Red Blood Count 2.97 x10^6/uL (3.50-5.40) Hemoglobin 8.5 g/dL (12.0-15.5) Hematocrit 25.1 % (36.0-47.0) Mean Corpuscular Volume 85 fL (79-100) Mean Corpuscular Hemoglobin 29 pg (25-35) Mean Corpuscular Hemoglobin Concent 34 g/dL (31-37) Red Cell Distribution Width 14.4 % (11.5-14.5) Platelet Count 224 x10^3/uL (140-400) Neutrophils (%) (Auto) 67 % (31-73) Lymphocytes (%) (Auto) 17 % (24-48) Monocytes (%) (Auto) 15 % (0-9) Eosinophils (%) (Auto) 2 % (0-3) Basophils (%) (Auto) 0 % (0-3) Neutrophils # (Auto) 5.5 x10^3uL (1.8-7.7) Lymphocytes # (Auto) 1.4 x10^3/uL (1.0-4.8) Monocytes # (Auto) 1.2 x10^3/uL (0.0-1.1) Eosinophils # (Auto) 0.1 x10^3/uL (0.0-0.7) Basophils # (Auto) 0.0 x10^3/uL (0.0-0.2) Sodium Level 138 mmol/L (136-145) Potassium Level 3.2 mmol/L (3.5-5.1) Chloride Level 101 mmol/L (98-107) Carbon Dioxide Level 28 mmol/L (21-32) Anion Gap 9 (6-14) Blood Urea Nitrogen 34 mg/dL (7-20) Creatinine 2.2 mg/dL (0.6-1.0) Estimated GFR (Cockcroft-Gault) 26.0 Glucose Level 169 mg/dL (70-99) Lactic Acid Level 1.2 mmol/L (0.4-2.0) Calcium Level 8.8 mg/dL (8.5-10.1) Phosphorus Level 3.7 mg/dL (2.6-4.7) Magnesium Level 2.5 mg/dL (1.8-2.4) Albumin 2.4 g/dL (3.4-5.0) O2 Saturation 95 % (92-99) Arterial Blood pH 7.49 (7.35-7.45) Arterial Blood pCO2 at Patient Temp 38 mmHg (35-46) Arterial Blood pO2 at Patient Temp 76 mmHg (85-108) Arterial Blood HCO3 28 mmol/L (21-28) Arterial Blood Base Excess 4 mmol/L (-3-3) FiO2 50 Assessment Assessment Problems Medical Problems: (1) Altered mental status Status: Acute (2) Drug overdose, intentional Status: Acute (3) Hyponatremia Status: Acute (4) Intentional drug overdose Status: Acute Problems: Plan Plan of Care Problems Medical Problems: (1) Altered mental status Status: Acute (2) Drug overdose, intentional Status: Acute (3) Hyponatremia Status: Acute (4) Intentional drug overdose Status: Acute NOLAN ROSALES MD August 11, 2016 09:11
--- NOTE | 2016-08-11 09:31 | PDOC ---
PROGRESS NOTES Chief Complaint Chief Complaint Drug overdose, suicide attempt w/ metformin SIRS, acute renal failure History of prior suicidal attempt History of anxiety Depression, Major Hypertension Morbid obesity, BMI 49 History of Present Illness History of Present Illness Sedated on vent, f A/C / 20 / 500 / 50% / 5 PEEP HD today a little more awake today, could try less vent support if cooperative pt is on vent, but DNR order placed, had discussed with her mother Vitals Vitals Vital Signs Date Time Temp Pulse Resp B/P (MAP) Pulse Ox O2 Delivery O2 Flow Rate FiO2 08/11/16 08:56 97 Ventilator 08/11/16 08:00 100.1 89 20 112/58 (76) 100.1 Physical Exam Physical Exam MICHELLE General: Other (sedation in place, intubated, on CRRT) Heart: Regular rate (SR), Normal S1, Normal S2, No murmurs Lungs: Other (decrease bs) Abdomen: Soft, Other (morbid obesity) Extremities: No cyanosis, No edema Skin: No breakdown, No significant lesion Labs LABS Laboratory Tests Test 08/10/16 11:21 08/10/16 16:27 08/11/16 05:00 08/11/16 07:22 Glucose (Fingerstick) 145 mg/dL (70-99) 146 mg/dL (70-99) White Blood Count 8.2 x10^3/uL (4.0-11.0) Red Blood Count 2.97 x10^6/uL (3.50-5.40) Hemoglobin 8.5 g/dL (12.0-15.5) Hematocrit 25.1 % (36.0-47.0) Mean Corpuscular Volume 85 fL (79-100) Mean Corpuscular Hemoglobin 29 pg (25-35) Mean Corpuscular Hemoglobin Concent 34 g/dL (31-37) Red Cell Distribution Width 14.4 % (11.5-14.5) Platelet Count 224 x10^3/uL (140-400) Neutrophils (%) (Auto) 67 % (31-73) Lymphocytes (%) (Auto) 17 % (24-48) Monocytes (%) (Auto) 15 % (0-9) Eosinophils (%) (Auto) 2 % (0-3) Basophils (%) (Auto) 0 % (0-3) Neutrophils # (Auto) 5.5 x10^3uL (1.8-7.7) Lymphocytes # (Auto) 1.4 x10^3/uL (1.0-4.8) Monocytes # (Auto) 1.2 x10^3/uL (0.0-1.1) Eosinophils # (Auto) 0.1 x10^3/uL (0.0-0.7) Basophils # (Auto) 0.0 x10^3/uL (0.0-0.2) Sodium Level 138 mmol/L (136-145) Potassium Level 3.2 mmol/L (3.5-5.1) Chloride Level 101 mmol/L (98-107) Carbon Dioxide Level 28 mmol/L (21-32) Anion Gap 9 (6-14) Blood Urea Nitrogen 34 mg/dL (7-20) Creatinine 2.2 mg/dL (0.6-1.0) Estimated GFR (Cockcroft-Gault) 26.0 Glucose Level 169 mg/dL (70-99) Lactic Acid Level 1.2 mmol/L (0.4-2.0) Calcium Level 8.8 mg/dL (8.5-10.1) Phosphorus Level 3.7 mg/dL (2.6-4.7) Magnesium Level 2.5 mg/dL (1.8-2.4) Albumin 2.4 g/dL (3.4-5.0) O2 Saturation 95 % (92-99) Arterial Blood pH 7.49 (7.35-7.45) Arterial Blood pCO2 at Patient Temp 38 mmHg (35-46) Arterial Blood pO2 at Patient Temp 76 mmHg (85-108) Arterial Blood HCO3 28 mmol/L (21-28) Arterial Blood Base Excess 4 mmol/L (-3-3) FiO2 50 Assessment and Plan Assessmemt and Plan Problems Medical Problems: (1) Altered mental status Status: Acute (2) Drug overdose, intentional Status: Acute (3) Hyponatremia Status: Acute (4) Intentional drug overdose Status: Acute Problems: Comment Review of Relevant I have reviewed the following items bridget (where applicable) has been applied. Labs Laboratory Tests Test 08/09/16 11:35 08/09/16 16:56 08/10/16 00:32 08/10/16 04:25 Glucose (Fingerstick) 130 mg/dL (70-99) 136 mg/dL (70-99) 123 mg/dL (70-99) White Blood Count 7.7 x10^3/uL (4.0-11.0) Red Blood Count 2.81 x10^6/uL (3.50-5.40) Hemoglobin 8.0 g/dL (12.0-15.5) Hematocrit 23.7 % (36.0-47.0) Mean Corpuscular Volume 84 fL (79-100) Mean Corpuscular Hemoglobin 29 pg (25-35) Mean Corpuscular Hemoglobin Concent 34 g/dL (31-37) Red Cell Distribution Width 14.4 % (11.5-14.5) Platelet Count 179 x10^3/uL (140-400) Sodium Level 138 mmol/L (136-145) Potassium Level 3.4 mmol/L (3.5-5.1) Chloride Level 102 mmol/L (98-107) Carbon Dioxide Level 25 mmol/L (21-32) Anion Gap 11 (6-14) Blood Urea Nitrogen 43 mg/dL (7-20) Creatinine 4.2 mg/dL (0.6-1.0) Estimated GFR (Cockcroft-Gault) 12.3 Glucose Level 121 mg/dL (70-99) Lactic Acid Level 1.1 mmol/L (0.4-2.0) Calcium Level 8.4 mg/dL (8.5-10.1) Phosphorus Level 4.9 mg/dL (2.6-4.7) Magnesium Level 3.8 mg/dL (1.8-2.4) Albumin 2.3 g/dL (3.4-5.0) Test 08/10/16 08:00 08/10/16 11:21 08/10/16 16:27 08/11/16 05:00 O2 Saturation 97 % (92-99) Arterial Blood pH 7.41 (7.35-7.45) Arterial Blood pCO2 at Patient Temp 37 mmHg (35-46) Arterial Blood pO2 at Patient Temp 103 mmHg (85-108) Arterial Blood HCO3 23 mmol/L (21-28) Arterial Blood Base Excess -2 mmol/L (-3-3) FiO2 50 Glucose (Fingerstick) 145 mg/dL (70-99) 146 mg/dL (70-99) White Blood Count 8.2 x10^3/uL (4.0-11.0) Red Blood Count 2.97 x10^6/uL (3.50-5.40) Hemoglobin 8.5 g/dL (12.0-15.5) Hematocrit 25.1 % (36.0-47.0) Mean Corpuscular Volume 85 fL (79-100) Mean Corpuscular Hemoglobin 29 pg (25-35) Mean Corpuscular Hemoglobin Concent 34 g/dL (31-37) Red Cell Distribution Width 14.4 % (11.5-14.5) Platelet Count 224 x10^3/uL (140-400) Neutrophils (%) (Auto) 67 % (31-73) Lymphocytes (%) (Auto) 17 % (24-48) Monocytes (%) (Auto) 15 % (0-9) Eosinophils (%) (Auto) 2 % (0-3) Basophils (%) (Auto) 0 % (0-3) Neutrophils # (Auto) 5.5 x10^3uL (1.8-7.7) Lymphocytes # (Auto) 1.4 x10^3/uL (1.0-4.8) Monocytes # (Auto) 1.2 x10^3/uL (0.0-1.1) Eosinophils # (Auto) 0.1 x10^3/uL (0.0-0.7) Basophils # (Auto) 0.0 x10^3/uL (0.0-0.2) Sodium Level 138 mmol/L (136-145) Potassium Level 3.2 mmol/L (3.5-5.1) Chloride Level 101 mmol/L (98-107) Carbon Dioxide Level 28 mmol/L (21-32) Anion Gap 9 (6-14) Blood Urea Nitrogen 34 mg/dL (7-20) Creatinine 2.2 mg/dL (0.6-1.0) Estimated GFR (Cockcroft-Gault) 26.0 Glucose Level 169 mg/dL (70-99) Lactic Acid Level 1.2 mmol/L (0.4-2.0) Calcium Level 8.8 mg/dL (8.5-10.1) Phosphorus Level 3.7 mg/dL (2.6-4.7) Magnesium Level 2.5 mg/dL (1.8-2.4) Albumin 2.4 g/dL (3.4-5.0) Test 08/11/16 07:22 O2 Saturation 95 % (92-99) Arterial Blood pH 7.49 (7.35-7.45) Arterial Blood pCO2 at Patient Temp 38 mmHg (35-46) Arterial Blood pO2 at Patient Temp 76 mmHg (85-108) Arterial Blood HCO3 28 mmol/L (21-28) Arterial Blood Base Excess 4 mmol/L (-3-3) FiO2 50 Laboratory Tests Test 08/10/16 11:21 08/10/16 16:27 08/11/16 05:00 08/11/16 07:22 Glucose (Fingerstick) 145 mg/dL (70-99) 146 mg/dL (70-99) White Blood Count 8.2 x10^3/uL (4.0-11.0) Red Blood Count 2.97 x10^6/uL (3.50-5.40) Hemoglobin 8.5 g/dL (12.0-15.5) Hematocrit 25.1 % (36.0-47.0) Mean Corpuscular Volume 85 fL (79-100) Mean Corpuscular Hemoglobin 29 pg (25-35) Mean Corpuscular Hemoglobin Concent 34 g/dL (31-37) Red Cell Distribution Width 14.4 % (11.5-14.5) Platelet Count 224 x10^3/uL (140-400) Neutrophils (%) (Auto) 67 % (31-73) Lymphocytes (%) (Auto) 17 % (24-48) Monocytes (%) (Auto) 15 % (0-9) Eosinophils (%) (Auto) 2 % (0-3) Basophils (%) (Auto) 0 % (0-3) Neutrophils # (Auto) 5.5 x10^3uL (1.8-7.7) Lymphocytes # (Auto) 1.4 x10^3/uL (1.0-4.8) Monocytes # (Auto) 1.2 x10^3/uL (0.0-1.1) Eosinophils # (Auto) 0.1 x10^3/uL (0.0-0.7) Basophils # (Auto) 0.0 x10^3/uL (0.0-0.2) Sodium Level 138 mmol/L (136-145) Potassium Level 3.2 mmol/L (3.5-5.1) Chloride Level 101 mmol/L (98-107) Carbon Dioxide Level 28 mmol/L (21-32) Anion Gap 9 (6-14) Blood Urea Nitrogen 34 mg/dL (7-20) Creatinine 2.2 mg/dL (0.6-1.0) Estimated GFR (Cockcroft-Gault) 26.0 Glucose Level 169 mg/dL (70-99) Lactic Acid Level 1.2 mmol/L (0.4-2.0) Calcium Level 8.8 mg/dL (8.5-10.1) Phosphorus Level 3.7 mg/dL (2.6-4.7) Magnesium Level 2.5 mg/dL (1.8-2.4) Albumin 2.4 g/dL (3.4-5.0) O2 Saturation 95 % (92-99) Arterial Blood pH 7.49 (7.35-7.45) Arterial Blood pCO2 at Patient Temp 38 mmHg (35-46) Arterial Blood pO2 at Patient Temp 76 mmHg (85-108) Arterial Blood HCO3 28 mmol/L (21-28) Arterial Blood Base Excess 4 mmol/L (-3-3) FiO2 50 Microbiology 08/07/16 Blood Culture - Preliminary, Resulted NO GROWTH AFTER 3 DAYS Medications Current Medications Ondansetron HCl (Zofran Odt) 4 mg 1X ONCE PO ; Start 08/06/16 at 07:00; Stop 08/06/16 at 07:00; Status DC Sodium Chloride 1,000 ml @ 1,000 mls/hr 1X ONCE IV Last administered on 07:00; Start 08/06/16 at 07:00; Stop 08/06/16 at 07:59; Status DC Ondansetron HCl (Zofran) 4 mg 1X ONCE IV Last administered on 08/06/16 07:02; Start 08/06/16 at 07:00; Stop 08/06/16 at 07:01; Status DC Ondansetron HCl (Zofran) 4 mg 1X ONCE IV Last administered on 08/06/16 08:09; Start 08/06/16 at 08:00; Stop 08/06/16 at 08:01; Status DC Ondansetron HCl (Zofran) 4 mg PRN Q8HRS PRN IV NAUSEA/VOMITING; Start 08/06/16 at 08:15; Stop 08/07/16 at 08:14; Status DC Sodium Chloride 1,000 ml @ 125 mls/hr Q8H IV Last administered on 08/07/16 00: 08; Start 08/06/16 at 08:08; Stop 08/07/16 at 08:07; Status DC Famotidine (Pepcid) 20 mg 1X ONCE IVP Last administered on 08/06/16 08:33; Start 08/06/16 at 08:30; Stop 08/06/16 at 08:31; Status DC Sodium Chloride 1,000 ml @ 1,000 mls/hr 1X ONCE IV Last administered on 09:36; Start 08/06/16 at 09:00; Stop 08/06/16 at 09:59; Status DC Lorazepam (Ativan) 1 mg 1X ONCE IV Last administered on 08/06/16 09:32; Start 08/06/16 at 09:30; Stop 08/06/16 at 09:31; Status DC Insulin Human Regular (Novolin R Vial) 10 unit 1X ONCE SQ ; Start 08/06/16 at 09 :45; Stop 08/06/16 at 12:45; Status DC Sodium Bicarbonate 100 meq 1X ONCE IV Last administered on 08/06/16 11:04; Start 08/06/16 at 10:00; Stop 08/06/16 at 10:01; Status DC Lorazepam (Ativan) 2 mg 1X ONCE IV ; Start 08/06/16 at 10:00; Stop 08/06/16 at 10 :01; Status DC Iohexol (Omnipaque 300 Mg/ml) 75 ml 1X ONCE IV Last administered on 08/06/16 11:31; Start 08/06/16 at 10:15; Stop 08/06/16 at 10:16; Status DC Propofol 50 ml @ As Directed STK-MED ONCE IV ; Start 08/06/16 at 10:27; Stop 08/06 at 10:28; Status DC Midazolam HCl (Versed) 4 mg 1X ONCE IV Last administered on 08/06/16 10:35; Start 08/06/16 at 10:45; Stop 08/06/16 at 10:46; Status DC Fentanyl Citrate (Fentanyl 2ml Vial) 25 mcg 1X ONCE IV Last administered on t 10:35; Start 08/06/16 at 10:45; Stop 08/06/16 at 10:46; Status DC Heparin Sodium (Porcine) (Heparin Sodium) 10,000 unit STK-MED ONCE .ROUTE ; Start 08/06/16 at 10:40; Stop 08/06/16 at 10:41; Status DC Lidocaine/Sodium Bicarbonate (Buffered Lidocaine 1%) 20 ml STK-MED ONCE IJ ; Start 08/06/16 at 10:40; Stop 08/06/16 at 10:41; Status DC Heparin Sodium/ Sodium Chloride 500 ml @ As Directed STK-MED ONCE .ROUTE ; Start 08/06/16 at 10:40; Stop 08/06/16 at 10:41; Status DC Propofol 50 ml @ As Directed STK-MED ONCE IV ; Start 08/06/16 at 11:02; Stop 08/06 at 11:03; Status DC Magnesium Sulfate/ Dextrose 50 ml @ 25 mls/hr PRN DAILY PRN IV for Mag < 1.7 on am labs; Start 08/06/16 at 11:30; Stop 08/10/16 at 09:26; Status DC Etomidate (Amidate) 20 mg STK-MED ONCE IV ; Start 08/06/16 at 11:35; Stop at 11:36; Status DC Succinylcholine Chloride (Anectine) 200 mg STK-MED ONCE .ROUTE ; Start 08/06/16 at 11:36; Stop 08/06/16 at 11:37; Status DC Propofol 100 ml @ As Directed STK-MED ONCE IV ; Start 08/06/16 at 12:01; Stop at 12:02; Status DC Propofol 100 ml @ 0 mls/hr CONT PRN IV SEE I/O RECORD Last administered on 02:00; Start 08/06/16 at 12:15 Midazolam HCl (Versed) 4 mg 1X ONCE IV Last administered on 08/06/16 12:00; Start 08/06/16 at 12:15; Stop 08/06/16 at 12:20; Status DC Lidocaine/Sodium Bicarbonate (Buffered Lidocaine 1%) 3 ml 1X ONCE IJ Last administered on 08/06/16 12:50; Start 08/06/16 at 12:30; Stop 08/06/16 at 12:31; Status DC Heparin Sodium/ Sodium Chloride 60 unit 1X ONCE IV Last administered on 12:50; Start 08/06/16 at 12:30; Stop 08/06/16 at 12:31; Status DC Heparin Sodium (Porcine) (Heparin Sodium) 2,500 unit 1X ONCE INT CAT Last administered on 08/06/16 12:50; Start 08/06/16 at 12:30; Stop 08/06/16 at 12:31; Status DC Dextrose (Dextrose 50%-Water Syringe) 25 gm STK-MED ONCE IV ; Start 08/06/16 at 14:19; Stop 08/06/16 at 14:20; Status DC Levofloxacin/ Dextrose 100 ml @ 100 mls/hr Q24H IV ; Start 08/06/16 at 14:30; Stop 08/07/16 at 11:04; Status DC Albuterol/ Ipratropium (Duoneb) 3 ml RTQID NEB Last administered on 08/11/16 07 :03; Start 08/06/16 at 16:00 Dextrose (Dextrose 50%-Water Syringe) 25 gm STK-MED ONCE IV ; Start 08/06/16 at 14:25; Stop 08/06/16 at 14:26; Status DC Pantoprazole Sodium (Protonix Vial) 40 mg DAILYAC IVP Last administered on 08:19; Start 08/06/16 at 15:00 Heparin Sodium (Porcine) 5,000 unit Q8HRS SQ ; Start 08/06/16 at 15:00; Stop 08/06 at 22:19; Status DC Insulin Aspart (Novolog) 0-9 UNITS TIDWMEALS SQ ; Start 08/06/16 at 17:00 Dextrose (Dextrose 50%-Water Syringe) 12.5 gm PRN Q15MIN PRN IV SEE COMMENTS Last administered on 08/06/16 18:44; Start 08/06/16 at 14:30; Stop 08/07/16 at 08: 02; Status DC Sodium Bicarbonate 50 meq STK-MED ONCE .ROUTE ; Start 08/06/16 at 14:27; Stop 08/06/16 at 14:28; Status DC Sodium Bicarbonate 150 meq/Dextrose 1,150 ml @ 100 mls/hr [id number] IV Last administered on 08/06/16 15:27; Start 08/06/16 at 14:45; Stop 08/06/16 at 18:59; Status DC Dextrose (Dextrose 50%-Water Syringe) 25 gm 1X ONCE IV Last administered on 14:52; Start 08/06/16 at 14:45; Stop 08/06/16 at 14:46; Status DC Dextrose (Dextrose 50%-Water Syringe) 25 gm 1X ONCE IV Last administered on 14:53; Start 08/06/16 at 14:45; Stop 08/06/16 at 14:46; Status DC Sodium Chloride 1,000 ml @ 1,000 mls/hr Q1H PRN IV hypotension; Start 08/06/16 at 14:44; Stop 08/06/16 at 20:43; Status DC Albumin Human 200 ml @ 200 mls/hr 1X PRN PRN IV Hypotension; Start 08/06/16 at 14:45; Stop 08/06/16 at 20:44; Status DC Sodium Chloride (Normal Saline Flush) 10 ml 1X PRN PRN IV AP catheter pack; Start 08/06/16 at 14:45; Stop 08/07/16 at 07:50; Status DC Sodium Chloride (Normal Saline Flush) 10 ml 1X PRN PRN IV 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; Start 08/06/16 at 14:45; Stop 08/07/16 at 08:01; Status DC Info (PHARMACY MONITORING -- do not chart) 1 each PRN DAILY PRN MC SEE COMMENTS ; Start 08/06/16 at 14:45; Stop 08/11/16 at 07:14; Status DC Sodium Bicarbonate 50 meq 1X ONCE IV Last administered on 08/06/16 15:06; Start 08/06/16 at 15:00; Stop 08/06/16 at 15:01; Status DC Sodium Bicarbonate 50 meq 1X ONCE IV Last administered on 08/06/16 15:07; Start 08/06/16 at 15:00; Stop 08/06/16 at 15:01; Status DC Norepinephrine Bitartrate 250 ml @ 0 mls/hr CONT PRN IV SEE I/O RECORD Last administered on 08/07/16 14:38; Start 08/06/16 at 15:45 Epinephrine HCl 4 mg/Sodium Chloride 254 ml @ 3.81 mls/hr 1X ONCE IV Last administered on 08/06/16 17:13; Start 08/06/16 at 16:00; Stop 08/09/16 at 10:39; Status DC Fentanyl Citrate 30 ml @ As Directed STK-MED ONCE IV ; Start 08/06/16 at 15:57; Stop 08/06/16 at 15:58; Status DC Midazolam HCl 100 ml @ As Directed STK-MED ONCE IV ; Start 08/06/16 at 15:57; Stop 08/06/16 at 15:58; Status DC Potassium Chloride 5 meq/ Calcium Chloride 15 meq/Magnesium Sulfate 12.5 meq/ Miscellaneous Medication 5,016.2931 ml @ 1,000 mls/hr Q5H1M IV Last administered on 08/07/16 03:08; Start 08/06/16 at 19:00; Stop 08/07/16 at 10:00; Status DC Potassium Chloride 15 meq/ Calcium Chloride 15 meq/Magnesium Sulfate 12.5 meq/ Miscellaneous Medication 5,021.2931 ml @ 1,000 mls/hr Q5H2M IV Last administered on 08/07/16 00:02; Start 08/06/16 at 19:00; Stop 08/07/16 at 00:55; Status DC Sodium Bicarbonate 150 meq/Dextrose 1,150 ml @ 500 mls/hr Q2H18M IV Last administered on 08/07/16 11:35; Start 08/06/16 at 19:00; Stop 08/07/16 at 11:36; Status DC Fentanyl Citrate 30 ml @ 0 mls/hr CONT PRN IV PROTOCOL Last administered on 08/10 22:13; Start 08/06/16 at 16:30 Chlorhexidine Gluconate (Peridex) 15 ml BID MM Last administered on 08/11/16 08 :24; Start 08/06/16 at 21:00 Midazolam HCl 100 ml @ 0 mls/hr CONT PRN IV PER PROTOCOL Last administered on 04:00; Start 08/06/16 at 16:30 Midazolam HCl (Versed) 5 mg 1X ONCE IV ; Start 08/06/16 at 16:30; Stop 08/06/16 at 16:31; Status DC Dextrose (Dextrose 50%-Water Syringe) 12.5 gm PRN Q15MIN PRN IV SEE COMMENTS; Start 08/06/16 at 16:30 Lidocaine HCl (Lidocaine HCl 2% Abboject) 100 mg STK-MED ONCE .ROUTE ; Start 08/06/16 at 18:59; Stop 08/06/16 at 19:00; Status DC Dextrose 1,000 ml @ 100 mls/hr Q10H IV Last administered on 08/07/16 05:00; Start 08/06/16 at 19:00; Stop 08/07/16 at 10:20; Status DC Heparin Sodium/ Dextrose 500 ml @ 0 mls/hr CONT PRN IV SEE I/O RECORD Last administered on 08/08/16 00:49; Start 08/06/16 at 22:15; Stop 08/11/16 at 07:34; Status DC Potassium Chloride 10 meq/ Calcium Chloride 15 meq/Magnesium Sulfate 12.5 meq/ Miscellaneous Medication 5,018.7931 ml @ 1,000 mls/hr Q5H2M IV ; Start 08/07/16 at 00:55; Stop 08/07/16 at 00:58; Status DC Calcium Chloride 15 meq/Magnesium Sulfate 12.5 meq/ Miscellaneous Medication 5, 013.7931 ml @ 1,000 mls/hr Q5H1M IV Last administered on 08/07/16 10:00; Start 08/07/16 at 00:58; Stop 08/07/16 at 10:00; Status DC Lorazepam 100 mg/ Sodium Chloride 100 ml @ 0 mls/hr CONT PRN PRN IV SEDATION Last administered on 08/07/16 14:08; Start 08/07/16 at 01:00 Vecuronium Rogers (Norcuron Bolus) 10 mg PRN Q6HRS PRN IV SEDATION Last administered on 08/07/16 09:47; Start 08/07/16 at 02:45 Heparin Sodium (Porcine) (Heparin Sodium) 5,400 unit 1X ONCE IV Last administered on 08/07/16 06:33; Start 08/07/16 at 06:30; Stop 08/07/16 at 06:31; Status DC Calcium Chloride 2000 mg/Sodium Chloride 120 ml @ 240 mls/hr 1X ONCE IV Last administered on 08/07/16 09:10; Start 08/07/16 at 09:00; Stop 08/07/16 at 09:29; Status DC Magnesium Sulfate/ Dextrose 50 ml @ 25 mls/hr 1X ONCE IV Last administered on 08/07/16 09:09; Start 08/07/16 at 09:00; Stop 08/07/16 at 10:59; Status DC Vasopressin 40 unit/Dextrose 102 ml @ 6 mls/hr CONT PRN IV SEE I/O RECORD Last administered on 08/07/16 09:09; Start 08/07/16 at 09:00; Stop 08/08/16 at 13:06; Status DC Calcium Chloride 17.5 meq/ Magnesium Sulfate 15 meq/ Miscellaneous Medication 5, 016.1945 ml @ 1,000 mls/hr Q5H1M IV Last administered on 08/07/16 20:40; Start 08/07/16 at 14:00; Stop 08/07/16 at 23:24; Status DC Potassium Chloride 5 meq/ Calcium Chloride 17.5 meq/ Magnesium Sulfate 15 meq/ Miscellaneous Medication 5,018.6945 ml @ 1,000 mls/hr Q5H2M IV Last administered on 08/07/16 20:40; Start 08/07/16 at 14:00; Stop 08/07/16 at 23:25; Status DC Sulfur Hexafluoride Microspheres (Lumason) 25 mg STK-MED ONCE IVP ; Start at 09:01; Stop 08/07/16 at 09:02; Status DC Ceftriaxone Sodium 2 gm/ Sodium Chloride 100 ml @ 200 mls/hr Q24H IV Last administered on 08/10/16 16:35; Start 08/07/16 at 12:00 Sodium Bicarbonate 150 meq/Dextrose 1,150 ml @ 500 mls/hr Q2H18M IV Last administered on 08/07/16 17:04; Start 08/07/16 at 14:00; Stop 08/07/16 at 17:52; Status DC Sodium Chloride 1,000 ml @ 500 mls/hr Q2H IV Last administered on 08/07/16 23: 06; Start 08/07/16 at 19:00; Stop 08/07/16 at 23:39; Status DC Calcium Chloride 17.5 meq/ Magnesium Sulfate 10 meq/Potassium Chloride 5 meq/ Bicarb Dialysis8 w-Out Calcium 5,017.463 ml @ 1,000 mls/hr Q5H2M IV Last administered on 08/08/16 05:12; Start 08/08/16 at 00:00; Stop 08/08/16 at 14:37; Status DC Potassium Chloride 5 meq/ Calcium Chloride 17.5 meq/ Magnesium Sulfate 10 meq/ Bicarb Dialysis8 w-Out Calcium 5,017.463 ml @ 1,000 mls/hr Q5H2M IV Last administered on 08/08/16 05:13; Start 08/08/16 at 00:00; Stop 08/08/16 at 14:37; Status DC Sodium Chloride 1,000 ml @ 500 mls/hr Q2H IV Last administered on 08/08/16 06: 36; Start 08/08/16 at 00:00; Stop 08/08/16 at 15:43; Status DC Potassium Phosphate 13.6 mmol/Sodium Chloride 104.5333 ml @ 52.267 m... Q2H IV Last administered on 08/08/16 21:05; Start 08/08/16 at 15:00; Stop 08/08/16 at 20:59; Status DC Acetaminophen (Tylenol) 650 mg PRN Q6HRS PRN PEG MILD PAIN / TEMP Last administered on 08/08/16 18:40; Start 08/08/16 at 17:45 Sodium Chloride 1,000 ml @ 1,000 mls/hr Q1H PRN IV hypotension; Start 08/10/16 at 12:26; Stop 08/10/16 at 18:25; Status DC Diphenhydramine HCl (Benadryl) 25 mg 1X PRN PRN IV ITCHING; Start 08/10/16 at 12 :30; Stop 08/11/16 at 12:29 Diphenhydramine HCl (Benadryl) 25 mg 1X PRN PRN IV ITCHING; Start 08/10/16 at 12 :30; Stop 08/11/16 at 12:29 Sodium Chloride (Normal Saline Flush) 10 ml 1X PRN PRN IV AP catheter pack; Start 08/10/16 at 12:30; Stop 08/11/16 at 12:29 Sodium Chloride (Normal Saline Flush) 10 ml 1X PRN PRN IV 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; Start 08/10/16 at 12:30; Stop 08/11/16 at 12:29 Sodium Chloride 1,000 ml @ 400 mls/hr Q2H30M PRN IV PATENCY; Start 08/10/16 at 12:26; Stop 08/11/16 at 00:25; Status DC Info (PHARMACY MONITORING -- do not chart) 1 each PRN DAILY PRN MC SEE COMMENTS ; Start 08/10/16 at 12:30; Stop 08/11/16 at 07:14; Status DC Heparin Sodium (Porcine) (Heparin Sodium) 5,000 unit 1X STAT IV Last administered on 08/10/16 13:32; Start 08/10/16 at 13:15; Stop 08/10/16 at 13:18; Status DC Sodium Chloride 1,000 ml @ 1,000 mls/hr Q1H PRN IV hypotension; Start 08/11/16 at 07:00; Stop 08/11/16 at 12:59 Albumin Human 200 ml @ 200 mls/hr 1X PRN PRN IV Hypotension; Start 08/11/16 at 07:00; Stop 08/11/16 at 12:59 Sodium Chloride (Normal Saline Flush) 10 ml 1X PRN PRN IV AP catheter pack; Start 08/11/16 at 07:00; Stop 08/12/16 at 06:59 Sodium Chloride (Normal Saline Flush) 10 ml 1X PRN PRN IV 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; Start 08/11/16 at 07:00; Stop 08/12/16 at 06:59 Sodium Chloride 1,000 ml @ 400 mls/hr Q2H30M PRN IV PATENCY; Start 08/11/16 at 07:00; Stop 08/11/16 at 18:59 Info (PHARMACY MONITORING -- do not chart) 1 each PRN DAILY PRN MC SEE COMMENTS ; Start 08/11/16 at 07:00 Heparin Sodium (Porcine) 5,000 unit Q8H SQ Last administered on 08/11/16 08:22 ; Start 08/11/16 at 08:00 Active Scripts Active Reported Herculaneum 5-325 Tablet (Acetaminophen/Hydrocodone Bitart) 1 Each Tablet 1 Tab PO PRN Q6HRS PRN Gabapentin 800 Mg Tablet 800 Mg PO TID Vitals/I & O Vital Sign - Last 24 Hours 08/10/16 08/10/16 08/10/16 08/10/16 10:00 10:57 11:00 12:00 Temp 98.8 98.8 Pulse 96 96 97 Resp 23 20 22 B/P (MAP) 148/68 (94) 162/85 (110) 165/70 (101) Pulse Ox 96 96 98 96 O2 Delivery Ventilator Ventilator Ventilator Ventilator 08/10/16 08/10/16 08/10/16 08/10/16 12:00 13:00 13:20 14:00 Pulse 90 82 Resp 22 24 B/P (MAP) 147/63 (91) 156/76 (102) Pulse Ox 96 96 99 O2 Delivery Mechanical Ventilator Ventilator Ventilator Ventilator 08/10/16 08/10/16 08/10/16 08/10/16 14:58 15:00 16:00 16:00 Temp 99.1 99.1 Pulse 82 90 Resp 20 22 B/P (MAP) 153/80 (104) 141/78 (99) Pulse Ox 95 98 97 O2 Delivery Ventilator Ventilator Ventilator Mechanical Ventilator 08/10/16 08/10/16 08/10/16 08/10/16 17:00 17:12 18:00 19:00 Temp 99.0 99.0 Pulse 82 83 90 Resp 20 20 20 B/P (MAP) 142/77 (98) 139/75 (96) 131/57 (81) Pulse Ox 98 97 98 98 O2 Delivery Ventilator Ventilator Ventilator Ventilator 08/10/16 08/10/16 08/10/16 08/10/16 19:27 20:00 20:00 21:00 Pulse 89 91 Resp 20 20 B/P (MAP) 132/63 (86) 129/62 (84) Pulse Ox 97 98 98 O2 Delivery Ventilator Mechanical Ventilator Ventilator Ventilator 08/10/16 08/10/16 08/10/16 08/10/16 22:00 22:13 22:43 23:00 Temp 98.9 98.9 Pulse 81 88 Resp 20 20 20 20 B/P (MAP) 111/57 (75) 122/63 (82) Pulse Ox 96 96 O2 Delivery Ventilator Ventilator Ventilator 08/10/16 08/10/16 08/11/16 08/11/16 23:37 23:59 00:00 01:00 Pulse 81 85 Resp 20 20 B/P (MAP) 140/80 (100) 104/50 (68) Pulse Ox 97 96 96 O2 Delivery Ventilator Mechanical Ventilator Ventilator Ventilator 08/11/16 08/11/16 08/11/16 08/11/16 01:50 02:00 03:00 03:41 Temp 98.7 98.7 Pulse 84 79 Resp 20 20 B/P (MAP) 100/54 (69) 99/54 (69) Pulse Ox 97 98 97 97 O2 Delivery Ventilator Ventilator Ventilator Ventilator 08/11/16 08/11/16 08/11/16 08/11/16 04:00 04:00 05:00 05:42 Pulse 83 91 Resp 20 20 B/P (MAP) 109/65 (80) 114/59 (77) Pulse Ox 96 96 97 O2 Delivery Ventilator Mechanical Ventilator Ventilator Ventilator 08/11/16 08/11/16 08/11/16 08/11/16 06:00 07:00 07:04 07:49 Pulse 85 94 Resp 20 22 B/P (MAP) 123/61 (81) 123/55 (77) Pulse Ox 96 95 96 O2 Delivery Ventilator Ventilator Ventilator Ventilator 08/11/16 08/11/16 08:00 08:56 Temp 100.1 100.1 Pulse 89 Resp 20 B/P (MAP) 112/58 (76) Pulse Ox 96 97 O2 Delivery Ventilator Ventilator Intake and Output 08/10/16 08/10/16 08/11/16 15:00 23:00 07:00 Intake Total 390 ml 984 ml Output Total 910 ml 435 ml 595 ml Balance -910 ml -45 ml 389 ml BREN MASTERS MD August 11, 2016 09:31
--- NOTE | 2016-08-11 10:03 | RAD ---
Indication respiratory failure. A single view of the chest was obtained and is compared to a study one day earlier. Endotracheal tube has its tip approximately 1 to 2 cm above the sandhya. Nasogastric tube is noted but positioning of the tip is uncertain. Right-sided dialysis catheter is noted. Heart size and pulmonary vessels are within normal limits. Some volume loss persists at the left lung base compatible with atelectasis and pleural fluid (underlying pneumonia not excluded) but aeration of the left lung base has improved slightly relative to the previous exam. IMPRESSION: Slight improvement in aeration of the left lung base.
[2016-08-11 13:11] LABS: HCO3 ABG 31 mmol/L (21-28); PCO2 ABG 38 mmHg (35-46); PH ABG 7.53 (7.35-7.45); PO2 ABG 76 mmHg (85-108); SAT O2 ABG 95 % (92-99)
[2016-08-11] MEDS ORDERED: RACEPINEPHRINE 2.25% 0.5 ML NEBU. NEB ONE (14:00)
[2016-08-11] MEDS ORDERED: HALOPERIDOL LACTATE 5 MG/ML VIAL. IVP PRN (14:15)
[2016-08-11] MEDS ORDERED: diphenhydrAMINE 50 MG/ML VIAL IVP PRN (15:30)
[2016-08-11] MEDS ORDERED: NITROGLYCERIN PREMIX 250 ML IV PRN (16:30)
[2016-08-11 17:24] LABS: FIO2 ABG 50
[2016-08-11] MEDS ORDERED: methylPREDNISolone SOD SUCC PF 40 MG/ML VIAL. IV ONE (20:30)
[2016-08-11 20:55] LABS: HCO3 ABG 37 mmol/L (21-28); PO2 ABG 75 mmHg (85-108); SAT O2 ABG 88 % (92-99)
[2016-08-11 21:07] LABS: FIO2 ABG 100; PCO2 ABG 124 mmHg (35-46); PH ABG 7.09 (7.35-7.45)
[2016-08-12] VITALS: BP 176/70
[2016-08-12] MEDS ORDERED: methylPREDNISolone SOD SUCC PF 40 MG/ML VIAL. IV SCH
[2016-08-12 00:30] VITALS: BP 158/75
[2016-08-12 01:00] VITALS: BP 177/74
[2016-08-12] MEDS ORDERED: MORPHINE SULFATE 10 MG/ML VIAL. ONE ×2 (02:00→02:14)
[2016-08-12] MEDS ORDERED: MORPHINE SULFATE 4 MG/ML DISP.SYRIN. IV PRN (02:15)
--- NOTE | 2016-08-12 10:50 | PDOC3 ---
Discharge Summary Visit Information Date of Admission: August 06, 2016 Date of Discharge: August 12, 2016 Admitting Diagnosis: suicide attempt Final Diagnosis Drug overdose, suicide w/ metformin SIRS, acute renal failure History of prior suicidal attempt History of anxiety Depression, Major Hypertension Morbid obesity, BMI 49 Problems Medical Problems: (1) Altered mental status Status: Acute (2) Drug overdose, intentional Status: Acute (3) Hyponatremia Status: Acute (4) Intentional drug overdose Status: Acute Brief Hospital Course Allergies Allergies Coded Allergies Type Severity Reaction Last Updated Verified Penicillins Allergy Intermediate 03/06/14 Yes bupropion Allergy Intermediate 03/06/14 Yes meperidine Allergy Intermediate 03/06/14 Yes Vital Signs Vital Signs Date Time Temp Pulse Resp B/P (MAP) Pulse Ox O2 Delivery O2 Flow Rate FiO2 08/12/16 01:39 93 BiPAP/CPAP 08/12/16 01:00 133 35 177/74 (108) 08/12/16 00:00 98.0 98.0 Lab Results Laboratory Tests Test 08/10/16 11:21 08/10/16 16:27 08/11/16 05:00 08/11/16 07:22 Glucose (Fingerstick) 145 mg/dL (70-99) 146 mg/dL (70-99) White Blood Count 8.2 x10^3/uL (4.0-11.0) Red Blood Count 2.97 x10^6/uL (3.50-5.40) Hemoglobin 8.5 g/dL (12.0-15.5) Hematocrit 25.1 % (36.0-47.0) Mean Corpuscular Volume 85 fL (79-100) Mean Corpuscular Hemoglobin 29 pg (25-35) Mean Corpuscular Hemoglobin Concent 34 g/dL (31-37) Red Cell Distribution Width 14.4 % (11.5-14.5) Platelet Count 224 x10^3/uL (140-400) Neutrophils (%) (Auto) 67 % (31-73) Lymphocytes (%) (Auto) 17 % (24-48) Monocytes (%) (Auto) 15 % (0-9) Eosinophils (%) (Auto) 2 % (0-3) Basophils (%) (Auto) 0 % (0-3) Neutrophils # (Auto) 5.5 x10^3uL (1.8-7.7) Lymphocytes # (Auto) 1.4 x10^3/uL (1.0-4.8) Monocytes # (Auto) 1.2 x10^3/uL (0.0-1.1) Eosinophils # (Auto) 0.1 x10^3/uL (0.0-0.7) Basophils # (Auto) 0.0 x10^3/uL (0.0-0.2) Sodium Level 138 mmol/L (136-145) Potassium Level 3.2 mmol/L (3.5-5.1) Chloride Level 101 mmol/L (98-107) Carbon Dioxide Level 28 mmol/L (21-32) Anion Gap 9 (6-14) Blood Urea Nitrogen 34 mg/dL (7-20) Creatinine 2.2 mg/dL (0.6-1.0) Estimated GFR (Cockcroft-Gault) 26.0 Glucose Level 169 mg/dL (70-99) Lactic Acid Level 1.2 mmol/L (0.4-2.0) Calcium Level 8.8 mg/dL (8.5-10.1) Phosphorus Level 3.7 mg/dL (2.6-4.7) Magnesium Level 2.5 mg/dL (1.8-2.4) Albumin 2.4 g/dL (3.4-5.0) Procalcitonin 9.67 ng/mL (0.00-0.10) O2 Saturation 95 % (92-99) Arterial Blood pH 7.49 (7.35-7.45) Arterial Blood pCO2 at Patient Temp 38 mmHg (35-46) Arterial Blood pO2 at Patient Temp 76 mmHg (85-108) Arterial Blood HCO3 28 mmol/L (21-28) Arterial Blood Base Excess 4 mmol/L (-3-3) FiO2 50 Test 08/11/16 12:09 08/11/16 13:07 08/11/16 17:13 08/11/16 20:15 Glucose (Fingerstick) 136 mg/dL (70-99) 169 mg/dL (70-99) O2 Saturation 95 % (92-99) 88 % (92-99) Arterial Blood pH 7.53 (7.35-7.45) 7.09 (7.35-7.45) Arterial Blood pCO2 at Patient Temp 38 mmHg (35-46) 124 mmHg (35-46) Arterial Blood pO2 at Patient Temp 76 mmHg (85-108) 75 mmHg (85-108) Arterial Blood HCO3 31 mmol/L (21-28) 37 mmol/L (21-28) Arterial Blood Base Excess 7 mmol/L (-3-3) 3 mmol/L (-3-3) FiO2 50 100 Test 08/11/16 20:59 08/11/16 23:52 Glucose (Fingerstick) 182 mg/dL (70-99) 156 mg/dL (70-99) Laboratory Tests Test 08/11/16 12:09 08/11/16 13:07 08/11/16 17:13 08/11/16 20:15 Glucose (Fingerstick) 136 mg/dL (70-99) 169 mg/dL (70-99) O2 Saturation 95 % (92-99) 88 % (92-99) Arterial Blood pH 7.53 (7.35-7.45) 7.09 (7.35-7.45) Arterial Blood pCO2 at Patient Temp 38 mmHg (35-46) 124 mmHg (35-46) Arterial Blood pO2 at Patient Temp 76 mmHg (85-108) 75 mmHg (85-108) Arterial Blood HCO3 31 mmol/L (21-28) 37 mmol/L (21-28) Arterial Blood Base Excess 7 mmol/L (-3-3) 3 mmol/L (-3-3) FiO2 50 100 Test 08/11/16 20:59 08/11/16 23:52 Glucose (Fingerstick) 182 mg/dL (70-99) 156 mg/dL (70-99) Brief Hospital Course Ms. Dong was a 30 old female admitted for drug overdose. 180 tabs of 500 mg of Metformin. Pt depressed, event was intentional. Acute resp failure, acidosis, acute renal failure, req Daily Hemodialysis. Many discussions with her mother, next-of-kin, default DPOA, pt made DNR, resp status improved over days, we were able to extubate, but patient tirelessly combative and refusing to wear ventimask or get breathing treatments or wear bipap,. Pt 08/12 at 0800. Discharge Information Condition at Discharge: / Scheduled Gabapentin (Gabapentin), 800 MG PO TID, (Reported) Scheduled PRN Hydrocodone/Apap 5-325 ([place] 5-325 Tablet), 1 TAB PO PRN Q6HRS PRN for PAIN, ( Reported) Discontinued Medications Clindamycin Hcl (Clindamycin Hcl), 300 MG PO QID, (Reported) Patient Instructions Patient Instructions time < 30 min [facility]ander was contacted, no autopsy, sent to [facility] BREN MASTERS MD August 12, 2016 10:50
== END 2016-08-12 10:23 | disposition expired | DRG 207 ==
LOC: ER 06:04 → 1 WEST ICU 08:00
PROVIDERS: ADMIT Internal Medicine; ATTEND Internal Medicine
PROC: 0BH17EZ Insertion of Endotracheal Airway into Trachea, Via Natural or Artificial Opening (ICD-10-PCS; 2016-08-06)
PROC: 5A1955Z Respiratory Ventilation, Greater than 96 Consecutive Hours (ICD-10-PCS; 2016-08-06)
PROC: B543ZZA Ultrasonography of Right Jugular Veins, Guidance (ICD-10-PCS; 2016-08-06)
PROC: 5A1D60Z (ICD-10-PCS; 2016-08-06)
PROC: 05HM33Z Insertion of Infusion Device into Right Internal Jugular Vein, Percutaneous Approach (ICD-10-PCS; principal; 2016-08-07)
DX: J96.00 Acute respiratory failure, unspecified whether with hypoxia or hypercapnia (principal); G92 Toxic encephalopathy; N17.0 Acute kidney failure with tubular necrosis; E87.1 Hypo-osmolality and hyponatremia; Z68.42 Body mass index [BMI] 45.0-49.9, adult; E87.2 Acidosis; R57.9 Shock, unspecified; R65.10 Systemic inflammatory response syndrome (SIRS) of non-infectious origin without acute organ dysfunction; T38.3X2A Poisoning by insulin and oral hypoglycemic [antidiabetic] drugs, intentional self-harm, initial encounter; D72.829 Elevated white blood cell count, unspecified; E11.22 Type 2 diabetes mellitus with diabetic chronic kidney disease; E11.649 Type 2 diabetes mellitus with hypoglycemia without coma; E66.01 Morbid (severe) obesity due to excess calories; E87.5 Hyperkalemia; F32.9 Major depressive disorder, single episode, unspecified; F41.9 Anxiety disorder, unspecified; D64.9 Anemia, unspecified; T38.3X5A Adverse effect of insulin and oral hypoglycemic [antidiabetic] drugs, initial encounter; I12.9 Hypertensive chronic kidney disease with stage 1 through stage 4 chronic kidney disease, or unspecified chronic kidney disease; J45.909 Unspecified asthma, uncomplicated; N18.3 Chronic kidney disease, stage 3 (moderate); Z66 Do not resuscitate; E11.42 Type 2 diabetes mellitus with diabetic polyneuropathy; Z90.710 Acquired absence of both cervix and uterus; Z90.49 Acquired absence of other specified parts of digestive tract; Z88.0 Allergy status to penicillin; Z88.8 Allergy status to other drugs, medicaments and biological substances; Y92.89 Other specified places as the place of occurrence of the external cause
CPT/HCPCS: 31500; 36415; 36556; 36600; 51702; 71010; 74000; 74177; 76770; 76937; 80048; 80051; 80053; 80069; 80156; 81001; 81025; 82010; 82550; 82570; 82803; 82805; 82947; 83036; 83605; 83690; 83735; 83930; 84100; 84145; 84156; 84300; 84484; 84550; 84703; 85007; 85027; 85520; 86706; 87040; 87340; 87341; 87641; 93005; 93306; 94002; 94003; 94640; 94660; 96361; 96374; 96375; 96376; A4215; C1892; C9113; G0480; G0481; G6038; J0171; J0696; J1200; J1630; J1815; J2060; J2250; J2270; J2405; J2704; J2920; J3010; J3475; J3490; J7030; J7042; J7050; J7060; J7620; Q9967; S0028; 80196; 99285-25